=== PATIENT | male | born 1965 | race Caucasian/White ===

== ENCOUNTER 2020-05-30 11:02 | Emergency (ER) | payer OTHER, SELFPAY ==
[2020-05-30 11:02] VITALS: BP 145/93; PULSE 78; RESP 18; TEMP 36.6; O2SAT 99; BMI 31.7
--- NOTE | 2020-05-30 11:11 | VDLE_ITS ---
Reason For Study: Leg pain RIGHT GSV is normal. CFV is compressible, spontaneous, phasic, competent and demonstrates normal augmentation. FV is compressible, spontaneous, phasic, competent and demonstrates normal augmentation. POP V is compressible, spontaneous, phasic, competent and demonstrates normal augmentation. T/P Trunk is compressible. PTV is compressible. RT PerV is compressible. Procedure This is a venous duplex using B-mode, color flow and spectral Doppler. Exam performed portable in ED. A preliminary report was called and/or faxed to [facility]. Interpretation Summary There is no evidence of right lower extremity deep vein thrombosis. Right great saphenous vein appears patent and compressible segmentally. Ordering Physician: Janeth Kaufman Referring Physician: Dania Ro M.D. Performed By: Elisabeth Duffy RVT
--- NOTE | 2020-05-30 11:34 | ED.VIS.GEN ---
History of Present Illness Informant: Patient Onset: Days Narrative: 54-year-old male with no significant past medical history presents with complaints of right leg pain. 3 days ago he had muscle cramping in his right calf. No known injury. Yesterday he continued to have pain in his calf and developed swelling. He went to urgent care who sent him to the ED for an ultrasound to rule out a blood clot. He has no history of DVT/PE. Denies fevers, chills, rash, chest pain, shortness of breath, cough, hemoptysis, recent surgery or travel, hormone use, or history of cancer. <Janeth Kaufmna - Last Filed: 05/30/20 11:53> <Kenny Schmitt - Last Filed: 05/30/20 12:32> Chief Complaint: Lower Extremity Injury Past Medical History Past Medical History: None Smoking Status: Current every day smoker <Janeth Kaufman - Last Filed: 05/30/20 11:53> <Kenny Schmitt - Last Filed: 05/30/20 12:32> - Allergies and Home Meds Allergies/Adverse Reactions: Allergies No Known Allergies Allergy (Verified 05/30/20 11:21) Primary Care Physician: Dania oR MD [Primary Care Provider] - Review of Systems General: Denies: Chills, Fever, Sweats Eyes: Denies: Visual changes - bilaterally, Diplopia ENT: Denies: Rhinorrhea, Sore throat Cardiovascular: Denies: Chest pain, Palpitations Respiratory: Denies: Dyspnea, Cough, Dyspnea on exertion Gastrointestinal: Denies: Abdominal pain, Nausea, Vomiting, Diarrhea, Melena, Hematochezia Genitourinary: Denies: Dysuria, Hematuria, Frequency Musculoskeletal: Reports: Swelling, Extremity Pain. Denies: Back pain Skin: Denies: Rash, Wounds Neurological: Denies: Headache, Weakness, Numbness <Janeth Kaufman - Last Filed: 05/30/20 11:53> Physical Exam Vital Signs/Narrative: Vital Signs Temp Pulse Resp BP Pulse Ox 05/30/20 11:02 98 F 78 18 145/93 H 99 General: Well nourished, Well developed, No Acute Distress Head: Normocephalic, Atraumatic Eyes: Perrl, EOMI ENT: Moist mucous membranes, No rhinorrhea Neck: Supple, Nontender Cardiovascular: Regular rate, Regular rhythm, No murmurs Respiratory: No distress, CTA bilaterally, Chest nontender Back: Nontender, Normal Inspection Extremities: No edema, Calf Tenderness, - - Right calf tenderness. No palpable cord. No overlying skin changes. No appreciable lower extremity swelling Skin: Normal color, No rash Neurological: Alert, Oriented x3, Cranial nerves II-XII grossly intact, Normal Strength, Normal Sensation Psychological: Normal affect, Normal Mood <Janeth Kaufman - Last Filed: 05/30/20 11:53> Vital Signs/Narrative: Vital Signs Temp Pulse Resp BP Pulse Ox 05/30/20 11:02 98 F 78 18 145/93 H 99 <Kenny Schmitt - Last Filed: 05/30/20 12:32> Diagnostic/Tx/Re-eval - Medical Decision Making Patient presented with atraumatic right calf pain. He appears well and nontoxic. Vital signs within normal limits. He has right calf tenderness to palpation but no palpable cord. No skin changes or swelling. Neurovascularly intact. Ultrasound negative for DVT. He was advised to increase hydration and take OTC pain meds for his intermittent muscle cramping. Follow-up with PCP if not improving. He was agreeable and discharged home in stable condition. <Janeth Kaufman - Last Filed: 05/30/20 11:53> - Medical Decision Making The patient was seen and evaluated. His symptoms do seem more muscular. However, we did obtain ultrasound. There is no evidence of acute DVT. Patient was reassured. He will be discharged home. <Kenny Schmitt - Last Filed: 05/30/20 12:32> ED Disposition <Janeth Kaufman - Last Filed: 05/30/20 11:53> <Kenny Schmitt - Last Filed: 05/30/20 12:32> - Plan for ED Patient: Disposition: Home or Assisted Living Diagnosis: Right leg pain Instructions: ED Pain, Acute, Uncertain Cause Referrals: Dania Ro MD [Primary Care Provider] -
== END 2020-05-30 12:19 | disposition home or self-care (01) ==
LOC: ED 12:16
PROVIDERS: Emergency Provider Physician Assistant; PCP Family Medicine
DX: M79.604 Pain in right leg (principal); F17.200 Nicotine dependence, unspecified, uncomplicated
CPT/HCPCS: 93971; 99282

== ENCOUNTER 2022-06-07 12:14 | Day surgery (SDC) | payer BC, SELFPAY ==
[2022-06-07 12:44] VITALS: BP 125/96; PULSE 92; RESP 18; TEMP 37.9; O2SAT 95; BMI 33.8
[2022-06-07] MEDS: Lactated Ringers 1,000 ML 15 ML IV (12:57)
--- NOTE | 2022-06-07 13:30 | IMM_PTH ---
PATIENT: SUSAN AVALOS LOC: EN U#:[id number] AGE/SX: 56/M ROOM: RE06/07/[address]: Dr. Sukhdeep Archuleta MD : 1965 BED: DIS: 06/07/2022 SPEC #: [id number] RECD: 06/09/22 07:34 STATUS: DES REKaushal #: [id number] ANDRES: 06/07/22 13:[address]: Sukhdeep Archuleta DEPT: IMMUNOHISTOCHEMISTRY RECD BY: Lisa Dsailva ENTERED: 06/09/22 07:34 SP TYPE: IMMUNO OTHR DR: Sukhdeep Christensen, DINING SERVICE SUPERVISOR-C Tissues: A - Stomach, NOS Procedures: H Pylori (initial) PHYSICIAN & INSTITUTION [place] [id number] SPECIMEN INFORMATION: Tissue Source: A ? Antrum biopsy Clinical Info: Positive IFOBT, abdominal bloating, GERD Specimen Number: [id number] CPT code: 62429 METHODOLOGY: Deparaffinized sections of prefer/formalin-fixed tissue or PAP/DQ stained slides are incubated with monoclonal/polyclonal antibodies/oligonucleotide probes. Localization is made via biotin free immunoperoxidase method. Appropriate controls are performed and reacted as expected. Results on target cell population are indicated in the following table: RESULTS: ANTIBODY / CLONE RESULT Block A H Pylori (polyclonal) negative These tests were developed and their performance characteristics determined by [facility]. They may not have been cleared or approved by the U.S. Food and Drug Administration. The FDA has determined that such clearance or approval is not necessary. The above immunohistochemical/dualISH markers are ordered and reviewed by the Pathologist. INTERPRETATION: A. Antrum, biopsy: Negative for Helicobacter pylori organisms. SJ:andres 06/09/2022
--- NOTE | 2022-06-07 13:30 | EGD_PTH ---
PATIENT: SUSAN AVALOS LOC: EN U#:[id number] AGE/SX: 56/M ROOM: RE06/07/[address]: Dr. Sukhdeep Archuleta MD : 1965 BED: DIS: 06/07/2022 SPEC #: [id number] RECD: 06/07/22 15:13 STATUS: DES MORIS #: [id number] ANDRES: 06/07/22 13:[address]: Sukhdeep Archuleta DEPT: SURGICAL PATHOLOGY RECD BY: Keesha Quesada ENTERED: 06/08/22 09:25 SP TYPE: EGD BIOPSY OTHR DR: Sukhdeep Christensen, CAPACITY MANAGER-C Tissues: A - Gastric mucous membrane B - Esophagus, NOS C - Sigmoid colon biopsy Procedures: Surgery Specimen Level IV HEADER OPERATION: Colonoscopy, EGD ([facility] [place]), biopsy PRE-OP DIAGNOSIS: Positive IFOBT, abdominal bloating, GERD TISSUE SUBMITTED: A ? Antrum biopsy for histo and H. pylori, B ? Distal esophagus biopsy, C ? Sigmoid polyp biopsy MICROSCOPIC DIAGNOSIS A. Antrum, biopsy: Mild gastritis. See microscopic description and comment. B. Distal esophagus, biopsy: Fragments of squamous mucosa with minimal chronic inflammation. C. Sigmoid polyp, biopsy: Hyperplastic polyp. SJ:rg 06/09/2022 COMMENT A. The results of immunohistochemistry for Helicobacter pylori will be reported separately ([id number]). MICROSCOPIC DESCRIPTION Slides are reviewed. A. The specimen shows fragments of gastric mucosa with chronic inflammatory cell infiltrates in the lamina propria consisting of lymphocytes and plasma cells, consistent with mild chronic gastritis. GROSS DESCRIPTION A - Received in fixative is one container labeled with the patient's name and designated antrum biopsy. The specimen consists of one irregular fragment of light jerez soft tissue that measures 0.4 x 0.3 x 0.1 cm. The specimen is totally submitted in one cassette. B - Received in fixative is one container labeled with the patient's name and designated distal esophagus biopsy. The specimen consists of multiple irregular fragments of light jerez soft tissue that in aggregate measure 0.6 x 0.6 x 0.1 cm. The specimen is totally submitted in one cassette. C - Received in fixative is one container labeled with the patient's name and designated sigmoid polyp biopsy. The specimen consists of one irregular fragment of light jerez soft tissue that measures 0.3 x 0.3 x 0.1 cm. The specimen is totally submitted in one cassette. / SJ:rg 06/08/2022 TC:3 CPT: 97997 x3
--- NOTE | 2022-06-07 13:44 | HP.PCM_ITS ---
History and Physical Date of Admission: 06/07/22 HISTORY AND PHYSICAL ? Boone Flores 1965 ? REFERRING PHYSICIAN: Yobany Fitzgerald APRN.ELECTRICAL MAINTENANCE WORKER ? CHIEF COMPLAINT: Consult (GERD and abdomen bloating) ? HPI: The patient is a 56 year old male referred for endoscopy. Boone notes a recent history of abdominal bloating and GERD. He was initiated on omeprazole recently which he states is helping with the reflux significantly, but still feels full and bloated often. ? Patient denies any change in bowel habits, weight changes, visible blood in stools, black tarry stools or abdominal pain. Denies family history of colon issues. ? Of note, patient had stool iFOBT in 2020 which was positive for occult blood. Patient did not pursue further evaluation at that time. ? Patient's past medical history is significant for tobacco use. Patient was evaluated in July 2021 for chest discomfort. Saw cardiology and had stress echo which was unremarkable. Per patient those symptoms completely went away after starting treatment for reflux. ? Boone has not undergone prior endoscopy. ? PAST MEDICAL HISTORY PAST MEDICAL HISTORY Diagnosis Date ? Acid reflux ? ? Tobacco use disorder 09/01/2020 ? ? PAST SURGICAL HISTORY PAST SURGICAL HISTORY Procedure Laterality Date ? PERCUTANEOUS LUMBAR DISKECTOMY Bilateral 2009 ? REPAIR ING HERNIA,5+Y/O,REDUCIBL Left 2008 ? ? ? CURRENT MEDICATIONS Current Outpatient Medications Medication Sig ? omeprazole (PRILOSEC) 20 mg capsule Take 2 capsules by mouth daily before breakfast. 1/2 hr before meal. ? No current facility-administered medications for this visit. ? ? ALLERGIES: Patient has no known allergies. ? PERSONAL HISTORY: SOCIAL HISTORY Social History ? Tobacco Use ? Smoking status: Every Day ? ? Packs/day: 2.00 ? ? Years: 32.00 ? ? Pack years: 64.00 ? ? Types: Cigarettes ? Smokeless tobacco: Never Vaping Use ? Vaping Use: Never used Substance Use Topics ? Alcohol use: Yes ? ? Alcohol/week: 12.0 standard drinks ? ? Types: 12 Cans of Beer (12oz) per week ? ? Comment: 2-3 per night ? Drug use: No ? ? FAMILY HISTORY: FAMILY HISTORY FAMILY HISTORY Problem Relation Age of Onset ? other (Bone cancer) Mother ? ? No Known Problems Father ? ? Cancer Maternal Grandmother ? ? Uterine ? No Known Problems Maternal Grandfather ? ? No Known Problems Paternal Grandmother ? ? No Known Problems Paternal Grandfather ? ? Rheumatologic disease Half-brother ? ? RA ? ? REVIEW OF SYSTEMS: General: The patient denies fatigue, denies weight loss, denies weight gain, notes feeling hot, and denies feelings of cold. Eyes: The patient denies glaucoma, denies eye injury/surgery, wears glasses or contacts. Ear/Nose/Throat: The patient denies allergies, denies hayfever, denies ear infections, and denies bloody noses. Cardiovascular: The patient denies chest pain, denies heart disease, denies high blood pressure,denies cardiac stent, denies prior heart attack, denies irregular heart beat, denies high cholesterol, denies poor circulation, denies heart failure, other cardiac issues, denies claudication, denies cold feet, denies peripheral arterial stent. Respiratory: The patient denies tuberculosis, denies pneumonia, denies frequent cough, denies pulmonary embolism, denies shortness of breath, and denies coughing up blood. Gastrointestinal: The patient denies difficulty swallowing, notes acid reflux, denies ulcers, denies vomiting, denies jaundice/hepatitis, denies gallbladder problems, denies black or tarry stools, denies hemorrhoids, denies bleeding from rectum, denies diverticulitis, denies constipation, denies diarrhea, denies loss of stool control, and notes hernias. Kidney/Bladder: The patient denies kidney stones, denies urine infections, and denies bloody urine. Skin: The patient denies a history of skin cancer, denies bleeding/changing moles, and denies a history of skin rash. Neurologic: The patient denies a history of epilepsy/convulsions, denies headaches, denies head/spinal injuries, and denies stroke/TIA. Psychiatric: The patient denies psychiatric medications, denies depression, and denies voices, denies substance abuse. Endocrine: The patient denies thyroid disorders, denies diabetes, and denies hormonal problems. Hematologic: The patient denies a history of bruising, denies bleeding, and denies anemia, denies blood clots. Infections: The patient denies a history of measles and mumps, denies rheumatic fever, and denies sexually transmitted diseases. Musculoskeletal: The patient denies back pain/injury, notes back problems, denies sciatica, denies knee/foot trouble, denies arthritis, or denies gout. ? ? When was patient's last Mammogram screening? N/A ? Last Colonoscopy: none I have confirmed and edited as necessary, the PFSH and ROS obtained by others. Goldie Saxena PA-C ? PHYSICAL EXAMINATION: ? General: The patient is 56 year old male, well nourished, well hydrated in no acute distress. The patient is oriented to time, place, and person. ? VITALS: Blood pressure 150/96, pulse 98, temperature 36.2 ?C (97.2 ?F), height 180.3 cm (5' 11), weight 110.7 kg (244 lb), SpO2 98 %. Body mass index is 34.03 kg/m?. ? HEENT: Normal cephalic, ataumatic, pupils are equally round, sclera are anicteric, mucous membranes are moist, oropharynx is clear. Neck has no masses, asymmetry or lymphadenopathy. ? Respiratory: Clear to auscultation and percussion. Normal respiratory excursion and pattern. ? Cardiac: Examination is regular rate and rhythm. Normal S1/S2 ? Abdominal exam: Soft, nontender, with no palpable masses. No hepatosplenomegaly. No palpable hernias. ? Extremities: no clubbing, cyanosis or edema. No adenopathy. ? LABORATORY VALUES: As Noted ? RADIOLOGIC STUDIES: As Noted ? ? Assessment IMPRESSION: positive iFOBT, abdominal bloating, GERD ? PLAN: I have reviewed my findings with the surgeon. Will plan for upper and lower endoscopy. We discussed the risks and benefits of the planned endoscopy. I have informed the patient that complications can occur including failure to complete the endoscopy and perforation. The patient had the opportunity to ask questions concerning the planned endoscopy. My staff has also explained the procedure to the patient in understandable terms and has given the patient printed material concerning the procedure. The patient freely consents to surgery. ? The patient was offered a surgery/procedure at a [facility]. I have counseled the patient regarding the risk of exposure to and/or potential harm posed by the COVID-19 virus with having a surgery/procedure at this time versus the risk of? delaying the surgery/procedure. It is not possible to know either the risk of delaying the surgery or procedure or chance of getting an infection with perfect accuracy, but a joint decision was made between the patient and myself?to proceed at this time with endoscopy. ? ? I plan to use Golytely bowel preparation ? I have explained to the patient the difference between IV conscious sedation and MAC anesthesia - and I have offered either, according to the patient's wishes. I have explained that with IV conscious sedation there is no anesthesia provider available and therefore there is a limitation of the amount of IV medications that can be given and that the patient may wake up in the middle of the procedure and/or experience pain/discomfort during the procedure. Further discussion was done and the patient was given the opportunity to ask questions and all questions were answered. The patient chooses MAC anesthesia and requests [facility] ? Diagnoses: (R19.5) Positive fecal occult blood test (primary encounter diagnosis) (K21.9) GERD without esophagitis (R14.0) Abdominal bloating (Z12.11) Screening for colon cancer ? Consultation requested by Yobany Fitzgerald CNP for an opinion regarding positive iFOBT and abdominal complaints. My final recommendations will be communicated back to the requesting physician by way of shared Medical record or letter to requesting physician via US mail. ? Goldie Saxena PA-C ? I have examined the patient and the H&P has been reviewed. There are no clinical changes since date of exam.
[2022-06-07 14:25] VITALS: BP 114/85; BP 125/96; PULSE 91; RESP 16; TEMP 36.9; O2SAT 16
[2022-06-07 14:30] VITALS: BP 111/87; BP 125/96; PULSE 79; RESP 16; O2SAT 94
--- NOTE | 2022-06-07 14:31 | OP.CCLET_ITS ---
06/07/2022 Annabelle De La Torre Re : Upper GI endoscopy procedure for Boone Christensen This procedure was performed on Tuesday, June 07, 2022. My impressions and recommendations are as follows: Impressions : - Normal nasopharynx. - Z-line regular, 45 cm from the incisors. Biopsied. - Normal stomach. Biopsied. - Normal first portion of the duodenum, second portion of the duodenum, third portion of the duodenum, fourth portion of the duodenum and examined duodenum. No specimens collected. Recommendations : - Patient has a contact number available for emergencies. The signs and symptoms of potential delayed complications were discussed with the patient. Return to normal activities tomorrow. Written discharge instructions were provided to the patient. - Resume previous diet. - Continue present medications. - Await pathology results. - Repeat upper endoscopy PRN for surveillance. - Return to physician medical office assistant in 1 week. My findings are described in the full procedure note, which is enclosed. If I can be of further assistance, please feel free to contact me at Doctor phone number(s): , Work: . Sincerely, MD Sukhdeep Weaver MD 06/07/2022 2:31:20 PM This report has been signed electronically.
--- NOTE | 2022-06-07 14:31 | OP.EGD_ITS ---
Patient Name: Boone Flores Procedure Date: 06/07/2022 1:37 PM Date of : 1965 Age: 56 Procedure: Upper GI endoscopy Indications: Heartburn, Gastro-esophageal reflux disease Providers: Sukhdeep Archuleta MD Medicines: See the Anesthesia note for documentation of the administered medications Patient Profile: This is a 56 year old male. Refer to note in patient chart for documentation of history and physical. Complications: No immediate complications. Estimated blood loss: Minimal. Procedure: Pre-Anesthesia Assessment: - Prior to the procedure, a History and Physical was performed, and patient medications and allergies were reviewed. The patient's tolerance of previous anesthesia was also reviewed. The risks and benefits of the procedure and the sedation options and risks were discussed with the patient. All questions were answered, and informed consent was obtained. Prior Anticoagulants: The patient has taken no previous anticoagulant or antiplatelet agents. ASA Grade Assessment: III - A patient with severe systemic disease. After reviewing the risks and benefits, the patient was deemed in satisfactory condition to undergo the procedure. After obtaining informed consent, the endoscope was passed under direct vision. Throughout the procedure, the patient's blood pressure, pulse, and oxygen saturations were monitored continuously. The colonoscope was introduced through the mouth, and advanced to the fourth part of duodenum. The upper GI endoscopy was accomplished without difficulty. The patient tolerated the procedure well. Scope In: 1:54:20 PM Scope Out: 2:00:22 PM Total Procedure Duration Time 0 hours 6 minutes 2 seconds Findings: The nasopharynx was normal. The Z-line was regular and was found 45 cm from the incisors. Biopsies were taken with a cold forceps for histology. The entire examined stomach was normal. Biopsies were taken with a cold forceps for Helicobacter pylori testing. The first portion of the duodenum, second portion of the duodenum, third portion of the duodenum, fourth portion of the duodenum and examined duodenum were normal. No biopsies or other specimens were collected for this exam. Impression: - Normal nasopharynx. - Z-line regular, 45 cm from the incisors. Biopsied. - Normal stomach. Biopsied. - Normal first portion of the duodenum, second portion of the duodenum, third portion of the duodenum, fourth portion of the duodenum and examined duodenum. No specimens collected. Recommendation: - Patient has a contact number available for emergencies. The signs and symptoms of potential delayed complications were discussed with the patient. Return to normal activities tomorrow. Written discharge instructions were provided to the patient. - Resume previous diet. - Continue present medications. - Await pathology results. - Repeat upper endoscopy PRN for surveillance. - Return to physician retail assistant manager in 1 week. Procedure Code(s): --- Professional --- 72735, Esophagogastroduodenoscopy, flexible, transoral; with biopsy, single or multiple Diagnosis Code(s): --- Professional --- R12, Heartburn K21.9, Gastro-esophageal reflux disease without esophagitis CPT copyright 2017 [employer]. All rights reserved. The codes documented in this report are preliminary and upon recycling tech review may be revised to meet current compliance requirements. MD Sukhdeep Weaver MD 06/07/2022 2:31:20 PM This report has been signed electronically. Number of Addenda: 0 Note Initiated On: 06/07/2022 1:37 PM
[2022-06-07 14:35] VITALS: BP 125/96; BP 126/85; PULSE 78; RESP 16; O2SAT 92
--- NOTE | 2022-06-07 14:36 | OP.COLON_ITS ---
Patient Name: Boone Flores Procedure Date: 06/07/2022 2:00 PM Date of : 1965 Age: 56 Procedure: Colonoscopy Indications: Heme positive stool Providers: Sukhdeep Archuleta MD Medicines: See the Anesthesia note for documentation of the administered medications Patient Profile: This is a 56 year old male. Refer to note in patient chart for documentation of history and physical. Last Colonoscopy: none. The patient's first colonoscopy is today. Complications: No immediate complications. Estimated blood loss: Minimal. Procedure: Pre-Anesthesia Assessment: - Prior to the procedure, a History and Physical was performed, and patient medications and allergies were reviewed. The patient's tolerance of previous anesthesia was also reviewed. The risks and benefits of the procedure and the sedation options and risks were discussed with the patient. All questions were answered, and informed consent was obtained. Prior Anticoagulants: The patient has taken no previous anticoagulant or antiplatelet agents. ASA Grade Assessment: III - A patient with severe systemic disease. After reviewing the risks and benefits, the patient was deemed in satisfactory condition to undergo the procedure. After I obtained informed consent, the scope was passed under direct vision. Throughout the procedure, the patient's blood pressure, pulse, and oxygen saturations were monitored continuously. The colonoscope was introduced through the anus and advanced to the cecum, identified by appendiceal orifice and ileocecal valve. The colonoscopy was performed without difficulty. The patient tolerated the procedure well. The quality of the bowel preparation was unsatisfactory. Scope In: 2:02:21 PM Scope Withdrawal Time 0 hours 10 minutes 37 seconds Scope Out: 2:17:53 PM Total Procedure Duration Time 0 hours 15 minutes 32 seconds Findings: The perianal and digital rectal examinations were normal. Copious quantities of semi-liquid semi-solid stool was found in the entire colon, precluding visualization. Lavage of the area was performed using copious amounts of normal saline, resulting in incomplete clearance with continued poor visualization. Non-bleeding internal hemorrhoids were found during retroflexion. The hemorrhoids were mild and small. A small polyp was found in the sigmoid colon. The polyp was sessile. The polyp was removed with a jumbo cold forceps. Resection and retrieval were complete. Impression: - Preparation of the colon was unsatisfactory. - Stool in the entire examined colon. - Non-bleeding internal hemorrhoids. - One small polyp in the sigmoid colon, removed with a jumbo cold forceps. Resected and retrieved. Recommendation: - Patient has a contact number available for emergencies. The signs and symptoms of potential delayed complications were discussed with the patient. Return to normal activities tomorrow. Written discharge instructions were provided to the patient. - Resume previous diet. - Continue present medications. - Await pathology results. - Repeat colonoscopy within 3 months because the bowel preparation was poor. - Return to physician corporate legal assistant in 1 week. Procedure Code(s): --- Professional --- 19373, Colonoscopy, flexible; with biopsy, single or multiple Diagnosis Code(s): --- Professional --- K64.8, Other hemorrhoids D12.5, Benign neoplasm of sigmoid colon R19.5, Other fecal abnormalities CPT copyright 2017 [employer]. All rights reserved. The codes documented in this report are preliminary and upon loss prevention coordinator review may be revised to meet current compliance requirements. MD Sukhdeep Weaver MD 06/07/2022 2:36:29 PM This report has been signed electronically. Number of Addenda: 0 Note Initiated On: 06/07/2022 2:00 PM
--- NOTE | 2022-06-07 14:36 | OP.CCLET_ITS ---
06/07/2022 Annabelle De La Torre Re : Colonoscopy procedure for Boone Christensen This procedure was performed on Tuesday, June 07, 2022. My impressions and recommendations are as follows: Impressions : - Preparation of the colon was unsatisfactory. - Stool in the entire examined colon. - Non-bleeding internal hemorrhoids. - One small polyp in the sigmoid colon, removed with a jumbo cold forceps. Resected and retrieved. Recommendations : - Patient has a contact number available for emergencies. The signs and symptoms of potential delayed complications were discussed with the patient. Return to normal activities tomorrow. Written discharge instructions were provided to the patient. - Resume previous diet. - Continue present medications. - Await pathology results. - Repeat colonoscopy within 3 months because the bowel preparation was poor. - Return to physician liaison inspection laboratory assistant in 1 week. My findings are described in the full procedure note, which is enclosed. If I can be of further assistance, please feel free to contact me at Doctor phone number(s): , Work: . Sincerely, MD Sukhdeep Weaver MD 06/07/2022 2:36:29 PM This report has been signed electronically.
[2022-06-07 14:40] VITALS: BP 124/86; BP 125/96; PULSE 71; RESP 16; TEMP 36.8; O2SAT 97
[2022-06-07 15:08] VITALS: BP 125/96
== END 2022-06-07 15:22 | disposition home or self-care (01) ==
LOC: EN 12:16 → AC 12:18
PROVIDERS: PCP Nurse Practitioner Family; Referring Provider Nurse Practitioner Family; Visit Provider Surgery
PROC: 0DJD8ZZ Inspection of Lower Intestinal Tract, Via Natural or Artificial Opening Endoscopic (ICD-10-PCS; CPT 45378; principal; 2022-06-07 13:25)
DX: Z12.11 Encounter for screening for malignant neoplasm of colon (principal); K64.8 Other hemorrhoids; F17.210 Nicotine dependence, cigarettes, uncomplicated; K63.5 Polyp of colon; K29.50 Unspecified chronic gastritis without bleeding; K21.00 Gastro-esophageal reflux disease with esophagitis, without bleeding; Z79.899 Other long term (current) drug therapy
CPT/HCPCS: 45380; 43239; 87428; 88305; 88342; J7120; J2405

== ENCOUNTER → 2022-11-29 | Outpatient (CLI) | payer BC, SELFPAY | END | disposition home or self-care (01) | LOC: SL 11-30 12:30 | PROVIDERS: PCP Internal Medicine; Referring Provider Clinical Nurse Specialist; Visit Provider Clinical Nurse Specialist | DX: G47.33 Obstructive sleep apnea (adult) (pediatric) (principal); R09.02 Hypoxemia | CPT/HCPCS: 95811 ==

== ENCOUNTER → 2023-01-05 | Outpatient (CLI) | payer BC, SELFPAY | END | disposition home or self-care (01) | LOC: SL 13:15 | PROVIDERS: PCP Internal Medicine; Visit Provider Internal Medicine | DX: Z46.89 Encounter for fitting and adjustment of other specified devices (principal) ==

== ENCOUNTER 2025-05-04 17:58 | Emergency (ER) | payer BC, SELFPAY ==
[2025-05-04] VITALS (25 sets, daily range): BP systolic 119–174; BP diastolic 83–142; PULSE 56–78; RESP 15–23; TEMP 36.8; O2SAT 94–99; BMI 31.5; BMI 33.1
--- NOTE | 2025-05-04 18:38 | EKG12_ITS ---
Test Reason : Blood Pressure : */* mmHG Vent. Rate : 69 BPM Atrial Rate : 69 BPM P-R Int : 168 ms QRS Dur : 104 ms QT Int : 374 ms P-R-T Axes : 52 -26 33 degrees QTcB Int : 400 ms Normal sinus rhythm Incomplete right bundle branch block Borderline ECG Confirmed by ALEXIS HERNANDEZ, EFRAÍN ([id number]), editor city MARGRET UYEN ([id number]) on 05/06/2025 9:13:55 AM Referred By: Confirmed By: EFRAÍN ESPINOZA MD
--- NOTE | 2025-05-04 18:38 | CT_ITS ---
PROCEDURE: CTA HEAD AND NECK W/ CONTRAST 05/04/2025 REASON FOR EXAM: HEADACHE, LIGHTHEADEDNESS TECHNIQUE: Procedure Code: CTCTA.HDNCK Modality: CT Procedure: CTA HEAD AND NECK W/ CONTRAST Multiplanar Sagittal and Coronal images were obtained. CONTRAST: 100 cc of Isovue 370 One or more dose reduction techniques were used (e.g., Automated exposure control, adjustment of the mA and/or kV according to patient size, use of iterative reconstruction technique). COMPARISON: CT head 05/04/2025 FINDINGS: Aortic Arch: Normal size and branching pattern. No significant atherosclerotic plaque. Brachiocephalic and Subclavians: Unremarkable RIGHT Carotid: Right CCA: Unremarkable. Right ICA: Mild calcified and soft plaque. Maximum stenosis (NASCET): n/a Right ECA: Unremarkable. LEFT Carotid: Left CCA: Unremarkable. Left ICA: Mild calcified and soft plaque. Maximum stenosis (NASCET): n/a Left ECA: Unremarkable. Vertebrals: Codominant. Arise from the subclavians. Both vertebrals form the basilar. RIGHT Vertebral: Unremarkable. LEFT Vertebral: Unremarkable. Anatomy: [employer] Early anatomy is normal. Aneurysm or avm: No intracranial aneurysms or large vascular malformations are identified. Anterior cerebral arteries: Unremarkable: Middle cerebral arteries: Unremarkable. Basilar artery: Unremarkable. Posterior cerebral arteries: Unremarkable. Other major branches of the posterior circulation: Unremarkable. Major venous structures: Unremarkable. Other findings: Neck: No lymphadenopathy. Lungs: Lung apices are clear. Bones: Bones are unremarkable. CT/CTA Head AND Neck W/ Contrast IMPRESSION: Unremarkable CT angiogram of the head and neck with no evidence of occlusion or hemodynamically significant stenosis. Reading [facility]
--- NOTE | 2025-05-04 18:38 | CT_ITS ---
PROCEDURE: BRAIN/HEAD WITHOUT CONTRAST 05/04/2025 REASON FOR EXAM: HEADACHE LIGHTHEADEDNESS TECHNIQUE: Procedure Code: CTBR Modality: CT Procedure: BRAIN/HEAD WITHOUT CONTRAST Coronal and Sagittal reconstruction series were provided. One or more dose reduction techniques were used (e.g., Automated exposure control, adjustment of the mA and/or kV according to patient size, use of iterative reconstruction technique. RADIATION DOSE SUMMARY: CTDlvol: 63 mGy DLP: 1689 mGycm FINDINGS: No intracranial mass. No intracranial hemorrhage. No edema. CT/Brain/Head without Contrast IMPRESSION: Negative noncontrast CT study of the brain Reading [facility]
[2025-05-04] MEDS: 0.9% Normal Saline (1000mL) 1,000 ML 1000 ML IV (18:45)
[2025-05-04 18:48] LABS: Hematocrit 42.4 % (40-54); Hemoglobin 14.3 g/dL (13.0-16.5); Immature Granulocytes Count 0.050 X10^3/uL (0.0-0.0); Mean Corp Hgb Conc 33.7 g/dL (32-36); Mean Corpuscular Volume 96.4 fL (80-94); Mean Platelet Vol. 10.2 fl (6.2-12.0); NRBC Flagged by Analyzer 0 % (0-5); Platelet Count 162 K/mm3 (150-450); RBC Distribution Width CV 12.8 % (11.6-14.6); RBC Distribution Width SD 46.0 fl (35.1-43.9); Red Blood Count 4.40 M/mm3 (4.6-6.2); White Blood Count 7.9 K/mm3 (4.4-11.0)
--- OUTSIDE RECORDS SUMMARY | 2025-05-04 18:50 | XMS RPT_ITS | CCD ---
Author Organization [facility] Care Team Providers Care Fine Arts Model Name Role Phone Amparo PROPERTY CLAIMS ADJUSTER.ELECTRIC SCOOP OPERATOR, DNP, Sukhdeep Primary Care Provider Rico Pinedo MD Primary Care Provider Unavailable Primary Care Provider UnavailRico Dubose MD Primary Care Provider Unavailable Primary Care Provider UnavailAustin Magaña MD Primary Care Provider Amparo FOOD OR BAGGAGE HANDLING RAMPMAN, Sukhdeep Referring Unavailable Sukhdeep eH Attending Unavailable Amparo FOOD OR BAGGAGE HANDLING RAMPMAN, Sukhdeep Primary Care Unavailable Talampas, Austin D Primary Care Unavailable Stevan FOOD OR BAGGAGE HANDLING RAMPMAN, Rocky Attending Unavailable Stevan FOOD OR BAGGAGE HANDLING RAMPMAN, Rocky Referring Unavailable Talampas, Austin D Primary Care Unavailable Talampas, Austin D Attending Unavailable Talampas, Austin D Primary Care Unavailable Pooja FOOD OR BAGGAGE HANDLING RAMPMAN, Merrill Brown Attending Unavailable Amparo FOOD OR BAGGAGE HANDLING RAMPMAN, Sukhdeep Referring Unavailable Darrian HERNANDEZ Austin D Primary Care Provider Amparo PROPERTY CLAIMS ADJUSTER.ELECTRIC SCOOP OPERATOR, DNP, Sukhdeep Primary Care Provider Calles PROPERTY CLAIMS ADJUSTER.SOLAR INSTALLER TECHNICIAN, Rocky Unavailable Roney PROPERTY CLAIMS ADJUSTER.ELECTRIC SCOOP OPERATOR, Stephanie Unavailable Roney PROPERTY CLAIMS ADJUSTER.ELECTRIC SCOOP OPERATOR, Stephanie Unavailable Calles PROPERTY CLAIMS ADJUSTER.SOLAR INSTALLER TECHNICIAN, Rocky Unavailable HARPSTER, ROSIE Referring Unavailable TALAMPAS, AUSTIN D Primary Care Unavailable HARPSTER ROSIE Attending Unavailable HARPSTER, ROSIE Referring Unavailable TALAMPAS, AUSTIN D Primary Care Unavailable YOBANY GLOVER Attending Unavailable TALAMPAS, AUSTIN D Primary Care Unavailable TALAMPAS, AUSTIN D Referring Unavailable TALAMPAS, AUSTIN D Primary Care Unavailable CALLESROCKY Attending Unavailable TALAMPAS, AUSTIN D Primary Care Unavailable SANDI ARORA Attending Unavailable CALLES, ROCKY Referring Unavailable TALAMPAS, AUSTIN D Primary Care Unavailable CALLES, ROCKY Referring Unavailable TALAMPAS, AUSTIN D Primary Care Unavailable CALLES, ROCKY Referring Unavailable TALAMPAS, AUSTIN D Primary Care Unavailable SUKHDEEP HE Attending Unavailable SANDI ARORA Referring Unavailable TALAMPAS, AUSTIN D Primary Care Unavailable SANDI ARORA Attending Unavailable TALAMPAS, AUSTIN D Primary Care Unavailable MANUEL CHAU JR Referring Unavailable TALAMPAS, AUSTIN D Primary Care Unavailable MERRILL PATTON Attending Unavailable MERRILL PATTON Referring Unavailable TALAMPAS, AUSTIN D Primary Care Unavailable CALLES, ROCKY Referring Unavailable TALAMPAS, AUSTIN D Primary Care Unavailable TALAMPAS, AUSTIN D Attending Unavailable TALAMPAS, AUSTIN D Primary Care Unavailable Medications Current Medications Medication Drug Class(es) Dates Sig (Normalized) Sig (Original) bisacodyl 5 mg delayed release oral tablet (6 sources) Stimulant Laxative Start: 09-17-2020 End: 04-12-2022 Bisacodyl (DULCOLAX) 5 mg tab Indications: Blood in stool Use as directed for Miralax / Gatorade Bowel Prep Kit 4 tablet 0 09/17/2020 04/12/2022 Discontinued (Course of therapy completed) Comment on above: Use as directed for Miralax / Gatorade Bowel Prep Kit 12 hr buPROPion hydrochloride 150 mg extended release oral tablet (4 sources) Aminoketone Start: 10-15-2024 End: 10-15-2025 take 1 tablet by mouth twice daily buPROPion SR (WELLBUTRIN SR) 150 mg 12 hr tablet Take 1 tablet by mouth two times a day. 180 tablet 3 10/15/2024 10/15/2025 Active CPAP/BIPAP/OTHER (20 sources) Start: 04-16-2024 End: 09-01-2051 CPAP/BIPAP/OTHER Auto CPAP 6-11 cmH2O DME [employer] 1 Each 04/16/2024 09/01/2051 Active Start: 10-10-2023 End: 04-16-2024 CPAP/BIPAP/OTHER Type .CPAPS ettings into a note to see current settings/supplies/DME information. 1 Each 10/10/2023 04/16/2024 Discontinued Start: 10-10-2023 End: 02-24-2051 CPAP/BIPAP/OTHER Type .CPAPS ettings into a note to see current settings/supplies/DME information. 1 Each 0 10/10/2023 02/24/2051 Active Gatorade Sports Drink (6 sources) Start: 09-17-2020 End: 04-12-2022 Gatorade Sports Drink Indica tions: Blood in stool Use as directed for Miralax / Gatorade Bowel Prep Kit 64 oz 0 09/17/2020 04/12/2022 Discontinued (Course of therapy completed) Start: 09-17-2020 Gatorade Sport s Drink Indications: Blood in stool Use as directed for Miralax / Gatorade Bowel Prep Kit 64 oz 0 09/17/2020 Active Comment on above: Use as directed for Miralax / Gatorade Bowel Prep Kit ketorolac tromethamine 10 mg oral tablet (1 source) Nonsteroidal Anti-inflammatory Drug, Cyclooxygenase Inhibitor Start: 2023 End: 2023 take 1 tablet by mouth every six hours as needed keTORolac (TORADOL) 10 mg tablet Take 1 tablet by mouth every 6 hours as needed for up to 7 days. 20 tablet 0 12/05/2023 12/12/2023 Active methylPREDNISolone (6 sources) Corticosteroid Start: 2008 End: 2021 METHYLPREDNISOLONE 4 MG TABS IN A DOSE PACK Indications: Unspecified aftercare , Rash, skin as directed 1 pack 0 06/05/2009 04/12/2022 Discontinued (Course of therapy completed) Start: 06-05-2009 METHYLPREDNISO LONE 4 MG TABS IN A DOSE PACK Indications: Unspecified aftercare , Rash, skin as directed 1 pack 0 06/05/2009 Active Comment on above: as directed naproxen 500 mg oral tablet (6 sources) Nonsteroidal Anti-inflammatory Drug Start: 11-11-19 End: 04-12-20 take 1 tablet by mouth twice daily as needed for pain naproxen (NAPROSYN) 500 mg tablet Indications: Bilateral tennis elbow TAKE 1 TABLET BY MOUTH TWICE DAILY NEEDED (PAIN/INFLAMMATION, TAKE WITH FOOD.). 60 tablet 1 11/10/2020 04/12/2022 Discontinued (Course of therapy completed) Comment on above: TAKE 1 TABLET BY LOTTIE TH TWICE DAILY NEEDED (PAIN/INFLAMMATION, TAKE WITH FOOD.). omeprazole 40 mg delayed release oral capsule (20 sources) Proton Pump Inhibitor Start: 08-17-19 End: 04-16-20 take 1 capsule by mouth once daily before breakfast omeprazole (PRILOSEC) 40 mg capsule Indications: GERD without esophagitis Take 1 capsule by mouth daily before breakfast. 1/2 hr before meal. 90 capsule 3 04/16/2024 Active Start: 06-03-2022 take 20 mg by mouth once daily Omeprazole Active 20 MG PO DAILY June 03, 2022 12:00am Start: 07-29-2021 End: 08-24-2022 take 2 capsules by mouth once daily before breakfast omeprazole (PRILOSEC) 20 mg capsule Indications: GERD without esophagitis , Tobacco use disorder Take 2 capsules by mouth daily before breakfast. 1/2 hr before meal. 60 capsule 0 06/25/2022 08/17/2022 Discontinued Comment on above: Take 2 capsules by m outh daily before breakfast. 1/2 hr before meal. Take 1 capsule by mo uth daily before breakfast. 1/2 hr before meal. perflutren lipid microspheres 1.3 mL in NaCl (PF) 0.9% 10 mL injection (DEFINITY) (1 source) Start: 11-25-2023 End: 12-02-2023 perflutren lipid microspheres 1.3 mL in NaCl (PF) 0.9% 10 mL injection (DEFINITY) polyethylene glycol 3350 65777 mg powder for oral solution (6 sources) Osmotic Laxative Start: 09-17-2020 End: 04-12-2022 polyethylene glycol 3350 (MIRALAX, GLYCOLAX) 17 gram/dose powder Indications: Blood in stool Use as directed for Miralax / Gatorade Bowel Prep Kit 238 g 0 09/17/2020 04/12/2022 Discontinued (Course of therapy completed) Comment on above: Use as directed for Miralax / Gatorade Bowel Prep Kit polyethylene glycol 3350 174418 mg / potassium chloride 2970 mg / sodium bicarbonate 6740 mg / sodium chloride 5860 mg / sodium sulfate 93747 mg powder for oral solution (2 sources) Osmotic Laxative Start: 10-24-2024 End: 10-24-2024 peg 3350-Electrolytes (GOLYTELY) 236-22.74-6.74 -5.86 gram suspension Indications: Screening for colon cancer Take 4,000 mL by mouth one time only for 1 dose. Refer to printed prep instructions from your provider. 4000 mL 10/24/2024 10/24/2024 Active Start: 04-14-2022 End: 04-14-2022 peg 3350-Electrolytes (GOLYT RAMU) 236-22.74-6.74 -5.86 gram suspension Take 4,000 mL by mouth one time only for 1 dose. 1 Each 0 04/14/2022 04/14/2022 Active Comment on above: Take 4,000 mL by lottie th one time only for 1 dose. sucralfate 1000 mg oral tablet (20 sources) Aluminum Complex Start: 06-16-2022 End: 04-16-2024 take 1 tablet by mouth at bedtime as needed sucralfate (CARAFATE) 1 gram tablet Indications: GERD without esophagitis Take one tablet by mouth before meals and at bedtime as needed 100 tablet 3 04/16/2024 Active Comment on above: Take one tablet by m outh before meals and at bedtime as needed Completed/Discontinued Medications Medication Drug Class(es) Dates Sig (Normalized) Sig (Original) amLODIPine 2.5 mg oral tablet (15 sources) Dihydropyridine Calcium Channel Nury Start: 3 End: 3 take 1 tablet by mouth once daily amLODIPine (NORVASC) 2.5 mg tablet Indications: Primary hypertension Take 1 tablet by mouth once daily. 90 tablet 3 10/08/2022 03/25/2023 Discontinued Comment on above: Take 1 tablet by lottie th once daily. calcium chloride 0.0014 meq/ml / potassium chloride 0.004 meq/ml / sodium chloride 0.103 meq/ml / sodium lactate 0.028 meq/ml injectable solution (1 source) Start: 5 End: 5 take 30 mL intravenously every hour 30 mL/hr, INTRAVENOUS, CONTINUOUS, Starting on Tue12/03/24 at 0930, Until Tue12/03/24 at 1105, Preprocedure diphenhydrAMINE (1 source) Histamine-1 Receptor Antagonist Start: 5 End: 5 12.5-50 mg, INTRAVENOUS, DIRECTED, Starting on Tue12/03/24 at 1030, Until Tue12/03/24 at 1429, DOSING DIRECTED BY PHYSICIAN FOR PROCEDURAL SEDATION ONLY, Intraprocedure 1 ml fentaNYL 0.05 mg/ml injection (1 source) Opioid Agonist Start: 5 End: 5 25-100 mcg, INTRAVENOUS, DIRECTED, Starting on Tue12/03/24 at 1030, Until Tue12/03/24 at 1429, DOSING DIRECTED BY PHYSICIAN FOR PROCEDURAL SEDATION ONLY, Intraprocedure 5 ml midazolam 1 mg/ml injection (1 source) Benzodiazepine Start: 5 End: 5 1-5 mg, INTRAVENOUS, DIRECTED, Starting on Tue12/03/24 at 1030, Until Tue12/03/24 at 1429, DOSING DIRECTED BY PHYSICIAN FOR PROCEDURAL SEDATION ONLY, Intraprocedure simethicone 66.7 mg/ml oral suspension (1 source) Start: 5 End: 5 20-40 mg, OTHER, DIRECTED, Starting on Tue12/03/24 at 1030, Until Tue12/03/24 at 1429, Dosing as directed for intraprocedural use only Shake Well, Intraprocedure 125 ml sodium chloride 9 mg/ml prefilled syringe (2 sources) Start: 4 End: 4 sodium chloride 0.9 % (flush) 10 mL (BD POSIFLUSH) terbinafine 250 mg oral tablet (16 sources) Allylamine Antifungal Start: 3 End: 3 take 1 tablet by mouth once daily terbinafine HCl (LAMISIL) 250 mg tablet Indications: Fungal toenail infection Take 1 tablet by mouth once daily. 90 tablet 0 08/17/2022 03/25/2023 Discontinued (Course of therapy completed) Comment on above: Take 1 tablet by lottie th once daily. 10 actuat tiotropium 0.0025 mg/actuat inhalation spray (9 sources) Anticholinergic Start: 4 End: 4 take 2 puff(s) by inhalation once daily tiotropium bromide (SPIRIVA RESPIMAT) 2.5 mcg/actuation inhaler Inhale 2 Puffs as instructed once daily. 1 Each 3 10/27/2023 04/16/2024 Discontinued Problems Active Problems Problem Classification Problem Date Documented Da te Episodic/Chronic Abdominal pain (1 source) Epigastric pain; Translations: [Epigastric pain] Episodic Chronic obstructive pulmonary disease and bronchiectasis (4 sources) Pulmonary emphysema; Translations: [Other emphysema] Onset: 5 10-27-2023 Chronic Disorders of lipid metabolism (3 sources) Raised low density lipoprotein cholesterol; Translations: [Pure hypercholesterolemia, unspecified] Onset: 5 03-25-2023 Chronic Esophageal disorders (16 sources) Gastroesophageal reflux disease without esophagitis; Translations: [Gastro-esophageal reflux disease without esophagitis] Onset: 5 Chronic Gastritis and duodenitis (1 source) Chronic superficial gastritis; Translations: [Chronic superficial gastritis without bleeding] Chronic Immunizations and screening for infectious disease (6 sources) Needs influenza immunization; Translations: [Encounter for immunization] Episodic Malaise and fatigue (1 source) Fatigue; Translations: [Other fatigue] Episodic Nonspecific chest pain (3 sources) Chest discomfort; Translations: [Other chest pain] Episodic Other aftercare (1 source) Long-term current use of drug therapy; Translations: [Other assisted (current) drug therapy] 04-16-2024 Episodic Other and unspecified benign neoplasm (1 source) Hyperplastic polyp of intestine; Translations: [Polyp of colon] Episodic Other and unspecified benign neoplasm (8 sources) History of polyp of colon; Translations: [Personal history of colonic polyps] Onset: 5 Episodic Other circulatory disease (1 source) Elevated blood-pressure reading without diagnosis of hypertension; Translations: [Elevated blood-pressure reading, without diagnosis of hypertension] Episodic Other circulatory disease (1 source) H/O: hypertension; Translations: [Personal history of other diseases of the circulatory system] 04-24-2023 Episodic Other congenital anomalies (1 source) Porokeratosis; Translations: [Other specified congenital malformations of skin] Chronic Other connective tissue disease (1 source) Pain in right lower limb; Translations: [Pain in right leg] Episodic Other gastrointestinal disorders (3 sources) Abdominal bloating; Translations: [Abdominal distension (gaseous)] Episodic Other gastrointestinal disorders (2 sources) Occult blood in stools; Translations: [Other fecal abnormalities] Episodic Other lower respiratory disease (1 source) Dyspnea; Translations: [Shortness of breath] Episodic Other lower respiratory disease (1 source) Nodule of lung; Translations: [Solitary pulmonary nodule] Episodic Other lower respiratory disease (6 sources) Multiple nodules of lung; Translations: [Other nonspecific abnormal finding of lung field] Episodic Other lower respiratory disease (1 source) Hypoxemia; Translations: [Hypoxemia] 09-20-2022 Episodic Other nervous system disorders (1 source) Tremor, unspecified; Translations: [Tremor of right hand] Onset: 5 Episodic Other nutritional; endocrine; and metabolic disorders (20 sources) Obese class I; Translations: [Obesity, unspecified] Onset: 2 07-29-2021 Chronic Other nutritional; endocrine; and metabolic disorders (1 source) Obesity caused by energy imbalance; Translations: [Other obesity due to excess calories] 04-24-2023 Chronic Other nutritional; endocrine; and metabolic disorders (1 source) Obesity; Translations: [Obesity, unspecified] 08-08-2023 Chronic Other skin disorders (2 sources) [place] - lesion ; Translations: [Corns and callosities] Episodic Residual codes; unclassified (3 sources) Obstructive sleep apnea (adult) (pediatric); Translations: [Obstructive sleep apnea (adult) (pediatric)] Onset: 3 Chronic Residual codes; unclassified (20 sources) Obstructive sleep apnea syndrome; Translations: [Obstructive sleep apnea (adult) (pediatric)] Onset: 4 08-08-2023 Chronic Residual codes; unclassified (20 sources) Hypoxia; Translations: [Idiopathic sleep related nonobstructive alveolar hypoventilation] Onset: 4 10-10-2023 Chronic Residual codes; unclassified (1 source) Idiopathic sleep related nonobstructive alveolar hypoventilation; Translations: [Nocturnal hypoxia] Onset: 4 Chronic Residual codes; unclassified (1 source) Current drinker; Translations: [Other specified health status] Episodic Residual codes; unclassified (5 sources) Tobacco user; Translations: [Tobacco use] Episodic Residual codes; unclassified (1 source) Viral syndrome; Translations: [Other general symptoms and signs] 07-30-2024 Episodic Spondylosis; intervertebral disc disorders; other back problems (1 source) Cervical disc disorder, unspecified, unspecified cervical region; Translations: [Cervical neck pain with evidence of disc disease] Onset: 5 Chronic Substance-related disorders (20 sources) Tobacco user; Translations: [Nicotine dependence, unspecified, uncomplicated] Onset: 1 09-01-2020 Chronic Unclassified (1 source) Degeneration of intervertebral disc of lumbar region with discogenic back pain and lower extremity pain; Translations: [Degeneration of intervertebral disc of lumbar region with discogenic back pain and lower extremity pain] Onset: 5 Unclassified (1 source) History of colonic polyps; Translations: [History of colonic polyps] Onset: 5 Unclassified (1 source) Obesity, Class I, BMI 30-34.9; Translations: [Obesity, Class I, BMI 30-34.9] Onset: 2 Past or Other Problems Problem Classification Problem Date Documented Date Episodic/Chronic Anal and rectal conditions (2 sources) Hyperplastic polyp of large intestine; Translations: [Rectal polyp] Onset: 12-12-2024 12-10-2024 Episodic Essential hypertension (20 sources) Essential hypertension; Translations: [Essential (primary) hypertension] Onset: 08-24-2022 Resolved: 03-25-2023 Chronic Mycoses (2 sources) Onychomycosis of toenails; Translations: [Tinea unguium] Onset: 11-22-2024 Episodic Other aftercare (1 source) Other assisted (current) drug therapy; Translations: [Encounter for long-term current use of medication] Onset: 10-08-2024 Episodic Other screening for suspected conditions (not mental disorders or infectious disease) (18 sources) Patient encounter status; Translations: [Encounter for screening for malignant neoplasm of colon] Onset: 06-23-2022 Episodic Residual codes; unclassified (1 source) Tobacco use; Translations: [Tobacco use current] Onset: 07-23-2024 Episodic Screening and history of mental health and substance abuse codes (2 sources) Encounter for screening for depression; Translations: [Encounter for screening examination for other mental health and behavioral disorders] Onset: 10-15-2024 Episodic Unclassified (2 sources) Patient encounter status 10-24-2024 Results Test Name Value Interpretation Reference Range Facility CBC W Auto Differential pane l (Bld)on 04-18-2025 Basophils (Bld) [#/Vol] 0.03 10*3/uL Normal <0.11 [facility] Comment on above: Order Comment: Speci men Type: BLOOD SPECIMENOrdering Facility: [facility] Address: [address] [place] [address] Performed By: #### 5 7021-8 ####[facility] LABCLIA [id number] [place] [address] [place] Basophils/100 WBC (Bld) 0.5 % Normal [facility] Comment on above: Order Comment: Speci men Type: BLOOD SPECIMENOrdering Facility: [facility] Address: [address] [place] [address] Performed By: #### 5 7021-8 ####[facility] LABCLIA [id number] [place] [address] [place] Differential cell count method Nom (Bld) Auto Normal [facility] Comment on above: Order Comment: Speci men Type: BLOOD SPECIMENOrdering Facility: [facility] Address: [address] [place] [address] Performed By: #### 5 7021-8 ####[facility] LABCLIA [id number] [place] [address] [place] Eosinophils (Bld) [#/Vol] 0.16 10*3/uL Normal <0.46 [facility] Comment on above: Order Comment: Speci men Type: BLOOD SPECIMENOrdering Facility: [facility] Address: [address] [place] [address] Performed By: #### 5 7021-8 ####[facility] LABCLIA [id number] [place] [address] [place] Eosinophils/100 WBC (Bld) 2.6 % Normal [facility] Comment on above: Order Comment: Speci men Type: BLOOD SPECIMENOrdering Facility: [facility] Address: [address] [place] [address] Performed By: #### 5 7021-8 ####[facility] LABCLIA [id number] [place] [address] [place] Erythrocyte distribution width (RBC) [Ratio] 13.2 % Normal 11.5-15.0 [facility] Comment on above: Order Comment: Speci men Type: BLOOD SPECIMENOrdering Facility: [facility] Address: [address] [place] [address] Performed By: #### 5 7021-8 ####[facility] LABIA [id number] [place] [address] [place] Hematocrit (Bld) [Volume fraction] 44.7 % Normal 39.0-51.0 [facility] Comment on above: Order Comment: Speci men Type: BLOOD SPECIMENOrdering Facility: [facility] Address: [address] [place] [address] Performed By: #### 5 7021-8 ####[facility] LABIA [id number] [place] [address] [place] Hemoglobin (Bld) [Mass/Vol] 15.1 g/dL Normal 13.0-17.0 [facility] Comment on above: Order Comment: Speci men Type: BLOOD SPECIMENOrdering Facility: [facility] Address: [address] [place] [address] Performed By: #### 5 7021-8 ####[facility] LABIA [id number] [place] [address] [place] Immature granulocytes (Bld) [#/Vol] 0.04 10*3/uL Normal <0.10 [facility] Comment on above: Order Comment: Speci men Type: BLOOD SPECIMENOrdering Facility: [facility] Address: [address] [place] [address] Performed By: #### 5 7021-8 ####[facility] LABCLIA [id number] [place] [address] [place] Immature granulocytes/100 WBC (Bld) 0.6 % Normal [facility] Comment on above: Order Comment: Speci men Type: BLOOD SPECIMENOrdering Facility: [facility] Address: [address] [place] [address] Performed By: #### 5 7021-8 ####[facility] LABCLIA [id number] [place] [address] [place] Lymphocytes (Bld) [#/Vol] 1.14 10*3/uL Normal 1.00-4.00 [facility] Comment on above: Order Comment: Speci men Type: BLOOD SPECIMENOrdering Facility: [facility] Address: [address] [place] [address] Performed By: #### 5 7021-8 ####[facility] LABCLIA [id number] [place] Lymphocytes/100 WBC (Bld) 18.4 % Normal [facility] Comment on above: Order Comment: Speci men Type: BLOOD SPECIMENOrdering Facility: [facility] Address: [address] [place] [address] Performed By: #### 5 7021-8 ####[facility] LABCLIA [id number] [place] [address] [place] MCH (RBC) [Entitic mass] 32.6 pg Normal 26.0-34.0 [facility] Comment on above: Order Comment: Speci men Type: BLOOD SPECIMENOrdering Facility: [facility] Address: [address] [place] [address] Performed By: #### 5 7021-8 ####[facility] LABCLIA [id number] [place] [address] [place] MCHC (RBC) [Mass/Vol] 33.8 g/dL Normal 30.5-36.0 [facility] Comment on above: Order Comment: Speci men Type: BLOOD SPECIMENOrdering Facility: [facility] Address: [address] [place] [address] Performed By: #### 5 7021-8 ####[facility] LABCLIA [id number] [place] [address] [place] MCV (RBC) [Entitic vol] 96.5 fL Normal 80.0-100.0 [facility] Comment on above: Order Comment: Speci men Type: BLOOD SPECIMENOrdering Facility: [facility] Address: [address] [place] [address] Performed By: #### 5 7021-8 ####[facility] LABCLIA [id number] [place] [address] [place] Monocytes (Bld) [#/Vol] 0.79 10*3/uL Normal <0.87 [facility] Comment on above: Order Comment: Speci men Type: BLOOD SPECIMENOrdering Facility: [facility] Address: [address] [place] [address] Performed By: #### 5 7021-8 ####[facility] LABCLIA [id number] [place] [address] [place] Monocytes/100 WBC (Bld) 12.8 % Normal [facility] Comment on above: Order Comment: Speci men Type: BLOOD SPECIMENOrdering Facility: [facility] Address: [address] [place] [address] Performed By: #### 5 7021-8 ####[facility] [facility] LABCLIA [id number] [place] [address] [place] Neutrophils (Bld) [#/Vol] 4.02 10*3/uL Normal 1.45-7.50 [facility] Comment on above: Order Comment: Speci men Type: BLOOD SPECIMENOrdering Facility: [facility] Address: [address] [place] [address] Performed By: #### 5 7021-8 ####[facility] LABCLIA [id number] [place] [address] [place] Neutrophils/100 WBC (Bld) 65.1 % Normal [facility] Comment on above: Order Comment: Speci men Type: BLOOD SPECIMENOrdering Facility: [facility] Address: [address] [place] [address] Performed By: #### 5 7021-8 ####[facility] LABCLIA [id number] [place] [address] [place] Nucleated RBC (Bld) [#/Vol] 10*3/uL Normal <0.01 [facility] Comment on above: Order Comment: Speci men Type: BLOOD SPECIMENOrdering Facility: [facility] Address: [address] [place] [address] Performed By: #### 5 7021-8 ####[facility] LABCLIA [id number] [place] [address] [place] Nucleated RBC/100 WBC (Bld) [Ratio] 0.0 /100 WBC Normal [facility] Comment on above: Order Comment: Speci men Type: BLOOD SPECIMENOrdering Facility: [facility] Address: [address] [place] [address] Performed By: #### 5 7021-8 ####[facility] LABIA [id number] [place] [address] [place] Platelet mean volume (Bld) [Entitic vol] 10.3 fL Normal 9.0-12.7 [facility] Comment on above: Order Comment: Speci men Type: BLOOD SPECIMENOrdering Facility: [facility] Address: [address] [place] [address] Performed By: #### 5 7021-8 ####[facility] LABCLIA [id number] [place] [address] [place] Platelets (Bld) [#/Vol] 185 10*3/uL Normal 150-400 [facility] Comment on above: Order Comment: Speci men Type: BLOOD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 G0500, Moderate sedation services provided by the same physician or other qualified health care mgr performing a gastrointestinal endoscopic service that sedation supports, requiring the presence of an independent trained observer to assist in the monitoring of the patient's level of consciousness and physiological status; initial 15 minutes of intra-service time; patient age 5 years or older (additional time may be reported with 63931, as appropriate) Diagnosis Code(s): --- Professional --- Z12.11, Encounter for screening for malignant neoplasm of colon Z86.0101, Personal history of adenomatous and serrated colon polyps D12.8, Benign neoplasm of rectum K64.8, Other hemorrhoids K57.30, Diverticulosis of large intestine without perforation or abscess without bleeding CPT copyright 2020 [employer]. All rights reserved. The codes documented in this report are preliminary and upon giver review may be revised to meet current compliance requirements. Attending Participation: I personally performed the entire procedure. Scope In: 10:23:38 AM Scope Out: 10:37:57 AM MD Sukhdeep Salas MD 12/03/2024 10:42:47 AM Thi (more content not included)... Normal [facility] Colonoscopy Study observatio non 12-03-2024 [facility] Gastrointestinal Endoscopy Patient Name: Susan Flores Procedure Date: 12/03/2024 10:10 AM Date of : 1965 Admit Type: Outpatient Age: 58 Gender: Male Note Status: Finalized Procedure: Colonoscopy Indications: High risk colon cancer surveillance: Personal history of adenomatous colonic polyps Providers: Sukhdeep He MD Patient Profile: This is a 58 year old male. Refer to note in patient chart for documentation of history and physical. Last Colonoscopy: August 2022. Referring Physician: Sandi Arora (Referring MD) Medicines: Fentanyl 100 micrograms IV, Midazolam 6 mg IV, Diphenhydramine 50 mg IV Complications: No immediate complications. Estimated blood loss: Minimal. Requesting Provider: Procedure: Pre-Anesthesia Assessment: - Prior to the procedure, a History and Physical was performed, and patient medications and allergies were reviewed. The patient's tolerance of previous anesthesia was also reviewed. The risks and benefits of the procedure and the sedation options and risks were discussed with the patient. All questions were answered, and informed consent was obtained. Prior Anticoagulants: The patient has taken no anticoagulant or antiplatelet agents. ASA Grade Assessment: III - A patient with severe systemic disease. After reviewing the risks and benefits, the patient was deemed in satisfactory condition to undergo the procedure. After I obtained informed consent, the scope was passed under direct vision. Throughout the procedure, the patient's blood pressure, pulse, and oxygen saturations were monitored continuously. The Colonoscope was introduced through the anus and advanced to the cecum, identified by appendiceal orifice and ileocecal valve. The colonoscopy was performed without difficulty. The patient tolerated the procedure well. The quality of the bowel preparation was good. The ileocecal valve, appendiceal orifice, and rectum were photographed. Moderate Sedation: The administration of moderate sedation was initiated at 10:18. Moderate (conscious) sedation was personally administered by the endoscopist. The following parameters were monitored: oxygen saturation, heart rate, blood pressure, respiratory rate, EKG, adequacy of pulmonary ventilation, and response to care. Total physician intraservice time was 19 minutes. Findings: The perianal and digital rectal examinations were normal. Pertinent negatives include normal sphincter tone. A diminutive (1-3 mm) polyp was found in the rectum. The polyp was sessile. The polyp was removed with a jumbo cold forceps. Resection and retrieval were complete. Non-bleeding internal hemorrhoids were found during retroflexion. The hemorrhoids were mild and small. Multiple small-mouthed diverticula were found in the sigmoid colon. The exam was otherwise without abnormality. Impression: - One diminutive (1-3 mm) polyp in the rectum, removed with a jumbo cold forceps. Resected and retrieved. - Non-bleeding internal hemorrhoids. - Diverticulosis in the sigmoid colon. - The examination was otherwise normal. Recommendation: - Patient has a contact number available for emergencies. The signs and symptoms of potential delayed complications were discussed with the patient. Return to normal activities tomorrow. Written discharge instructions were provided to the patient. - Resume previous diet. - Continue present medications. - Await pathology results. - Repeat colonoscopy in 5 years for surveillance. - Return to referring provider at appointment to be scheduled. Procedure Code(s): --- Professional --- 26036, Colonoscopy, flexible; with biopsy, single or multiple G0500, Moder (more content not included)... PROVATION [facility] Radiology Study observation (narrative) [facility] HISTORY PHYSICALon HISTORY PHYSICAL HNO ID: [id number] Author: SUKHDEEP HE MD Service: General Surgery Author Type: Physician Type: H&P Filed: 12/03/2024 09:39 Note Text: HISTORY AND PHYSICAL Susan Flores : 1965 REFERRING PHYSICIAN: Rocky Marquez [facility] [address] CHIEF COMPLAINT: Patient presents with: Consult: Hx of polyps HPI: Susan is a 58 year old male referred for endoscopy. Susan notes due for screening colonoscopy- hx of polyps. Susan denies abdominal pain.. Susan denies diarrhea. Susan denies constipation. Susan denies a change in bowel habits. Susan denies melena. Susan denies bright red blood per rectum. Susan denies hemorrhoids. Susan denies family history of colon issues. Susan denies heartburn. -takes omeprazole and once daily carafate Susan denies dysphagia. Susan denies a history of ulcers/ peptic ulcer disease. Shakir's medical history is significant for nocturnal hypoxia- uses 2L 02 into his CPAP, and obesity. Susan has undergone prior endoscopy. Last colonoscopy was 08/[address] He at [place]. Sedation: MAC Impression: - Preparation of the colon was fair. - Six small polyps in the rectum, in the sigmoid colon, in the descending colon and in the transverse colon, removed with a jumbo cold forceps. Resected and retrieved. - Non-bleeding internal hemorrhoids. - Diverticulosis in the sigmoid colon. - The examination was otherwise normal. FINAL DIAGNOSIS A. Colon, transverse, polypectomy -Tubular adenoma B. Colon, descending, polypectomy -Hyperplastic polyp C. Colon, sigmoid, polypectomy -Hyperplastic polyp D. Rectum, polypectomy -Hyperplastic polyp x3 CURRENT MEDICATIONS Current Outpatient Medications Medication Sig buPROPion SR (WELLBUTRIN SR) 150 mg 12 hr tablet Take 1 tablet by mouth two times a day. omeprazole (PRILOSEC) 40 mg capsule Take 1 capsule by mouth daily before breakfast. 1/2 hr before meal. sucralfate (CARAFATE) 1 gram tablet Take one tablet by mouth before meals and at bedtime as needed CPAP/BIPAP/OTHER Auto CPAP 6-11 cmH2O DME [employer] peg 3350-Electrolytes (GOLYTELY) 236-22.74-6.74 -5.86 gram suspension Take 4,000 mL by mouth one time only for 1 dose. Refer to printed prep instructions from your provider. No current facility-administered medications for this visit. ALLERGIES: Patient has no known allergies. PAST MEDICAL HISTORY PAST MEDICAL HISTORY Diagnosis Date Acid reflux Tobacco use disorder 09/01/2020 PAST SURGICAL HISTORY PAST SURGICAL HISTORY Procedure Laterality Date BACK SURGERY HX lumbar decompression [place] COLONOSCOPY 09/03/2022 COLONOSCOPY SCREENING 06/07/2022 EGD W/O BRSH SPEC VARICIES INJ 06/07/2022 PERCUTANEOUS LUMBAR DISKECTOMY Bilateral 2009 REPAIR ING HERNIA,5+Y/O,REDUCIBL Left 2008 FAMILY HISTORY FAMILY HISTORY Problem Relation Age of Onset other (Bone cancer) Mother No Known Problems Father Cancer Maternal Grandmother Uterine No Known Problems Maternal Grandfather No Known Problems Paternal Grandmother No Known Problems Paternal Grandfather Rheumatologic disease Half-brother RA SOCIAL HISTORY Social History Tobacco Use Smoking status: Every Day Current packs/day: 1.50 Average packs/day: 1.5 packs/day for 37.3 years (56.0 ttl pk-yrs) Types: Cigarettes Start date: 1987 Passive exposure: Never Smokeless tobacco: Never Tobacco comments: Currently 1ppd 09/15/22 . 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 Eyes: The patient denies glaucoma, denies eye injury/surgery, + glasses or contacts. Ear/Nose/Throat: The patient denies allergies, denies hayfever, denies ear infections, and denies bloody noses. Cardiovascular: The patient denies chest pain, denies heart disease, denies high blood pressure, denies high cholesterol, and denies poor circulation. Respiratory: The patient denies tuberculosis, denies pneumonia, denies frequent cough, denies shortness of breath, and denies coughing up blood. Gastrointestinal: The patient denies difficulty swallowing, + acid reflux, denies ulcers, denies jaundice/hepatitis, denies gallbladder problems, denies vomiting, denies black or tarry stools, denies hemorrhoids, denies bleeding from rectum, denies diverticulitis, denies constipation, denies diarrhea, denies loss of stool control, and denies hernias. Kidney/Bladder: The patient denies kidney stones, denies urine infections, and denies bloody urine. Skin: The patient denies (more content not included)... Normal [facility] Pathology biopsy report Michael (Tiss)on 12-03-2024 AP DISCLAIMER Normal [facility] Comment on above: Order Comment: Speci men Type: TISSUE SPECIMENOrdering Facility: [facility] Address: [address] [place] [address] Result Comment: Nikki Chamorro Test (LDT) Disclaimer: Performance characteristics of immunohistochemical, immunofluorescent, and chromogenic in-situ hybridization tests have been determined by the performing laboratory within [facility]'s [facility] Pathology and Laboratory Medicine Department ([facility], [facility], [facility], [facility], [facility], [facility], or [facility]) in a manner consistent with CLIA requirements. One or more of these tests may not have been cleared or approved by the FDA. [facility] is regulated under CLIA as qualified to perform high-complexity testing. These tests are used for clinical purposes. These should not be regarded as investigational or for research. Positive and negative controls stain appropriately. Performed By: #### 6 6121-5 ####[facility] LABCLIA [id number] [address] [address] [place] CASE REPORT Normal [facility] Comment on above: Order Comment: Speci men Type: TISSUE SPECIMENOrdering Facility: [facility] Address: [address] [place] [address] Result Comment: Surg ical Pathology Report Case: [id number] Authorizing Provider: Sukhdeep He MD Collected: 12/03/2024 10:37 AM Ordering Location: Ambulatory Surgery Received: 12/03/2024 12:45 PM Pathologist: Jovani Singh MD Specimen: Rectum, Polyp Performed By: #### 6 6121-5 ####[facility] LABCLIA [id number] [address] [place] FINAL DIAGNOSIS Normal [facility] Comment on above: Order Comment: Speci men Type: TISSUE SPECIMENOrdering Facility: [facility] Address: [address] [place] [address] Result Comment: A. R ectum, polyp, biopsy: - Hyperplastic polyp. at 1443 EDT Performed By: #### 6 6121-5 ####[facility] LABCLIA [id number] [address] [place] FINAL PERFORMING LAB Normal [facility] Comment on above: Order Comment: Speci men Type: TISSUE SPECIMENOrdering Facility: [facility] Address: [address] [place] [address] Result Comment: Diag nostic interpretation performed at: [facility], [address] [place] [address] CLIA# [id number] Avian Keeper: Padilla Bishop MD Performed By: #### 6 6121-5 ####[facility] LABCLIA [id number] [place] [address] [place] GROSS DESCRIPTION [facility] Comment on above: Order Comment: Speci men Type: TISSUE SPECIMENOrdering Facility: [facility] Address: [address] [place] [address] Result Comment: A. R ectum, Polyp Received in formalin is one piece of jerez, soft tissue measuring 0.4 x 0.3 x 0.2 cm. Totally submitted in one cassette. DL December 04, 2024 2:23 AM Gross examination performed at [facility], [address] [place] [address] Performed By: #### 6 6121-5 ####[facility] [id number] [place] [address] [place] A1AT SerPl-mCncon 11-22-2024 Alpha 1 antitrypsin [Mass/Vol] 110 mg/dL Normal 90-200 [facility] Comment on above: Order Comment: Speci men Type: BLOOD SPECIMENOrdering Facility: [facility] Address: [address] [place] [address] Performed By: #### 1 825-9, 32034-5 ####[facility] LABIA [id number] [place] [address] [place] ALT SerPl-cCncon 11-22-2024 ALT [Catalytic activity/Vol] 24 U/L Normal 10-54 [facility] Comment on above: Order Comment: Speci men Type: BLOOD SPECIMENOrdering Facility: External Submitter Address: , , Performed By: #### 1 742-6, 1920-01 ####[facility] LABCLIA [id number] [place] [address] [place] AST SerPl-cCncon 11-22-2024 AST [Catalytic activity/Vol] 23 U/L Normal 14-40 [facility] Comment on above: Order Comment: Speci men Type: BLOOD SPECIMENOrdering Facility: External Submitter Address: , , Performed By: #### 1 742-6, 1920-01 ####[facility] LABCLIA [id number] [address] [place] [address] [place] CBC W Auto Differential pane l (Bld)on 11-22-2024 Basophils (Bld) [#/Vol] 0.04 10*3/uL Normal <0.11 [facility] Comment on above: Order Comment: Speci men Type: BLOOD SPECIMENOrdering Facility: External Submitter Address: , , Performed By: #### 5 7021-8 ####[facility] LABCLIA [id number] [address], [facility] [place] [facility] Basophils/100 WBC (Bld) 0.4 % Normal [facility] Comment on above: Order Comment: Speci men Type: BLOOD SPECIMENOrdering Facility: External Submitter Address: , , Performed By: #### 5 7021-8 ####[facility] LABIA [id number] [address], [address] STATES OF [facility] Differential cell count method Nom (Bld) Auto Normal [facility] Comment on above: Order Comment: Speci men Type: BLOOD SPECIMENOrdering Facility: External Submitter Address: , , Performed By: #### 5 7021-8 ####[facility] LABIA [id number] [address], [address] [place] Eosinophils (Bld) [#/Vol] 0.19 10*3/uL Normal <0.46 [facility] Comment on above: Order Comment: Speci men Type: BLOOD SPECIMENOrdering Facility: External Submitter Address: , , Performed By: #### 5 7021-8 ####[facility] LABCLIA [id number] [address], [facility] Eosinophils/100 WBC (Bld) 1.9 % Normal [facility] Comment on above: Order Comment: Speci men Type: BLOOD SPECIMENOrdering Facility: External Submitter Address: , , Performed By: #### 5 7021-8 ####[facility] LABCLIA [id number] [address] [address] [place] Erythrocyte distribution width (RBC) [Ratio] 12.9 % Normal 11.5-15.0 [facility] Comment on above: Order Comment: Speci men Type: BLOOD SPECIMENOrdering Facility: External Submitter Address: , , Performed By: #### 5 7021-8 ####[facility] LABCLIA [id number] [address] [place] Hematocrit (Bld) [Volume fraction] 42.6 % Normal 39.0-51.0 [facility] Comment on above: Order Comment: Speci men Type: BLOOD SPECIMENOrdering Facility: External Submitter Address: , , Performed By: #### 5 7021-8 ####[facility] LABIA [id number] [address] [place] Hemoglobin (Bld) [Mass/Vol] 14.2 g/dL Normal 13.0-17.0 [facility] Comment on above: Order Comment: Speci men Type: BLOOD SPECIMENOrdering Facility: External Submitter Address: , , Performed By: #### 5 7021-8 ####[facility] LABCLIA [id number] [address] [place] Immature granulocytes (Bld) [#/Vol] 0.04 10*3/uL Normal <0.10 [facility] Comment on above: Order Comment: Speci men Type: BLOOD SPECIMENOrdering Facility: External Submitter Address: , , Performed By: #### 5 7021-8 ####[facility] LABCLIA [id number] [place] [id number] [facility] Immature granulocytes/100 WBC (Bld) 0.4 % Normal [facility] Comment on above: Order Comment: Speci men Type: BLOOD SPECIMENOrdering Facility: External Submitter Address: , , Performed By: #### 5 7021-8 ####[facility] LABCLIA [id number] [address], [place] [address] [place] [address] Lymphocytes (Bld) [#/Vol] 1.82 10*3/uL Normal 1.00-4.00 [facility] Comment on above: Order Comment: Speci men Type: BLOOD SPECIMENOrdering Facility: External Submitter Address: , , Performed By: #### 5 7021-8 ####[facility] LABCLIA [id number] [address], [address] Lymphocytes/100 WBC (Bld) 18.6 % Normal [facility] Comment on above: Order Comment: Speci men Type: BLOOD SPECIMENOrdering Facility: External Submitter Address: , , Performed By: #### 5 7021-8 ####[facility] LABIA [id number] [address], [address] [place] MCH (RBC) [Entitic mass] 31.8 pg Normal 26.0-34.0 [facility] Comment on above: Order Comment: Speci men Type: BLOOD SPECIMENOrdering Facility: External Submitter Address: , , Performed By: #### 5 7021-8 ####[facility] LABIA [id number] [address], [address] MCHC (RBC) [Mass/Vol] 33.3 g/dL Normal 30.5-36.0 [facility] Comment on above: Order Comment: Speci men Type: BLOOD SPECIMENOrdering Facility: External Submitter Address: , , Performed By: #### 5 7021-8 ####[facility] LABCLIA [id number] [address], [facility]95 [facility] MCV (RBC) [Entitic vol] 95.3 fL Normal 80.0-100.0 [facility] Comment on above: Order Comment: Speci men Type: BLOOD SPECIMENOrdering Facility: External Submitter Address: , , Performed By: #### 5 7021-8 ####[facility] LABCLIA [id number] [facility] [address] [place] [address] [place] Monocytes (Bld) [#/Vol] 0.79 10*3/uL Normal <0.87 [facility] Comment on above: Order Comment: Speci men Type: BLOOD SPECIMENOrdering Facility: External Submitter Address: , , Performed By: #### 5 7021-8 ####[facility] LABCLIA [id number] [facility] [address] [place] [address] [place] Monocytes/100 WBC (Bld) 8.1 % Normal [facility] Comment on above: Order Comment: Speci men Type: BLOOD SPECIMENOrdering Facility: External Submitter Address: , , Performed By: #### 5 7021-8 ####[facility] LABCLIA [id number] [address] [place] [address] [place] Neutrophils (Bld) [#/Vol] 6.90 10*3/uL Normal 1.45-7.50 [facility] Comment on above: Order Comment: Speci men Type: BLOOD SPECIMENOrdering Facility: External Submitter Address: , , Performed By: #### 5 7021-8 ####[facility] LABCLIA [id number] [address], [facility]95 [facility] Neutrophils/100 WBC (Bld) 70.6 % Normal [facility] Comment on above: Order Comment: Speci men Type: BLOOD SPECIMENOrdering Facility: External Submitter Address: , , Performed By: #### 5 7021-8 ####[facility] LABCLIA [id number] [facility] [address] [place] [address] [place] Nucleated RBC (Bld) [#/Vol] 10*3/uL Normal <0.01 [facility] Comment on above: Order Comment: Speci men Type: BLOOD SPECIMENOrdering Facility: External Submitter Address: , , Performed By: #### 5 7021-8 ####[facility] LABCLIA [id number] [facility] [address] Nucleated RBC/100 WBC (Bld) [Ratio] 0.0 /100 WBC Normal [facility] Comment on above: Order Comment: Speci men Type: BLOOD SPECIMENOrdering Facility: External Submitter Address: , , Performed By: #### 5 7021-8 ####[facility] LABCLIA [id number] [address] [place] Platelet mean volume (Bld) [Entitic vol] 10.7 fL Normal 9.0-12.7 [facility] Comment on above: Order Comment: Speci men Type: BLOOD SPECIMENOrdering Facility: External Submitter Address: , , Performed By: #### 5 7021-8 ####[facility] LABIA [id number] [address] [place] Platelets (Bld) [#/Vol] 179 10*3/uL Normal 150-400 [facility] Comment on above: Order Comment: Speci men Type: BLOOD SPECIMENOrdering Facility: External Submitter Address: , , Performed By: #### 5 7021-8 ####[facility] LABIA [id number] [address] [place] RBC (Bld) [#/Vol] 4.47 10*6/uL Normal 4.20-6.00 [facility] Comment on above: Order Comment: Speci men Type: BLOOD SPECIMENOrdering Facility: External Submitter Address: , , Performed By: #### 5 7021-8 ####[facility] LABCLIA [id number] [address] [address] [place] WBC (Bld) [#/Vol] 9.78 10*3/uL Normal 3.70-11.00 [facility] Comment on above: Order Comment: Speci men Type: BLOOD SPECIMENOrdering Facility: External Submitter Address: , , Performed By: #### 5 7021-8 ####[facility] LABCLIA [id number] [address] [place] [address] [place] Comprehensive metabolic 2000 panelon 11-22-2024 Albumin [Mass/Vol] 4.4 g/dL Normal 3.9-4.9 [facility] Comment on above: Order Comment: Speci men Type: BLOOD SPECIMENOrdering Facility: [facility] Address: [address] [place] [address] Performed By: #### 1 825-9, 35761-0 ####[facility] LABCLIA [id number] [address] [place] [address] [place] ALP [Catalytic activity/Vol] 66 U/L Normal 38-113 [facility] Comment on above: Order Comment: Speci men Type: BLOOD SPECIMENOrdering Facility: [facility] Address: [address] [place] [address] Performed By: #### 1 825-9, 75706-4 ####[facility] LABCLIA [id number] [address] [place] [address] [place] ALT [Catalytic activity/Vol] 22 U/L Normal 10-54 [facility] Comment on above: Order Comment: Speci men Type: BLOOD SPECIMENOrdering Facility: [facility] Address: [address] [place] [address] Performed By: #### 1 825-9, 41987-2 ####[facility] LABCLIA [id number] [address] [place] [address] [place] Anion gap [Moles/Vol] 10 mmol/L Normal 8-15 [facility] Comment on above: Order Comment: Speci men Type: BLOOD SPECIMENOrdering Facility: [facility] Address: [address] [place], [place] [address] Performed By: #### 1 825-9, 53467-1 ####[facility] LABCLIA [id number] [address] [place] [address] [place] AST [Catalytic activity/Vol] 18 U/L Normal 14-40 [facility] Comment on above: Order Comment: Speci men Type: BLOOD SPECIMENOrdering Facility: [facility] Address: [address] [place] [address] Performed By: #### 1 825-9, 24636-3 ####[facility] LABCLIA [id number] [place] [address] [place] Bilirubin [Mass/Vol] 0.4 mg/dL Normal 0.2-1.3 [facility] Comment on above: Order Comment: Speci men Type: BLOOD SPECIMENOrdering Facility: [facility] Address: [address] [place] [address] Performed By: #### 1 825-9, 79491-0 ####[facility] LABCLIA [id number] [place] [address] [place] Calcium [Mass/Vol] 9.3 mg/dL Normal 8.5-10.2 [facility] Comment on above: Order Comment: Speci men Type: BLOOD SPECIMENOrdering Facility: [facility] Address: [address] [place] [address] Performed By: #### 1 825-9, 15422-3 ####[facility] LABIA [id number] [place] [address] [place] Chloride [Moles/Vol] 105 mmol/L Normal 98-107 [facility] Comment on above: Order Comment: Speci men Type: BLOOD SPECIMENOrdering Facility: [facility] Address: [address] [place] [address] Performed By: #### 1 825-9, 52141-3 ####[facility] LABCLIA [id number] [place] [address] [place] CO2 [Moles/Vol] 25 mmol/L Normal 22-30 [facility] Comment on above: Order Comment: Speci men Type: BLOOD SPECIMENOrdering Facility: [facility] Address: [address] [place] [address] Performed By: #### 1 825-9, 72080-3 ####[facility] [id number] [address] [address] [place] Creatinine [Mass/Vol] 0.89 mg/dL Normal 0.73-1.22 [facility] Comment on above: Order Comment: Cameron bradley Type: BLOOD SPECIMENOrdering Facility: [facility] Address: [address] [place] [address] Performed By: #### 1 825-9, 99434-4 ####[facility] [id number] [place] [address] [place] Creatinine and Glomerular filtration rate.predicted panel (S/P/Bld) 101 mL/min/1.73m??? Normal >=60 [facility] Comment on above: Order Comment: Cameron bradley Type: BLOOD SPECIMENOrdering Facility: [facility] Address: [address] [place] [address] Result Comment: Ann mated Glomerular Filtration Rate (eGFR) is calculated using the 2020 CKD-EPI creatinine equation. This equation utilizes serum creatinine, sex, and age as parameters. The creatinine assay has traceable calibration to isotope dilution-mass spectrometry. Refer to KDIGO guidelines for clinical interpretation. In patients with unstable renal function, e.g. those with acute kidney injury, the eGFR may not accurately reflect actual GFR. Performed By: #### 1 825-9, 29938-1 ####[facility] [id number] [address] [address] [place] Glucose [Mass/Vol] 96 mg/dL Normal 74-99 [facility] Comment on above: Order Comment: Cameron bradley Type: BLOOD SPECIMENOrdering Facility: [facility] Address: [address] [place] [address] Result Comment: The [place] [employer] (ADA) provides guidance for cutoff values for fasting glucose and random glucose. The ADA defines fasting as no caloric intake for at least 8 hours. Fasting plasma glucose results between 100 to 125 mg/dL indicate increased risk for diabetes (prediabetes). Fasting plasma glucose results greater than or equal to 126 mg/dL meet the criteria for diagnosis of diabetes. In the absence of unequivocal hyperglycemia, results should be confirmed by repeat testing. In a patient with classic symptoms of hyperglycemia or hyperglycemic crisis, random plasma glucose results greater than or equal to 200 mg/dL meet the criteria for diagnosis of diabetes. Reference: Standards of Medical Care in Diabetes 2016, [place] [employer]. Diabetes Care. 2016.39(Suppl 1). Performed By: #### 1 825-9, 79334-6 ####[facility] LABCLIA [id number] [address] [address] [place] Potassium [Moles/Vol] 4.4 mmol/L Normal 3.7-5.1 [facility] Comment on above: Order Comment: Speci men Type: BLOOD SPECIMENOrdering Facility: [facility] Address: [address] [place] [address] Performed By: #### 1 825-9, 56379-7 ####[facility] LABCLIA [id number] [address] [address] [place] Protein [Mass/Vol] 6.7 g/dL Normal 6.3-8.0 [facility] Comment on above: Order Comment: Speci men Type: BLOOD SPECIMENOrdering Facility: [facility] Address: [address] [place] [address] Performed By: #### 1 825-9, ####[facility] LABCLIA [id number] [facility] [address] [address] [place] Sodium [Moles/Vol] 140 mmol/L Normal 136-144 [facility] Comment on above: Order Comment: Speci men Type: BLOOD SPECIMENOrdering Facility: [facility] Address: [address] [place] [address] Performed By: #### 1 825-9, 35502-0 ####[facility] LABCLIA [id number] [address] [address] [place] Urea nitrogen [Mass/Vol] 23 mg/dL Normal 9-24 [facility] Comment on above: Order Comment: Speci men Type: BLOOD SPECIMENOrdering Facility: [facility] Address: [address] [place] [address] Performed By: #### 1 825-9, 59024-8 ####[facility] LABCLIA [id number] JED CHOI [address] [place] CNOVon 10-24-2024 CNOV Office Visit (GENSWS ) -------- SUSAN FLORES ([id number]) 1965 Date Time Provider Department 10/24/24 8:30 AM SANDI ARORA During your visit today, we recorded the following information about you: Pulse Respiration Blood pressure Weight 67/minute 14/minute 125/73 98.3 kg Sandi Arora APRN.CNP 10/24/2024 9:12 AM Signed HISTORY AND PHYSICAL Susan Flores : 1965 REFERRING PHYSICIAN: Rocky Calles [address] [facility] [address] CHIEF COMPLAINT: Patient presents with: Consult: Hx of polyps HPI: Susan is a 58 year old male referred for endoscopy. Susan notes due for screening colonoscopy- hx of polyps. Susan denies abdominal pain.. Susan denies diarrhea. Susan denies constipation. Susan denies a change in bowel habits. Susan denies melena. Susan denies bright red blood per rectum. Susan denies hemorrhoids. Susan denies family history of colon issues. Susan denies heartburn. -takes omeprazole and once daily carafate Susan denies dysphagia. Susan denies a history of ulcers/ peptic ulcer disease. Shakir's medical history is significant for nocturnal hypoxia- uses 2L 02 into his CPAP, and obesity. Susan has undergone prior endoscopy. Last colonoscopy was 08/[address] He at [place]. Sedation: MAC Impression: - Preparation of the colon was fair. - Six small polyps in the rectum, in the sigmoid colon, in the descending colon and in the transverse colon, removed with a jumbo cold forceps. Resected and retrieved. - Non-bleeding internal hemorrhoids. - Diverticulosis in the sigmoid colon. - The examination was otherwise normal. FINAL DIAGNOSIS A. Colon, transverse, polypectomy -Tubular adenoma B. Colon, descending, polypectomy -Hyperplastic polyp C. Colon, sigmoid, polypectomy -Hyperplastic polyp D. Rectum, polypectomy -Hyperplastic polyp x3 Current Outpatient Medications Medication Sig buPROPion SR (WELLBUTRIN SR) 150 mg 12 hr tablet Take 1 tablet by mouth two times a day. omeprazole (PRILOSEC) 40 mg capsule Take 1 capsule by mouth daily before breakfast. 1/2 hr before meal. sucralfate (CARAFATE) 1 gram tablet Take one tablet by mouth before meals and at bedtime as needed CPAP/BIPAP/OTHER Auto CPAP 6-11 cmH2O DME [employer] peg 3350-Electrolytes (GOLYTELY) 236-22.74-6.74 -5.86 gram suspension Take 4,000 mL by mouth one time only for 1 dose. Refer to printed prep instructions from your provider. No current facility-administered medications for this visit. ALLERGIES: Patient has no known allergies. PAST MEDICAL HISTORY Diagnosis Date Acid reflux Tobacco use disorder 09/01/2020 PAST SURGICAL HISTORY Procedure Laterality Date BACK SURGERY HX lumbar decompression [place] COLONOSCOPY 09/03/2022 COLONOSCOPY SCREENING 06/07/2022 EGD W/O BRSH SPEC VARICIES INJ 06/07/2022 PERCUTANEOUS LUMBAR DISKECTOMY Bilateral 2009 REPAIR ING HERNIA,5+Y/O,REDUCIBL Left 2008 FAMILY HISTORY Problem Relation Age of Onset other (Bone cancer) Mother No Known Problems Father Cancer Maternal Grandmother Uterine No Known Problems Maternal Grandfather No Known Problems Paternal Grandmother No Known Problems Paternal Grandfather Rheumatologic disease Half-brother RA Social History Tobacco Use Smoking status: Every Day Current packs/day: 1.50 Average packs/day: 1.5 packs/day for 37.3 years (56.0 ttl pk-yrs) Types: Cigarettes Start date: 1987 Passive exposure: Never Smokeless tobacco: Never Tobacco comments: Currently 1ppd 09/15/22 . 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 Eyes: The patient denies glaucoma, denies eye injury/surgery, + glasses or contacts. Ear/Nose/Throat: The patient denies allergies, denies hayfever, denies ear infections, and denies bloody noses. Cardiovascular: The patient denies chest pain, denies heart disease, denies high blood pressure, denies high cholesterol, and denies poor circulation. Respiratory: The patient denies tuberculosis, denies pneumonia, denies frequent cough, denies shortness of breath, and denies coughing up blood. Gastrointestinal: The patient denies difficulty swallowing, + acid reflux, denies ulcers, denies jaundice/hepatitis, denies gallbladder problems, denies vomiting, denies black or tarry stools, denies hemorrhoids, denies bleeding from rectum, denies diverticulitis, denies constipation, denies diarrhea, denies los (more content not included)... Normal [facility] CNOVon 10-15-2024 CNOV Office Visit (INTMWS ) -------- SUSAN FLORES ([id number]) 1965 M Date Time Provider Department 10/15/24 9:00 AM ROCKY CALLES INTMWS During your visit today, we recorded the following information about you: Pulse Respiration Blood pressure Weight 75/minute 16/minute 121/72 98 kg Rocky Calles, PROPERTY CLAIMS ADJUSTER.SOLAR INSTALLER TECHNICIAN 10/15/2024 9:36 AM Signed SUBJECTIVE: Alpha-1 Antitrypsin Deficiency Screening Never done Colorectal Cancer Screening due on 09/03/2024 Depression Screening due on 09/25/2024 Anxiety Screening due on 09/25/2024 HPI Susan Flores is a 58 year old male.PMH significnat for ACTIVE PROBLEM LIST Tobacco Use Disorder Obesity, Class I, Bmi 30-34.9 [place] (Obstructive Sleep Apnea) Nocturnal Hypoxia Returns to clinic today for a routine visit. Notes he is in his usual state of health. Continuing to smoke, thinking about quitting right now, would like to try a medication. Continues with 2-3 every other day beer following work, reduced from previous use. He has lost 8 lbs over the last year. Intermittent back pain seems worse with prolonged sitting, currently managed with OTC medication. History of prior back surgery. Elevated Glucose Levels: - Recent lab work showed elevated glucose levels. - Reports elevated glucose levels for the past two years. - Inquires about the need for home glucose monitoring. - Admits to a high carbohydrate intake, including bread, rice, potatoes, sweets, and sugary drinks. - Engages in physical activity through work-related walking. - Consumes alcohol, specifically beer, every other evening. Tobacco Use: - Current smoker. - Inquires about medication options to assist with smoking cessation. GERD: - Managed with morning medication. Sciatica: - Reports a burning sensation in the hip, attributing it to sciatica. - Takes Tylenol or ibuprofen in the morning with minimal relief. - Symptoms exacerbated by prolonged sitting; attempts to alleviate discomfort by stretching. Sleep Apnea: - Well-managed with CPAP therapy. Lung Cancer: - Recent lung scan performed. - Scheduled follow-up with [facility] for lung cancer screening. HTN: Without report of headache, chest pain, palpitations, dyspnea, peripheral edema, orthopnea, fatigue, and PND. Last 14 Encounter BP Readings: Date: BP: 10/15/2024 121/72 07/30/2024 123/79 07/23/2024 142/76 04/16/2024 136/82 04/16/2024 126/72 12/05/2023 128/79 10/27/2023 135/86 10/10/2023 135/77 09/26/2023 117/70 08/08/2023 136/78 03/25/2023 128/78 01/05/2023 124/80 10/08/2022 122/70 09/15/2022 140/88 He notes GERD symptoms are currently controlled taking sucralfate and omeprazole as ordered. Review of Systems Constitutional: Negative. Objective BP 121/72 Pulse 75 Resp 16 Wt 98 kg (216 lb 0.8 oz) BMI 30.50 kg/m? Physical Exam Vitals and nursing note reviewed. Constitutional: Appearance: Normal appearance. HENT: Head: Normocephalic and atraumatic. Eyes: Conjunctiva/sclera: Conjunctivae normal. Neck: Thyroid: No thyromegaly. Vascular: Normal carotid pulses. No JVD. Cardiovascular: Rate and Rhythm: Normal rate and regular rhythm. Pulses: Carotid pulses are 2+ on the right side and 2+ on the left side. Radial pulses are 2+ on the right side and 2+ on the left side. Heart sounds: Normal heart sounds. Pulmonary: Effort: Pulmonary effort is normal. Breath sounds: Normal breath sounds. Abdominal: General: Bowel sounds are normal. Palpations: Abdomen is soft. Musculoskeletal: Right lower leg: No edema. Left lower leg: No edema. Skin: General: Skin is warm and dry. Neurological: General: No focal deficit present. Mental Status: He is alert and oriented to person, place, and time. ALLERGIES No Known Allergies Medications omeprazole (PRILOSEC) 40 mg capsule Take 1 capsule by mouth daily before breakfast. 1/2 hr before meal. sucralfate (CARAFATE) 1 gram tablet Take one tablet by mouth before meals and at bedtime as needed CPAP/BIPAP/OTHER Auto CPAP 6-11 cmH2O DME [employer] PAST MEDICAL HISTORY Diagnosis Date Acid reflux Tobacco use disorder 09/01/2020 Social History Tobacco Use Smoking status: Every Day Current packs/day: 1.50 Average packs/day: 1.5 packs/day for 37.3 years (56.0 ttl pk-yrs) Types: Cigarettes Start date: 1987 Passive exposure: Never Smokeless tobacco: Never Tobacco comments: Currently 1ppd 09/15/22 KP. 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 Normal [facility] CBC panel Auto (Bld)on 10-08 Erythrocyte distribution width (RBC) [Ratio] 13.2 % Normal 11.5-15.0 [facility] Comment on above: Order Comment: Speci men Type: BLOOD SPECIMENOrdering Facility: [facility] Address: [address] [place] [address] Performed By: #### 5 8410-2 ####[facility] LABCLIA [id number] [address] [place] Hematocrit (Bld) [Volume fraction] 42.0 % Normal 39.0-51.0 [facility] Comment on above: Order Comment: Speci men Type: BLOOD SPECIMENOrdering Facility: [facility] Address: [address] [place] [address] Performed By: #### 5 8410-2 ####[facility] LABCLIA [id number] [place] [address] [place] Hemoglobin (Bld) [Mass/Vol] 14.1 g/dL Normal 13.0-17.0 [facility] Comment on above: Order Comment: Speci men Type: BLOOD SPECIMENOrdering Facility: [facility] Address: [address] [place] [address] Performed By: #### 5 8410-2 ####[facility] LABCLIA [id number] [place] [address] [place] MCH (RBC) [Entitic mass] 33.0 pg Normal 26.0-34.0 [facility] Comment on above: Order Comment: Speci men Type: BLOOD SPECIMENOrdering Facility: [facility] Address: [address] [place] [address] Performed By: #### 5 8410-2 ####[facility] [id number] [place] [address] [place] MCHC (RBC) [Mass/Vol] 33.6 g/dL Normal 30.5-36.0 [facility] Comment on above: Order Comment: Speci men Type: BLOOD SPECIMENOrdering Facility: [facility] Address: [address] [place] [address] Performed By: #### 5 8410-2 ####[facility] [id number] [place] [address] [place] MCV (RBC) [Entitic vol] 98.4 fL Normal 80.0-100.0 [facility] Comment on above: Order Comment: Speci men Type: BLOOD SPECIMENOrdering Facility: [facility] Address: [address] [place] [address] Performed By: #### 5 8410-2 ####[facility] [id number] [place] [address] [place] Nucleated RBC (Bld) [#/Vol] 10*3/uL Normal <0.01 [facility] Comment on above: Order Comment: Speci men Type: BLOOD SPECIMENOrdering Facility: [facility] Address: [address] [place] [address] Performed By: #### 5 8410-2 ####[facility] [id number] [place] [address] [place] Platelet mean volume (Bld) [Entitic vol] 10.4 fL Normal 9.0-12.7 [facility] Comment on above: Order Comment: Speci men Type: BLOOD SPECIMENOrdering Facility: [facility] Address: [address] [place], [place] [address] Performed By: #### 5 8410-2 ####[facility] LABCLIA [id number] [address] [address] [place] Platelets (Bld) [#/Vol] 150 10*3/uL Normal 150-400 [facility] Comment on above: Order Comment: Speci men Type: BLOOD SPECIMENOrdering Facility: [facility] Address: [address] [place] [address] Performed By: #### 5 8410-2 ####[facility] LABIA [id number] [address] [address] [place] RBC (Bld) [#/Vol] 4.27 10*6/uL Normal 4.20-6.00 [facility] Comment on above: Order Comment: Speci men Type: BLOOD SPECIMENOrdering Facility: [facility] Address: [address] [place] [address] Performed By: #### 5 8410-2 ####[facility] LABIA [id number] [address] [address] [place] WBC (Bld) [#/Vol] 8.45 10*3/uL Normal 3.70-11.00 [facility] Comment on above: Order Comment: Speci men Type: BLOOD SPECIMENOrdering Facility: [facility] Address: [address] [place] [address] Performed By: #### 5 8410-2 ####[facility] LABIA [id number] [address] [address] [place] Comprehensive metabolic 2000 panelon 10-08-2024 Albumin [Mass/Vol] 4.3 g/dL Normal 3.9-4.9 [facility] Comment on above: Order Comment: Speci men Type: BLOOD SPECIMENOrdering Facility: [facility] Address: [address] [place] [address] Performed By: #### 2 4323-8, 63463-0, ####[facility] LABCLIA [id number] [facility] [place] [id number] [address] [place] ALP [Catalytic activity/Vol] 65 U/L Normal 38-113 [facility] Comment on above: Order Comment: Speci men Type: BLOOD SPECIMENOrdering Facility: [facility] Address: [address] [place] [address] Performed By: #### 2 4323-8, , ####[facility] LABCLIA [id number] [facility] [address] [place] [address] [place] ALT [Catalytic activity/Vol] 21 U/L Normal 10-54 [facility] Comment on above: Order Comment: Speci men Type: BLOOD SPECIMENOrdering Facility: [facility] Address: [address] [place] [address] Performed By: #### 2 4323-8, , ####[facility] LABCLIA [id number] [facility] [address] [place] [address] [place] Anion gap [Moles/Vol] 9 mmol/L Normal 8-15 [facility] Comment on above: Order Comment: Speci men Type: BLOOD SPECIMENOrdering Facility: [facility] Address: [address] [place] [address] Performed By: #### 2 4323-8, , ####[facility] LABCLIA [id number] [facility] [address] [place] [address] [place] AST [Catalytic activity/Vol] 20 U/L Normal 14-40 [facility] Comment on above: Order Comment: Speci men Type: BLOOD SPECIMENOrdering Facility: [facility] Address: [address] [place], [place] [address] Performed By: #### 2 4323-8, 81111-9, ####[facility] LABCLIA [id number] [address] [place] [address] [place] Bilirubin [Mass/Vol] 0.4 mg/dL Normal 0.2-1.3 [facility] Comment on above: Order Comment: Speci men Type: BLOOD SPECIMENOrdering Facility: [facility] Address: [address] [place] [address] Performed By: #### 2 4323-8, 13685-9, ####[facility] LABCLIA [id number] [place] [address] [place] Calcium [Mass/Vol] 9.4 mg/dL Normal 8.5-10.2 [facility] Comment on above: Order Comment: Speci men Type: BLOOD SPECIMENOrdering Facility: [facility] Address: [address] [place] [address] Performed By: #### 2 4323-8, 53514-7, ####[facility] LABCLIA [id number] [place] [id number] [place] Chloride [Moles/Vol] 104 mmol/L Normal 98-107 [facility] Comment on above: Order Comment: Speci men Type: BLOOD SPECIMENOrdering Facility: [facility] Address: [address] [place] [address] Performed By: #### 2 4323-8, 53872-3, ####[facility] LABCLIA [id number] [place] [address] [place] CO2 [Moles/Vol] 27 mmol/L Normal 22-30 [facility] Comment on above: Order Comment: Speci men Type: BLOOD SPECIMENOrdering Facility: [facility] Address: [address] [place] [address] Performed By: #### 2 4323-8, 37171-3, ####[facility] LABCLIA [id number] [place] [id number] [place] Creatinine [Mass/Vol] 0.94 mg/dL Normal 0.73-1.22 [facility] Comment on above: Order Comment: Cameron bradley Type: BLOOD SPECIMENOrdering Facility: [facility] Address: [address] [place] [address] Performed By: #### 2 4323-8, 45028-7, ####[facility] LABCLIA [id number] [place] [address] [place] Creatinine and Glomerular filtration rate.predicted panel (S/P/Bld) 95 mL/min/1.73m??? Normal >=60 [facility] Comment on above: Order Comment: Cameron bradley Type: BLOOD SPECIMENOrdering Facility: [facility] Address: [address] [place] [address] Result Comment: Ann mated Glomerular Filtration Rate (eGFR) is calculated using the 2020 CKD-EPI creatinine equation. This equation utilizes serum creatinine, sex, and age as parameters. The creatinine assay has traceable calibration to isotope dilution-mass spectrometry. Refer to KDIGO guidelines for clinical interpretation. In patients with unstable renal function, e.g. those with acute kidney injury, the eGFR may not accurately reflect actual GFR. Performed By: #### 2 4323-8, 03546-7, ####[facility] LABCLIA [id number] [place] [id number] [place] Glucose [Mass/Vol] 100 mg/dL High 74-99 [facility] Comment on above: Order Comment: Cameron bradley Type: BLOOD SPECIMENOrdering Facility: [facility] Address: [address] [place] [address] Result Comment: The [place] [employer] (ADA) provides guidance for cutoff values for fasting glucose and random glucose. The ADA defines fasting as no caloric intake for at least 8 hours. Fasting plasma glucose results between 100 to 125 mg/dL indicate increased risk for diabetes (prediabetes). Fasting plasma glucose results greater than or equal to 126 mg/dL meet the criteria for diagnosis of diabetes. In the absence of unequivocal hyperglycemia, results should be confirmed by repeat testing. In a patient with classic symptoms of hyperglycemia or hyperglycemic crisis, random plasma glucose results greater than or equal to 200 mg/dL meet the criteria for diagnosis of diabetes. Reference: Standards of Medical Care in Diabetes 2016, [place] [employer]. Diabetes Care. 2016.39(Suppl 1). Performed By: #### 2 4323-8, , ####[facility] LABCLIA [id number] [address] [address] [place] Potassium [Moles/Vol] 4.5 mmol/L Normal 3.7-5.1 [facility] Comment on above: Order Comment: Speci men Type: BLOOD SPECIMENOrdering Facility: [facility] Address: [address] [place] [address] Performed By: #### 2 4323-8, , ####[facility] LABCLIA [id number] [address] [address] [place] Protein [Mass/Vol] 6.5 g/dL Normal 6.3-8.0 [facility] Comment on above: Order Comment: Speci men Type: BLOOD SPECIMENOrdering Facility: [facility] Address: [address] [place] [address] Performed By: #### 2 4323-8, , ####[facility] LABCLIA [id number] [address] [address] [place] Sodium [Moles/Vol] 140 mmol/L Normal 136-144 [facility] Comment on above: Order Comment: Speci men Type: BLOOD SPECIMENOrdering Facility: [facility] Address: [address] [place] [address] Performed By: #### 2 4323-8, , ####[facility] LABCLIA [id number] [address] [place] [address] [place] Urea nitrogen [Mass/Vol] 20 mg/dL Normal 9-24 [facility] Comment on above: Order Comment: Speci men Type: BLOOD SPECIMENOrdering Facility: [facility] Address: [address] [place] [address] Performed By: #### 2 4323-8, 67248-8, ####[facility] LABCLIA [id number] [address] [address] [place] Lipid 1996 panelon 5 Cholesterol [Mass/Vol] 175 mg/dL Normal <200 [facility] Comment on above: Order Comment: Speci men Type: BLOOD SPECIMENOrdering Facility: [facility] Address: [address] [place] [address] Result Comment: <200 mg/dL, Desirable 200-239 mg/dL, Borderline high >239 mg/dL, High Performed By: #### 2 4323-8, 05024-1, ####[facility] LABCLIA [id number] [address] [place] [address] [place] Cholesterol in HDL [Mass/Vol] 54 mg/dL Normal >39 [facility] Comment on above: Order Comment: Speci men Type: BLOOD SPECIMENOrdering Facility: [facility] Address: [address] [place] [address] Result Comment: 40-5 9 mg/dL, Acceptable >59 mg/dL, High: Negative risk factor for coronary heart disease <40 mg/dL, Low: Positive risk factor for coronary heart disease Performed By: #### 2 4323-8, 23178-2, ####[facility] LABCLIA [id number] [address] [place] [address] [place] Cholesterol in LDL [Mass/Vol] 109 mg/dL High <100 [facility] Comment on above: Order Comment: Speci men Type: BLOOD SPECIMENOrdering Facility: [facility] Address: [address] [place] [address] Result Comment: <100 mg/dL, Optimal 100-129 mg/dL, Near optimal/above optimal 130-159 mg/dL, Borderline high 160-189 mg/dL, High >189 mg/dL, Very high Secondary prevention optimal LDL Cholesterol levels are recommended to be < 70 mg/dL Performed By: #### 2 4323-8, 32774-0, ####[facility] LABCLIA [id number] [address] [address] [place] Cholesterol in LDL/Cholesterol in HDL [Mass ratio] 2.02 {ratio} Normal <2.54 [facility] Comment on above: Order Comment: Speci men Type: BLOOD SPECIMENOrdering Facility: [facility] Address: [address] [place] [address] Result Comment: Refe rence: 1. National Cholesterol Education Program ATP III Guideline At-A-Glance Quick Desk Reference: National Heart, Lung, and Blood [place]. National Institutes of Health. 2001: NIH Publication No. 01-3305. 2. An International Atherosclerosis Society position paper: global recommendations for the management of dyslipidemia: executive summary, Atherosclerosis. 2014: 232(2):410-413. Performed By: #### 2 4323-8, 69784-4, ####[facility] LABCLIA [id number] [address] [address] [place] Cholesterol in VLDL [Mass/Vol] 12 mg/dL Normal <30 [facility] Comment on above: Order Comment: Speci men Type: BLOOD SPECIMENOrdering Facility: [facility] Address: [address] [place] [address] Performed By: #### 2 4323-8, 68407-2, ####[facility] LABCLIA [id number] [address] [place] [address] [place] Cholesterol non HDL [Mass/Vol] 121 mg/dL Normal <130 [facility] Comment on above: Order Comment: Speci men Type: BLOOD SPECIMENOrdering Facility: [facility] Address: [address] [place] [address] Result Comment: <130 mg/dL, Optimal 130-159 mg/dL, Near optimal/above optimal 160-189 mg/dL, Borderline high 190-219 mg/dL, High >219 mg/dL, Very high Secondary prevention optimal non HDL Cholesterol levels are recommended to be <100 mg/dL Performed By: #### 2 4323-8, 08956-4, ####[facility] LABCLIA [id number] [address] [place] [address] [place] Cholesterol.total/Ch olesterol in HDL [Mass ratio] 3.24 {ratio} Normal <5.10 [facility] Comment on above: Order Comment: Speci men Type: BLOOD SPECIMENOrdering Facility: [facility] Address: [address] [place] [address] Performed By: #### 2 4323-8, , ####[facility] LABIA [id number] [address] STATES OF [facility] FASTING TIME 12 hrs Normal [facility] Comment on above: Order Comment: Speci men Type: BLOOD SPECIMENOrdering Facility: [facility] Address: [address] [place] [address] Performed By: #### 2 4323-8, , ####[facility] LABIA [id number] [address], [facility] [place] Triglyceride [Mass/Vol] 62 mg/dL Normal <150 [facility] Comment on above: Order Comment: Speci men Type: BLOOD SPECIMENOrdering Facility: [facility] Address: [address] [place], [place] [address] Result Comment: <150 mg/dL, Normal 150-199 mg/dL, Borderline high 200-499 mg/dL, High >499 mg/dL, Very high Performed By: #### 2 4323-8, , ####[facility] LABCLIA [id number] [address] [place] [address] [place] Magnesium SerPl-mCncon 10-08 Magnesium [Mass/Vol] 2.1 mg/dL Normal 1.7-2.3 [facility] Comment on above: Order Comment: Speci men Type: BLOOD SPECIMENOrdering Facility: [facility] Address: [address] [place] [address] Performed By: #### 2 4323-8, 31333-6, 89840-3 ####[facility] LABCLIA [id number] JED BRADENDESK [id number] [place] [address] OF [facility] CNOVon 07-30-2024 CNOV Office Visit (FAMPWS ) -------- SUSAN FLORES ([id number]) 1965 M Date Time Provider Department 07/30/24 10:40 AM [facility] During your visit today, we recorded the following information about you: Temperature Pulse Blood pressure Weight 99.3 degrees 89/minute 123/79 96.2 kg Yobany Glover APRN.ELECTRIC SCOOP OPERATOR 07/30/2024 10:34 AM Signed Here is some cold and flu information to help ease your symptoms: 1.) Get more rest than you usually do - this will speed your recovery. If you push hard with your usual busy schedule, you will be sicker longer. 2.) Drink a lot of water - enough to make you urinate every 2-3 hours (your urine should be a light yellow color). This helps thin the phlegm and sooth the airways. 3.) Run a cool mist humidifier in your bedroom on high with the door closed. This is a natural way to decongest, and it helps lessen scratchy throats, nasal stuffiness and coughs. A good brand is Vicks, which can be found at [employer] or [employer]. This is especially important if you do not have a humidifier on your furnace. 4.) Take Sudafed as a decongestant, but realize that you will need to take it every 4-6 hours for several days. 5.) Take ibuprofen or acetominophen every 4-6 hours for pain. 6.) Zinc lozenges (13.3mg every 2 hours while you are awake) have been shown to shorten the duration of cold symptoms. General information: * Green or yellow color does not mean you need an antibiotic; secretions can be green or yellow with viruses, such as the common cold * The average cold lasts 6-12 days. If you have further questions, please feel free to contact the office at [phone]. Yobany Glover APRN.ELECTRIC SCOOP OPERATOR 07/30/2024 10:37 AM Signed Chief Complaint Patient presents with: Viral Syndrome: Cough, chills, fever, started Tuesday, worsening HPI Susan Flores is a 58 year old male who presents here today for Above Complaints. Patient is here for flulike symptoms and complaints. Symptoms started Tuesday (4 days ago). Has complaints of cough, chills, fever, muscle aches. Believes it is worsening. tested positive for flu. Missed work today. Taking DayQuil, ibuprofen for discomfort. Without chest pain or shortness of breath. No history of asthma. Everyday smoker. Past medical history, appointments, medications, allergies reviewed. EXAM: BP 123/79 (BP Position: Sitting) Pulse 89 Temp 37.4 ?C (99.3 ?F) Wt 96.2 kg (212 lb) SpO2 97% BMI 29.93 kg/m? General Appearance: Well appearing, alert, in no acute distress, well-hydrated, well nourished.. Head: Normocephalic, no masses, lesions, tenderness or abnormalities. Eyes: Anicteric sclera. Pupils are equally round and reactive to light. Extraocular movements are intact. . Ears: External ears normal, canals clear. Nose/Sinuses: Nares normal, septum midline, mucosa normal, no drainage or sinus tenderness. Oropharynx: Lips, mucosa, and tongue normal, teeth and gums normal, oropharynx normal. Lungs: Lungs clear to auscultation. No wheezing, rhonchi, rales. Cough Heart: RRR without murmur, gallop, or rubs. No ectopy. ASSESSMENT/PLAN: 1. Flu-like symptoms - ICD9: 780.99, ICD10: R68.89 -Symptoms consistent with flu. High likelihood given his has tested positive for flu. He is outside of the treatment window as it has been almost 4 days since onset of symptoms. We discussed home treatment, comfort measures. He would like to be swabbed in case it is COVID. He is agreeable to Paxlovid if he is positive for COVID. - COVID AND INFLUENZA A/B AND RSV PCR, ROUTINE Yobany Glover APRN.IZA This note was partly generated using [employer] voice recognition dictation and may contain some misspelled or inaccurate words missed on review. Allergies As of Date: 07/30/2024 (No Known Allergies) Date Reviewed: 07/30/2024 Reviewed by: Donna Martin LPN - Fully Assessed Reason for Visit: Viral Syndrome [119] Cmt: Cough, chills, fever, started Tuesday, worsening Primary Visit Diagnosis:Flu-like symptoms [R68.89] Order(s):COVID AND INFLUENZA A/B AND RSV PCR, ROUTINE [SQCVFLRS] Order #: [id number]. #:[id number] Prescriptions as of 07/30/2024 - omeprazole (PRILOSEC) 40 mg capsule Take 1 capsule by mouth daily before breakfast. 1/2 hr before meal. - sucralfate (CARAFATE) 1 gram tablet Take one tablet by mouth before meals and at bedtime as needed - CPAP/BIPAP/OTHER Auto CPAP 6-11 cmH2O DME [employer] Problem List As Of Date 07/30/2024 Noted Resolved Tobacco use disorder [F17.200] 09/01/2020 Obesity, Class I, BMI 30-34.9 [E66.811] 07/29/2021 Primary hypertension [I10] 08/24/2022 03/25/2023 HOMER (obstructive sleep apnea) [G47.33] 08/08/2023 Nocturnal hypoxia [G47.34] 10/10/2023 Other instructions from your clinician: Here is some cold and flu information to help ease your symptoms: 1.) Get more rest than you usually do - t (more content not included)... Normal [facility] CNOVon 07-23-2024 CNOV Office Visit (PULMWS ) -------- SUSAN FLORES ([id number]) 1965 M Date Time Provider Department 07/23/24 9:00 AM ROSIE ROBERTS During your visit today, we recorded the following information about you: Pulse Respiration Blood pressure Weight 81/minute 16/minute 142/76 99.3 kg Rosie Roberts APRN.ELECTRIC SCOOP OPERATOR 07/23/2024 1:07 PM Signed LUNG SCREENING ANNUAL VISIT PRIMARY CARE PHYSICIAN: Austin Ge MD PULMONARY PROVIDER: Dr. Miller Results will be communicated via letter or electronic record if applicable. Visit Delivery: In Person Patient Visit Type: established Current or Ex-smoker? [Current Exam Type: annual LDCT Number of Pack Years: 56 Current smoker (=0) The patient's smoking history is similar to prior year shared decision visit. The reason for the discrepancy is NA Chief Complaint: Established patient in lung cancer screening program here for annual follow-up. Impression / Recommendations Susan Flores presents for annual lung cancer screening annual exam and nodule evaluation. Plan: Indeterminate pulmonary nodules: Previously identified nodules appear stable and no new nodules of concern were seen on the exam. Low dose CT Scan to be repeated in one year. Plan subject to change pending final radiology report and recommendations. Nature of the lung nodule(s) and the options for further evaluation discussed in detail with patient. Susan Flores expressed understanding and is in agreement with plan. 2. Encounter for screening for malignant neoplasm of respiratory organs I have determined that the patient is eligible for continued low dose CT screening based on age, absence of signs or symptoms of lung cancer, smoking history and total pack years. The patient was counseled on the importance of adherence to annual LDCT lung cancer screening, impact of comorbidities and ability or willingness to undergo diagnosis and treatment. The patient understands and feels comfortable with it: Yes. 3. Nicotine Dependence The patient was counseled on the importance of smoking cessation if current smoker and, if appropriate, offered additional tobacco cessation counseling services - Smoking Cessation Counseling. SMOKING CESSATION COUNSELING Smoking cessation methods including Behavior Modification were discussed with the patient and assistance offered. The medical conditions adversely affected by cigarette use include:COPD, Emphysema, and Lung Cancer. Counseled on benefits of quitting smoking, recommended cessation or reduction to prevent development and/or progression of emphysema. The patient is currently not ready to quit. I personally spent 3 minutes in counseling. The time spent in smoking cessation counseling is exclusive of any other counseling during this visit. I spent a total of 30 minutes on the date of the service which included preparing to see the patient, [id number] patient care, completing clinical documentation, performing a medically appropriate examination, counseling and educating the patient/family/caregiver , ordering medications, tests, or procedures, communicating with other HCPs (not separately reported), independently interpreting results (not separately reported), communicating results to the patient/family/caregiver , and care coordination (not separately reported). Rosie Roberts APRN.[facility] July 23, 2024 9:08 AM -------- History of Present Illness: Susan Flores is a 58 year old male who is presenting today for annual lung cancer screening LDCT and nodule surveillance/management. Patient has RLL nodule found on previous lung cancer screening LDCT. Last LDCT was performed on 07/15/2023 and was LUNG RADS Category 2. Previous potentially significant incidental findings on imaging: none Patient is a current smoker with a 55.6 pack year history. Patient is currently still smoking 1.5 packs cigarettes daily. Patient will continue to be eligible for lung cancer screening until age 79. The patient does not have any symptoms or signs of lung cancer. Patient denies SOB with their daily activity. No wheezing or dyspnea. Patient denies feeling of chest tightness/congestion in the chest. Patient does not have a new or concerning cough, and denies hemoptysis. Patient does not have a chronic daily cough. Denies regular or recent fevers/chills. Patient does not have any significant unintentional weight loss. Patient denies having any respiratory infections or COVID-19 in the past few months. Does not use any maintenance inhaler for COPD. Modified Medical Research [place] Dyspnea Scale (MMRC) I only get breathless with strenous exercise 0 Last 12 Encounter Wt Readings: Date: Wt: 07/23/2024 99.3 kg (219 lb) 04/16/2024 100.3 kg (221 lb (more content not included)... Normal [facility] CT Chest for screening WO co ntraston 07-23-2024 IMPRESSION: LungRADS category: 1 LungRADS modifier: Significant other (S), coronary artery calcification, moderate or severe LungRADS 0 reason: n/a Recommendations: Continue annual screening with LDCT in 12 months. Other actionable findings: === Reference: [employer]. Lung CT Screening Reporting and Data System (Lung-RADS). Available at: http://www.acr.org/Quali ty-Safety/Resources/Lung RADS Community Engagement Specialist: TA Transcribe Date/Time: Jul 23 2024 9:11A Dictated by : JOHANNA PARKS MD This examination was interpreted and the report reviewed and electronically signed by: JOHANNA PARKS MD on Jul 23 2024 9:19AM [facility] DIVISION OF RADIOLOGY * * *Final Report* * * DATE OF EXAM: Jul 23 2024 8:35AM [facility] 0562 - CT LUNG SCREEN WO IVCON / PROCEDURE REASON: Tobacco use current * * * * Physician Interpretation * * * * EXAMINATION: CHEST CT WITHOUT CONTRAST (LOW-DOSE CT LUNG CANCER SCREENING PROTOCOL) CLINICAL HISTORY: Lung cancer LDCT screening ? absence of signs or symptoms of lung cancer. Nicotine dependence (cigarettes). Subsequent (annual) Technique: Spiral CT acquisition of the chest from the thoracic inlet to the upper abdomen without contrast. MQ: CTLCS_6 Patient characteristics: * Bxcu-ou-Gunqy: 1965; Age at exam: 58 years * Gender: Male * Lung Disease: Asymptomatic (no signs or symptoms of lung disease) * Number of Pack Years: 56 * Current smoker (=0) or Number of Years since Quit: 0 * Ordering provider and NPI: ROSIE ROBERTS [id number] * Interpreting radiologist and NPI: Gabby [id number] Exam acquisition parameters: * Exam Date: 07/23/2024 8:35 AM * Site: [facility] * * CT System Mold Engraver: Siemens * CT System Model: Sensation * Tube Current-Time (mA-sec): 34 * Peak Voltage (kV): 120V * Scan Time (sec): 11.6 * Scan Volume (z-length, cm): -31.00 * Pitch: 0.75 * Slice Thickness (mm): 1.5 * CT Dose-Length Product: 111 mGy*cm * CT Dose Index: 2.66mGy * CT Dose Reduction Method: Automated exposure control(AEC) and iterative recon COMPARISON: CT chest dated 07/15/2023 RESULT: Are nodules present? Yes, 1-5 nodules If No, go to IMPRESSION. If yes, proceed with characterization of the FIVE largest nodules. Nodule 1: This Calcified nodule is located in the Right Lower Lobe on slice number 183 with an average diameter of 10.5 mm (11.3 mm x 9.7 mm). Stable If this is an ANNUAL LDCT for LCS, please ensure nodule number is the same as in the prior evaluation. Other lung nodule comments: Right lower lobe nodule with central calcification likely represents a granuloma. Other findings: The central airways are patent without evidence of endobronchial lesion. Minimal upper lobe predominant paraseptal emphysema with diffuse bronchial wall thickening is seen. There is no acute focal lung consolidation. There is no pleural effusion or pneumothorax. No enlarged supraclavicular, axillary, mediastinal or hilar lymph nodes are seen. The aorta is normal in course and caliber. The main pulmonary artery is mildly enlarged measuring 3.2 cm in diameter. The heart size is normal. There is no pericardial effusion. The thyroid gland is unremarkable. The esophagus is nondilated. The soft tissues of the chest wall are unremarkable. The visible portion of the upper abdomen is unremarkable. No destructive bone lesion is seen. Emphysema: Trivial (<5%), Paraseptal, Upper lobe Coronary Artery Calcifications: Circumflex Minimum; Left Anterior Descending Moderate; Right Coronary Moderate Incidental coronary calcium as automatically processed and calculated using AI: Total Coronary Calcium Score = [100+] Agatston Units Percentile Rank (age and gender matched relative to reference population): [75th-100th] percentile* [* [email or web address] rg/calcium/input.aspx] Localizer images: No additional findings. DIVISION OF RADIOLOGY Provider, [facility] - 07/23/2024 * * *Final Report* * * DATE OF EXAM: Jul 23 2024 8:35AM [facility] 0562 - CT LUNG SCREEN [facility] / PROCEDURE REASON: Tobacco use current * * * * Physician Interpretation * * * * EXAMINATION: CHEST CT WITHOUT CONTRAST (LOW-DOSE CT LUNG CANCER SCREENING PROTOCOL) CLINICAL HISTORY: Lung cancer LDCT screening ? absence of signs or symptoms of lung cancer. Nicotine dependence (cigarettes). Subsequent (annual) Technique: Spiral CT acquisition of the chest from the thoracic inlet to the upper abdomen without contrast. MQ: CTLCS_6 Patient characteristics: * Jlhb-jc-Icbea: 1965; Age at exam: 58 years * Gender: Male * Lung Disease: Asymptomatic (no signs or symptoms of lung disease) * Number of Pack Years: 56 * Current smoker (=0) or Number of Years since Quit: 0 * Ordering provider and NPI: ROSIE ROBERTS [id number] * Interpreting radiologist and NPI: Gabby [id number] Exam acquisition parameters: * Exam Date: 07/23/2024 8:35 AM * Site: [facility] * * CT System Mold Engraver: Siemens * CT System Model: Sensation * Tube Current-Time (mA-sec): 34 * Peak Voltage (kV): 120V * Scan Time (sec): 11.6 * Scan Volume (z-length, cm): -31.00 * Pitch: 0.75 * Slice Thickness (mm): 1.5 * CT Dose-Length Product: 111 mGy*cm * CT Dose Index: 2.66mGy * CT Dose Reduction Method: Automated exposure control(AEC) and iterative recon COMPARISON: CT chest dated 07/15/2023 RESULT: Are nodules present? Yes, 1-5 nodules If No, go to IMPRESSION. If yes, proceed with characterization of the FIVE largest nodules. Nodule 1: This Calcified nodule is located in the Right Lower Lobe on slice number 183 with an average diameter of 10.5 mm (11.3 mm x 9.7 mm). Stable If this is an ANNUAL LDCT for LCS, please ensure nodule number is the same as in the prior evaluation. Other lung nodule comments: Right lower lobe nodule with central calcification likely represents a granuloma. Other findings: The central airways are patent without evidence of endobronchial lesion. Minimal upper lobe predominant paraseptal emphysema with diffuse bronchial wall thickening is seen. There is no acute focal lung consolidation. There is no pleural effusion or pneumothorax. No enlarged supraclavicular, axillary, mediastinal or hilar lymph nodes are seen. The aorta is normal in course and caliber. The main pulmonary artery is mildly enlarged measuring 3.2 cm in diameter. The heart size is normal. There is no pericardial effusion. The thyroid gland is unremarkable. The esophagus is nondilated. The soft tissues of the chest wall are unremarkable. The visible portion of the upper abdomen is unremarkable. No destructive bone lesion is seen. Emphysema: Trivial (<5%), Paraseptal, Upper lobe Coronary Artery Calcifications: Circumflex Minimum; Left Anterior Descending Moderate; Right Coronary Moderate Incidental coronary calcium as automatically processed and calculated using AI: Total Coronary Calcium Score = [100+] Agatston Units Percentile Rank (age and gender matched relative to reference population): [75th-100th] percentile* [* [email or web address] rg/calcium/input.aspx] Localizer images: No additional findings. IMPRESSION IMPRESSION: LungRADS category: 1 LungRADS modifier: Significant other (S), coronary artery calcification, moderate or severe LungRADS 0 reason: n/a Recommendations: Continue annual screening with LDCT in 12 months. Other actionable findings: === Reference: [employer]. Lung CT Screening Reporting and Data System (Lung-RADS). Available at: http://www.acr.org/Quali ty-Safety/Resources/Lung RADS Community Engagement Specialist: TA Transcribe Date/Time: Jul 23 2024 9:11A Dictated by : JOHANNA PARKS MD This examination was interpreted and the report reviewed and electronically signed by: JOHANNA PARKS MD on Jul 23 2024 9:19AM EST [facility] Radiology Study observation (narrative) [facility] CT Chest for screening WO co ntrastOrdered By: [facility] Provider on 07-23-20[address] [facility] [address] LUNG SCREEN WO IVCONon CT LUNG SCREEN WO IVCON * * *Final Report* * * DATE OF EXAM: Jul 23 2024 8:35AM [facility] 0562 - CT LUNG SCREEN WO IVCON / PROCEDURE REASON: Tobacco use current * * * * Physician Interpretation * * * * EXAMINATION: CHEST CT WITHOUT CONTRAST (LOW-DOSE CT LUNG CANCER SCREENING PROTOCOL) CLINICAL HISTORY: Lung cancer LDCT screening ? absence of signs or symptoms of lung cancer. Nicotine dependence (cigarettes). Subsequent (annual) Technique: Spiral CT acquisition of the chest from the thoracic inlet to the upper abdomen without contrast. MQ: CTLCS_6 Patient characteristics: * Edjf-ah-Lqufu: 1965; Age at exam: 58 years * Gender: Male * Lung Disease: Asymptomatic (no signs or symptoms of lung disease) * Number of Pack Years: 56 * Current smoker (=0) or Number of Years since Quit: 0 * Ordering provider and NPI: ROSIE ROBERTS [id number] * Interpreting radiologist and NPI: Gabby [id number] Exam acquisition parameters: * Exam Date: 07/23/2024 8:35 AM * Site: [facility] * * CT System Mold Engraver: [employer] * CT System Model: Sensation * Tube Current-Time (mA-sec): 34 * Peak Voltage (kV): 120V * Scan Time (sec): 11.6 * Scan Volume (z-length, cm): -31.00 * Pitch: 0.75 * Slice Thickness (mm): 1.5 * CT Dose-Length Product: 111 mGy*cm * CT Dose Index: 2.66mGy * CT Dose Reduction Method: Automated exposure control(AEC) and iterative recon COMPARISON: CT chest dated 07/15/2023 RESULT: Are nodules present? Yes, 1-5 nodules If No, go to IMPRESSION. If yes, proceed with characterization of the FIVE largest nodules. Nodule 1: This Calcified nodule is located in the Right Lower Lobe on slice number 183 with an average diameter of 10.5 mm (11.3 mm x 9.7 mm). Stable If this is an ANNUAL LDCT for LCS, please ensure nodule number is the same as in the prior evaluation. Other lung nodule comments: Right lower lobe nodule with central calcification likely represents a granuloma. Other findings: The central airways are patent without evidence of endobronchial lesion. Minimal upper lobe predominant paraseptal emphysema with diffuse bronchial wall thickening is seen. There is no acute focal lung consolidation. There is no pleural effusion or pneumothorax. No enlarged supraclavicular, axillary, mediastinal or hilar lymph nodes are seen. The aorta is normal in course and caliber. The main pulmonary artery is mildly enlarged measuring 3.2 cm in diameter. The heart size is normal. There is no pericardial effusion. The thyroid gland is unremarkable. The esophagus is nondilated. The soft tissues of the chest wall are unremarkable. The visible portion of the upper abdomen is unremarkable. No destructive bone lesion is seen. Emphysema: Trivial (<5%), Paraseptal, Upper lobe Coronary Artery Calcifications: Circumflex Minimum; Left Anterior Descending Moderate; Right Coronary Moderate Incidental coronary calcium as automatically processed and calculated using AI: Total Coronary Calcium Score = [100+] Agatston Units Percentile Rank (age and gender matched relative to reference population): [75th-100th] percentile* [* [email or web address] rg/calcium/input.aspx] Localizer images: No additional findings. IMPRESSION: LungRADS category: 1 LungRADS modifier: Significant other (S), coronary artery calcification, moderate or severe LungRADS 0 reason: n/a Recommendations: Continue annual screening with LDCT in 12 months. Other actionable findings: === Reference: [employer]. Lung CT Screening Reporting and Data System (Lung-RADS). Available at: http://www.acr.org/Quali ty-Safety/Resources/Lung RADS Community Engagement Specialist: TA Transcribe Date/Time: Jul 23 2024 9:11A Dictated by : JOHANNA PARKS MD This examination was interpreted and the report reviewed and electronically signed by: JOHANNA PARKS MD on Jul 23 2024 9:19AM EST [id number] Normal [facility] ECHOon 11-25-2023 CONCLUSIONS: - Exam indication: Shortness of Breath - The left ventricle is normal in size. Left ventricular systolic function is normal. EF = 55 5% (2D biplane) Grade I left ventricular diastolic dysfunction. GLS= -19.9% Normal. - The right ventricle is normal in size. Right ventricular systolic function is normal. - The left atrial cavity is mildly dilated. - There are no significant valvular abnormalities. - The visualized aorta is borderline dilated with a maximal dimension of 3.9 cm. - The agitated saline study was negative for intracardiac shunt flow. Clip #[id number] - Exam was compared with the prior OUTSIDE echocardiographic exam performed on 09/08/2021. There is no significant change. * * * Final * * * [facility] Echocardiography Report: Transthoracic Echo [facility] Office Date of service: 11/25/2023 11:10:44 AM DEMONSTRATOR Ordering physician: NIDA MILLER Indication: Shortness of Breath Technologist: Carlos Ratliff Interpreting physician: Kenny Benitez DO PATIENT: Name: SUSAN FLORES : 1965 Age: 57 years Gender: M Primary rhythm: sinus. Height: 180.30 cm BSA: 2.22 m Weight: 98.10 kg BMI: 30.2 kg/m Heart rate 56 bpm Agitated saline was administered to rule out PFO. Color Doppler was utilized to interrogate the cardiac valves assessed and spectral Doppler was utilized to determine the flow velocities and pressure gradients reported in this exam. Myocardial strain analysis was performed in this exam to aid in the assessment of cardiac function. MEASUREMENTS: Value Indexed Normal Max aortic dimension 3.9 cm Ao < 3.8 Left atrial volume 78 ml (biplane A-L) 35 ml/m Jared <= 34 LV ID (diastole) 5.4 cm (2D) 2.41 cm/m LV ID (systole) 3.7 cm (2D) 1.66 cm/m IVS, leaflet tips 1.0 cm (2D) Posterior wall thickness 1.0 cm (2D) Left ventricular mass 208 g (2D) 94 g/m Global peak long strain -19.9 % LV stroke volume 65 ml (2D biplane) LV end diastolic volume 118 ml (2D biplane) 53.0 ml/m 34<=EDVi<75 LV end systolic volume 53 ml (2D biplane) 23.7 ml/m Ejection Fraction 55 % (2D biplane) EF > 52 FINDINGS: LEFT VENTRICLE The left ventricle is normal in size. Left ventricular systolic function is normal globally. Global LV myocardial strain is normal. Grade I left ventricular diastolic dysfunction. Mitral annular lateral E/e': 9.8. Mitral annular septal E/e': 8.2. Wall Motion: All scored segments are normal. RIGHT VENTRICLE The right ventricle is normal in size. Right ventricular systolic function is normal. Estimated right ventricular systolic pressure is 31 mmHg consistent with normal pulmonary artery pressures. Estimated right atrial pressure is 8 mmHg based on IVC assessment. LEFT ATRIUM The left atrial cavity is mildly dilated. Pulmonary Veins: The pulmonary venous pattern showed normal systolic flow. RIGHT ATRIUM The right atrial cavity is normal in size. Inferior Vena Cava: The inferior vena cava appears dilated measuring 2.3 cm. The vessel decreases greater than 50 percent with inspiration. MITRAL VALVE The mitral valve leaflets are structurally normal. There is trace mitral valve regurgitation. The pressure half time is 60 msec. The peak mitral E/A ratio is 0.84. The average mitral E/e' ratio is 9.0. The mitral flow deceleration time is 206 msec. TRICUSPID VALVE The tricuspid valve leaflets are structurally normal. There is trace tricuspid valve regurgitation. The hepatic venous pattern showed normal systolic flow. AORTIC VALVE The aortic valve cusps are structurally normal. There is no aortic valve regurgitation. Tricuspid aortic valve. PULMONIC VALVE The pulmonic valve cusps are structurally normal. There is trace pulmonic valve regurgitation. AORTA The visualized aorta is borderline dilated. Measurements - Sinus: 3.6 cm. Mid ascending aorta 3.9 cm. Distal ascending aorta 3.9 cm. PULMONARY ARTERIES The pulmonary arteries are normal. INTERATRIAL SEPTUM The interatrial septum is normal. INTERVENTRICULAR SEPTUM The interventricular septum is normal. PERICARDIUM The pericardium is normal. CORONARY ARTERIES The coronary arteries are unseen or not interrogated. [facility] CT LUNG FOLLOWUP WO IVCONon 01-05-2023 [facility] Gastroenterology Visit Repor ton 11-25-2022 Gastroenterology Visit Report [facility] Gastroenterology [address] [place] [address] OFFICE VISIT Date of Service: 11/25/22 MR#: [id number] Acct: [id number] Name: SUSAN FLORES Rep #: [id number] : 1965 Provider: BRITNI Patton Age/Sex: 56/M [place] [facility] [place]: [place] Intake Vital Signs 06/07/22 12:44 11/25/22 13:39 Height 5 ft 11 in 5 ft 11 in Weight: 239 lb BMI 33.3 BP 150/89 H Blood Pressure Location Rt brachial Position Sitting Pulse 75 Pulse Oximetry (%) 95 Oxygen Delivery Method room air Intake Visit Reasons: Consult Chief Complaint: bloating Allergies No Known Allergies Allergy (Verified 11/25/22 13:39) Medications omeprazole 20 mg capsule,delayed release 20 mg PO DAILY 06/03/22 [History Confirmed 11/25/22] amlodipine 2.5 mg tablet 2.5 mg PO DAILY 11/25/22 [History Confirmed 11/25/22] doxycycline hyclate 100 mg capsule 100 mg PO BID #28 caps 11/25/22 [Rx Confirmed 11/25/22] [facility] Medical History (Updated 11/25/22 @ 14:11 by Merrill Patton FOOD OR BAGGAGE HANDLING RAMPMAN, FOOD OR BAGGAGE HANDLING RAMPMAN-C) Abdominal bloating Cardiology follow-up encounter Epigastric pain Gastric reflux History of echocardiogram History of stress test Positive fecal occult blood test Smoker Wears glasses Surgical History History of back surgery Hx of hernia repair Family History (Reviewed 11/25/22 @ 13:54 by Merrill Patton FOOD OR BAGGAGE HANDLING RAMPMAN, FOOD OR BAGGAGE HANDLING RAMPMAN-C) Mother Bone cancer Social History (Reviewed 11/25/22 @ 13:54 by Merrill Patton FOOD OR BAGGAGE HANDLING RAMPMAN, FOOD OR BAGGAGE HANDLING RAMPMAN-C) Smoking Status: Current every day smoker tobacco type: cigarettes alcohol intake: current alcohol intake frequency: a few times a week HPI HPI Chief Complaint: bloating Details: SUSAN FLORES, is a 56 M who presents to the office today referred by general surgeon Dr He for chronic abdominal bloating. He reports he is especially uncomfortable in bilat upper quadrants under ribs. Omeprazole helps with reflux but not with bloating. Taking sucralfate which helps with the epigastric discomfort he had, was found to have gastritis on EGD. He has BM 1-2x daily, doesn't feel constipated. No diarrhea. No melena or hematochezia. 05/2022 colonoscopy found prep was poor. Repeat colonoscopy in 08/2022 found prep was fair. Smokes cigarettes Alcohol--"a few" beers per night 05/2022 EGD: normal appearing, mild gastritis on bx; colonoscopy: poor prep, 1 sigmoid polyp (hyperplastic) 08/2021 Colonoscopy: fair prep, 6 small polyps (1 tubular adenoma, 5 hyperplastic), diverticulosis, internal hemorrhoids; repeat in 2 yrs recommended ROS Const Constitutional: No fatigue ENT ENT: No difficulty swallowing Gastro GI: Positive for bloating, diarrhea and excessive flatus; No abdominal pain, belching, change in bowel habits, change in stool character, coffee ground emesis, constipation, cramping, heartburn, difficulty swallowing, feeling full early, incontinent of stools, Vomiting blood/hematemesis, Blood in stool, loose stools, Black,tarry stools, nausea/dyspepsia, pain with swallowing, vomiting or other Musc Musculoskeletal: Positive for back pain; No joint pain Skin Skin: No yellowing of the eye or itchy eyes Psych Psychiatric: No anxiety and No depression Endo Endocrine: No fatigue Aller/Imm Allergy/Immunologic: No itchy eyes Morgan/Lymp Hematologic/Lymphatic: No easy bleeding or easy bruising Exam Const General: cooperative and comfortable Orientation: alert, awake and oriented x3 HENMT Head: normal to inspection Eyes Sclera: sclerae normal Resp Effort Inspection: normal respiratory effort GI Inspection: obesity Palpation: soft, no hepatosplenomegaly, no masses and nontender Quality Reporting Tobacco Screening ([facility] 138) Smoking Status: Current every day smoker Assessment and Plan Assessment and Plan (1) Abdominal bloating: Status: Chronic Plan: 56 yr old male with chronic abdominal bloating, multifactorial--constipa tion (he was unaware, but found when colonoscopy preps were insufficient), smoking, alcohol Fiber Choice 2 tablets daily to help with constipation Doxycycline 100 mg bid x 2 wks for possible SIBO We'll call him in 3 wks to see how he's doing Discussed that smoking and beer are contributors to his bloating f/u 3 mos Medications: New doxycycline hyclate 100 mg PO BID 28 caps 0RF Coding Level of Care Code Off vis,new,level 3 Diagnoses Abdominal bloating R14.0 11/25/22 1429 Date Merrill Patton NP FOOD OR [employer] RAMPMAN-C Cosigner Signature: Date (if applicable) CC: Dr. Austin Ge MD [facility] CT LUNG SCREEN WO IVCONon [facility] COLONOSCOPY DIAGNOSTICon [facility] CBC W Auto Differential pane l (Bld)on 08-17-2022 Basophils (Bld) [#/Vol] 0.04 10*3/uL <0.11 k/uL [facility] Basophils/100 WBC (Bld) 0.6 % [facility] Differential cell count method Nom (Bld) Auto [facility] Eosinophils (Bld) [#/Vol] 0.12 10*3/uL <0.46 k/uL [facility] Eosinophils/100 WBC (Bld) 1.7 % [facility] Erythrocyte distribution width (RBC) [Ratio] 12.6 % 11.5 - 15.0 % [facility] Hematocrit (Bld) [Volume fraction] 47.1 % 39.0 - 51.0 % [facility] Hemoglobin (Bld) [Mass/Vol] 15.1 g/dL 13.0 - 17.0 g/dL [facility] Immature granulocytes (Bld) [#/Vol] 0.03 10*3/uL <0.10 k/uL [facility] Immature granulocytes/100 WBC (Bld) 0.4 % [facility] Lymphocytes (Bld) [#/Vol] 1.71 10*3/uL 1.00 - 4.00 k/uL [facility] Lymphocytes/100 WBC (Bld) 24.5 % [facility] MCH (RBC) [Entitic mass] 31.7 pg 26.0 - 34.0 pg [facility] MCHC (RBC) [Mass/Vol] 32.1 g/dL 30.5 - 36.0 g/dL [facility] MCV (RBC) [Entitic vol] 98.7 fL 80.0 - 100.0 fL [facility] Monocytes (Bld) [#/Vol] 0.73 10*3/uL <0.87 k/uL [facility] Monocytes/100 WBC (Bld) 10.5 % [facility] Neutrophils (Bld) [#/Vol] 4.34 10*3/uL 1.45 - 7.50 k/uL [facility] Neutrophils/100 WBC (Bld) 62.3 % [facility] Nucleated RBC (Bld) [#/Vol] <0.01 k/uL [facility] Nucleated RBC/100 WBC (Bld) [Ratio] 0.0 /100 WBC [facility] Platelet mean volume (Bld) [Entitic vol] 10.4 fL 9.0 - 12.7 fL [facility] Platelets (Bld) [#/Vol] 183 10*3/uL 150 - 400 k/uL [facility] RBC (Bld) [#/Vol] 4.77 10*6/uL 4.20 - 6.0 0 m/uL [facility] WBC (Bld) [#/Vol] 6.97 10*3/uL 3.70 - 11. 00 k/uL [facility] Comprehensive metabolic 2000 panelon 08-17-2022 Albumin [Mass/Vol] 4.6 g/dL 3.9 - 4.9 g/dL [facility] ALP [Catalytic activity/Vol] 61 U/L 38 - 113 U/L [facility] ALT [Catalytic activity/Vol] 25 U/L 10 - 54 U/L [facility] Anion gap [Moles/Vol] 10 mmol/L 9 - 18 mmol/L [facility] AST [Catalytic activity/Vol] 23 U/L 14 - 40 U/L [facility] Bilirubin [Mass/Vol] 0.3 mg/dL 0.2 - 1 .3 mg/dL [facility] Calcium [Mass/Vol] 9.8 mg/dL 8.5 - 10. 2 mg/dL [facility] Chloride [Moles/Vol] 102 mmol/L 97 - 10 5 mmol/L [facility] CO2 [Moles/Vol] 27 mmol/L 22 - 30 mmol/L [facility] Creatinine [Mass/Vol] 1.12 mg/dL 0.73 - 1.22 mg/dL [facility] Estimated Glomerular Filtration Rate 78 mL/min/1.73m >=60 mL/min/1.73m [facility] Glucose [Mass/Vol] 89 mg/dL 74 - 99 mg/dL [facility] Potassium [Moles/Vol] 4.6 mmol/L 3.7 - 5.1 mmol/L [facility] Protein [Mass/Vol] 6.8 g/dL 6.3 - 8.0 g/dL [facility] Sodium [Moles/Vol] 139 mmol/L 136 - 144 mmol/L [facility] Urea nitrogen [Mass/Vol] 19 mg/dL 9 - 24 mg/dL [facility] HbA1c (Bld)on 08-17-2022 Average glucose Estimated from glycated hemoglobin (Bld) [Mass/Vol] 103 mg/dL [facility] HbA1c (Bld) [Mass fraction] 5.2 % 4.3 - 5.6 % [facility] LIPID PANEL, NONFASTINGon Cholesterol [Mass/Vol] 198 mg/dL <200 mg/dL [facility] HDL Cholesterol, Nonfasting 60 mg/dL >39 mg/dL [facility] LDL Cholesterol, Nonfasting 123 mg/dL High <100 mg/dL [facility] LDL/HDL Ratio, Nonfasting 2.05 mg/dL <2.54 mg/dL [facility] Non HDL Cholesterol, Nonfasting 138 mg/dL High <130 mg/dL [facility] Total Chol/HDL Ratio, Nonfasting 3.30 mg/dL <5.10 mg/dL [facility] Triglycerides, Nonfasting 74 mg/dL <150 mg/dL [facility] VLDL Cholesterol, Nonfasting 15 mg/dL <30 mg/dL [facility] TSH BLDon 08-17-2022 TSH Qn 2.150 m[IU]/L 0.270 - 4.200 mIU/L [facility] Colonoscopy Reporton 022 Colonoscopy Report [facility] Medical Records Department [address] [place] [address] Colonoscopy Report MR#: [id number] Acct: [id number] Name: SUSAN FLORES Rep #: [id number] : 1965 56 From: Sukhdeep He MD PCP: BRITNI De La Torre Status:REG [facility] Patient Name: Susan Flores Procedure Date: 06/07/2022 2:00 PM Date of : 1965 Age: 56 Procedure: Colonoscopy Indications: Heme positive stool Providers: Sukhdeep He MD Medicines: See the Anesthesia note for documentation of the administered medications Patient Profile: This is a 56 year old male. Refer to note in patient chart for documentation of history and physical. Last Colonoscopy: none. The patient's first colonoscopy is today. Complications: No immediate complications. Estimated blood loss: Minimal. Procedure: Pre-Anesthesia Assessment: - Prior to the procedure, a History and Physical was performed, and patient medications and allergies were reviewed. The patient's tolerance of previous anesthesia was also reviewed. The risks and benefits of the procedure and the sedation options and risks were discussed with the patient. All questions were answered, and informed consent was obtained. Prior Anticoagulants: The patient has taken no previous anticoagulant or antiplatelet agents. ASA Grade Assessment: III - A patient with severe systemic disease. After reviewing the risks and benefits, the patient was deemed in satisfactory condition to undergo the procedure. After I obtained informed consent, the scope was passed under direct vision. Throughout the procedure, the patient's blood pressure, pulse, and oxygen saturations were monitored continuously. The colonoscope was introduced through the anus and advanced to the cecum, identified by appendiceal orifice and ileocecal valve. The colonoscopy was performed without difficulty. The patient tolerated the procedure well. The quality of the bowel preparation was unsatisfactory. Scope In: 2:02:21 PM Scope Withdrawal Time 0 hours 10 minutes 37 seconds Scope Out: 2:17:53 PM Total Procedure Duration Time 0 hours 15 minutes 32 seconds Findings: The perianal and digital rectal examinations were normal. Copious quantities of semi-liquid semi-solid stool was found in the entire colon, precluding visualization. Lavage of the area was performed using copious amounts of normal saline, resulting in incomplete clearance with continued poor visualization. Non-bleeding internal hemorrhoids were found during retroflexion. The hemorrhoids were mild and small. A small polyp was found in the sigmoid colon. The polyp was sessile. The polyp was removed with a jumbo cold forceps. Resection and retrieval were complete. Impression: - Preparation of the colon was unsatisfactory. - Stool in the entire examined colon. - Non-bleeding internal hemorrhoids. - One small polyp in the sigmoid colon, removed with a jumbo cold forceps. Resected and retrieved. Recommendation: - Patient has a contact number available for emergencies. The signs and symptoms of potential delayed complications were discussed with the patient. Return to normal activities tomorrow. Written discharge instructions were provided to the patient. - Resume previous diet. - Continue present medications. - Await pathology results. - Repeat colonoscopy within 3 months because the bowel preparation was poor. - Return to physician administration assistant in 1 week. Procedure Code(s): --- Professional --- 00733, Colonoscopy, flexible; with biopsy, single or multiple Diagnosis Code(s): --- Professional --- K64.8, Other hemorrhoids D12.5, Benign neoplasm of sigmoid colon R19.5, Other fecal abnormalities CPT copyright 2017 [employer]. All rights reserved. The codes documented in this report are preliminary and upon giver review may be revised to meet current compliance requirements. MD Sukhdeep Weaver MD 06/07/2022 2:36:29 PM This report has been signed electronically. Number of Addenda: 0 Note Initiated On: 06/07/2022 2:00 PM 06/07/22 1436 Date Sukhdeep He MD Cosigner Signature: Date (if indicated) CC: BRITNI Christensen; Dr. Sukhdeep He MD Date Dictated: 06/07/22 1400 Date Transcribed: Community Engagement Specialist: DP Signed Normal [facility] EGD Reporton 06-07-2022 EGD Report [facility] Medical Records Department [address] [place] [address] EGD Report MR#: [id number] Acct: [id number] Name: SUSAN FLORES Rep #: [id number] : 1965 56 From: Sukhdeep He MD PCP: BRITNI De La Torre Status:REG [facility] Patient Name: Susan Flores Procedure Date: 06/07/2022 1:37 PM Date of : 1965 Age: 56 Procedure: Upper GI endoscopy Indications: Heartburn, Gastro-esophageal reflux disease Providers: Sukhdeep He MD Medicines: See the Anesthesia note for documentation of the administered medications Patient Profile: This is a 56 year old male. Refer to note in patient chart for documentation of history and physical. Complications: No immediate complications. Estimated blood loss: Minimal. Procedure: Pre-Anesthesia Assessment: - Prior to the procedure, a History and Physical was performed, and patient medications and allergies were reviewed. The patient's tolerance of previous anesthesia was also reviewed. The risks and benefits of the procedure and the sedation options and risks were discussed with the patient. All questions were answered, and informed consent was obtained. Prior Anticoagulants: The patient has taken no previous anticoagulant or antiplatelet agents. ASA Grade Assessment: III - A patient with severe systemic disease. After reviewing the risks and benefits, the patient was deemed in satisfactory condition to undergo the procedure. After obtaining informed consent, the endoscope was passed under direct vision. Throughout the procedure, the patient's blood pressure, pulse, and oxygen saturations were monitored continuously. The colonoscope was introduced through the mouth, and advanced to the fourth part of duodenum. The upper GI endoscopy was accomplished without difficulty. The patient tolerated the procedure well. Scope In: 1:54:20 PM Scope Out: 2:00:22 PM Total Procedure Duration Time 0 hours 6 minutes 2 seconds Findings: The nasopharynx was normal. The Z-line was regular and was found 45 cm from the incisors. Biopsies were taken with a cold forceps for histology. The entire examined stomach was normal. Biopsies were taken with a cold forceps for Helicobacter pylori testing. The first portion of the duodenum, second portion of the duodenum, third portion of the duodenum, fourth portion of the duodenum and examined duodenum were normal. No biopsies or other specimens were collected for this exam. Impression: - Normal nasopharynx. - Z-line regular, 45 cm from the incisors. Biopsied. - Normal stomach. Biopsied. - Normal first portion of the duodenum, second portion of the duodenum, third portion of the duodenum, fourth portion of the duodenum and examined duodenum. No specimens collected. Recommendation: - Patient has a contact number available for emergencies. The signs and symptoms of potential delayed complications were discussed with the patient. Return to normal activities tomorrow. Written discharge instructions were provided to the patient. - Resume previous diet. - Continue present medications. - Await pathology results. - Repeat upper endoscopy PRN for surveillance. - Return to physician administration assistant in 1 week. Procedure Code(s): --- Professional --- 24445, Esophagogastroduodenosco py, flexible, transoral; with biopsy, single or multiple Diagnosis Code(s): --- Professional --- R12, Heartburn K21.9, Gastro-esophageal reflux disease without esophagitis CPT copyright 2017 [employer]. All rights reserved. The codes documented in this report are preliminary and upon giver review may be revised to meet current compliance requirements. MD Sukhdeep Weaver MD 06/07/2022 2:31:20 PM This report has been signed electronically. Number of Addenda: 0 Note Initiated On: 06/07/2022 1:37 PM 06/07/22 1431 Date Sukhdeep He MD Cosigner Signature: Date (if indicated) CC: BRITNI Christensen; Dr. Sukhdeep He MD Date Dictated: 06/07/221336 Date Transcribed: Community Engagement Specialist: DP Signed Normal [facility] H Pylori (initial)on H Pylori (initial) ---- Patient Age/Sex Location Account Attending Physician SUSAN FLORES 56/M EN [id number] Dr. Sukhdeep He MD Specimen: [id number] Received: 06/09/22 Status: DES Barnes Num: [id number] Spec Type: IMMUNO Subm Dr: Dr. Sukhdeep He MD PHYSICIAN INSTITUTION [place] [address] SPECIMEN INFORMATION: Tissue Source: A ??? Antrum biopsy Clinical Info: Positive IFOBT, abdominal bloating, GERD Specimen Number: [id number] CPT code: 90216 METHODOLOGY: Deparaffinized sections of prefer/formalin-fixed tissue or PAP/DQ stained slides are incubated with monoclonal/polyclonal antibodies/oligonucleoti de probes. Localization is made via biotin free immunoperoxidase method. Appropriate controls are performed and reacted as expected. Results on target cell population are indicated in the following table: RESULTS: ANTIBODY / CLONE RESULT Block A H Pylori (polyclonal) negative These tests were developed and their performance characteristics determined by [facility]. They may not have been cleared or approved by the U.S. Food and Drug Administration. The FDA has determined that such clearance or approval is not necessary. The above immunohistochemical/dual JACOB markers are ordered and reviewed by the Pathologist. INTERPRETATION: A. Antrum, biopsy: Negative for Helicobacter pylori organisms. SJ:andres 06/09/2022 Signed (signature on file) Dr. Booker Yu MD 06/09/22 1301 Normal [facility] Comment on above: Performed By: #### P H.PYLORI #### [facility] [address] [place], [address] M101.0111on 06-07-2022 M101.0111 *Negative results fr om patients with symptom onset beyond five days should be treated as presumptive and confirmed by a molecular assay if clinically necessary. Negative results should not be used as the sole basis for treatment or for patient management. FLUABV+SARS-CoV2 Ag Pnl Up resp IA.rapid *Positive results do not differentiate between SARS-CoV and SARS-CoV-2. FLUABV+SARS-CoV2 Ag Pnl Up resp IA.rapid Negative Influenza results should be confirmed with FLU PANEL MOLECULAR if indicated. FLUABV+SARS-CoV2 Ag Pnl Up resp IA.rapid * This test has not been FDA cleared or approved; the test has been authorized by FDA under an Emergency Use Authorization (EAU) for use by laboratories certified under CLIA that meet the requirements to perform moderate, high, or waived complexity tests. FLUABV+SARS-CoV2 Ag Pnl Up resp IA.rapid Normal Reference Range: Negative Joanne, CHELSEY method SARS-CoV-2 (COVID 19) Negative Influenza Ag, Direct Presumptive NEGATIVE for Influenza A/B Antigen (See Note) Normal [facility] Comment on above: Performed By: #### M 101.0111 #### [facility] [address] [place], [address] Surgery Specimen Level Raúl 06-07-2022 Surgery Specimen Level IV Patient Age/Sex Location Account Attending Physician SUSAN FLORES 56/M EN [id number] Dr. Sukhdeep He MD Specimen: [id number] Received: 06/07/22 Status: DES Barnes Num: [id number] Spec Type: EGD BIOPSY Subm Dr: Dr. Sukhdeep He MD HEADER OPERATION: Colonoscopy, EGD (MAC), biopsy PRE-OP DIAGNOSIS: Positive IFOBT, abdominal bloating, GERD TISSUE SUBMITTED: A ??? Antrum biopsy for histo and H. pylori, B ??? Distal esophagus biopsy, C ??? Sigmoid polyp biopsy MICROSCOPIC DIAGNOSIS A. Antrum, biopsy: Mild gastritis. See microscopic description and comment. B. Distal esophagus, biopsy: Fragments of squamous mucosa with minimal chronic inflammation. C. Sigmoid polyp, biopsy: Hyperplastic polyp. JOSIAH:andres 06/09/2022 COMMENT A. The results of immunohistochemistry for Helicobacter pylori will be reported separately ([id number]). MICROSCOPIC DESCRIPTION Slides are reviewed. A. The specimen shows fragments of gastric mucosa with chronic inflammatory cell infiltrates in the lamina propria consisting of lymphocytes and plasma cells, consistent with mild chronic gastritis. GROSS DESCRIPTION A - Received in fixative is one container labeled with the patient's name and designated "antrum biopsy." The specimen consists of one irregular fragment of light jerez soft tissue that measures 0.4 x 0.3 x 0.1 cm. The specimen is totally submitted in one cassette. B - Received in fixative is one container labeled with the patient's name and designated distal esophagus biopsy." The specimen consists of multiple irregular fragments of light jerez soft tissue that in aggregate measure 0.6 x 0.6 x 0.1 cm. The specimen is totally submitted in one cassette. C - Received in fixative is one container labeled with the patient's name and designated sigmoid polyp biopsy. The specimen consists of one irregular fragment of light jerez soft tissue that measures 0.3 x 0.3 x 0.1 cm. The specimen is totally submitted in one cassette. / JOSIAH:andres 06/08/2022 TC:3 CPT: 36944 x3 Patient Age/Sex Location Account Attending Physician SUSAN FLORES ELDER 56/M EN [id number] Dr. Sukhdeep He MD Signed (signature on file) Dr. Booker Yu MD 06/09/22 1057 Normal [facility] Comment on above: Performed By: #### P JAYLON #### [facility] [address] [place], [address] STRESS ECHO TREADMILLon 08-19 [facility] CNPNon 09-07-2021 CNPN Telephone (CDLBME) -------- SUSAN FLORES ([id number]) 1965 M Date Time Provider Department 09/07/21 KATIE JACOME CDLBME During your visit today, we recorded the following information about you: Katie Jacome RN 09/07/2021 2:35 PM Signed Left message regarding reminder for stress test tomorrow and given instructions. Allergies As of Date: 09/07/2021 (No Known Allergies) Date Reviewed: 07/29/2021 Reviewed by: Sukhdeep Christensen APRN.ELECTRIC SCOOP OPERATOR, DNP - Fully Assessed Reason for Visit: Reminder Call [[id number]] Prescriptions as of 09/07/2021 - omeprazole (PRILOSEC) 20 mg capsule Take 2 capsules by mouth daily before breakfast. 1/2 hr before meal. - naproxen (NAPROSYN) 500 mg tablet TAKE 1 TABLET BY MOUTH TWICE DAILY NEEDED (PAIN/INFLAMMATION, TAKE WITH FOOD.). - polyethylene glycol 3350 (MIRALAX, GLYCOLAX) 17 gram/dose powder Use as directed for Miralax / Gatorade Bowel Prep Kit - Gatorade Sports Drink Use as directed for Miralax / Gatorade Bowel Prep Kit - Bisacodyl (DULCOLAX) 5 mg tab Use as directed for Miralax / Gatorade Bowel Prep Kit - METHYLPREDNISOLONE 4 MG TABS IN A DOSE PACK as directed Problem List As Of Date 09/07/2021 Noted Resolved Tobacco use disorder [F17.200] 09/01/2020 Obesity, Class I, BMI 30-34.9 [E66.9] 07/29/2021 Encounter Status:Closed by KATIE JACOME on 09/07/21 [facility] XR Chest PA and Lateralon IMPRESSION: No acute radiographic abnormality. Community Engagement Specialist: TA Transcribe Date/Time: Jul 06 2021 5:19P Dictated by : DEE DEE BOND MD This examination was interpreted and the report reviewed and electronically signed by: DEE DEE BOND MD on Jul 06 2021 5:20PM [facility] DIVISION OF RADIOLOGY * * *Final Report* * * DATE OF EXAM: Jul 06 2021 5:08PM WOX 5291 - XR CHEST 2V FRONTAL/LAT / PROCEDURE REASON: multiple diagnoses * * * * Physician Interpretation * * * * EXAMINATION: CHEST RADIOGRAPH (2 VIEW FRONTAL & LATERAL) CLINICAL HISTORY: Chest heaviness SOB (shortness of breath) MQ: XC2_6 EXAM DATE/TIME: 07/06/2021 5:08 PM COMPARISON: No relevant prior studies available. RESULT: Lines, tubes, and devices: None. Lungs and pleura: No consolidation. No pleural effusion. No pneumothorax. Cardiomediastinal silhouette: Normal cardiomediastinal silhouette. Bones and soft tissues: Unremarkable. [facility] * * *Final Report* * * DATE OF EXAM: Jul 06 2021 5:08PM WOX 5291 - XR CHEST 2V FRONTAL/LAT / PROCEDURE REASON: multiple diagnoses * * * * Physician Interpretation * * * * EXAMINATION: CHEST RADIOGRAPH (2 VIEW FRONTAL & LATERAL) CLINICAL HISTORY: Chest heaviness SOB (shortness of breath) MQ: XC2_6 EXAM DATE/TIME: 07/06/2021 5:08 PM COMPARISON: No relevant prior studies available. RESULT: Lines, tubes, and devices: None. Lungs and pleura: No consolidation. No pleural effusion. No pneumothorax. Cardiomediastinal silhouette: Normal cardiomediastinal silhouette. Bones and soft tissues: Unremarkable. IMPRESSION IMPRESSION: No acute radiographic abnormality. Community Engagement Specialist: PSCB Transcribe Date/Time: Jul 06 2021 5:19P Dictated by : DEE DEE BOND MD This examination was interpreted and the report reviewed and electronically signed by: DEE DEE BOND MD on Jul 06 2021 5:20PM EST [facility] Radiology Study observation (narrative) [facility] XR Chest PA and LateralOrder ed By: [facility] Provider on 07-06-2021 [facility] Influenza virus A and B and SARS-CoV-2 (COVID-19) Ag panel - Upper respiratory specim SARS-CoV-2 (COVID-19) RNA CARRIE+probe Ql (Resp) [facility] Work Phone: Vital Signs Date Time Vital Sign Value Performing Clinician Facility 12-03-2024 11:14-0400 Diastolic blood pressure 69 mm[Hg] Sukhdeep He MD Work Phone: [facility] 12-03-2024 11:14-0400 Heart rate 69 /min Sukhdeep He MD Work Phone: [facility] 12-03-2024 11:14-0400 Respiratory rate 16 /min Sukhdeep He MD Work Phone: [facility] 12-03-2024 11:14-0400 SaO2% (BldA) [Mass fraction] 94 % Sukhdeep He MD Work Phone: [facility] 12-03-2024 11:14-0400 Systolic blood pressure 112 mm[Hg] Sukhdeep He MD Work Phone: [facility] 12-03-2024 09:42-0400 Body mass index (BMI) [Ratio] 30.59 kg/m2 Sukhdeep He MD Work Phone: [facility] 12-03-2024 09:42-0400 Body temperature 98.49 [degF] Sukhdeep He MD Work Phone: [facility] 12-03-2024 09:42-0400 Body weight 98.3 kg Sukhdeep He MD Work Phone: [facility] 10-24-2024 08:24-0400 Body mass index (BMI) [Ratio] 30.61 kg/m2 Sandi Paul PROPERTY CLAIMS ADJUSTER.ELECTRIC SCOOP OPERATOR Work Phone: [facility] 10-24-2024 08:24-0400 Body weight 98.34 kg Sandi Paul PROPERTY CLAIMS ADJUSTER.ELECTRIC SCOOP OPERATOR Work Phone: [facility] 10-24-2024 08:24-0400 Diastolic blood pressure 73 mm[Hg] Sandi Paul PROPERTY CLAIMS ADJUSTER.ELECTRIC SCOOP OPERATOR Work Phone: [facility] 10-24-2024 08:24-0400 Heart rate 67 /min Sandi Paul PROPERTY CLAIMS ADJUSTER.ELECTRIC SCOOP OPERATOR Work Phone: [facility] 10-24-2024 08:24-0400 Respiratory rate 14 /min Sandi Littlejohnir PROPERTY CLAIMS ADJUSTER.ELECTRIC SCOOP OPERATOR Work Phone: [facility] 10-24-2024 08:24-0400 SaO2% (BldA) [Mass fraction] 97 % Sandi Littlejohnir PROPERTY CLAIMS ADJUSTER.ELECTRIC SCOOP OPERATOR Work Phone: [facility] 10-24-2024 08:24-0400 Systolic blood pressure 125 mm[Hg] Sandi Paul PROPERTY CLAIMS ADJUSTER.ELECTRIC SCOOP OPERATOR Work Phone: [facility] 07-30-2024 10:22-0500 Body mass index (BMI) [Ratio] 29.93 kg/m2 Yobany Glover PROPERTY CLAIMS ADJUSTER.ELECTRIC SCOOP OPERATOR Work Phone: [facility] 07-30-2024 10:22-0500 Body temperature 99.3 [degF] Yobany Glover PROPERTY CLAIMS ADJUSTER.ELECTRIC SCOOP OPERATOR Work Phone: [facility] 07-30-2024 10:22-0500 Body weight 96.16 kg Yobany Glover PROPERTY CLAIMS ADJUSTER.ELECTRIC SCOOP OPERATOR Work Phone: [facility] 07-30-2024 10:22-0500 Diastolic blood pressure 79 mm[Hg] Yobany Restrepoil PROPERTY CLAIMS ADJUSTER.ELECTRIC SCOOP OPERATOR Work Phone: [facility] 07-30-2024 10:22-0500 Heart rate 89 /min Yobany Glover PROPERTY CLAIMS ADJUSTER.ELECTRIC SCOOP OPERATOR Work Phone: [facility] 07-30-2024 10:22-0500 SaO2% (BldA) [Mass fraction] 97 % Yobany Glover PROPERTY CLAIMS ADJUSTER.ELECTRIC SCOOP OPERATOR Work Phone: [facility] 07-30-2024 10:22-0500 Systolic blood pressure 123 mm[Hg] Yobany Amilcar PROPERTY CLAIMS ADJUSTER.ELECTRIC SCOOP OPERATOR Work Phone: [facility] 07-23-2024 08:46-0500 Body mass index (BMI) [Ratio] 30.92 kg/m2 Rosie Roberts PROPERTY CLAIMS ADJUSTER.ELECTRIC SCOOP OPERATOR Work Phone: [facility] 07-23-2024 08:46-0500 Body weight 99.34 kg Rosie Bustilloster PROPERTY CLAIMS ADJUSTER.ELECTRIC SCOOP OPERATOR Work Phone: [facility] 07-23-2024 08:46-0500 Diastolic blood pressure 76 mm[Hg] Rosie Figueredopster PROPERTY CLAIMS ADJUSTER.ELECTRIC SCOOP OPERATOR Work Phone: [facility] 07-23-2024 08:46-0500 Heart rate 81 /min Rosie Bustilloster PROPERTY CLAIMS ADJUSTER.ELECTRIC SCOOP OPERATOR Work Phone: [facility] 07-23-2024 08:46-0500 Respiratory rate 16 /min Rosie Roberts PROPERTY CLAIMS ADJUSTER.ELECTRIC SCOOP OPERATOR Work Phone: [facility] 07-23-2024 08:46-0500 SaO2% (BldA) [Mass fraction] 97 % Rosie Roberts PROPERTY CLAIMS ADJUSTER.ELECTRIC SCOOP OPERATOR Work Phone: [facility] 07-23-2024 08:46-0500 Systolic blood pressure 142 mm[Hg] Rosie Roberts PROPERTY CLAIMS ADJUSTER.ELECTRIC SCOOP OPERATOR Work Phone: [facility] 04-16-2024 11:54-0400 Body height 179.3 cm Austin Ge MD Work Phone: [facility] 04-16-2024 11:54-0400 Body mass index (BMI) [Ratio] 30.97 kg/m2 Austin Ge MD Work Phone: [facility] 04-16-2024 11:54-0400 Body temperature 97.3 [degF] Austin Ge MD Work Phone: [facility] 04-16-2024 11:54-0400 Body weight 99.5 kg Austin Ge MD Work Phone: [facility] 04-16-2024 11:54-0400 Diastolic blood pressure 72 mm[Hg] Austin Ge MD Work Phone: [facility] 04-16-2024 11:54-0400 Heart rate 70 /min Austin Ge MD Work Phone: [facility] 04-16-2024 11:54-0400 Respiratory rate 16 /min Austin Ge MD Work Phone: [facility] 04-16-2024 11:54-0400 SaO2% (BldA) [Mass fraction] 99 % Austin Ge MD Work Phone: [facility] 04-16-2024 11:54-0400 Systolic blood pressure 126 mm[Hg] Austin Ge MD Work Phone: [facility] 04-16-2024 11:03-0400 Body mass index (BMI) [Ratio] 30.84 kg/m2 Merrill Pooja PROPERTY CLAIMS ADJUSTER.ELECTRIC SCOOP OPERATOR Work Phone: [facility] 04-16-2024 11:03-0400 Body weight 100.3 kg Merrill Pooja PROPERTY CLAIMS ADJUSTER.ELECTRIC SCOOP OPERATOR Work Phone: [facility] 04-16-2024 11:03-0400 Diastolic blood pressure 82 mm[Hg] Merrill Pooja PROPERTY CLAIMS ADJUSTER.ELECTRIC SCOOP OPERATOR Work Phone: [facility] 04-16-2024 11:03-0400 Heart rate 70 /min Merrill Pooja PROPERTY CLAIMS ADJUSTER.ELECTRIC SCOOP OPERATOR Work Phone: [facility] 04-16-2024 11:03-0400 Respiratory rate 16 /min Merrill Pooja PROPERTY CLAIMS ADJUSTER.ELECTRIC SCOOP OPERATOR Work Phone: [facility] 04-16-2024 11:03-0400 SaO2% (BldA) [Mass fraction] 98 % Merrill Pooja PROPERTY CLAIMS ADJUSTER.ELECTRIC SCOOP OPERATOR Work Phone: [facility] 04-16-2024 11:03-0400 Systolic blood pressure 136 mm[Hg] Merrill Pooja PROPERTY CLAIMS ADJUSTER.ELECTRIC SCOOP OPERATOR Work Phone: [facility] 12-05-2023 14:21-0400 Body mass index (BMI) [Ratio] 30.29 kg/m2 Nida Miller MD Work Phone: [facility] 12-05-2023 14:21-0400 Body weight 98.5 kg Nida Miller MD Work Phone: [facility] 12-05-2023 14:21-0400 Diastolic blood pressure 79 mm[Hg] Nida Miller MD Work Phone: [facility] 12-05-2023 14:21-0400 Heart rate 75 /min Nida Miller MD Work Phone: [facility] 12-05-2023 14:21-0400 SaO2% (BldA) [Mass fraction] 97 % Nida Miller MD Work Phone: [facility] 12-05-2023 14:21-0400 Systolic blood pressure 128 mm[Hg] Nida Miller MD Work Phone: [facility] 11-04-2023 08:00-0400 Body height 180.3 cm Pulm Wstr Work Phone: [facility] 11-04-2023 08:00-0400 Body mass index (BMI) [Ratio] 30.4 kg/m2 Pulm Wstr Work Phone: [facility] 11-04-2023 08:00-0400 Body weight 98.88 kg Pulm Wstr Work Phone: [facility] 11-04-2023 08:00-0400 Heart rate 72 /min Pulm Wstr Work Phone: [facility] 11-04-2023 08:00-0400 Respiratory rate 14 /min Pulm Wstr Work Phone: [facility] 11-04-2023 08:00-0400 SaO2% (BldA) [Mass fraction] 96 % Pulm Wstr Work Phone: [facility] 10-27-2023 12:08-0400 Body mass index (BMI) [Ratio] 30.16 kg/m2 Nida Miller MD Work Phone: [facility] 10-27-2023 12:08-0400 Body weight 98.1 kg Nida Miller MD Work Phone: [facility] 10-27-2023 12:08-0400 Diastolic blood pressure 86 mm[Hg] Nida Miller MD Work Phone: [facility] 10-27-2023 12:08-0400 Heart rate 70 /min Nida Miller MD Work Phone: [facility] 10-27-2023 12:08-0400 SaO2% (BldA) [Mass fraction] 98 % Nida Miller MD Work Phone: [facility] 10-27-2023 12:08-0400 Systolic blood pressure 135 mm[Hg] Nida Miller MD Work Phone: [facility] 10-10-2023 10:24-0400 Body mass index (BMI) [Ratio] 30.85 kg/m2 Merrill Pooja PROPERTY CLAIMS ADJUSTER.ELECTRIC SCOOP OPERATOR Work Phone: [facility] 10-10-2023 10:24-0400 Body weight 100.34 kg Merrill Pooja PROPERTY CLAIMS ADJUSTER.ELECTRIC SCOOP OPERATOR Work Phone: [facility] 10-10-2023 10:24-0400 Diastolic blood pressure 77 mm[Hg] Merrill Pooja PROPERTY CLAIMS ADJUSTER.ELECTRIC SCOOP OPERATOR Work Phone: [facility] 10-10-2023 10:24-0400 Heart rate 67 /min Merrill Pooja PROPERTY CLAIMS ADJUSTER.ELECTRIC SCOOP OPERATOR Work Phone: [facility] 10-10-2023 10:24-0400 Respiratory rate 18 /min Merrill Pooja PROPERTY CLAIMS ADJUSTER.ELECTRIC SCOOP OPERATOR Work Phone: [facility] 10-10-2023 10:24-0400 SaO2% (BldA) [Mass fraction] 98 % Merrill Pooja PROPERTY CLAIMS ADJUSTER.ELECTRIC SCOOP OPERATOR Work Phone: [facility] 10-10-2023 10:24-0400 Systolic blood pressure 135 mm[Hg] Merrill Pooja PROPERTY CLAIMS ADJUSTER.ELECTRIC SCOOP OPERATOR Work Phone: [facility] 09-26-2023 09:16-0400 Body weight 101.61 kg Rocky Calles PROPERTY CLAIMS ADJUSTER.SOLAR INSTALLER TECHNICIAN Work Phone: [facility] 09-26-2023 09:16-0400 Diastolic blood pressure 70 mm[Hg] Rocky Calles PROPERTY CLAIMS ADJUSTER.SOLAR INSTALLER TECHNICIAN Work Phone: [facility] 09-26-2023 09:16-0400 Heart rate 67 /min Rocky Calles PROPERTY CLAIMS ADJUSTER.SOLAR INSTALLER TECHNICIAN Work Phone: [facility] 09-26-2023 09:16-0400 Respiratory rate 16 /min Rocky Calles PROPERTY CLAIMS ADJUSTER.SOLAR INSTALLER TECHNICIAN Work Phone: [facility] 09-26-2023 09:16-0400 Systolic blood pressure 117 mm[Hg] Rocky Calles PROPERTY CLAIMS ADJUSTER.SOLAR INSTALLER TECHNICIAN Work Phone: [facility] 08-08-2023 07:56-0500 Body weight 101.88 kg Toi Washington Jr., MD Work Phone: [facility] 08-08-2023 07:56-0500 Diastolic blood pressure 78 mm[Hg] Toi Washington Jr., MD Work Phone: [facility] 08-08-2023 07:56-0500 Heart rate 71 /min Toi Washington Jr., MD Work Phone: [facility] 08-08-2023 07:56-0500 Respiratory rate 16 /min Toi Washington Jr., MD Work Phone: [facility] 08-08-2023 07:56-0500 SaO2% (BldA) [Mass fraction] 98 % Toi Washington Jr., MD Work Phone: [facility] 08-08-2023 07:56-0500 Systolic blood pressure 136 mm[Hg] Toi Washington Jr., MD Work Phone: [facility] 03-25-2023 13:27-0400 Body weight 101.15 kg Austin Ge MD Work Phone: [facility] 03-25-2023 13:27-0400 Diastolic blood pressure 78 mm[Hg] Austin Ge MD Work Phone: [facility] 03-25-2023 13:27-0400 Heart rate 81 /min Austin Ge MD Work Phone: [facility] 03-25-2023 13:27-0400 SaO2% (BldA) [Mass fraction] 97 % Austin Ge MD Work Phone: [facility] 03-25-2023 13:27-0400 Systolic blood pressure 128 mm[Hg] Austin Ge MD Work Phone: [facility] 01-05-2023 08:32-0400 Body weight 103.42 kg Rosie [place] PROPERTY CLAIMS ADJUSTER.ELECTRIC SCOOP OPERATOR Work Phone: [facility] 01-05-2023 08:32-0400 Diastolic blood pressure 80 mm[Hg] Rosie [place] PROPERTY CLAIMS ADJUSTER.ELECTRIC SCOOP OPERATOR Work Phone: [facility] 01-05-2023 08:32-0400 Heart rate 78 /min Rosie [place] PROPERTY CLAIMS ADJUSTER.ELECTRIC SCOOP OPERATOR Work Phone: [facility] 01-05-2023 08:32-0400 Respiratory rate 15 /min Rosie [place] PROPERTY CLAIMS ADJUSTER.ELECTRIC SCOOP OPERATOR Work Phone: [facility] 01-05-2023 08:32-0400 SaO2% (BldA) [Mass fraction] 95 % Rosie [place] PROPERTY CLAIMS ADJUSTER.ELECTRIC SCOOP OPERATOR Work Phone: [facility] 01-05-2023 08:32-0400 Systolic blood pressure 124 mm[Hg] Rosie [place] PROPERTY CLAIMS ADJUSTER.ELECTRIC SCOOP OPERATOR Work Phone: [facility] 10-08-2022 10:25-0400 Body weight 109.77 kg Rocky Calles PROPERTY CLAIMS ADJUSTER.SOLAR INSTALLER TECHNICIAN Work Phone: [facility] 10-08-2022 10:25-0400 Diastolic blood pressure 70 mm[Hg] Rocky Calles PROPERTY CLAIMS ADJUSTER.SOLAR INSTALLER TECHNICIAN Work Phone: [facility] 10-08-2022 10:25-0400 Heart rate 78 /min Rocky Calles PROPERTY CLAIMS ADJUSTER.SOLAR INSTALLER TECHNICIAN Work Phone: [facility] 10-08-2022 10:25-0400 Respiratory rate 16 /min Rocky Calles PROPERTY CLAIMS ADJUSTER.SOLAR INSTALLER TECHNICIAN Work Phone: [facility] 10-08-2022 10:25-0400 Systolic blood pressure 122 mm[Hg] Rocky Calles PROPERTY CLAIMS ADJUSTER.SOLAR INSTALLER TECHNICIAN Work Phone: [facility] 09-15-2022 09:44-0400 Body weight 111.58 kg Rosie [place] PROPERTY CLAIMS ADJUSTER.ELECTRIC SCOOP OPERATOR Work Phone: [facility] 09-15-2022 09:44-0400 Diastolic blood pressure 88 mm[Hg] Rosie [place] PROPERTY CLAIMS ADJUSTER.ELECTRIC SCOOP OPERATOR Work Phone: [facility] 09-15-2022 09:44-0400 Heart rate 77 /min Rosie [place] PROPERTY CLAIMS ADJUSTER.ELECTRIC SCOOP OPERATOR Work Phone: [facility] 09-15-2022 09:44-0400 Respiratory rate 15 /min Rosie [place] PROPERTY CLAIMS ADJUSTER.ELECTRIC SCOOP OPERATOR Work Phone: [facility] 09-15-2022 09:44-0400 SaO2% (BldA) [Mass fraction] 100 % Rosie [place] PROPERTY CLAIMS ADJUSTER.ELECTRIC SCOOP OPERATOR Work Phone: [facility] 09-15-2022 09:44-0400 Systolic blood pressure 140 mm[Hg] Rosie [place] PROPERTY CLAIMS ADJUSTER.ELECTRIC SCOOP OPERATOR Work Phone: [facility] 09-10-2022 15:26-0400 Body temperature 98.29 [degF] Goldie Odessa PA-C Work Phone: [facility] 09-10-2022 15:26-0400 Body weight 111.58 kg Goldie Odessa PA-C Work Phone: [facility] 09-10-2022 15:26-0400 Diastolic blood pressure 84 mm[Hg] Goldie [place] PA-C Work Phone: [facility] 09-10-2022 15:26-0400 Heart rate 88 /min Goldie [place] PA-C Work Phone: [facility] 09-10-2022 15:26-0400 SaO2% (BldA) [Mass fraction] 96 % Goldie Odessa PA-C Work Phone: [facility] 09-10-2022 15:26-0400 Systolic blood pressure 136 mm[Hg] Goldie Odessa PA-C Work Phone: [facility] 09-03-2022 09:45-0400 Diastolic blood pressure 79 mm[Hg] Sukhdeep He MD Work Phone: [facility] 09-03-2022 09:45-0400 Heart rate 61 /min Sukhdeep He MD Work Phone: [facility] 09-03-2022 09:45-0400 Respiratory rate 16 /min Sukhdeep He MD Work Phone: [facility] 09-03-2022 09:45-0400 SaO2% (BldA) [Mass fraction] 96 % Sukhdeep He MD Work Phone: [facility] 09-03-2022 09:45-0400 Systolic blood pressure 126 mm[Hg] Sukhdeep He MD Work Phone: [facility] 09-03-2022 09:25-0400 Body temperature 97.2 [degF] Sukhdeep He MD Work Phone: [facility] 08-24-2022 10:46-0500 Diastolic blood pressure 89 mm[Hg] Rocky Calles PROPERTY CLAIMS ADJUSTER.SOLAR INSTALLER TECHNICIAN Work Phone: [facility] 08-24-2022 10:46-0500 Heart rate 74 /min Rocky Calles PROPERTY CLAIMS ADJUSTER.SOLAR INSTALLER TECHNICIAN Work Phone: [facility] 08-24-2022 10:46-0500 Systolic blood pressure 134 mm[Hg] Rocky Calles PROPERTY CLAIMS ADJUSTER.SOLAR INSTALLER TECHNICIAN Work Phone: [facility] 08-24-2022 10:38-0500 Body weight 111.58 kg Rocky Calles PROPERTY CLAIMS ADJUSTER.SOLAR INSTALLER TECHNICIAN Work Phone: [facility] 08-17-2022 14:27-0500 Body weight 109.77 kg Rocky Calles PROPERTY CLAIMS ADJUSTER.SOLAR INSTALLER TECHNICIAN Work Phone: [facility] 08-17-2022 14:27-0500 Diastolic blood pressure 98 mm[Hg] Rocky Calles PROPERTY CLAIMS ADJUSTER.SOLAR INSTALLER TECHNICIAN Work Phone: [facility] 08-17-2022 14:27-0500 Heart rate 80 /min Rocky Calles PROPERTY CLAIMS ADJUSTER.SOLAR INSTALLER TECHNICIAN Work Phone: [facility] 08-17-2022 14:27-0500 Respiratory rate 16 /min Rocky Calles PROPERTY CLAIMS ADJUSTER.SOLAR INSTALLER TECHNICIAN Work Phone: [facility] 08-17-2022 14:27-0500 SaO2% (BldA) [Mass fraction] 97 % Rocky Calles PROPERTY CLAIMS ADJUSTER.SOLAR INSTALLER TECHNICIAN Work Phone: [facility] 08-17-2022 14:27-0500 Systolic blood pressure 150 mm[Hg] Rocky Calles PROPERTY CLAIMS ADJUSTER.SOLAR INSTALLER TECHNICIAN Work Phone: [facility] 06-15-2022 10:15-0500 Body height 180.3 cm Goldie Odessa PA-C Work Phone: [facility] 06-15-2022 10:15-0500 Body temperature 97.59 [degF] Goldie Odessa PA-C Work Phone: [facility] 06-15-2022 10:15-0500 Body weight 115.39 kg Goldie Odessa PA-C Work Phone: [facility] 06-15-2022 10:15-0500 Diastolic blood pressure 82 mm[Hg] Goldie [place] PA-C Work Phone: [facility] 06-15-2022 10:15-0500 Heart rate 85 /min Goldie [place] PA-C Work Phone: [facility] 06-15-2022 10:15-0500 SaO2% (BldA) [Mass fraction] 96 % Goldie [place] PA-C Work Phone: [facility] 06-15-2022 10:15-0500 Systolic blood pressure 118 mm[Hg] Goldie Odessa PA-C Work Phone: [facility] 06-07-2022 14:40-0500 Body temperature 98.2 [degF] [facility] Work Phone: 06-07-2022 14:40-0500 Diastolic blood pressure 86 mm[Hg] [facility] Work Phone: 06-07-2022 14:40-0500 Heart rate 71 /min [facility] Work Phone: 06-07-2022 14:40-0500 Respiratory rate 16 /min [facility] Work Phone: 06-07-2022 14:40-0500 SaO2% (BldA) [Mass fraction] 97 % [facility] Work Phone: 06-07-2022 14:40-0500 Systolic blood pressure 124 mm[Hg] [facility] Work Phone: 06-07-2022 12:44-0500 Body height 180.34 cm [facility] Work Phone: 06-07-2022 12:44-0500 Body mass index (BMI) [Ratio] 33.8 kg/m2 [facility] Work Phone: 06-07-2022 12:44-0500 Body weight 110 kg [facility] Work Phone: 04-14-2022 13:04-0400 Body height 180.3 cm Goldie [place] PA-C Work Phone: [facility] 04-14-2022 13:04-0400 Body temperature 97.2 [degF] Goldie [place] PA-C Work Phone: [facility] 04-14-2022 13:04-0400 Body weight 110.68 kg Goldie Odessa PA-C Work Phone: [facility] 04-14-2022 13:04-0400 Diastolic blood pressure 96 mm[Hg] Goldie Rileyf PA-C Work Phone: [facility] 04-14-2022 13:04-0400 Heart rate 98 /min Goldiejigar Rileyf PA-C Work Phone: [facility] 04-14-2022 13:04-0400 SaO2% (BldA) [Mass fraction] 98 % Goldie [place] PA-C Work Phone: [facility] 04-14-2022 13:04-0400 Systolic blood pressure 150 mm[Hg] Goldiejigar Rileyf PA-C Work Phone: [facility] 04-12-2022 07:31-0400 Body temperature 98.01 [degF] Yobany Amilcar PROPERTY CLAIMS ADJUSTER.ELECTRIC SCOOP OPERATOR Work Phone: [facility] 04-12-2022 07:31-0400 Body weight 109.41 kg Yobany Amilcar PROPERTY CLAIMS ADJUSTER.ELECTRIC SCOOP OPERATOR Work Phone: [facility] 04-12-2022 07:31-0400 Diastolic blood pressure 88 mm[Hg] Yobany Amilcar PROPERTY CLAIMS ADJUSTER.ELECTRIC SCOOP OPERATOR Work Phone: [facility] 04-12-2022 07:31-0400 Heart rate 84 /min Yobany Amilcar PROPERTY CLAIMS ADJUSTER.ELECTRIC SCOOP OPERATOR Work Phone: [facility] 04-12-2022 07:31-0400 Respiratory rate 16 /min Yobany Amilcar PROPERTY CLAIMS ADJUSTER.ELECTRIC SCOOP OPERATOR Work Phone: [facility] 04-12-2022 07:31-0400 Systolic blood pressure 138 mm[Hg] Yobany Amilcar PROPERTY CLAIMS ADJUSTER.ELECTRIC SCOOP OPERATOR Work Phone: [facility] Encounters Encounter Date Encounter Type Care Provider Facility Start: 04-23-2025 End: 04-23-2025 ambulatory AUSTIN EG Facility:[facility] Start: 04-23-2025 Encounter for genera l adult medical examination without abnormal findings AUSTIN GE [facility] Start: 04-18-2025 End: 04-18-2025 ambulatory [facility] Facility:[facility] Start: 04-15-2025 End: 04-15-2025 ambulatory MERRILLVILMA PATTON Facility:[facility] Start: 01-04-2025 End: 01-04-2025 ambulatory MANUEL CHAU JR Facility:[facility] Start: 12-12-2024 End: 12-12-2024 Patient encounter procedure Sanid Arora APRN.ELECTRIC SCOOP OPERATOR Work Phone: General Surgery Comment on above: Hyperplastic rectal polyp (Primary Dx) Start: 12-12-2024 End: 12-12-2024 ambulatory SANDI ARORA Facility:[facility] Start: 12-04-2024 End: 02-03-2025 Follow-up encounter Sandi Arora APRN.ELECTRIC SCOOP OPERATOR Work Phone: General Surgery Start: 12-03-2024 ambulatory SUKHDEEP Galdamez ty:[facility] Start: 12-03-2024 End: 12-03-2024 Subsequent hospital visit by physician Sukhdeep He MD Work Phone: Ambulatory Surgery Comment on above: Screening for colon cancer [Z12.11] Start: 11-22-2024 End: 11-22-2024 ambulatory [facility] Facility:[facility] Start: 11-22-2024 End: 11-22-2024 [facility] Facility:[facility] Start: 10-24-2024 End: 10-24-2024 Patient encounter procedure Sandi Arora APRN.ELECTRIC SCOOP OPERATOR Work Phone: General Surgery Comment on above: History of colonic p olyps (Primary Dx); Screening for colon cancer Start: 10-24-2024 End: 10-24-2024 ambulatory SANDI ARORA Facility:[facility] Start: 10-15-2024 End: 10-15-2024 ambulatory [facility] Facility:[facility] Start: 10-08-2024 End: 10-08-2024 ambulatory AUSTIN GE Facility:[facility] Start: 07-31-2024 End: 07-31-2024 Follow-up encounter Yobany Glover APRN.CNP Work Phone: [facility] [place] Start: 07-30-2024 End: 07-30-2024 ambulatory YOBANY GLOVER Facility:[facility] Start: 07-30-2024 End: 07-30-2024 Office outpatient visit 15 minutes Yobany Glover APRN.ELECTRIC SCOOP OPERATOR Work Phone: [facility] [place] Comment on above: Flu-like symptoms (P rimary Dx) Start: 07-23-2024 End: 07-23-2024 Patient encounter procedure Rosie Roberts APRN.ELECTRIC SCOOP OPERATOR Work Phone: Pulmonary Medicine Comment on above: Lung nodules (Primar y Dx); Encounter for screening for lung cancer; Tobacco use current Start: 07-23-2024 End: 07-23-2024 ambulatory [facility] Facility:[facility] Start: 07-23-2024 End: 07-23-2024 Subsequent hospital visit by physician [facility] (I-Stat) Work Phone: Cat Scan Comment on above: Tobacco use current [Z72.0] Start: 04-17-2024 End: 04-17-2024 Telephone encounter Merrill Patton APRN.CNP Work Phone: Neurology Start: 04-16-2024 End: 04-16-2024 Patient encounter procedure Merrill [place] APRN.ELECTRIC SCOOP OPERATOR Work Phone: Neurology Comment on above: HOMER on CPAP (Primary Dx); Nocturnal hypoxia; Tobacco use disorder Start: 04-16-2024 End: 04-16-2024 Patient encounter status Austin Ge MD Work Phone: [facility] Work Phone: Start: 04-16-2024 End: 04-16-2024 Periodic preventive med est patient 40-64yrs Austin Ge MD Work Phone: Internal Medicine [place] Comment on above: Routine medical exam (Primary Dx); GERD without esophagitis; Tobacco use disorder; HOMER (obstructive sleep apnea); Nocturnal hypoxia; Encounter for immunization; Encounter for long-term current use of medication; Elevated LDL cholesterol level Start: 12-05-2023 End: 12-05-2023 Patient encounter procedure Nida Miller MD Work Phone: Pulmonary Medicine Comment on above: Nocturnal hypoxia (P rimary Dx); Smoker; HOMER (obstructive sleep apnea); Lung nodules; Other emphysema (HCC); Stage 1 mild COPD by GOLD classification ([facility]) Start: 11-25-2023 End: 11-25-2023 Patient encounter procedure Echocardiogram Peck Work Phone: Cardiology Comment on above: Chest tightness Start: 11-04-2023 End: 11-04-2023 ambulatory Pulm Lab [facility] Work Phone: PULM LAB [facility] Comment on above: Spirometry Start: 11-04-2023 End: 11-04-2023 Patient encounter procedure Pulm Lab [facility] Work Phone: [facility] Start: 10-28-2023 ambulatory Nida pak MD Work Phone: Pulmonary Medicine Comment on above: Spiriva Respimat Start: 10-28-2023 Telephone encounter Nida Miller MD Work Phone: Pulmonary Medicine Comment on above: Dasco - O2 Order Start: 10-27-2023 End: 10-27-2023 Patient encounter procedure Nida Miller MD Work Phone: Pulmonary Medicine Comment on above: Smoker (Primary Dx); Nocturnal hypoxia; Chest tightness; HOMER (obstructive sleep apnea); Lung nodules; Other emphysema (HCC) Start: 10-10-2023 Telephone encounter Merrill ryder PROPERTY CLAIMS ADJUSTER.ELECTRIC SCOOP OPERATOR Work Phone: Neurology Start: 10-10-2023 End: 10-10-2023 Patient encounter procedure Merrill Patton APRN.ELECTRIC SCOOP OPERATOR Work Phone: Neurology Comment on above: HOMER on CPAP (Primary Dx); Nocturnal hypoxia; Tobacco use disorder Start: 09-26-2023 End: 09-26-2023 Office outpatient visit 25 minutes Rocky Calles APRN.SOLAR INSTALLER TECHNICIAN Work Phone: Internal Medicine [place] Comment on above: GERD without esophag itis (Primary Dx); Tobacco use disorder; HOMER (obstructive sleep apnea) Start: 08-17-2023 [facility] Work Phone: Neurology Start: 08-08-2023 End: 08-08-2023 Patient encounter procedure Toi Washington MD Work Phone: Neurology Comment on above: HOMER (obstructive sle ep apnea) (Primary Dx); Cigarette smoker; Class 1 obesity with body mass index (BMI) of 31.0 to 31.9 in adult, unspecified obesity type, unspecified whether serious comorbidity present Start: 08-04-2023 Telephone encounter Neurology [facility] Start: 03-25-2023 End: 03-25-2023 Office outpatient visit 15 minutes Austin Ge MD Work Phone: Internal Medicine [place] Comment on above: GERD without esophag itis (Primary Dx); Tobacco use disorder; Elevated LDL cholesterol level; Class 1 obesity due to excess calories with body mass index (BMI) of 31.0 to 31.9 in adult, unspecified whether serious comorbidity present; History of hypertension; Encounter for long-term current use of medication Start: 01-05-2023 ambulatory Austin Ge Facilit y:[facility] Start: 01-05-2023 End: 01-05-2023 Patient encounter procedure Rosie Roberts APRN.CNP Work Phone: Pulmonary Medicine Comment on above: Lung nodules (Primar y Dx); Tobacco use current Start: 01-05-2023 End: 01-05-2023 Subsequent hospital visit by physician [facility] (I-Stat) Work Phone: Cat Scan Comment on above: Lung nodules [R91.8] Start: 12-27-2022 Refill Goldie Kenney Work Phone: Ambulatory Surgery Comment on above: Refill Request Start: 11-29-2022 End: 11-29-2022 ambulatory Austin Erasmo Ge Facility:[facility] Start: 11-25-2022 End: 11-25-2022 ambulatory Austin Erasmo Ge Facility:[facility] Start: 10-08-2022 End: 10-08-2022 Office outpatient visit 25 minutes Rocky Stevan PROPERTY CLAIMS ADJUSTER.SOLAR INSTALLER TECHNICIAN Work Phone: Internal Medicine [place] Comment on above: Primary hypertension (Primary Dx); Encounter for immunization; GERD without esophagitis; Tobacco use disorder Start: 10-06-2022 Telephone encounter Rosie castillo PROPERTY CLAIMS ADJUSTER.ELECTRIC SCOOP OPERATOR Work Phone: Pulmonary Medicine Comment on above: Results Start: 09-29-2022 Orders Only Goldie Turner hannah PROPERTY CLAIMS ADJUSTER.ELECTRIC SCOOP OPERATOR Work Phone: Pulmonary Medicine Comment on above: Lung nodule (Primary Dx) Start: 09-27-2022 End: 09-27-2022 Subsequent hospital visit by physician Jazmine [facility] (I-Stat) Work Phone: Cat Scan Comment on above: Encounter for screen ing for lung cancer [Z12.2] Start: 09-20-2022 Telephone encounter Rocky funes PROPERTY CLAIMS ADJUSTER.SOLAR INSTALLER TECHNICIAN Work Phone: Internal Medicine [place] Start: 09-16-2022 Telephone encounter Austin rodgers MD Work Phone: [facility] [place] Comment on above: Appointment Start: 09-15-2022 End: 09-15-2022 Patient encounter procedure Rosie Roberts PROPERTY CLAIMS ADJUSTER.ELECTRIC SCOOP OPERATOR Work Phone: Pulmonary Medicine Comment on above: Encounter for screen ing for lung cancer (Primary Dx); Tobacco use current Start: 09-13-2022 Telephone encounter Goldie dudley PA-C Work Phone: General Surgery Comment on above: Referral Request ([place] stroenterology Referral) Start: 09-10-2022 End: 09-10-2022 Patient encounter procedure Goldie Saxena PA-C Work Phone: General Surgery Comment on above: History of colonic p olyps (Primary Dx); Epigastric pain; Abdominal bloating Start: 09-03-2022 End: 09-03-2022 Subsequent hospital visit by physician Sukhdeep He MD Work Phone: [facility] Endoscopy Comment on above: Positive FIT (fecal immunochemical test) [R19.5] Start: 08-24-2022 End: 08-24-2022 Office outpatient visit 25 minutes Rocky Calles APRN.SOLAR INSTALLER TECHNICIAN Work Phone: Internal Medicine [place] Comment on above: Primary hypertension (Primary Dx); Encounter for immunization; GERD without esophagitis Start: 08-23-2022 Chart abstracting [facility] Work Phone: Neurology Start: 08-17-2022 End: 08-17-2022 Office outpatient visit 25 minutes Rocky Calles APRN.SOLAR INSTALLER TECHNICIAN Work Phone: Internal Medicine [place] Comment on above: Encounter for immuni zation (Primary Dx); Encounter for screening for lung cancer; GERD without esophagitis; Tobacco use disorder; Other fatigue; Screening for lipid disorders; Fungal toenail infection; Elevated blood pressure reading in office without diagnosis of hypertension; Alcohol use; Obesity, Class I, BMI 30-34.9 Start: 06-25-2022 Refill Yobany RAMON RN.ELECTRIC SCOOP OPERATOR Work Phone: Family Medicine [place] Comment on above: Refill Request Start: 06-16-2022 Telephone encounter Goldie dudley PA-C Work Phone: Ambulatory Surgery Comment on above: Medication Problem Start: 06-15-2022 End: 06-15-2022 Patient encounter procedure Goldie Saxena PA-C Work Phone: General Surgery Comment on above: Gastroesophageal ref lux disease, unspecified whether esophagitis present (Primary Dx); Chronic superficial gastritis without bleeding; Hyperplastic polyp of sigmoid colon Start: 06-07-2022 End: 06-07-2022 ambulatory Sukhdeep Christensen NP Facility:[facility] Start: 06-07-2022 End: 06-07-2022 Admission to same day surgery center [facility]End[facility] Start: 06-07-2022 End: 06-07-2022 ambulatory [facility] Work Phone: Start: 04-14-2022 End: 04-14-2022 Patient encounter procedure Dee Dee De Guzman Work Phone: Podiatry Comment on above: Porokeratosis (Prima ry Dx); [place] Positive fecal occul t blood test (Primary Dx); GERD without esophagitis; Abdominal bloating; Screening for colon cancer Start: 04-13-2022 Refill Yobany RAMON RN.ELECTRIC SCOOP OPERATOR Work Phone: [facility] [place] Comment on above: Refill Request Start: 04-12-2022 End: 04-12-2022 Office outpatient visit 25 minutes Yobany Glover APRN.IZA Work Phone: [facility] [place] Comment on above: GERD without esophag itis (Primary Dx); Need for influenza vaccination; Abdominal bloating; Screening for colon cancer; Encounter for immunization; [place] Start: 04-02-2022 Refill Yobany RAMON RN.IZA Work Phone: [facility] [place] Comment on above: Refill Request Start: 01-26-2022 Refill Sukhdeep RAMON RN.ALISTAIR COUCH Work Phone: [facility] [place] Comment on above: Refill Request Start: 11-23-2021 Refill Sukhdeep RAMON RN.ALISTAIR COUCH Work Phone: [facility] [place] Comment on above: Refill Request Start: 09-11-2021 Refill Sukhdeep RAMON RN.ALISTAIR COUCH Work Phone: [facility] [place] Comment on above: Refill Request Start: 09-08-2021 End: 09-08-2021 Subsequent hospital visit by physician [facility] Work Phone: Cardiology Lab Comment on above: Chest discomfort [R0 7.89] Start: 07-06-2021 End: 07-06-2021 Subsequent hospital visit by physician Cinda [facility] [place] Work Phone: Radiology Comment on above: Chest heaviness [R07 .89] Procedures Date Procedure Procedure Detail Performing Clinician Start: 12-03-2024 Colonoscopy flx dx w /collj spec when pfrmd Sandi Arora APRN.CNP Work Phone: Start: 12-03-2024 Colonoscopy Sukhdeep jenkins MD Work Phone: Start: 10-15-2024 Adult depression scr eening assessment Sandi Arora PROPERTY CLAIMS ADJUSTER.ELECTRIC SCOOP OPERATOR Work Phone: Start: 10-08-2024 Lipid 1996 panel - S kari or Plasma Sandi Blair PROPERTY CLAIMS ADJUSTER.ELECTRIC SCOOP OPERATOR Work Phone: Start: 07-23-2024 CT LUNG SCREEN WO KRISTEN Figueredopster PROPERTY CLAIMS ADJUSTER.ELECTRIC SCOOP OPERATOR Work Phone: Start: 04-16-2024 PFIZER-BIONTECH COVI D-19 VACCINE AGE 12+ YR (COMIRNATY) Austin Ge MD Work Phone: Start: 11-25-2023 Echo tthrc r-t 2d w/wom-mode compl spec&colr d Nida Miller MD Work Phone: Start: 11-04-2023 Brncdilat rspse spmt ry pre&post-brncdilat admn Nida Miller MD Work Phone: Start: 09-26-2023 Adult depression scr eening assessment Xr [place] Work Phone: Start: 09-24-2023 Lipid 1996 panel - S kari or Plasma Rocky Calles PROPERTY CLAIMS ADJUSTER.SOLAR INSTALLER TECHNICIAN Work Phone: Start: 01-05-2023 Ct thorax w/o contra st material Rosielila Roberts PROPERTY CLAIMS ADJUSTER.ELECTRIC SCOOP OPERATOR Work Phone: Start: 09-27-2022 CT LUNG SCREEN WO KRISTEN Nur Armando PROPERTY CLAIMS ADJUSTER.ELECTRIC SCOOP OPERATOR Work Phone: Start: 09-03-2022 Colonoscopy flx dx w /collj spec when pfrmd Goldie Saxena PA-C Work Phone: Start: 09-03-2022 Colonoscopy Sukhdeep jenkins MD Work Phone: Start: 08-17-2022 Lipid 1996 panel - S kari or Plasma Ct (I-Stat) Work Phone: Start: 06-07-2022 End: 06-07-2022 Colonoscopy Start: 04-12-2022 PFIZER-BIONTECH COVI D-19 BIVALENT BOOSTER VACCINE, AGE 12+ YR Yobany Glover PROPERTY CLAIMS ADJUSTER.ELECTRIC SCOOP OPERATOR Work Phone: Start: 04-12-2022 INFLUENZA VACCINE QUADRIVALENT 6 MO - 64 YRS IM Yobany Glover APRN.ELECTRIC SCOOP OPERATOR Work Phone: Start: 09-08-2021 Echo tthrc r-t 2d w/ wo m-mode complete rest&st Nikolas Reno Arboleda DO Work Phone: Start: 07-06-2021 Radiologic exam ches t 2 views Kandi Wheat PAPablito Work Phone: Start: 08-31-2020 Adult depression scr eening assessment [facility] Work Phone: SARS-CoV-2 & FLU Ant igen (Rapid) Plan of Treatment Date Care Activity Detail Author Start: 12-03-2029 Screening for malign ant neoplasm of colon [facility] Start: 10-08-2029 Lipid panel Lipid Screening [facility] Start: 09-23-2028 Lipid panel Lipid Screening [facility] Start: 11-23-2027 Diabetes Scre[facility] Start: 10-09-2027 Diabetes Screening Diabetes Screenin [facility] Start: 08-17-2027 Lipid 1996 panel - S kari or Plasma Lipid Screening [facility] Start: 08-17-2027 Lipid panel Lipid Screening [facility] Start: 08-17-2027 LIPID SCREEN LIPID SCREEN [facility] Start: 12-03-2026 Screening for malign ant neoplasm of colon [facility] Start: 09-23-2026 Diabetes Screening Diabetes Screenin g [facility] Start: 10-15-2025 Annual PCP Team Iron Handler olivia Disease Visit Annual PCP Team Chronic Disease Visit [facility] Start: 10-15-2025 Anxiety Screening Anxiety Screening [facility] Start: 10-15-2025 Depression Screening Depression Scre ening [facility] Start: 09-01-2025 LIPID SCREEN LIPID SCREEN [facility] Start: 09-01-2025 PROSTATE CANCER SCRE ENING DISCUSSION PROSTATE CANCER SCREENING DISCUSSION [facility] Start: 09-01-2025 Prostate specific an tigen measurement Prostate Cancer Screening Discussion [facility] Start: 08-17-2025 DIABETES SCREEN DIABETES SCREEN [facility] Start: 08-17-2025 Diabetes Screening Diabetes Screenin g [facility] Start: 07-30-2025 Annual PCP Team Iron Handler olivia Disease Visit Annual PCP Team Chronic Disease Visit [facility] Start: 07-30-2025 BP Controlled (<130/80) BP Controlle d (<130/80) [facility] Start: 07-29-2025 End: 07-29-2025 Patient encounter procedure Cat Scan Comment on above: yearly LDCT yearly LCS Start: 07-23-2025 Screening for malign ant neoplasm of lung Lung Cancer Screening [facility] Start: 06-20-2025 End: 08-22-2025 CT Chest for screening WO contrast CT LUNG SCREEN WO IVCON Radiology Routine Encounter for screening for lung cancer Tobacco use current Expected: 06/20/2025 (Approximate), Expires: 08/22/2025 [facility] Work Phone: Comment on above: Expected: 06/20/2025 (Approximate), Expires: 08/22/2025 Start: 04-23-2025 End: 04-23-2025 Patient encounter procedure 04/23/2025 8:00 AM EST Office Visit Internal Medicine [place] [address] [place], [place] [id number] Austin Ge MD [address] [place], [place] [id number] Yearly Internal Medicine [place] Comment on above: Yearly Start: 04-16-2025 Annual PCP Team Iron Handler olivia Disease Visit Annual PCP Team Chronic Disease Visit [facility] Start: 04-16-2025 BP Controlled (<130/80) BP Controlle d (<130/80) [facility] Start: 04-16-2025 Hepatitis B Vaccine (1 of 3 - 19+ 3-dose series) Hepatitis B Vaccine (1 of 3 - 19+ 3-dose series) [facility] Comment on above: Postponed from 12/17 (Declined at this time) Start: 04-16-2025 Shingrix Vaccine (1 of 2) Marcum grix Vaccine (1 of 2) [facility] Comment on above: Postponed from 12/17 (Declined at this time) Start: 04-15-2025 End: 04-15-2025 Patient encounter procedure Neurology Comment on above: 1 year follow up Start: 02-18-2025 Influenza vaccination Influenza Vacc ine (#1) [facility] Start: 12-12-2024 End: 12-12-2024 Patient encounter procedure 12/12/2024 8:30 AM EDT Office Visit General Surgery [address] [place] [address] Sandi Arora APRN.ELECTRIC SCOOP OPERATOR [address] [place] [address] 12-03 follow up colonoscopy General Surgery Comment on above: 12-03 follow up colo noscopy Start: 12-04-2024 BP Controlled (<130/80) BP Controlle d (<130/80) [facility] Start: 12-03-2024 End: 12-03-2024 Patient encounter procedure 12/03/2024 10:15 AM EDT Appointment Ambulatory Surgery [address] [place] [address] Sukhdeep He MD [address] [place] [address] COLONOSCOPY Ambulatory Surgery Comment on above: COLONOSCOPY Start: 10-15-2024 Urine microalbumin profile DTa P,Tdap,Td Vaccine (1 - Tdap) [facility] Comment on above: Postponed from 12/17 (Declined at this time) Start: 10-15-2024 End: 10-15-2024 Patient encounter procedure 10/15/2024 9:00 AM EDT Office Visit Internal Medicine [place] [address] [place] [address] Rocky Calles APRN.SOLAR INSTALLER TECHNICIAN [address] [place] [address] 6 month follow up Internal Medicine [place] Comment on above: 6 month follow up Start: 09-25-2024 Anxiety Screening Anxiety Screening [facility] Start: 09-25-2024 BP Controlled (<130/80) BP Controlle d (<130/80) [facility] Start: 09-25-2024 Depression Screening Depression Scre ening [facility] Start: 09-14-2024 End: 12-14-2024 CBC panel - Blood by Automated count COMPLETE BLOOD COUNT Lab Routine Encounter for long-term current use of medication Expected: 09/14/2024 (Approximate), Expires: 12/14/2024 [facility] Comment on above: Expected: 09/14/2024 (Approximate), Expires: 12/14/2024 Start: 09-14-2024 End: 12-14-2024 Comprehensive metabolic 2000 panel - Serum or Plasma COMPREHENSIVE METABOLIC PANEL Lab Routine Encounter for long-term current use of medication Expected: 09/14/2024 (Approximate), Expires: 12/14/2024 [facility] Work Phone: Comment on above: Expected: 09/14/2024 (Approximate), Expires: 12/14/2024 Start: 09-14-2024 End: 12-14-2024 Lipid 1996 panel - Serum or Plasma LIPID PANEL BASIC Lab Routine Elevated LDL cholesterol level Expected: 09/14/2024 (Approximate), Expires: 12/14/2024 [facility] Comment on above: Expected: 09/14/2024 (Approximate), Expires: 12/14/2024 Start: 09-14-2024 End: 12-14-2024 Magnesium [Mass/volume] in Serum or Plasma MAGNESIUM Lab Routine Encounter for long-term current use of medication Expected: 09/14/2024 (Approximate), Expires: 12/14/2024 [facility] Comment on above: Expected: 09/14/2024 (Approximate), Expires: 12/14/2024 Start: 09-03-2024 Colonoscopy COLONOSCOPY [facility] Start: 09-03-2024 COLORECTAL CANCER SCREENING COLORECTAL CANCER SCREENING [facility] Start: 09-03-2024 Screening for malign ant neoplasm of colon [facility] Start: 07-23-2024 End: 07-23-2024 Patient encounter procedure Cat Scan Comment on above: 12 month follow up Start: 07-15-2024 Screening for malign ant neoplasm of lung Lung Cancer Screening [facility] Start: 04-16-2024 End: 04-16-2024 Patient encounter procedure Internal Medicine [place] Comment on above: Wellness visit Six follow up nathalia Portilloetry testing Start: 03-25-2024 Annual PCP Team Iron Handler olivia Disease Visit Annual PCP Team Chronic Disease Visit [facility] Start: 03-25-2024 BP Controlled (<130/80) BP Controlle d (<130/80) [facility] Start: 02-19-2024 Covid-19 Vaccine () Covid-19 Vaccine () [facility] Start: 02-19-2024 Influenza vaccination Influenza Vacc ine (#1) [facility] Start: 01-06-2024 Influenza vaccination LUNG CANCER [facility] Start: 12-05-2023 End: 12-05-2023 Patient encounter procedure 12/05/2023 2:30 PM EDT Office Visit Pulmonary Medicine [address] [address] Nida Miller MD [address] [place] [address] Follow up Pulmonary Medicine Comment on above: Follow up Start: 11-25-2023 End: 11-25-2023 Patient encounter procedure 11/25/2023 11:20 AM EDT Office Visit Cardiology [address] [id number] Chest tightness [R07.89] Cardiology Comment on above: Chest tightness [R07 .89] Start: 11-04-2023 End: 11-04-2023 ambulatory PULM LAB [facility] Comment on above: Nocturnal hypoxia [G 47.34] Start: 11-03-2023 End: 11-03-2023 ambulatory PULM LAB [facility] Comment on above: Nocturnal hypoxia [G 47.34] Start: 10-09-2023 BP CONTROLLED (<130/80) BP CONTROLLE D (<130/80) [facility] Start: 09-28-2023 Influenza vaccination LUNG CANCER [facility] Start: 09-24-2023 End: 11-24-2023 CBC panel - Blood by Automated count CBC Lab Routine Encounter for long-term current use of medication Expected: 09/24/2023 (Approximate), Expires: 11/24/2023 [facility] Work Phone: Comment on above: Expected: 09/24/2023 (Approximate), Expires: 11/24/2023 Start: 09-24-2023 End: 11-24-2023 Comprehensive metabolic 2000 panel - Serum or Plasma COMP METABOLIC PANEL Lab Routine Encounter for long-term current use of medication Expected: 09/24/2023 (Approximate), Expires: 11/24/2023 [facility] Work Phone: Comment on above: Expected: 09/24/2023 (Approximate), Expires: 11/24/2023 Start: 09-24-2023 End: 11-24-2023 Lipid 1996 panel - Serum or Plasma LIPID PANEL BASIC Lab Routine Elevated LDL cholesterol level Expected: 09/24/2023 (Approximate), Expires: 11/24/2023 [facility] Work Phone: Comment on above: Expected: 09/24/2023 (Approximate), Expires: 11/24/2023 Start: 09-24-2023 End: 11-24-2023 Magnesium [Mass/volume] in Serum or Plasma MAGNESIUM BLD Lab Routine Encounter for long-term current use of medication Expected: 09/24/2023 (Approximate), Expires: 11/24/2023 [facility] Work Phone: Comment on above: Expected: 09/24/2023 (Approximate), Expires: 11/24/2023 Start: 09-04-2023 Colonoscopy COLONOSCOPY [facility] Start: 09-04-2023 COLORECTAL CANCER SCREENING COLORECTAL CANCER SCREENING [facility] Start: 09-02-2023 DIABETES SCREEN DIABETES SCREEN [facility] Start: 07-08-2023 End: 02-04-2024 Ct thorax w/o contrast material CT LUNG FOLLOWUP WO IVCON Radiology Routine Lung nodules Expected: 07/08/2023, Expires: 02/04/2024 [facility] Work Phone: Comment on above: Expected: 07/08/2023 , Expires: 02/04/2024 Start: 06-20-2023 Depression Assessment Depression Ass essment [facility] Start: 06-07-2023 Colonoscopy COLONOSCOPY [facility] Start: 06-07-2023 COLORECTAL CANCER SCREENING COLORECTAL CANCER SCREENING [facility] Start: 04-25-2023 Influenza vaccination Influenza Vacc ine (#1) [facility] Comment on above: Postponed from 02/18 (Declined at this time) Start: 04-12-2023 ANNUAL PCP TEAM RAP ARTIST OLIVIA DISEASE VISIT ANNUAL PCP TEAM CHRONIC DISEASE VISIT [facility] Start: 04-06-2023 Hepb vaccine adult 3 dose schedule for im use HEP B VACCINE, 3-DOSE, AGE 20+ YR (ENGERIX-B, RECOMBIVAX HB) Immunization/Injection Routine Encounter for immunization Expected: 04/06/2023 [facility] Work Phone: Comment on above: Expected: 04/06/2023 Start: 02-18-2023 Covid-19 Vaccine ( season) Covid-19 Vaccine ( season) [facility] Start: 02-18-2023 Influenza vaccination INFLUENZA (#1) [facility] Start: 01-05-2023 End: 11-05-2023 Ct thorax w/o contrast material CT LUNG FOLLOWUP WO IVCON Radiology Routine Lung nodules Expected: 01/05/2023, Expires: 11/05/2023 [facility] Work Phone: Comment on above: Expected: 01/05/2023 , Expires: 11/05/2023 Start: 11-07-2022 Hepb vaccine adult 3 dose schedule for im use HEP B VACCINE, 3-DOSE, AGE 20+ YR (ENGERIX-B, RECOMBIVAX HB) Immunization/Injection Routine Encounter for immunization Expected: 11/07/2022 [facility] Work Phone: Comment on above: Expected: 11/07/2022 Start: 06-20-2022 DEPRESSION ASSESSMENT DEPRESSION ASS ESSMENT [facility] Start: 06-07-2022 [facility] Start: 02-18-2022 Influenza vaccination INFLUENZA (#1) [facility] Start: 09-21-2021 COVID-19 VACCINE (4 - Booster for Pfizer series) COVID-19 VACCINE (4 - Booster for Pfizer series) [facility] Start: 09-14-2021 COLORECTAL CANCER SCREENING COLORECTAL CANCER SCREENING [facility] Start: 09-14-2021 FECAL OCCULT BLOOD FECAL OCCULT BLOO D [facility] Start: 09-14-2021 Screening for malign ant neoplasm of colon Fecal Occult Blood [facility] Start: 08-31-2021 Adult depression scr eening assessment DEPRESSION SCREENING [facility] Start: 07-18-2021 COVID-19 VACCINE (4 - Booster for Pfizer series) COVID-19 VACCINE (4 - Booster for Pfizer series) [facility] Start: 06-20-2021 DEPRESSION ASSESSMENT DEPRESSION ASS ESSMENT [facility] Start: 12-17-2017 Influenza vaccination LUNG CANCER SC REENING [facility] Start: 12-17-2017 SHINGRIX VACCINE (1 of 2) MARCUM GRIX VACCINE (1 of 2) [facility] Start: 12-17-2012 COLOGUARD (FIT-DNA) COLOGUARD (FIT-D NA) [facility] Start: 12-17-2012 Colonoscopy COLONOSCOPY [facility] Start: 12-17-[address] COLONOGRAPHY [facility] Start: 12-17-2012 Screening for malign ant neoplasm of colon [facility] Start: 12-17-2012 SIGMOIDOSCOPY SIGMOIDOSCOPY [facility] Start: 12-17-1997 Zoledronic acid therapy Alpha- 1 Antitrypsin Deficiency Screening [facility] Start: 12-17-1986 Hepatitis B Vaccine (1 of 3 - 19+ 3-dose series) Hepatitis B Vaccine (1 of 3 - 19+ 3-dose series) [facility] Start: 12-17-1986 ONE PNEUMOVAX PRIOR TO AGE 65 ONE PNEUMOVAX PRIOR TO AGE 65 [facility] Start: 12-17-1986 Urine microalbumin profile [facility] Start: 12-17-1985 BP CONTROLLED (<130/80) BP CONTROLLE D (<130/80) [facility] Start: 12-17-1973 PNEUMOCOCCAL (1 - PCV) PNEUMOCOCCAL (1 - PCV) [facility] Start: 1967 HEPATITIS B (1 of 3 - 3-dose series) HEPATITIS B (1 of 3 - 3-dose series) [facility] Start: 1967 Hepatitis B Vaccine (1 of 3 - 3-dose series) Hepatitis B Vaccine (1 of 3 - 3-dose series) [facility] COVID & INFLUENZA A/ B & RSV PCR, ROUTINE COVID & INFLUENZA A/B & RSV PCR, ROUTINE Microbiology Routine Flu-like symptoms 07/30/2024 10:39 AM EST [facility] Work Phone: End: 10-15-2023 CT LUNG SCREEN WO IVCON CT LUNG SCREEN WO IVCON Radiology Routine Encounter for screening for lung cancer Tobacco use current 1 Occurrences starting 09/15/2022 until 10/15/2023 [facility] Work Phone: Comment on above: 1 Occurrences starti ng 09/15/2022 until 10/15/2023 End: 10-26-2024 Echocardiography ECHO Cardiology Routine Chest tightness 1 Occurrences starting 10/27/2023 until 10/26/2024 [facility] Comment on above: 1 Occurrences starti ng 10/27/2023 until 10/26/2024 Hepb vaccine adult 3 dose schedule for im use HEP B VACCINE, 3-DOSE, AGE 20+ YR (ENGERIX-B, RECOMBIVAX HB) Immunization/Injection Routine Encounter for immunization 1 Occurrences starting 10/08/2022 [facility] Work Phone: Comment on above: 1 Occurrences starti ng 10/08/2022 End: 08-17-2023 HOME SLEEP APNEA TEST (HSAT) HOME SLEEP APNEA TEST (HSAT) Procedures Routine Other fatigue Elevated blood pressure reading in office without diagnosis of hypertension Obesity, Class I, BMI 30-34.9 1 Occurrences starting 08/17/2022 until 08/17/2023 [facility] Work Phone: Comment on above: 1 Occurrences starti ng 08/17/2022 until 08/17/2023 HOME SLEEP APNEA GONZALEZ T (HSAT) HOME SLEEP APNEA TEST (HSAT) Procedures Routine HOMER (obstructive sleep apnea) 1 Occurrences starting 08/08/2023 [facility] Work Phone: Comment on above: 1 Occurrences starti ng 08/08/2023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 cancer, history of colon polyps PLAN: I have reviewed my findings with the surgeon. Will plan for lower endoscopy. We discussed the risks and benefits of the planned endoscopy in terms understandable to the patient. I have informed the patient that complications can occur including failure to complete the endoscopy and perforation. Susan had the opportunity to ask questions concerning the planned endoscopy. Susan freely consents to surgery. I plan to use Golytely bowel preparation with 2 days of clear liquids I have explained to the patient the difference between IV conscious sedation and MAC anesthesia - and I have offered either, according to the patient's wishes. I have explained that with IV conscious sedation there is no anesthesia provider available and therefore there is a limitation of the amount of IV medications that can be given and that the patient may wake up in the middle of the procedure and/or experience pain/discomfort during the procedure. Further discussion was done and the patient was given the opportunity to ask questions and all questions were answered. Susan chooses IV conscious sedation.- Discussed in detail the difference between the two and Shakir wants IV sedation in [place]. Susan was counseled that if there are changes in his/her medical condition, to let the office know if surgery should proceed. If there are changes in patient's medical condition from time of this encounter to the day of the procedure that preclude anesthesia, patient may have procedure cancelled for patient's safety. Diagnoses: (Z86.0100) History of colonic polyps (primary encounter diagnosis) (Z12.11) Screening for colon cancer Consultation requested by Rocky Calles for an opinion regarding colon cancer screening. My final recommendations will be communicated back to the requesting physician by way of shared Medical record or letter to requesting physician via US mail. Portions of this documentation were copied and pasted from previous office visit notes in order to provide a cohesive continuity of the history. The note has been reviewed and edited and updated as necessary. Sandi Arora APRN.ELECTRIC SCOOP OPERATOR UPDATED HISTORY AND PHYSICAL EXAMINATION SERVICE DATE: 12/03/2024 SERVICE TIME: 9:39 AM PHYSICAL EXAM MUST BE COMPLETED ON ADMISSION The History and Physical (completed in the past 30 days) has been reviewed and the patient has been examined. The contents accurately reflect the patient's condition with the following additions or revisions since the H&P was completed. Examination indicates no changes. This H&P can be found in the attached. SIGNATURE: Sukhdeep He III, MD PATIENT NAME: Susan Flores DATE: December 03, 2024 TIME: 9:39 AM [facility] 12-03-2024 History and physical note HISTORY AND PHYSICAL Susan Flores : 1965 REFERRING PHYSICIAN: Rocky Marquez [facility] [address] CHIEF COMPLAINT: Patient presents with: Consult: Hx of polyps HPI: Susan is a 58 year old male referred for endoscopy. Susan notes due for screening colonoscopy- hx of polyps. Susan denies abdominal pain.. Susan denies diarrhea. Susan denies constipation. Susan denies a change in bowel habits. Susan denies melena. Susan denies bright red blood per rectum. Susan denies hemorrhoids. Susan denies family history of colon issues. Susan denies heartburn. -takes omeprazole and once daily carafate Susan denies dysphagia. Susan denies a history of ulcers/ peptic ulcer disease. Shakir's medical history is significant for nocturnal hypoxia- uses 2L 02 into his CPAP, and obesity. Susan has undergone prior endoscopy. Last colonoscopy was 08/[address] He at [place]. Sedation: MAC Impression: - Preparation of the colon was fair. - Six small polyps in the rectum, in the sigmoid colon, in the descending colon and in the transverse colon, removed with a jumbo cold forceps. Resected and retrieved. - Non-bleeding internal hemorrhoids. - Diverticulosis in the sigmoid colon. - The examination was otherwise normal. FINAL DIAGNOSIS A. Colon, transverse, polypectomy -Tubular adenoma B. Colon, descending, polypectomy -Hyperplastic polyp C. Colon, sigmoid, polypectomy -Hyperplastic polyp D. Rectum, polypectomy -Hyperplastic polyp x3 CURRENT MEDICATIONS Current Outpatient Medications Medication Sig buPROPion SR (WELLBUTRIN SR) 150 mg 12 hr tablet Take 1 tablet by mouth two times a day. omeprazole (PRILOSEC) 40 mg capsule Take 1 capsule by mouth daily before breakfast. 1/2 hr before meal. sucralfate (CARAFATE) 1 gram tablet Take one tablet by mouth before meals and at bedtime as needed CPAP/BIPAP/OTHER Auto CPAP 6-11 cmH2O DME [employer] peg 3350-Electrolytes (GOLYTELY) 236-22.74-6.74 -5.86 gram suspension Take 4,000 mL by mouth one time only for 1 dose. Refer to printed prep instructions from your provider. No current facility-administered medications for this visit. ALLERGIES: Patient has no known allergies. PAST MEDICAL HISTORY PAST MEDICAL HISTORY Diagnosis Date Acid reflux Tobacco use disorder 09/01/2020 PAST SURGICAL HISTORY PAST SURGICAL HISTORY Procedure Laterality Date BACK SURGERY HX lumbar decompression [place] COLONOSCOPY 09/03/2022 [facility]07[facility] IN[facility] 06/07/2022 PERCUTANEOUS LUMBAR DISKECTOMY Bilateral 2009 REPAIR ING HERNIA,5+Y/O,REDUCIBL Left 2008 FAMILY HISTORY FAMILY HISTORY Problem Relation Age of Onset other (Bone cancer) Mother No Known Problems Father Cancer Maternal Grandmother Uterine No Known Problems Maternal Grandfather No Known Problems Paternal Grandmother No Known Problems Paternal Grandfather Rheumatologic disease Half-brother RA SOCIAL HISTORY Social History Tobacco Use Smoking status: Every Day Current packs/day: 1.50 Average packs/day: 1.5 packs/day for 37.3 years (56.0 ttl pk-yrs) Types: Cigarettes Start date: 1987 Passive exposure: Never Smokeless tobacco: Never Tobacco comments: Currently 1ppd 3/29/23 . 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 Eyes: The patient denies glaucoma, denies eye injury/surgery, + glasses or contacts. Ear/Nose/Throat: The patient denies allergies, denies hayfever, denies ear infections, and denies bloody noses. Cardiovascular: The patient denies chest pain, denies heart disease, denies high blood pressure, denies high cholesterol, and denies poor circulation. Respiratory: The patient denies tuberculosis, denies pneumonia, denies frequent cough, denies shortness of breath, and denies coughing up blood. Gastrointestinal: The patient denies difficulty swallowing, + acid reflux, denies ulcers, denies jaundice/hepatitis, denies gallbladder problems, denies vomiting, denies black or tarry stools, denies hemorrhoids, denies bleeding from rectum, denies diverticulitis, denies constipation, denies diarrhea, denies loss of stool control, and denies hernias. Kidney/Bladder: The patient denies kidney stones, denies urine infections, and denies bloody urine. Skin: The patient denies a history of skin cancer, denies bleeding/changing moles, and denies a history of skin rash. Neurologic: The patient denies a history of epilepsy/convulsions, denies headaches, denies head/spinal injuries, and denies stroke/TIA. Psychiatric: The patient denies psychiatric medications, denies depression, and denies voices. Endocrine: The patient denies thyroid disorders, denies diabetes, and denies hormonal problems. Hematologic: The patient denies a history of bruising, denies bleeding, and denies anemia. Infections: The patient denies a history of measles and mumps, denies rheumatic fever, and denies sexually transmitted diseases. Musculoskeletal: The patient + back pain/injury, + back problems, denies sciatica, denies knee/foot trouble, denies arthritis, or denies gout. PHYSICAL EXAMINATION: General: The patient is 58 year old, male well nourished, well hydrated in no acute distress. The patient is oriented to time, place, and person. VITALS: Blood pressure 125/73, pulse 67, resp. rate 14, weight 98.3 kg (216 lb 12.8 oz), SpO2 97%. Body mass index is 30.61 kg/m . HEENT: Normal cephalic, ataumatic, pupils are equally round, sclera are anicteric, mucous membranes are moist, oropharynx is clear. Neck has no masses, asymmetry or lymphadenopathy. Respiratory: Clear to auscultation and percussion. Normal respiratory excursion and pattern. Cardiac: Examination is regular rate and rhythm. Normal S1/S2 Abdominal exam: Soft, nontender, with no palpable masses. No hepatosplenomegaly. No palpable hernias. Extremities: no clubbing, cyanosis or edema. No adenopathy. LABORATORY VALUES: As Noted RADIOLOGIC STUDIES: As Noted Assessment IMPRESSION: screen for colon cancer, history of colon polyps PLAN: I have reviewed my findings with the surgeon. Will plan for lower endoscopy. We discussed the risks and benefits of the planned endoscopy in terms understandable to the patient. I have informed the patient that complications can occur including failure to complete the endoscopy and perforation. Susan had the opportunity to ask questions concerning the planned endoscopy. Susan freely consents to surgery. I plan to use Golytely bowel preparation with 2 days of clear liquids I have explained to the patient the difference between IV conscious sedation and MAC anesthesia - and I have offered either, according to the patient's wishes. I have explained that with IV conscious sedation there is no anesthesia provider available and therefore there is a limitation of the amount of IV medications that can be given and that the patient may wake up in the middle of the procedure and/or experience pain/discomfort during the procedure. Further discussion was done and the patient was given the opportunity to ask questions and all questions were answered. Susan chooses IV conscious sedation.- Discussed in detail the difference between the two and Shakir wants IV sedation in [place]. Susan was counseled that if there are changes in his/her medical condition, to let the office know if surgery should proceed. If there are changes in patient's medical condition from time of this encounter to the day of the procedure that preclude anesthesia, patient may have procedure cancelled for patient's safety. Diagnoses: (Z86.0100) History of colonic polyps (primary encounter diagnosis) (Z12.11) Screening for colon cancer Consultation requested by Rocky Calles for an opinion regarding colon cancer screening. My final recommendations will be communicated back to the requesting physician by way of shared Medical record or letter to requesting physician via [place] mail. Portions of this documentation were copied and pasted from previous office visit notes in order to provide a cohesive continuity of the history. The note has been reviewed and edited and updated as necessary. Sandi Arora APRN.ELECTRIC SCOOP OPERATOR UPDATED HISTORY AND PHYSICAL EXAMINATION SERVICE DATE: 12/03/2024 SERVICE TIME: 9:39 AM PHYSICAL EXAM MUST BE COMPLETED ON ADMISSION The History and Physical (completed in the past 30 days) has been reviewed and the patient has been examined. The contents accurately reflect the patient's condition with the following additions or revisions since the H&P was completed. Examination indicates no changes. This H&P can be found in the attached. SIGNATURE: Sukhdeep He III, MD PATIENT NAME: Susan Flores DATE: December 03, 2024 TIME: 9:39 AM documented in this encounter [facility] 10-24-2024 History of Presen t illness Narrative HISTORY AND PHYSICAL Susan Flores : 1965 REFERRING PHYSICIAN: Rocky Calles [address] [facility] [address] CHIEF COMPLAINT: Patient presents with: Consult: Hx of polyps HPI: Susan is a 58 year old male referred for endoscopy. Susan notes due for screening colonoscopy- hx of polyps. Susan denies abdominal pain.. Susan denies diarrhea. Susan denies constipation. Susan denies a change in bowel habits. Susan denies melena. Susan denies bright red blood per rectum. Susan denies hemorrhoids. Susan denies family history of colon issues. Susan denies heartburn. -takes omeprazole and once daily carafate Susan denies dysphagia. Susan denies a history of ulcers/ peptic ulcer disease. Shakir's medical history is significant for nocturnal hypoxia- uses 2L 02 into his CPAP, and obesity. Susan has undergone prior endoscopy. Last colonoscopy was 08/[address] He at [place]. Sedation: MAC Impression: - Preparation of the colon was fair. - Six small polyps in the rectum, in the sigmoid colon, in the descending colon and in the transverse colon, removed with a jumbo cold forceps. Resected and retrieved. - Non-bleeding internal hemorrhoids. - Diverticulosis in the sigmoid colon. - The examination was otherwise normal. FINAL DIAGNOSIS A. Colon, transverse, polypectomy -Tubular adenoma B. Colon, descending, polypectomy -Hyperplastic polyp C. Colon, sigmoid, polypectomy -Hyperplastic polyp D. Rectum, polypectomy -Hyperplastic polyp x3 Current Outpatient Medications Medication Sig buPROPion SR (WELLBUTRIN SR) 150 mg 12 hr tablet Take 1 tablet by mouth two times a day. omeprazole (PRILOSEC) 40 mg capsule Take 1 capsule by mouth daily before breakfast. 1/2 hr before meal. sucralfate (CARAFATE) 1 gram tablet Take one tablet by mouth before meals and at bedtime as needed CPAP/BIPAP/OTHER Auto CPAP 6-11 cmH2O DME [employer] peg 3350-Electrolytes (GOLYTELY) 236-22.74-6.74 -5.86 gram suspension Take 4,000 mL by mouth one time only for 1 dose. Refer to printed prep instructions from your provider. No current facility-administered medications for this visit. ALLERGIES: Patient has no known allergies. PAST MEDICAL HISTORY Diagnosis Date Acid reflux Tobacco use disorder 09/01/2020 PAST SURGICAL HISTORY Procedure Laterality Date BACK SURGERY HX lumbar decompression [place] COLONOSCOPY 09/03/2022 COLONOSCOPY SCREENING 06/07/2022 EGD W/O [facility] SPEC VARICIES INJ 06/07/2022 PERCUTANEOUS LUMBAR DISKECTOMY Bilateral 2009 REPAIR ING HERNIA,5+Y/O,REDUCIBL Left 2008 FAMILY HISTORY Problem Relation Age of Onset other (Bone cancer) Mother No Known Problems Father Cancer Maternal Grandmother Uterine No Known Problems Maternal Grandfather No Known Problems Paternal Grandmother No Known Problems Paternal Grandfather Rheumatologic disease Half-brother RA Social History Tobacco Use Smoking status: Every Day Current packs/day: 1.50 Average packs/day: 1.5 packs/day for 37.3 years (56.0 ttl pk-yrs) Types: Cigarettes Start date: 1987 Passive exposure: Never Smokeless tobacco: Never Tobacco comments: Currently 1ppd 09/15/22 KP. 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 Eyes: The patient denies glaucoma, denies eye injury/surgery, + glasses or contacts. Ear/Nose/Throat: The patient denies allergies, denies hayfever, denies ear infections, and denies bloody noses. Cardiovascular: The patient denies chest pain, denies heart disease, denies high blood pressure, denies high cholesterol, and denies poor circulation. Respiratory: The patient denies tuberculosis, denies pneumonia, denies frequent cough, denies shortness of breath, and denies coughing up blood. Gastrointestinal: The patient denies difficulty swallowing, + acid reflux, denies ulcers, denies jaundice/hepatitis, denies gallbladder problems, denies vomiting, denies black or tarry stools, denies hemorrhoids, denies bleeding from rectum, denies diverticulitis, denies constipation, denies diarrhea, denies loss of stool control, and denies hernias. Kidney/Bladder: The patient denies kidney stones, denies urine infections, and denies bloody urine. Skin: The patient denies a history of skin cancer, denies bleeding/changing moles, and denies a history of skin rash. Neurologic: The patient denies a history of epilepsy/convulsions, denies headaches, denies head/spinal injuries, and denies stroke/TIA. Psychiatric: The patient denies psychiatric medications, denies depression, and denies voices. Endocrine: The patient denies thyroid disorders, denies diabetes, and denies hormonal problems. Hematologic: The patient denies a history of bruising, denies bleeding, and denies anemia. Infections: The patient denies a history of measles and mumps, denies rheumatic fever, and denies sexually transmitted diseases. Musculoskeletal: The patient + back pain/injury, + back problems, denies sciatica, denies knee/foot trouble, denies arthritis, or denies gout. PHYSICAL EXAMINATION: General: The patient is 58 year old, male well nourished, well hydrated in no acute distress. The patient is oriented to time, place, and person. VITALS: Blood pressure 125/73, pulse 67, resp. rate 14, weight 98.3 kg (216 lb 12.8 oz), SpO2 97%. Body mass index is 30.61 kg/m . HEENT: Normal cephalic, ataumatic, pupils are equally round, sclera are anicteric, mucous membranes are moist, oropharynx is clear. Neck has no masses, asymmetry or lymphadenopathy. Respiratory: Clear to auscultation and percussion. Normal respiratory excursion and pattern. Cardiac: Examination is regular rate and rhythm. Normal S1/S2 Abdominal exam: Soft, nontender, with no palpable masses. No hepatosplenomegaly. No palpable hernias. Extremities: no clubbing, cyanosis or edema. No adenopathy. LABORATORY VALUES: As Noted RADIOLOGIC STUDIES: As Noted Assessment IMPRESSION: screen for colon cancer, history of colon polyps PLAN: I have reviewed my findings with the surgeon. Will plan for lower endoscopy. We discussed the risks and benefits of the planned endoscopy in terms understandable to the patient. I have informed the patient that complications can occur including failure to complete the endoscopy and perforation. Susan had the opportunity to ask questions concerning the planned endoscopy. Susan freely consents to surgery. I plan to use Golytely bowel preparation with 2 days of clear liquids I have explained to the patient the difference between IV conscious sedation and MAC anesthesia - and I have offered either, according to the patient's wishes. I have explained that with IV conscious sedation there is no anesthesia provider available and therefore there is a limitation of the amount of IV medications that can be given and that the patient may wake up in the middle of the procedure and/or experience pain/discomfort during the procedure. Further discussion was done and the patient was given the opportunity to ask questions and all questions were answered. Susan chooses IV conscious sedation.- Discussed in detail the difference between the two and Shakir wants IV sedation in [place]. Susan was counseled that if there are changes in his/her medical condition, to let the office know if surgery should proceed. If there are changes in patient's medical condition from time of this encounter to the day of the procedure that preclude anesthesia, patient may have procedure cancelled for patient's safety. Diagnoses: (Z86.0100) History of colonic polyps (primary encounter diagnosis) (Z12.11) Screening for colon cancer Consultation requested by Rocky Calles for an opinion regarding colon cancer screening. My final recommendations will be communicated back to the requesting physician by way of shared Medical record or letter to requesting physician via [place] mail. Portions of this documentation were copied and pasted from previous office visit notes in order to provide a cohesive continuity of the history. The note has been reviewed and edited and updated as necessary. Sandi Arora APRN.ELECTRIC SCOOP OPERATOR documented in this encounter [facility] 10-24-2024 Note HNO ID: [id number] Author: SANDI ARORA APRN.IZA Service: ? Author Type: Nurse Practitioner Type: Progress Notes Filed: 10/24/2024 09:12 Note Text: HISTORY AND PHYSICAL Susan Flores : 1965 REFERRING PHYSICIAN: Rocky Calles [facility] [address] CHIEF COMPLAINT: Patient presents with: Consult: Hx of polyps HPI: Susan is a 58 year old male referred for endoscopy. Susan notes due for screening colonoscopy- hx of polyps. Susan denies abdominal pain.. Susan denies diarrhea. Susan denies constipation. Susan denies a change in bowel habits. Susan denies melena. Susan denies bright red blood per rectum. Susan denies hemorrhoids. Susan denies family history of colon issues. Susan denies heartburn. -takes omeprazole and once daily carafate Susan denies dysphagia. Susan denies a history of ulcers/ peptic ulcer disease. Shakir's medical history is significant for nocturnal hypoxia- uses 2L 02 into his CPAP, and obesity. Susan has undergone prior endoscopy. Last colonoscopy was 08/[address] He at [place]. Sedation: MAC Impression: - Preparation of the colon was fair. - Six small polyps in the rectum, in the sigmoid colon, in the descending colon and in the transverse colon, removed with a jumbo cold forceps. Resected and retrieved. - Non-bleeding internal hemorrhoids. - Diverticulosis in the sigmoid colon. - The examination was otherwise normal. FINAL DIAGNOSIS A. Colon, transverse, polypectomy -Tubular adenoma B. Colon, descending, polypectomy -Hyperplastic polyp C. Colon, sigmoid, polypectomy -Hyperplastic polyp D. Rectum, polypectomy -Hyperplastic polyp x3 Current Outpatient Medications Medication Sig buPROPion SR (WELLBUTRIN SR) 150 mg 12 hr tablet Take 1 tablet by mouth two times a day. omeprazole (PRILOSEC) 40 mg capsule Take 1 capsule by mouth daily before breakfast. 1/2 hr before meal. sucralfate (CARAFATE) 1 gram tablet Take one tablet by mouth before meals and at bedtime as needed CPAP/BIPAP/OTHER Auto CPAP 6-11 cmH2O DME [employer] peg 3350-Electrolytes (GOLYTELY) 236-22.74-6.74 -5.86 gram suspension Take 4,000 mL by mouth one time only for 1 dose. Refer to printed prep instructions from your provider. No current facility-administered medications for this visit. ALLERGIES: Patient has no known allergies. PAST MEDICAL HISTORY Diagnosis Date Acid reflux Tobacco use disorder 09/01/2020 PAST SURGICAL HISTORY Procedure Laterality Date BACK SURGERY HX lumbar decompression [place] COLONOSCOPY 09/03/2022 COLONOSCOPY SCREENING 06/07/2022 EGD W/O BRSH SPEC VARICIES INJ 06/07/2022 PERCUTANEOUS LUMBAR DISKECTOMY Bilateral 2009 REPAIR ING HERNIA,5+Y/O,REDUCIBL Left 2008 FAMILY HISTORY Problem Relation Age of Onset other (Bone cancer) Mother No Known Problems Father Cancer Maternal Grandmother Uterine No Known Problems Maternal Grandfather No Known Problems Paternal Grandmother No Known Problems Paternal Grandfather Rheumatologic disease Half-brother RA Social History Tobacco Use Smoking status: Every Day Current packs/day: 1.50 Average packs/day: 1.5 packs/day for 37.3 years (56.0 ttl pk-yrs) Types: Cigarettes Start date: 1987 Passive exposure: Never Smokeless tobacco: Never Tobacco comments: Currently 1ppd 09/15/22 KP. 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 Eyes: The patient denies glaucoma, denies eye injury/surgery, + glasses or contacts. Ear/Nose/Throat: The patient denies allergies, denies hayfever, denies ear infections, and denies bloody noses. Cardiovascular: The patient denies chest pain, denies heart disease, denies high blood pressure, denies high cholesterol, and denies poor circulation. Respiratory: The patient denies tuberculosis, denies pneumonia, denies frequent cough, denies shortness of breath, and denies coughing up blood. Gastrointestinal: The patient denies difficulty swallowing, + acid reflux, denies ulcers, denies jaundice/hepatitis, denies gallbladder problems, denies vomiting, denies black or tarry stools, denies hemorrhoids, denies bleeding from rectum, denies diverticulitis, denies constipation, denies diarrhea, denies loss of stool control, and denies hernias. Kidney/Bladder: The patient denies kidney stones, denies urine infections, and denies bloody urine. Skin: The patient denies a history of skin cancer, denies bleeding/changing moles, and denies a history of skin (more content not included)... [facility] 10-15-2024 Note HNO ID: [id number] Author: ROCKY CALLES APRN.SOLAR INSTALLER TECHNICIAN Service: ? Author Type: Nurse Specialist Type: Progress Notes Filed: 10/15/2024 09:36 Note Text: SUBJECTIVE: Alpha-1 Antitrypsin Deficiency Screening Never done Colorectal Cancer Screening due on 09/03/2024 Depression Screening due on 09/25/2024 Anxiety Screening due on 09/25/2024 HPI Susan Flores is a 58 year old male.PMH significnat for ACTIVE PROBLEM LIST Tobacco Use Disorder Obesity, Class I, Bmi 30-34.9 [place] (Obstructive Sleep Apnea) Nocturnal Hypoxia Returns to clinic today for a routine visit. Notes he is in his usual state of health. Continuing to smoke, thinking about quitting right now, would like to try a medication. Continues with 2-3 every other day beer following work, reduced from previous use. He has lost 8 lbs over the last year. Intermittent back pain seems worse with prolonged sitting, currently managed with OTC medication. History of prior back surgery. Elevated Glucose Levels: - Recent lab work showed elevated glucose levels. - Reports elevated glucose levels for the past two years. - Inquires about the need for home glucose monitoring. - Admits to a high carbohydrate intake, including bread, rice, potatoes, sweets, and sugary drinks. - Engages in physical activity through work-related walking. - Consumes alcohol, specifically beer, every other evening. Tobacco Use: - Current smoker. - Inquires about medication options to assist with smoking cessation. GERD: - Managed with morning medication. Sciatica: - Reports a burning sensation in the hip, attributing it to sciatica. - Takes Tylenol or ibuprofen in the morning with minimal relief. - Symptoms exacerbated by prolonged sitting; attempts to alleviate discomfort by stretching. Sleep Apnea: - Well-managed with CPAP therapy. Lung Cancer: - Recent lung scan performed. - Scheduled follow-up with [facility] for lung cancer screening. HTN: Without report of headache, chest pain, palpitations, dyspnea, peripheral edema, orthopnea, fatigue, and PND. Last 14 Encounter BP Readings: Date: BP: 10/15/2024 121/72 07/30/2024 123/79 07/23/2024 142/76 04/16/2024 136/82 04/16/2024 126/72 12/05/2023 128/79 10/27/2023 135/86 10/10/2023 135/77 09/26/2023 117/70 08/08/2023 136/78 03/25/2023 128/78 01/05/2023 124/80 10/08/2022 122/70 09/15/2022 140/88 He notes GERD symptoms are currently controlled taking sucralfate and omeprazole as ordered. Review of Systems Constitutional: Negative. Objective BP 121/72 Pulse 75 Resp 16 Wt 98 kg (216 lb 0.8 oz) BMI 30.50 kg/m? Physical Exam Vitals and nursing note reviewed. Constitutional: Appearance: Normal appearance. HENT: Head: Normocephalic and atraumatic. Eyes: Conjunctiva/sclera: Conjunctivae normal. Neck: Thyroid: No thyromegaly. Vascular: Normal carotid pulses. No JVD. Cardiovascular: Rate and Rhythm: Normal rate and regular rhythm. Pulses: Carotid pulses are 2+ on the right side and 2+ on the left side. Radial pulses are 2+ on the right side and 2+ on the left side. Heart sounds: Normal heart sounds. Pulmonary: Effort: Pulmonary effort is normal. Breath sounds: Normal breath sounds. Abdominal: General: Bowel sounds are normal. Palpations: Abdomen is soft. Musculoskeletal: Right lower leg: No edema. Left lower leg: No edema. Skin: General: Skin is warm and dry. Neurological: General: No focal deficit present. Mental Status: He is alert and oriented to person, place, and time. ALLERGIES No Known Allergies Medications omeprazole (PRILOSEC) 40 mg capsule Take 1 capsule by mouth daily before breakfast. 1/2 hr before meal. sucralfate (CARAFATE) 1 gram tablet Take one tablet by mouth before meals and at bedtime as needed CPAP/BIPAP/OTHER Auto CPAP 6-11 cmH2O DME [employer] PAST MEDICAL HISTORY Diagnosis Date Acid reflux Tobacco use disorder 09/01/2020 Social History Tobacco Use Smoking status: Every Day Current packs/day: 1.50 Average packs/day: 1.5 packs/day for 37.3 years (56.0 ttl pk-yrs) Types: Cigarettes Start date: 1987 Passive exposure: Never Smokeless tobacco: Never Tobacco comments: Currently 1ppd 09/15/22 KP. 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, 2023 (average 1.5 PPD as discussed) Vaping Use Vaping status: Never Used Substance Use Topics Alcohol use: Yes Alcohol/week: 12.0 standard drinks of alcohol Types: 12 Cans of Beer (12oz) per week Comment: 2-3 per night Drug use: No Latest Ref Rng 09/24/2023 07/30/2024 10/08/2024 Protein, Total 6.3 - 8.0 g/dL 6.7 6.5 Albumin 3.9 - 4.9 g/dL 4.4 4.3 Calcium 8.5 - 10.2 mg/dL 9.6 9.4 Bilirubin, Total 0.2 - 1.3 mg/dL 0.5 0.4 Alkaline Phosphatase 38 - 113 U/L 73 65 AST 14 - 40 U/L 21 20 ALT 10 - 54 U/L 22 21 Glucose 74 - 99 mg/dL 105 (H) 100 (H) BUN 9 - 24 mg/dL 17 20 Creatinine 0.73 - 1.22 mg/dL 0.96 0.94 (more content not included)... [facility] 07-31-2024 Telephone encounter Note Patient notified of results and provider's instructions. Patient verbalizes understanding. Vanessa Frazier RN [facility] 07-31-2024 Miscellaneous Notes Patient notified of results and provider's instructions. Patient verbalizes understanding. Vanessa Frazier RN Left message to return call ----- Message from Yobany Glover APRN.CNP sent at 07/31/2024 5:11 AM EST ----- Please let the patient know that he tested positive for influenza A. As we discussed yesterday, he is outside of the treatment window. Yobany Glover CNP Please let the patient know that he tested positive for influenza A. As we discussed yesterday, he is outside of the treatment window. Yobany Glover CNP documented in this encounter [facility] 07-31-2024 Telephone encounter Note Left message to return call [facility] 07-31-2024 Telephone encounter Note ----- Message from Yobany Glover APRN.IZA sent at 07/31/2024 5:11 AM EST ----- Please let the patient know that he tested positive for influenza A. As we discussed yesterday, he is outside of the treatment window. Yobany Glover CNP [facility] 07-31-2024 Progress note Formatting of t his note might be different from the original. Please let the patient know that he tested positive for influenza A. As we discussed yesterday, he is outside of the treatment window. Yobany Glover CNP [facility] Work Phone: 07-30-2024 History of Presen t illness Narrative Chief Complaint Patient presents with: Viral Syndrome: Cough, chills, fever, started Tuesday, worsening HPI Susan Flores is a 58 year old male who presents here today for Above Complaints. Patient is here for flulike symptoms and complaints. Symptoms started Tuesday (4 days ago). Has complaints of cough, chills, fever, muscle aches. Believes it is worsening. tested positive for flu. Missed work today. Taking DayQuil, ibuprofen for discomfort. Without chest pain or shortness of breath. No history of asthma. Everyday smoker. Past medical history, appointments, medications, allergies reviewed. EXAM: BP 123/79 (BP Position: Sitting) Pulse 89 Temp 37.4 C (99.3 F) Wt 96.2 kg (212 lb) SpO2 97% BMI 29.93 kg/m General Appearance: Well appearing, alert, in no acute distress, well-hydrated, well nourished.. Head: Normocephalic, no masses, lesions, tenderness or abnormalities. Eyes: Anicteric sclera. Pupils are equally round and reactive to light. Extraocular movements are intact. . Ears: External ears normal, canals clear. Nose/Sinuses: Nares normal, septum midline, mucosa normal, no drainage or sinus tenderness. Oropharynx: Lips, mucosa, and tongue normal, teeth and gums normal, oropharynx normal. Lungs: Lungs clear to auscultation. No wheezing, rhonchi, rales. Cough Heart: RRR without murmur, gallop, or rubs. No ectopy. ASSESSMENT/PLAN: 1. Flu-like symptoms - ICD9: 780.99, ICD10: R68.89 -Symptoms consistent with flu. High likelihood given his has tested positive for flu. He is outside of the treatment window as it has been almost 4 days since onset of symptoms. We discussed home treatment, comfort measures. He would like to be swabbed in case it is COVID. He is agreeable to Paxlovid if he is positive for COVID. - COVID & INFLUENZA A/B & RSV PCR, ROUTINE Yobany Glover APRN.CNP This note was partly generated using [employer] voice recognition dictation and may contain some misspelled or inaccurate words missed on review. documented in this encounter [facility] 07-30-2024 Note HNO ID: [id number] Author: YOBANY GLOVER APRN.IZA Service: ? Author Type: Nurse Practitioner Type: Progress Notes Filed: 07/30/2024 10:37 Note Text: Chief Complaint Patient presents with: Viral Syndrome: Cough, chills, fever, started Tuesday, worsening HPI Susan Flores is a 58 year old male who presents here today for Above Complaints. Patient is here for flulike symptoms and complaints. Symptoms started R[place] (4 days ago). Has complaints of cough, chills, fever, muscle aches. Believes it is worsening. tested positive for flu. Missed work today. Taking DayQuil, ibuprofen for discomfort. Without chest pain or shortness of breath. No history of asthma. Everyday smoker. Past medical history, appointments, medications, allergies reviewed. EXAM: BP 123/79 (BP Position: Sitting) Pulse 89 Temp 37.4 ?C (99.3 ?F) Wt 96.2 kg (212 lb) SpO2 97% BMI 29.93 kg/m? General Appearance: Well appearing, alert, in no acute distress, well-hydrated, well nourished.. Head: Normocephalic, no masses, lesions, tenderness or abnormalities. Eyes: Anicteric sclera. Pupils are equally round and reactive to light. Extraocular movements are intact. . Ears: External ears normal, canals clear. Nose/Sinuses: Nares normal, septum midline, mucosa normal, no drainage or sinus tenderness. Oropharynx: Lips, mucosa, and tongue normal, teeth and gums normal, oropharynx normal. Lungs: Lungs clear to auscultation. No wheezing, rhonchi, rales. Cough Heart: RRR without murmur, gallop, or rubs. No ectopy. ASSESSMENT/PLAN: 1. Flu-like symptoms - ICD9: 780.99, ICD10: R68.89 -Symptoms consistent with flu. High likelihood given his has tested positive for flu. He is outside of the treatment window as it has been almost 4 days since onset of symptoms. We discussed home treatment, comfort measures. He would like to be swabbed in case it is COVID. He is agreeable to Paxlovid if he is positive for COVID. - COVID AND INFLUENZA A/B AND RSV PCR, ROUTINE Yobany Glover APRN.ELECTRIC SCOOP OPERATOR This note was partly generated using [employer] voice recognition dictation and may contain some misspelled or inaccurate words missed on review. [facility] 07-30-2024 Note SARS-COV-2 (AGENT OF COVID-19) RNA: Not detected INFLUENZA A RNA: Detected INFLUENZA B RNA: Not detected RESPIRATORY SYNCYTIAL VIRUS (RSV) RNA: Not detected [facility] Comment on above: Performed By: #### [id number] ####[facility] LABCLIA [id number] [address] [place] 07-30-2024 Instructions Yobany Glover APRN.CNP - 07/30/2024 10:34 AM EST Here is some cold and flu information to help ease your symptoms: 1.) Get more rest than you usually do - this will speed your recovery. If you push hard with your usual busy schedule, you will be sicker longer. 2.) Drink a lot of water - enough to make you urinate every 2-3 hours (your urine should be a light yellow color). This helps thin the phlegm and sooth the airways. 3.) Run a cool mist humidifier in your bedroom on high with the door closed. This is a natural way to decongest, and it helps lessen scratchy throats, nasal stuffiness and coughs. A good brand is Vicks, which can be found at [employer] or [employer]. This is especially important if you do not have a humidifier on your furnace. 4.) Take Sudafed as a decongestant, but realize that you will need to take it every 4-6 hours for several days. 5.) Take ibuprofen or acetominophen every 4-6 hours for pain. 6.) Zinc lozenges (13.3mg every 2 hours while you are awake) have been shown to shorten the duration of cold symptoms. General information: * Green or yellow color does not mean you need an antibiotic; secretions can be green or yellow with viruses, such as the common cold * The average cold lasts 6-12 days. If you have further questions, please feel free to contact the office at [phone]. documented in this encounter [facility] 07-23-2024 Instructions Rosie Roberts APRN.CNP - 07/23/2024 9:10 AM EST Lung nodule/s: all previously seen nodule/s have not changed in size or characteristic/resolved and there are no new nodules of concern. Please return in one year for the following 2 visits on the same day: Annual low-dose CT chest Lung cancer screening Provider visit. This recommendation is subject to change pending the final report from radiology. I will notify you of the final radiology report recommendations when available by [email or web address] message, letter, or phone call. We will also notify your referring provider/PCP of the results and recommendations. If you didn t schedule this before you left the office or need to reschedule, you can call in to schedule it anytime: [facility] [phone] [facility] [phone] All other [facility] locations [phone] Feel free to reach out for any questions or concerns, Rosie Roberts APRN.CNP Lung Cancer Screening [phone] documented in this encounter [facility] 07-23-2024 Note HNO ID: [id number] Author: ROSIE ROBERTS APRN.CNP Service: ? Author Type: Nurse Practitioner Type: Progress Notes Filed: 07/23/2024 13:07 Note Text: LUNG SCREENING ANNUAL VISIT PRIMARY CARE PHYSICIAN: Austin Ge MD PULMONARY PROVIDER: Dr. Miller Results will be communicated via letter or electronic record if applicable. Visit Delivery: In Person Patient Visit Type: established Current or Ex-smoker? [Current Exam Type: annual LDCT Number of Pack Years: 56 Current smoker (=0) The patient's smoking history is similar to prior year shared decision visit. The reason for the discrepancy is NA Chief Complaint: Established patient in lung cancer screening program here for annual follow-up. Impression / Recommendations Susan Flores presents for annual lung cancer screening annual exam and nodule evaluation. Plan: Indeterminate pulmonary nodules: Previously identified nodules appear stable and no new nodules of concern were seen on the exam. Low dose CT Scan to be repeated in one year. Plan subject to change pending final radiology report and recommendations. Nature of the lung nodule(s) and the options for further evaluation discussed in detail with patient. Susan Flores expressed understanding and is in agreement with plan. 2. Encounter for screening for malignant neoplasm of respiratory organs I have determined that the patient is eligible for continued low dose CT screening based on age, absence of signs or symptoms of lung cancer, smoking history and total pack years. The patient was counseled on the importance of adherence to annual LDCT lung cancer screening, impact of comorbidities and ability or willingness to undergo diagnosis and treatment. The patient understands and feels comfortable with it: Yes. 3. Nicotine Dependence The patient was counseled on the importance of smoking cessation if current smoker and, if appropriate, offered additional tobacco cessation counseling services - Smoking Cessation Counseling. SMOKING CESSATION COUNSELING Smoking cessation methods including Behavior Modification were discussed with the patient and assistance offered. The medical conditions adversely affected by cigarette use include:COPD, Emphysema, and Lung Cancer. Counseled on benefits of quitting smoking, recommended cessation or reduction to prevent development and/or progression of emphysema. The patient is currently not ready to quit. I personally spent 3 minutes in counseling. The time spent in smoking cessation counseling is exclusive of any other counseling during this visit. I spent a total of 30 minutes on the date of the service which included preparing to see the patient, [id number] patient care, completing clinical documentation, performing a medically appropriate examination, counseling and educating the patient/family/caregiver, ordering medications, tests, or procedures, communicating with other HCPs (not separately reported), independently interpreting results (not separately reported), communicating results to the patient/family/caregiver, and care coordination (not separately reported). Rosie Roberts APRN.[facility] July 23, 2024 9:08 AM History of Present Illness: Susan Flores is a 58 year old male who is presenting today for annual lung cancer screening LDCT and nodule surveillance/management. Patient has RLL nodule found on previous lung cancer screening LDCT. Last LDCT was performed on 07/15/2023 and was LUNG RADS Category 2. Previous potentially significant incidental findings on imaging: none Patient is a current smoker with a 55.6 pack year history. Patient is currently still smoking 1.5 packs cigarettes daily. Patient will continue to be eligible for lung cancer screening until age 77. The patient does not have any symptoms or signs of lung cancer. Patient denies SOB with their daily activity. No wheezing or dyspnea. Patient denies feeling of chest tightness/congestion in the chest. Patient does not have a new or concerning cough, and denies hemoptysis. Patient does not have a chronic daily cough. Denies regular or recent fevers/chills. Patient does not have any significant unintentional weight loss. Patient denies having any respiratory infections or COVID-19 in the past few months. Does not use any maintenance inhaler for COPD. Modified Medical Research [place] Dyspnea Scale (MMRC) I only get breathless with strenous exercise 0 Last 12 Encounter Wt Readings: Date: Wt: 07/23/2024 99.3 kg (219 lb) 04/16/2024 100.3 kg (221 lb 1.9 oz) 04/16/2024 99.5 kg (219 lb 5.7 oz) 12/05/2023 98.5 kg (217 lb 2.5 oz) 11/04/2023 98.9 kg (218 lb) 10/27/2023 98.1 kg (216 lb 4.3 oz) 10/10/2023 100.3 kg (221 lb 3.2 oz) 09/26/2023 101.6 kg (224 lb) 08/08/2023 101.9 kg (224 lb 9.6 oz) / (more content not included)... [facility] 07-23-2024 History of Presen t illness Narrative Images from the original note were not included. LUNG SCREENING ANNUAL VISIT PRIMARY CARE PHYSICIAN: Austin Ge MD PULMONARY PROVIDER: Dr. Miller Results will be communicated via letter or electronic record if applicable. Visit Delivery: In Person Patient Visit Type: established Current or Ex-smoker? [Current Exam Type: annual LDCT Number of Pack Years: 56 Current smoker (=0) The patient's smoking history is similar to prior year shared decision visit. The reason for the discrepancy is NA Chief Complaint: Established patient in lung cancer screening program here for annual follow-up. Impression / Recommendations Susan Flores presents for annual lung cancer screening annual exam and nodule evaluation. Plan: Indeterminate pulmonary nodules: Previously identified nodules appear stable and no new nodules of concern were seen on the exam. Low dose CT Scan to be repeated in one year. Plan subject to change pending final radiology report and recommendations. Nature of the lung nodule(s) and the options for further evaluation discussed in detail with patient. Susan Floers expressed understanding and is in agreement with plan. 2. Encounter for screening for malignant neoplasm of respiratory organs I have determined that the patient is eligible for continued low dose CT screening based on age, absence of signs or symptoms of lung cancer, smoking history and total pack years. The patient was counseled on the importance of adherence to annual LDCT lung cancer screening, impact of comorbidities and ability or willingness to undergo diagnosis and treatment. The patient understands and feels comfortable with it: Yes. 3. Nicotine Dependence The patient was counseled on the importance of smoking cessation if current smoker and, if appropriate, offered additional tobacco cessation counseling services - Smoking Cessation Counseling. SMOKING CESSATION COUNSELING Smoking cessation methods including Behavior Modification were discussed with the patient and assistance offered. The medical conditions adversely affected by cigarette use include:COPD, Emphysema, and Lung Cancer. Counseled on benefits of quitting smoking, recommended cessation or reduction to prevent development and/or progression of emphysema. The patient is currently not ready to quit. I personally spent 3 minutes in counseling. The time spent in smoking cessation counseling is exclusive of any other counseling during this visit. I spent a total of 30 minutes on the date of the service which included preparing to see the patient, [id number] patient care, completing clinical documentation, performing a medically appropriate examination, counseling and educating the patient/family/caregiver, ordering medications, tests, or procedures, communicating with other HCPs (not separately reported), independently interpreting results (not separately reported), communicating results to the patient/family/caregiver, and care coordination (not separately reported). Rosie Roberts APRN.[facility] July 23, 2024 9:08 AM History of Present Illness: Susan Flores is a 58 year old male who is presenting today for annual lung cancer screening LDCT and nodule surveillance/management. Patient has RLL nodule found on previous lung cancer screening LDCT. Last LDCT was performed on 07/15/2023 and was LUNG RADS Category 2. Previous potentially significant incidental findings on imaging: none Patient is a current smoker with a 55.6 pack year history. Patient is currently still smoking 1.5 packs cigarettes daily. Patient will continue to be eligible for lung cancer screening until age 77. The patient does not have any symptoms or signs of lung cancer. Patient denies SOB with their daily activity. No wheezing or dyspnea. Patient denies feeling of chest tightness/congestion in the chest. Patient does not have a new or concerning cough, and denies hemoptysis. Patient does not have a chronic daily cough. Denies regular or recent fevers/chills. Patient does not have any significant unintentional weight loss. Patient denies having any respiratory infections or COVID-19 in the past few months. Does not use any maintenance inhaler for COPD. Modified Medical Research [place] Dyspnea Scale (MMRC) I only get breathless with strenous exercise 0 Last 12 Encounter Wt Readings: Date: Wt: 07/23/2024 99.3 kg (219 lb) 04/16/2024 100.3 kg (221 lb 1.9 oz) 04/16/2024 99.5 kg (219 lb 5.7 oz) 12/05/2023 98.5 kg (217 lb 2.5 oz) 11/04/2023 98.9 kg (218 lb) 10/27/2023 98.1 kg (216 lb 4.3 oz) 10/10/2023 100.3 kg (221 lb 3.2 oz) 09/26/2023 101.6 kg (224 lb) 08/08/2023 101.9 kg (224 lb 9.6 oz) 07/19/2023 102.1 kg (225 lb) 03/25/2023 101.2 kg (223 lb) 01/05/2023 103.4 kg (228 lb) Social History Tobacco Use: Types: Cigarettes Past Medical History: PAST MEDICAL HISTORY Diagnosis Date Acid reflux Tobacco use disorder 09/01/2020 Family Hx: FAMILY HISTORY Problem Relation Age of Onset other (Bone cancer) Mother No Known Problems Father Cancer Maternal Grandmother Uterine No Known Problems Maternal Grandfather No Known Problems Paternal Grandmother No Known Problems Paternal Grandfather Rheumatologic disease Half-brother RA Surgical Hx: PAST SURGICAL HISTORY Procedure Laterality Date BACK SURGERY HX lumbar decompression Marcella COLONOSCOPY 09/03/2022 COLONOSCOPY SCREENING 06/07/2022 EGD W/O BRSH SPEC VARICIES INJ 06/07/2022 PERCUTANEOUS LUMBAR DISKECTOMY Bilateral 2009 REPAIR ING HERNIA,5+Y/O,REDUCIBL Left 2008 Allergies: ALLERGIES No Known Allergies Review Of Systems: See HPI for ROS All of the remainder systems were reviewed and negative. PHYSICAL EXAMINATION: BP 142/76 Pulse 81 Resp 16 Wt 219 lb (99.3kg) SpO2 97% General appearance: well appearing, in no acute distress, and alert Skin: skin color, texture, turgor normal, no rashes or lesions Neck: Supple, no adenopathy; thyroid symmetric, normal size Respiratory: lungs clear to auscultation no wheezing or rhonchi Cardiovascular: Negative. RRR without murmur, gallop, or rubs. No ectopy Musculoskeletal: Extremities normal. No deformities, edema, or skin discoloration. Neuro: Oriented X 3 Data Review I have visually reviewed imaging and testing below CT imaging done today was reviewed and analyzed independently and compared to prior CT chest imaging by practitioner and awaiting radiology review. Stable RLL partially calcified nodule. Imaging * * *Final Report* * * DATE OF EXAM: Jul 15 2023 11:43AM [facility] [id number] - [facility] PROCEDURE REASON: Lung nodules * * * * Physician Interpretation * * * * EXAMINATION: CT LUNG FOLLOWUP WO IVCON CLINICAL HISTORY: Smoking, pulmonary nodules Technique: Spiral CT acquisition of the chest from the thoracic inlet to the upper abdomen without contrast. MQ: [id number]_6 Followup LDCT Patient characteristics: * Qvwm-[id number]: 1965; Age at exam: 57 years * Gender: Male * Lung Disease: Asymptomatic (no signs or symptoms of lung disease) * Number of Pack Years: 72 * Current smoker (=0) or Number of Years since Quit: 0 * Ordering provider and NPI: ROSIE ROBERTS [id number] * Interpreting radiologist and NPI: Sajan [id number] Exam acquisition parameters: * Exam Date: 07/15/2023 11:43 AM * Site: [facility] * * CT System Mold Engraver: Siemens * CT System Model: Sensation * Tube Current-Time (mA-sec): 33 * Peak Voltage (kV): 120V * Scan Time (sec): 11.37 * Scan Volume (z-length, cm): -30.35 * Pitch: 0.75 * Slice Thickness (mm): 1.5 * CT Dose-Length Product: 106 mGy*cm * CT Dose Index: 2.55mGy * CT Dose Reduction Method: Automated exposure control(AEC) and iterative recon COMPARISON: Chest CT exams dated 01/05/2023 and 09/27/2022 RESULT: Are nodules present? Yes, 1-5 nodules Nodule 1: This Solid nodule is located in the Right Lower Lobe on slice number 184 with an average diameter of 10.8 mm (11.6 mm x 10.0 mm). Stable in size since the earliest available chest CT dated 09/27/2022. On soft tissue windows (image 184 of series 6), this nodule appears to have a central focus of calcification which is new/increased compared to prior exams suggesting that this nodule is a granuloma. Other lung nodule comments: Other findings: Bronchial wall thickening is present bilaterally. There is minimal upper lobe predominant paraseptal emphysema. No enlarged thoracic lymph nodes. Both the ascending aorta and main pulmonary artery are normal in caliber. There are mild scattered coronary artery atherosclerotic calcifications, however, this exam is not optimized for coronary artery assessment. The main pulmonary artery appears mildly dilated measuring 3.2 cm in diameter, finding/ associated with pulmonary hypertension. No abnormality within the imaged solid abdominal organs on this noncontrast exam. No destructive lytic or blastic bone lesion. Emphysema: Trivial (<5%), Paraseptal, Upper lobe Coronary Artery Calcifications: Circumflex Minimum; Left Anterior Descending Mild; Right Coronary Mild Alum Operator (topogram) images: No additional findings. Last CT Chest - Impression Only No resulted procedures found. Last XR Chest - Impression Only XR CHEST 2V FRONTAL/LAT Exam End: 07/06/2021 5:17 PM (Final result) Impression: IMPRESSION: No acute radiographic abnormality. ... Pulmonary Function Testing: SPIROMETRY - BASELINE AND POST DILATOR ([id number]) - ordered on 11/04/23 No textual results for order. documented in this encounter [facility] 07-23-2024 History of Presen t illness Narrative Radiology Service Progress Note PATIENT NAME: Susan Flores DATE OF SERVICE: July 23, 2024 TIME: 9:19 AM PATIENT IDENTITY VERIFICATION COMPLETED USING TWO (2) IDENTIFIERS: Name and Date of confirmed by patient verbally. FALL SCREENING: Has the patient had 2 falls in the last year or 1 fall with injury or currently using an Ambulatory Assistive Device (Walker, Cane, Wheelchair, Crutches, etc.)? No PATIENT GENDER DATA: Assigned male at PATIENT RELEVANT IMPLANT DATA REVIEWED: Yes PATIENT PRESENTS WITH AN IMPLANTABLE OR ATTACHED TOBACCO SAMPLE PULLER: No RADIOLOGY DEPARTMENT: CT; Exam(s) Completed: Lung Screening PERIPHERAL IV DATA: Not applicable SIGNED BY: RT Rafael(Sven) July 23, 2024 9:19 AM documented in this encounter [facility] 07-23-2024 Note HNO ID: [id number] Author: KAYLEIGH SHORE RT(Sven) Service: ? Author Type: Government Relations Manager Type: Progress Notes Filed: 07/23/2024 09:19 Note Text: Radiology Service Progress Note PATIENT NAME: Susan Flores DATE OF SERVICE: July 23, 2024 TIME: 9:19 AM PATIENT IDENTITY VERIFICATION COMPLETED USING TWO (2) IDENTIFIERS: Name and Date of confirmed by patient verbally. FALL SCREENING: Has the patient had 2 falls in the last year or 1 fall with injury or currently using an Ambulatory Assistive Device (Walker, Cane, Wheelchair, Crutches, etc.)? No PATIENT GENDER DATA: Assigned male at PATIENT RELEVANT IMPLANT DATA REVIEWED: Yes PATIENT PRESENTS WITH AN IMPLANTABLE OR ATTACHED TOBACCO SAMPLE PULLER: No RADIOLOGY DEPARTMENT: CT; Exam(s) Completed: Lung Screening PERIPHERAL IV DATA: Not applicable SIGNED BY: RT Rafael(R) July 23, 2024 9:19 AM [facility] 04-17-2024 Telephone encounter Note Orders faxed to [facility], confirmation received. Joanne Gauthier LPN April 17, 2024 7:47 AM [facility] 04-17-2024 Miscellaneous Notes Orders faxed to [facility], confirmation received. Joanne Gauthier LPN April 17, 2024 7:47 AM documented in this encounter [facility] 04-16-2024 Nurse Note Faxed CPAP order with today's signed OV to [facility] [place] [phone]. Tammi Stuart MA [facility] 04-16-2024 Nurse Note Faxed CPAP order with today's signed OV to [facility] [place] [phone]. Tammi Stuart MA documented in this encounter [facility] 04-16-2024 Instructions Austin Ge MD - 04/16/2024 12:37 PM EDT - Continue taking Prilosec and Carafate as prescribed for reflux management. - Continue using your auto CPAP machine with the added oxygen for sleep apnea. - Received flu shot and COVID vaccine today; monitor for any serious reactions such as swelling of the face, hives, difficulty breathing, fast heartbeat, or dizziness. If any of these occur, call 911 and go to the ER immediately. - Next CT scan for cancer screening is scheduled for June. - Annual labs will be done in the spring to check magnesium levels, anemia, and kidney function. - Consider incorporating more fish into your diet to help maintain good cholesterol levels. - If you decide to quit smoking, resources are available, including medications and nicotine replacement therapy. documented in this encounter [facility] 04-16-2024 History of Presen t illness Narrative This note was created using Chatterousriter. Subjective Susan Flores is a 58 year old male. HISTORY Susan Flores is a 58 year old gentleman here for yearly exam and follow up appointment. Susan Flores is a 58-year-old male with a history of GERD, HOMER, and emphysema, presenting for a routine wellness visit. Susan reports well-controlled GERD with the use of Prilosec and Carafate. He is currently using an auto-CPAP for HOMER, which he reports is working well. Recently, oxygen was added to his treatment regimen, and he notes feeling "a little more rested" in the mornings since this addition. Susan has a history of emphysema, as noted on a CT scan. He had stopped using Spiriva inhaler -- reports not noticing any significant difference in his symptoms with its use. He denies experiencing chest congestion or excessive coughing. He is currently undergoing annual CT scans for cancer screening, with the most recent scan performed in June. Susan has a 36-year history of smoking, currently smoking 1.5 packs per day. He is not ready to quit smoking at this time. He recalls a previous attempt to quit smoking for a year, during which he gained a significant amount of weight. He is scheduled to receive a flu shot and COVID vaccine today. He denies any previous reactions to flu shots and has no history of Guillain-Montaño syndrome or recent bone marrow transplants. PAST MEDICAL HISTORY Diagnosis Date Acid reflux Tobacco use disorder 09/01/2020 Current Outpatient Medications Medication Sig omeprazole (PRILOSEC) 40 mg capsule Take 1 capsule by mouth daily before breakfast. 1/2 hr before meal. sucralfate (CARAFATE) 1 gram tablet Take one tablet by mouth before meals and at bedtime as needed CPAP/BIPAP/OTHER Auto CPAP 6-11 cmH2O DME [employer] No current facility-administered medications for this visit. ALLERGIES No Known Allergies FAMILY HISTORY Problem Relation Age of Onset other (Bone cancer) Mother No Known Problems Father Cancer Maternal Grandmother Uterine No Known Problems Maternal Grandfather No Known Problems Paternal Grandmother No Known Problems Paternal Grandfather Rheumatologic disease Half-brother RA Social History Tobacco Use Smoking status: Every Day Current packs/day: 2.00 Average packs/day: 2.0 packs/day for 36.0 years (72.0 ttl pk-yrs) Types: Cigarettes Passive exposure: Never Smokeless tobacco: Never Tobacco comments: Currently 1ppd 09/15/22 KP. 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, 2023 Vaping Use Vaping status: Never Used Substance Use Topics Alcohol use: Yes Alcohol/week: 12.0 standard drinks of alcohol Types: 12 Cans of Beer (12oz) per week Comment: 2-3 per night Drug use: No Review of Systems Objective BP 126/72 Pulse 70 Temp 36.3 C (97.3 F) Resp 16 Ht 179.2 cm (5' 10.57") Wt 99.5 kg (219 lb 5.7 oz) SpO2 99% BMI 30.97 kg/m Last 5 Encounter Wt Readings: Date: Wt: 04/16/2024 100.3 kg (221 lb 1.9 oz) 04/16/2024 99.5 kg (219 lb 5.7 oz) 12/05/2023 98.5 kg (217 lb 2.5 oz) 11/04/2023 98.9 kg (218 lb) 10/27/2023 98.1 kg (216 lb 4.3 oz) No waist measurement recorded Estimated body mass index is 30.97 kg/m as calculated from the following: Height as of this encounter: 179.2 cm (5' 10.57"). Weight as of this encounter: 99.5 kg (219 lb 5.7 oz). Last 5 Encounter BP Readings: Date: BP: 04/16/2024 136/82 04/16/2024 126/72 12/05/2023 128/79 10/27/2023 135/86 10/10/2023 135/77 Physical Exam Latest Ref Rng 08/17/2022 09/24/2023 WBC 3.70 - 11.00 k/uL 6.97 7.95 RBC 4.20 - 6.00 m/uL 4.77 4.53 Hemoglobin 13.0 - 17.0 g/dL 15.1 14.8 Hematocrit 39.0 - 51.0 % 47.1 44.7 MCV 80.0 - 100.0 fL 98.7 98.7 MCH 26.0 - 34.0 pg 31.7 32.7 MCHC 30.5 - 36.0 g/dL 32.1 33.1 RDW-CV 11.5 - 15.0 % 12.6 13.2 Platelet Count 150 - 400 k/uL 183 176 MPV 9.0 - 12.7 fL 10.4 10.6 Neut% % 62.3 Abs Neut (ANC) 1.45 - 7.50 k/uL 4.34 Lymph% % 24.5 Abs Lymph 1.00 - 4.00 k/uL 1.71 Tama% % 10.5 Abs Tama <0.87 k/uL 0.73 Eosin% % 1.7 Abs Eosin <0.46 k/uL 0.12 Baso% % 0.6 Abs Baso <0.11 k/uL 0.04 Immature Gran % % 0.4 IMMATURE GRANS (ABS) <0.10 k/uL 0.03 NRBC /100 WBC 0.0 Absolute nRBC <0.01 k/uL <0.01 <0.01 DTYPE Auto Protein, Total 6.3 - 8.0 g/dL 6.7 Albumin 3.9 - 4.9 g/dL 4.4 Calcium 8.5 - 10.2 mg/dL 9.6 Bilirubin, Total 0.2 - 1.3 mg/dL 0.5 Alkaline Phosphatase 38 - 113 U/L 73 AST 14 - 40 U/L 21 ALT 10 - 54 U/L 22 Glucose 74 - 99 mg/dL 105 (H) BUN 9 - 24 mg/dL 17 Creatinine 0.73 - 1.22 mg/dL 0.96 Sodium 136 - 144 mmol/L 137 Potassium 3.7 - 5.1 mmol/L 4.7 Chloride 97 - 105 mmol/L 102 CO2 22 - 30 mmol/L 26 Anion Gap 9 - 18 mmol/L 9 eGFR >=60 mL/min/1.73m 93 Cholesterol, Total <200 mg/dL 173 Triglyceride <150 mg/dL 50 HDL Cholesterol >39 mg/dL 64 Non HDL Cholesterol <130 mg/dL 109 Fasting Time hrs 12 VLDL Cholesterol <30 mg/dL 10 TC:HDL Ratio <5.10 2.70 LDL Cholesterol <100 mg/dL 99 LDL:HDL Ratio <2.54 1.55 Total Cholesterol, Nonfasting <200 mg/dL 198 Triglycerides, Nonfasting <150 mg/dL 74 HDL Cholesterol, Nonfasting >39 mg/dL 60 LDL Cholesterol, Nonfasting <100 mg/dL 123 (H) Non HDL Cholesterol, Nonfasting <130 mg/dL 138 (H) VLDL Cholesterol, Nonfasting <30 mg/dL 15 Total Chol/HDL Ratio, Nonfasting <5.10 mg/dL 3.30 LDL/HDL Ratio, Nonfasting <2.54 mg/dL 2.05 Hemoglobin A1C 4.3 - 5.6 % 5.2 Estimated Average Glucose mg/dL 103 TSH 0.270 - 4.200 mIU/L 2.150 Magnesium 1.7 - 2.3 mg/dL 2.0 Legend: (H) High The 10-year ASCVD risk score (Amber CHICAS, et al., 2019) is: 7.5% Values used to calculate the score: Age: 58 years Sex: Male Is Non- : No Diabetic: No Tobacco smoker: Yes Systolic Blood Pressure: 126 mmHg Is BP treated: No HDL Cholesterol: 64 mg/dL Total Cholesterol: 173 mg/dL Assessment and Plan # Routine medical exam (Z00.00) - Completed annual wellness visit. - Blood pressure 120s, heart rhythm regular, lung alicia clear to auscultation. - Ordered routine labs to be completed before next appointment with Gonzalo, including magnesium, CBC, and kidney function tests. - Discussed importance of maintaining a healthy diet and regular exercise. # GERD without esophagitis (K21.9) - Managed with Prilosec and Carafate; symptoms well-controlled. - Ordered annual labs to monitor for potential side effects of long-term acid nury use. # Tobacco use disorder (F17.200) - Patient smoking 1.5 packs per day for the past 36 years; not ready to quit. - Discussed risks of continued smoking, including impact on pulmonary health and efficacy of inhalers. - Provided education on nicotine addiction and potential weight gain upon cessation. - Offered resources for smoking cessation, including nicotine replacement therapy and counseling. # HOMER (obstructive sleep apnea) (G47.33) # Nocturnal hypoxia (G47.34) - Managed with auto CPAP and supplemental oxygen; patient reports feeling more rested. - Oxygen therapy recently added by pulmonary team. # Encounter for immunization (Z23) - Administered influenza and COVID-19 vaccines. - Discussed potential side effects and advised to seek emergency care for severe reactions. - Deferred tetanus and Shingrix vaccines to avoid multiple vaccinations at once. # Encounter for long-term current use of medication (Z79.899) - Long-term use of Prilosec and Carafate for GERD management. - Long-term use of auto CPAP and supplemental oxygen for HOMER and nocturnal hypoxia. - Long-term use of inhalers for emphysema management. # Elevated LDL cholesterol level (E78.00) - LDL cholesterol 123 mg/dL, HDL 60 mg/dL, triglycerides 70 mg/dL. - 10-year ASCVD risk calculated at 7.5%. - Discussed dietary modifications to increase omega-3 intake and reduce LDL levels. - Ordered fasting lipid panel to be completed before next appointment with Gonzalo. Austin Ge MD documented in this encounter [facility] 04-16-2024 History of Presen t illness Narrative Images from the original note were not included. [facility] Follow up/ Established patient visit Date of last visit : 10/10/2023 The following Impression/Plan was copied and pasted from the patient's last [facility] visit on 10/10/23: IMPRESSION: Homer on cpap (primary encounter diagnosis) Nocturnal hypoxia Tobacco use disorder Susan Flores is a 57 year old male with at least mild HOMER which is exacerbated to severe in supine sleep. He has nocturnal hypoxia. He is a cigarette smoker. He is established with Pulm for lung nodules. We reviewed the results from his updated HSAT. Despite weight loss he still has HOMER and needs to continue to use PAP therapy. Because of hypoxia that occurs even w/o respiratory events he needs further eval. We will get overnight oximetry while using PAP to determine if PAP controls his O2 sats. --Patient is compliant with PAP therapy and reports subjective benefits from treatment --We reviewed PAP compliance report; AHI is normalized. He has mask leaks. PLAN: - Continue Auto CPAP at above pressures - Remember to clean your mask and equipment regularly, as directed. - You should be eligible for new supplies approximately every 3-6 months, depending on your insurance coverage. Contact your Durable Medical Equipment (DME) company for new supplies as needed. - Follow up 6 mos Order to [employer] for mask refitting considering his large mask leaks Order from [facility] [place] to test overnight oximetry while pt is wearing CPAP--will contact him with results and plan He isn't interested in smoking cessation at this time Merrill Patton APRN.[employer] Here for follow up for at least mild HOMER per HSAT which is exacerbated to severe in supine sleep. He does often sleep supine. His overnight oximetry showed low O2 sats even with PAP therapy, since he was already established with Pulm, I asked for them to follow his nocturnal hypoxia. Has 2L bleed with CPAP. He thinks he feels a little better since the addition of O2 at night. Asks if he needs to continue PAP therapy now that he is on O2. Not interested in quitting smoking SLEEP APNEA Sleep apnea type : HOMER, Most Recent Apnea-Hypopnea Index (AHI): 12.5 on HSAT, supine AHI 32.7 Treatment : PAP therapy DME: [employer] PAP History: Uses AutoPAP for 6-7 hours per night, 7 nights per week. Current PAP settin-11 cm H2O. Difficulties with AutoPAP: None Reviewed objective PAP compliance data: Mask type: nasal mask Mask issues: none There is a perceived benefit by the patient: no snoring SLEEP HYGIENE QUESTIONS: Bedtime : 9 pm Wake up Time : 430 am Time it takes to fall sleep : quick Number of times patient wakes up per night : 1 Reason (s) why patient wakes up during the night : urination Estimated total sleep time ( in a 24 hour period of time) : 7+ Naps : No PATIENT-ENTERED QUESTIONNAIRE SLEEP SCORES 04/15/2024 Sleep Questions Reason for visit: Sleep apnea On average, hours of sleep in 24 hours: 8 Average hours of CPAP per night: 7.5 Percent of nights CPAP used at least 4 hours: 100 Accidents or near accidents due to drowsy drivin 08/06/2023 10/09/2023 04/15/2024 [place] Sleepiness Scale Score 6 (No clinically significant daytime sleepiness) 8 (No clinically significant daytime sleepiness) 8 (No clinically significant daytime sleepiness) 08/06/2023 10/09/2023 04/15/2024 PROMIS CAT Sleep Disturbance PROMIS Sleep Disturbance T-Score 49 (within normal limits) 44 (within normal limits) 44 (within normal limits) PROMIS Sleep Disturbance Percentile 54 73 73 08/06/2023 10/09/2023 PHQ-9 Score 0 0 07/18/2023 10/09/2023 04/15/2024 PROMIS Global Health - (T-Scores - the mean of general population = 50. Five points is a clinically meaningful difference.) Physical T-Score 54.1 54.1 57.7 57.7 Mental T-Score 56 56 62.5 62.5 ALLERGIES No Known Allergies CURRENT MEDICATIONS: CPAP/BIPAP/OTHER Type .CPAPSettings into a note to see current settings/supplies/DME information. omeprazole (PRILOSEC) 40 mg capsule Take 1 capsule by mouth daily before breakfast. 1/2 hr before meal. sucralfate (CARAFATE) 1 gram tablet Take one tablet by mouth before meals and at bedtime as needed tiotropium bromide (SPIRIVA RESPIMAT) 2.5 mcg/actuation inhaler Inhale 2 Puffs as instructed once daily. PHYSICAL EXAMINATION: Vital Signs: BP 136/82 (BP Site: Left Arm, BP Position: Sitting) Pulse 70 Resp 16 Wt 100.3 kg (221 lb 1.9 oz) SpO2 98% BMI 30.84 kg/m PHYSICAL EXAM: General appearance: pleasant, NAD Mental status: alert and oriented, able to provide own history Constitutional: overweight Skin: No visible rashes on exposed skin Neuro: No focal deficits observed, no tremors IMPRESSION: Homer on cpap (primary encounter diagnosis) Nocturnal hypoxia Tobacco use disorder Susan Flores is a 58 year old male with PMH of HOMER, autoCPAP use, nocturnal hypoxia, tobacco use disorder, obesity, emphysema noted on CT. We discussed rationale for continuing PAP therapy along with nocturnal oxygen. --Patient is compliant with PAP therapy and reports subjective benefits from treatment --We reviewed PAP compliance report; AHI is normalized PLAN: - Continue Auto CPAP at 6-11 cmH2O. DME [employer] - Remember to clean your mask and equipment regularly, as directed. - You should be eligible for new supplies approximately every 3-6 months, depending on your insurance coverage. Contact your Durable Medical Equipment (DME) company for new supplies as needed. - Follow up in 12 months with MARGARITA. Not interested in smoking cessation Merrill Patton APRN.IZA documented in this encounter [facility] 04-16-2024 Instructions Mrerill Patton APRN.CNP - 04/16/2024 11:26 AM EDT Images from the original note were not included. Sleep Apnea What is sleep apnea? Sleep apnea is a serious sleep disorder that occurs when a person s breathing is interrupted during sleep. People with untreated sleep apnea stop breathing repeatedly during their sleep, sometimes hundreds of times during the night. There are two types of sleep apnea: obstructive and central. Obstructive sleep apnea (HOMER) is the more common of the two. Obstructive sleep apnea occurs as repetitive episodes of complete or partial upper airway blockage during sleep. During an apnea episode, the diaphragm and chest muscles work harder as the pressure increases to open the airway. Breathing usually resumes with a loud gasp or body jerk. These episodes can interfere with sound sleep, reduce the flow of oxygen to vital organs, and cause heart rhythm irregularities. In central sleep apnea (CSA), the airway is not blocked but the brain fails to signal the muscles to breathe due to instability in the respiratory control center. Central apnea is named as such because it is related to the function of the central nervous system. Who gets sleep apnea? Sleep apnea occurs in about 25 percent of men and nearly 10 percent of women. Sleep apnea can affect people of all ages, including babies and children and particularly people over the age of forty and those who are overweight. Certain physical traits and clinical features are common in patients with obstructive sleep apnea. These include excessive weight, large neck, and structural abnormalities reducing the diameter of the upper airway, such as nasal obstruction, a low-hanging soft palate, enlarged tonsils, or a small jaw with an overbite. The figures below illustrate the upper airway in normal sleep: (A) person is lying on back, face up, and (B) in obstructive sleep apnea. The arrows indicate complete obstruction in the back of the throat. Normal (A) Sleep apnea (B): What causes sleep apnea? Obstructive sleep apnea is caused by a blockage of the airway, usually when the soft tissues in the rear of the throat collapse during sleep. Central sleep apnea is usually observed in patients with central nervous system dysfunction, such as following a stroke or in patients with neuromuscular diseases like amyotrophic lateral sclerosis. It is also common in patients with heart failure and other forms of cardiac and pulmonary disease. What are the symptoms of sleep apnea? Often the first signs of obstructive sleep apnea are recognized not by the patient, but by the bed partner. Many of those affected have no sleep complaints. The most common symptoms of HOMER include: Snoring Daytime sleepiness or fatigue Restlessness during sleep Sudden awakenings with a sensation of gasping or choking Dry mouth or sore throat upon awakening Intellectual impairment, such as trouble concentrating, forgetfulness, or irritability Night sweats Sexual dysfunction Headaches People with central sleep apnea more often report recurrent awakenings or insomnia, although they may also experience a choking or gasping sensation with sudden awakenings. Symptoms in children may not be as obvious and include: Poor school performance Sluggishness or sleepiness, often misinterpreted as laziness in the classroom Daytime mouth breathing and swallowing difficulty Inward movement of the ribcage when inhaling Unusual sleeping positions, such as sleeping on the hands and knees, or with the neck hyper-extended Excessive sweating at night Learning and behavioral disorders Bedwetting What are the effects of sleep apnea? If left untreated, sleep apnea can result in a number of health problems including hypertension, stroke, arrhythmias, cardiomyopathy (enlargement of the muscle tissue of the heart), congestive heart failure, diabetes, and heart attacks. In addition, untreated sleep apnea may be responsible for job impairment, work-related accidents, and motor vehicle crashes as well as academic underachievement. How is sleep apnea diagnosed? The diagnosis of sleep apnea is relatively straightforward, based on sleep history and an overnight sleep study called a polysomnogram. Polysomnogram is performed in a sleep laboratory under the direct supervision of a trained technologist. During the test, a variety of body functions, such as the electrical activity of the brain, eye movements, muscle activity, heart rate, breathing patterns, air flow, and blood oxygen levels are recorded at night during sleep. After the study is completed, the number of times breathing is impaired during sleep is tallied and the severity of sleep apnea is graded. In some cases, a multiple sleep latency test is performed on the day after the overnight test to measure the speed of falling asleep. In this test, patients are given several opportunities to fall asleep during the course of a day when they normally would be awake. If you have symptoms of sleep apnea, your doctor may ask you to have a sleep evaluation in a sleep disorder center. What are the treatments for sleep apnea? Conservative treatments: In mild cases of sleep apnea, conservative therapy may be all that is needed. Overweight persons can benefit from losing weight. Even a ten percent weight loss can reduce the number of apneic events for most patients. Individuals with apnea should avoid the use of alcohol and sleeping pills, which make the airway more likely to collapse during sleep and prolong the apneic periods. In some patients with mild sleep apnea, breathing pauses occur only when they sleep on their backs. In such cases, using pillows and other devices that help them sleep in a side position may be helpful. People with sinus problems or nasal congestion (such people are more likely to experience sleep apnea) should use nasal sprays or breathing strips to reduce snoring and improve airflow for more comfortable nighttime breathing. Avoiding sleep deprivation is important for all patients with sleep disorders. Mechanical therapy: Continuous Positive Airway Pressure (CPAP) is the preferred initial treatment for most people with obstructive sleep apnea. With CPAP, patients wear a mask over their nose and/or mouth. An air blower forces air through the nose and/or mouth. The air pressure is adjusted so that it is just enough to prevent the upper airway tissues from collapsing during sleep. The pressure is constant and continuous. CPAP prevents airway closure while in use, but apnea episodes return when CPAP is stopped or it is used improperly. Other styles and types of positive airway pressure devices are available for people who have difficulty tolerating CPAP. These include Bilevel Positive Airway Pressure (BiPAP), Auto Positive Airway Pressure (AutoPAP), Auto/Adaptive Servo-Ventilation (ASV), etc Oral appliances: For patients with mild/moderate sleep apnea, dental appliances or oral mandibular advancement devices that prevent the tongue from blocking the throat and/or advance the lower jaw forward can be made. These devices help keep the airway open during sleep. A sleep specialist and build and release manager (with expertise in oral appliances for this purpose) should jointly determine if this treatment is best for you. Surgery: Surgical procedures may help people with sleep apnea. There are many types of surgical procedures, some of which are performed as outpatient procedures. Surgery is reserved for people who have excessive or malformed tissue obstructing airflow through the nose or throat, such as a deviated nasal septum, markedly enlarged tonsils, or small lower jaw with an overbite that causes the throat to be abnormally narrow. These procedures are typically performed after sleep apnea has failed to respond to conservative measures and a trial of positive airway pressure treatment. Types of surgery include: Somnoplasty: A minimally invasive procedure that uses radiofrequency energy to reduce the soft tissue in the upper airway. Uvulopalatopharyngoplasty (UPPP): A procedure that removes soft tissue on the back of the throat and palate, increasing the width of the airway at the throat opening. Maxillary/Mandibular advancement surgery: A surgical correction of certain facial abnormalities or throat obstructions that contribute to sleep apnea. This is an invasive procedure that is reserved for patients with severe sleep apnea with head-face abnormalities. Nasal surgery: Correction of nasal obstructions, such as a deviated septum. Hypoglossal nerve stimulator: FDA approved 2013. (Implant that sends a lead that goes to bottom of tongue to stimulate it forward out of the area of the back of the throat) Resources: The [facility] Guide to Sleep Disorders by Celine Kinney DO [employer] [address] [place] [address] [address] [facility].. [id number] [email or web address] [place] [employer] [address] [place] [address], [address] [place], [place] [email or web address] documented in this encounter [facility] 12-05-2023 History of Presen t illness Narrative Images from the original note were not included. [facility] OFFICE FOLLOW UP 12/05/2023 Patient Name: Susan Flores PRIMARY CARE PHYSICIAN: Austin Ge MD REASON FOR FOLLOW UP: Nocturnal Hypoxemia REFERRING PHYSICIAN: Merrill Patton, JORGE My final recommendations will be communicated to the requesting health care provider by way of the shared medical record for internal providers or by letter via US mail for external providers. ASSESSMENT/PLAN 1) Nocturnal Hypoxemia: Unclear etiology. ECHO is normal and spirometry shows mild obstruction with normal diffusion capacity. Addition of oxygen seem to help a little. Continues to complain of fatigue and chest discomfort which seems musculoskeletal. - Given ongoing hypoxemia and symptomatic improvement will continue nocturnal oxygen, 2L bleed with CPAP. - Offered patient CPET, patient would like to hold off. - Will try Toradol. Pain maybe related to musculoskeletal vs nerve pain 2) Current Smoker: Not willing to quit. - Counseling provided to patient on smoking cessation: 3) Wheezing and Coughing: Emphysema noted on CT chest. - Continue Spiriva Respimat 2 puff once a day. - Inhaler technique demonstrated to the patient, patient was asked to repeat the technique in the clinic. 4) Enlarged/Mildly dilated main pulmonary artery seen on CT chest - ECHO noted. 5) Pulmonary Nodules: Follows with lung nodules clinic 6) GERD 7) Mild HOMER on CPAP 8) Alcohol Dependence Patient instructed to contact me in case of symptoms, imaging and lab results. I discussed the plan in detail with the patient and the patient verbalizes understanding and is in agreement. Nida Miller MD, Staff, [facility] CHIEF COMPLAINT: HISTORY OF PRESENT ILLNESS: Susan Flores is a 57 year old male, with a history of mild HOMER on CPAP, current smoker, lung nodules and GERD which is controlled on Prilosec. Patient is here for a follow up appointment. Was initially referred to be by Dr. Washington's office for further evaluation of nocturnal hypoxemia. Patient was diagnosed with HOMER in 09/2022 by a home sleep study: mild HOMER worse with supine position and oxygen desaturation to 82%. Patient was started on Auto PAP therapy and has been compliant with it. Despite that complained of increased tiredness and feeling un rested. Snoring had resolved. In January 2023 underwent titration titration study which showed AHI normalized with PAP setting of 5-9cmH2O and oxygen saturation was above 90%. Following which patient had lost significant amount of weight and was re-evaluated for HOMER with an HSAT. Patient underwent repeat HSAT in 08/2023 which showed mild HOMER when supine. Hypoxemia was noted even in the absence of respiratory events. Following which patient undwerwent nocturnal oximetry on CPAP which showed that patient desaturated lowest to 82% and was noted to be <88% for 35mins. After our last visit. Patient was started on nocturnal oxygen. Spirometry showed mild obstruction. Was started on Spiriva. Today states that he does not feel that the spiriva helped. Seems to see some benefit from nighttime oxygen. Continues to complain of fatigue and tiredness. Today also states that he has pain below his rib cage and back pain. Denies any dyspnea and rest or exertion. Does endorse on and off wheezing and chest tightness. Also has cough which is dry. No issues with ADLs. No nasal or sinus congestion. MMRC Dyspnea Scale: 0. Not troubled by breathlessness except on strenuous exercise Short of breath when hurrying or walking up a slight hill Walks slower than contemporaries on the level because of breathlessness, or has to stop for breath when walking at own pace Stops for breath after about 100 m or after a few minutes on the level Too breathless to leave the house, or breathless when dressing or undressing Social and Personal History: - Lives with his - Smokin.5 packs since the age of 20. 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 Other Environmental Exposure History: Pets: No birds Asbestos: No significant exposure Silica: No significant exposure Christian: No significant exposure Mold: No significant exposure Hot tub: No significant exposure Fumes: No significant exposure Metal dust: No significant exposure Beryllium: No significant exposure Dust: No significant exposure Medications: No relevant exposure for interstitial lung diseases FAMILY HISTORY Problem Relation Age of Onset other (Bone cancer) Mother No Known Problems Father Cancer Maternal Grandmother Uterine No Known Problems Maternal Grandfather No Known Problems Paternal Grandmother No Known Problems Paternal Grandfather Rheumatologic disease Half-brother RA Social History Tobacco Use Smoking status: Every Day Packs/day: 2.00 Years: 36.00 Additional pack years: 0.00 Total pack years: 72.00 Types: Cigarettes Passive exposure: Never Smokeless tobacco: Never Tobacco comments: Currently 1ppd 09/15/22 . 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 CPAP/BIPAP/OTHER Type .CPAPSettings into a note to see current settings/supplies/DME information. omeprazole (PRILOSEC) 40 mg capsule Take 1 capsule by mouth daily before breakfast. 1/2 hr before meal. sucralfate (CARAFATE) 1 gram tablet Take one tablet by mouth before meals and at bedtime as needed REVIEW OF SYSTEMS The remainder of review of systems was negative. PHYSICAL EXAM Wt 217 lb 2.5 oz (98.5kg) 12/05/23 1421 BP: 128/79 Pulse: 75 SpO2: 97% Weight: 98.5 kg (217 lb 2.5 oz) General appearance: No distress. Alert. Eyes: PERRLA Nose/Sinuses: Negative Neck: no palpable masses Lungs: Lungs clear to auscultation. No wheezing, rhonchi, rales Heart: RRR without murmur, gallop, or rubs. No ectopy Abdomen: Normal abdominal exam Extremities: Normal, Warm, No cyanosis, no clubbing, No edema, and Nontender Neuro: no focal weakness Psychiatry: Alert, Oriented X 3 DATA Diagnostic tests reviewed for today's visit, including labs and other testing, personally reviewed and analysed by me: Most recent labs and imaging results. CT chest 07/15/2023 Nodule 1: This Solid nodule is located in the Right Lower Lobe with an average diameter of 10.8 mm (11.6 mm x 10.0 mm). Stable in size since the earliest available chest CT dated 09/27/2022. On soft tissue windows (image 184 of series 6), this nodule appears to have a central focus of calcification which is new/increased compared to prior exams suggesting that this nodule is a granuloma. Bronchial wall thickening is present bilaterally. There is minimal upper lobe predominant paraseptal emphysema. No enlarged thoracic lymph nodes. The main pulmonary artery appears mildly dilated measuring 3.2 cm in diameter, finding/ associated with pulmonary hypertension. # Lung cancer screening - Enrolled in lung cancer screening. # Immunizations: COVID/Influenza/Pneumococcal/TDA P if not received prior/Shingles Immunization History Administered Date(s) Administered COVID-19 original vaccine, age 12+ yr, monovalent (PFIZER-BIONTECH - PURPLE TOP) 09/16/2020 10/04/2020 05/23/2021 COVID-19 vaccine, age 12+ yr, 2022- season (PFIZER-BIONTECH) 05/29/2023 COVID-19 vaccine, age 12+ yr, bivalent (PFIZER-BIONTECH) 04/12/2022 influenza (IIV4) vaccine, age 6 mo - 64 yr, quadrivalent (AFLURIA, FLULAVAL, FLUZONE) 04/12/2022 influenza (IIV4) vaccine, age 6 mo - 64 yr, quadrivalent, PF (AFLURIA, FLUARIX, FLULAVAL, FLUZONE) 05/16/2021 pneumococcal conjugate (PCV20) vaccine, 20 valent (PREVNAR 20) 08/17/2022 Portions of this note including HPI, ROS, impression/plan, and examination may have been copied forward as to provide important historical information essential in contributing to medical decision making. Documentation has been reviewed and edited as necessary to support clinical decision making for today's visit and to reflect my own independent evaluation of this patient on 12/05/2023 Nida Miller MD, Staff, [facility] documented in this encounter [facility] 11-04-2023 History of Presen t illness Narrative PULM FUNCTION SMARTBLOCK: Provider: Nida Miller MD Assisting Tech: Mckayla Mohan RPFT Spirometry w/BD: 1 DLCO: 1 documented in this encounter [facility] 10-28-2023 Telephone encounter Note Attempted to call Pt to ask what DME he uses. No answer. I did review Pt's chart and pt uses cpap and uses [employer] for mask fitting. O2 order,demographics, last ov note, nocturnal oximetry test results were faxed to [facility] at [phone]. Received confirmation and forms were placed in the filing drawer. [facility] 10-28-2023 Miscellaneous Notes Attempted to call Pt to ask what DME he uses. No answer. I did review Pt's chart and pt uses cpap and uses [employer] for mask fitting. O2 order,demographics, last ov note, nocturnal oximetry test results were faxed to [facility] at [phone]. Received confirmation and forms were placed in the filing drawer. documented in this encounter [facility] 10-27-2023 History of Presen t illness Narrative Images from the original note were not included. [facility] OFF[facility] VISIT CONSULT 10/27/2023 Patient Name: Susan Flores PRIMARY CARE PHYSICIAN: Austin Ge MD REASON FOR CONSULT: Nocturnal Hypoxemia REFERRING PHYSICIAN: Merrill Patton APRN.C* My final recommendations will be communicated to the requesting health care provider by way of the shared medical record for internal providers or by letter via US mail for external providers. ASSESSMENT/PLAN 1) Nocturnal Hypoxemia: Unclear etiology. DDx include emphysema, intracardiac or pulmonary shunt. Although shunt would cause hypoxemia throughout the day. - Will obtain Spirometry and diffusion capacity. - Obtain echo to rule out shunt and evaluated for pulmonary hypertension. - Given ongoing hypoxemia will order nocturnal oxygen, 2L bleed with CPAP. 2) Current Smoker: Not willing to quit. - Counseling provided to patient on smoking cessation: 3) Wheezing and Coughing: Emphysema noted on CT chest - Will obtain spirometry - Start Spiriva Respimat 2 puff once a day. - Inhaler technique demonstrated to the patient, patient was asked to repeat the technique in the clinic. - Patient requested to reach out if inhaler is expensive. 4) Enlarged/Mildly dilated main pulmonary artery seen on CT chest - ECHO ordered 5) Pulmonary Nodules: Follows with lung nodules clinic 6) GERD 7) Mild HOMER on CPAP 8) Alcohol Dependence Next visit: 8-10 weeks Patient instructed to contact me in case of symptoms, imaging and lab results. I discussed the plan in detail with the patient and the patient verbalizes understanding and is in agreement. Nida Miller MD, Staff, [facility] CHIEF COMPLAINT: HISTORY OF PRESENT ILLNESS: Susan Flores is a 57 year old male, with a history of mild HOMER on CPAP, current smoker, lung nodules and GERD which is controlled on Prilosec. Patient was referred to pulmonary clinic by Dr. Washington's office for further evaluation of nocturnal hypoxemia. Patient was diagnosed with HOMER in 09/2022 by a home sleep study. Study showed that patient had mild HOMER worse with supine position and oxygen desaturation to 82%. PAP therapy was recommended for hypoxemia. Patient states he had complains such as increased tiredness and feeling unrested. Patient was started on Auto PAP on 6-[address] Flower note patients report off the machine showed 90/90 days use with Avg AHI of 1.07 with avg use of 7 hours nad 17 minutes with 95% leak of 32.15 LPM. Patient noticed mild improvement but continued to feel tired and was sleeping more. Snoring had resolved. In January 2023 underwent titration titration study which showed AHI normalized with PAP setting of 5-9cmH2O and oxygen saturation was above 90%. Following which patient had lost significant amount of weight and was re-evaluated for HOMER with an HSAT. Patient underwent repeat HSAT in 08/2023 which showed mild HOMER when supine. Hypoxemia was noted even in the absence of respiratory events. Following which patient undwerwent nocturnal oximetry on CPAP which showed that patient desaturated lowest to 82% and was noted to be <88% for 35mins. Patient continues to state that he feels tired despite using the CPAP regularly. Denies any dyspnea, work at the [employer], [employer] and the job is high pace. No dyspnea while working. Does endorse on and off wheezing and chest tightness. Also has cough which is dry. Not on any inhalers. No issues with ADLs. No nasal or sinus congestion. Lung nodules GERD MMRC Dyspnea Scale: 0. Not troubled by breathlessness except on strenuous exercise Short of breath when hurrying or walking up a slight hill Walks slower than contemporaries on the level because of breathlessness, or has to stop for breath when walking at own pace Stops for breath after about 100 m or after a few minutes on the level Too breathless to leave the house, or breathless when dressing or undressing Social and Personal History: - Lives with his - Smokin.5 packs since the age of 20. - Alcohol: 3 to 4 12oz of beer each day Work, Travel and Exposure History: - [employer], [employer] Other Environmental Exposure History: Pets: No birds Asbestos: No significant exposure Silica: No significant exposure Christian: No significant exposure Mold: No significant exposure Hot tub: No significant exposure Fumes: No significant exposure Metal dust: No significant exposure Beryllium: No significant exposure Dust: No significant exposure Medications: No relevant exposure for interstitial lung diseases FAMILY HISTORY Problem Relation Age of Onset other (Bone cancer) Mother No Known Problems Father Cancer Maternal Grandmother Uterine No Known Problems Maternal Grandfather No Known Problems Paternal Grandmother No Known Problems Paternal Grandfather Rheumatologic disease Half-brother RA Social History Tobacco Use Smoking status: Every Day Packs/day: 2.00 Years: 36.00 Additional pack years: 0.00 Total pack years: 72.00 Types: Cigarettes Passive exposure: Never Smokeless tobacco: Never Tobacco comments: Currently 1ppd 09/15/22 . 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 omeprazole (PRILOSEC) 40 mg capsule Take 1 capsule by mouth daily before breakfast. 1/2 hr before meal. sucralfate (CARAFATE) 1 gram tablet Take one tablet by mouth before meals and at bedtime as needed REVIEW OF SYSTEMS The remainder of review of systems was negative. PHYSICAL EXAM BP 135/86 Pulse 70 Wt 216 lb 4.3 oz (98.1kg) SpO2 98% General appearance: No distress. Alert. Smells of tobacco Eyes: PERRLA Nose/Sinuses: Negative Oropharynx: Lips, mucosa, and tongue normal, teeth and gums normal, oropharynx normal Neck: no palpable masses Lungs: Lungs clear to auscultation. No wheezing, rhonchi, rales Heart: RRR without murmur, gallop, or rubs. No ectopy Abdomen: Normal abdominal exam Extremities: Normal, Warm, No cyanosis, no clubbing, No edema, and Nontender Neuro: no focal weakness Psychiatry: Alert, Oriented X 3 DATA Diagnostic tests reviewed for today's visit, including labs and other testing, personally reviewed and analysed by me: Most recent labs and imaging results. CT chest 07/15/2023 Nodule 1: This Solid nodule is located in the Right Lower Lobe with an average diameter of 10.8 mm (11.6 mm x 10.0 mm). Stable in size since the earliest available chest CT dated 09/27/2022. On soft tissue windows (image 184 of series 6), this nodule appears to have a central focus of calcification which is new/increased compared to prior exams suggesting that this nodule is a granuloma. Bronchial wall thickening is present bilaterally. There is minimal upper lobe predominant paraseptal emphysema. No enlarged thoracic lymph nodes. The main pulmonary artery appears mildly dilated measuring 3.2 cm in diameter, finding/ associated with pulmonary hypertension. # Lung cancer screening - Enrolled in lung cancer screening. # Immunizations: COVID/Influenza/Pneumococcal/TDA P if not received prior/Shingles Immunization History Administered Date(s) Administered COVID-19 original vaccine, age 12+ yr, monovalent (ArthroCAD - PURPLE TOP) 09/16/2020 10/04/2020 05/23/2021 COVID-19 vaccine, age 12+ yr, 2022- season (ArthroCAD) 05/29/2023 COVID-19 vaccine, age 12+ yr, bivalent (Natrix SeparationsBIONTECH) 04/12/2022 influenza (IIV4) vaccine, age 6 mo - 64 yr, quadrivalent (AFLURIA, FLULAVAL, FLUZONE) 04/12/2022 influenza (IIV4) vaccine, age 6 mo - 64 yr, quadrivalent, PF (AFLURIA, FLUARIX, FLULAVAL, FLUZONE) 05/16/2021 pneumococcal conjugate (PCV20) vaccine, 20 valent (PREVNAR 20) 08/17/2022 Verbal and/or written health teaching given to patient with > 40 minutes spent face to face with more than half of this for disease counseling. Nida Miller MD, Staff, [facility] CC: MD Pooja Gutiérrez Rebecca, APRN.C* documented in this encounter [facility] 10-10-2023 Telephone encounter Note Faxed 16 pages to [facility] [phone] Rx oximetry , CPAP mask faxed with OV, supporting documentation. Adalgisa Mendes LPN [facility] 10-10-2023 Miscellaneous Notes Faxed 16 pages to [facility] [phone] Rx oximetry , CPAP mask faxed with OV, supporting documentation. Adalgisa Mendes LPN documented in this encounter [facility] 10-10-2023 History of Presen t illness Narrative Images from the original note were not included. [facility] Sleep Disorders Center Follow up/ Established patient visit Date of last visit : 08/08/2023 The following Impression/Plan was copied and pasted from the patient's last Sleep Disorders Center visit on 08/08/23: ASSESSMENT/PLAN: 1. HOMER (obstructive sleep apnea) - ICD9: 327.23, ICD10: G47.33 (primary diagnosis) 2. Cigarette smoker - ICD9: 305.1, ICD10: F17.210 3. Class 1 obesity with body mass index (BMI) of 31.0 to 31.9 in adult, unspecified obesity type, unspecified whether serious comorbidity present - ICD9: 278.00, V85.31, ICD10: E66.9, Z68.31 Patient with mild HOMER, for which he was started on PAP, with no significant difference in overall wakefulness or sleep (states really did not have any problems with sleep). Possible now that with weight loss that he no longer has sleep apnea with a BMI change of ~5 kg/m2. Mild snoring if supine but otherwise asx. Again, while hypoxia was of concern during his first HSAT (with risks of being a smoker), hypoxia was not present on the PAP titration study. He is followed by pulmonary for lung nodules. At this time, and given continued weight loss, would like to reevaluate patient to see if in fact he still has HOMER. To do so, patient asking that we repeat HSAT. Order placed. If AHI now normal, will d/c PAP therapy. However, if hypoxia is again present would refer back to pulmonary for PFTs and consider nocturnal O2 rather than PAP therapy. If AHI remains elevated will continue PAP at current settings but request a P[facility] mask [facility] performed. Pt agrees with plan. Pt will follow up with our offices after HSAT complete. Encouraged continued weight loss. Discussed with patient: the physiology of OSAS, medical conditions associated with OSAS (DM, HTN, CAD, Depression, Stroke, Headache...) and treatment options (UPPP, Dental appliances, CPAP...). Advised patient to avoid activities that could harm self or others when tired/sleepy, including driving and/or operating heavy machinery. Encouraged cigarette smoking cessation. Toi Washington MD Interval history : A Home Sleep Test (HST) performed on 08/26/23 revealed at least mild HOMER (AHI of 12.5) that was associated with a minimum oxygen saturation of 83%. Mean O2 90%. Supine AHI 32.7. Here for follow up for discussion of repeat HSAT. Sleep study was updated due to 30 lb wt loss. This AHI was higher than on his 2022 sleep study. His oxygen was <88% for 22% of the recording, mean O2 sat was 90%, min O2 sat 83%. He smokes 1-1.5 ppd, not interested in smoking cessation at this time. SLEEP APNEA Sleep apnea type : HOMER, Most Recent Apnea-Hypopnea Index (AHI): 12.5 on HSAT, supine AHI 32.7 Treatment : PAP therapy DME: [facility] PAP History: Uses AutoPAP for 7 hours per night, 7 nights per week. Current PAP settin-11 cm H2O. Difficulties with AutoPAP: None Reviewed objective PAP compliance data: Reviewed on pt's [employer] for past 30 days: AHI 0.82, use 6.5 hrs per night, 90%>4 hrs, mask leak 36 Mask type: nasal mask Mask issues: leaks There is a perceived benefit by the patient: nose less dry, no snoring SLEEP HYGIENE QUESTIONS: Bedtime : 9 pm Wake up Time : 4-430 am Time it takes to fall sleep : quick Number of times patient wakes up per night : 0-1 Reason (s) why patient wakes up during the night : mask leak, urination Estimated total sleep time ( in a 24 hour period of time) : 7 Naps : No PATIENT-ENTERED QUESTIONNAIRE SLEEP SCORES 10/09/2023 Sleep Questions Reason for visit: Sleep apnea Average hours of CPAP per night: 7 Percent of nights CPAP used at least 4 hours: 100 Accidents or near accidents due to drowsy drivin 08/06/2023 10/09/2023 [place] Sleepiness Scale Score 6 (No daytime sleepiness) 8 (No daytime sleepiness) 08/06/2023 10/09/2023 PROMIS CAT Sleep Disturbance PROMIS Sleep Disturbance T-Score 49 (within normal limits) 44 (within normal limits) PROMIS Sleep Disturbance Percentile 54 73 08/06/2023 10/09/2023 PHQ-9 Score 0 0 01/03/2023 07/18/2023 10/09/2023 PROMIS Global Health - (T-Scores - the mean of general population = 50. Five points is a clinically meaningful difference.) Physical T-Score 50.8 54.1 54.1 Mental T-Score 67.6 56 56 ALLERGIES No Known Allergies CURRENT MEDICATIONS: omeprazole (PRILOSEC) 40 mg capsule Take 1 capsule by mouth daily before breakfast. 1/2 hr before meal. sucralfate (CARAFATE) 1 gram tablet Take one tablet by mouth before meals and at bedtime as needed CPAP/BIPAP/OTHER Type .CPAPSettings into a note to see current settings/supplies/DME information. PHYSICAL EXAMINATION: Vital Signs: BP 135/77 Pulse 67 Resp 18 Wt 100.3 kg (221 lb 3.2 oz) SpO2 98% BMI 30.85 kg/m PHYSICAL EXAM: General appearance: pleasant, NAD Mental status: alert and oriented, able to provide own history Constitutional: WNL Skin: No visible rashes on exposed skin Neuro: No focal deficits observed, no tremors IMPRESSION: Homer on cpap (primary encounter diagnosis) Nocturnal hypoxia Tobacco use disorder Susan Flores is a 57 year old male with at least mild HOMER which is exacerbated to severe in supine sleep. He has nocturnal hypoxia. He is a cigarette smoker. He is established with Pulm for lung nodules. We reviewed the results from his updated HSAT. Despite weight loss he still has HOMER and needs to continue to use PAP therapy. Because of hypoxia that occurs even w/o respiratory events he needs further eval. We will get overnight oximetry while using PAP to determine if PAP controls his O2 sats. --Patient is compliant with PAP therapy and reports subjective benefits from treatment --We reviewed PAP compliance report; AHI is normalized. He has mask leaks. PLAN: - Continue Auto CPAP at above pressures - Remember to clean your mask and equipment regularly, as directed. - You should be eligible for new supplies approximately every 3-6 months, depending on your insurance coverage. Contact your Durable Medical Equipment (DME) company for new supplies as needed. - Follow up 6 mos Order to [facility] for mask refitting considering his large mask leaks Order from [facility] to test overnight oximetry while pt is wearing CPAP--will contact him with results and plan He isn't interested in smoking cessation at this time Merrill Patton APRN.ELECTRIC SCOOP OPERATOR documented in this encounter [facility] 09-26-2023 Instructions Rocky Calles APRN.CNS - 09/26/2023 9:41 AM EDT Consider stopping smoking. Consider decreasing alcohol intake to 1 or 2 beverages per day documented in this encounter [facility] 09-26-2023 History of Presen t illness Narrative SUBJECTIVE: DTaP,Tdap,Td Vaccine(1 - Tdap) Never done Hepatitis B Vaccine(1 of 3 - 19+ 3-dose series) Never done Shingrix Vaccine(1 of 2) Never done HPI Susan Flores is a 57 year old male.PMH significnat for ACTIVE PROBLEM LIST Tobacco Use Disorder Obesity, Class I, Bmi 30-34.9 Homer (Obstructive Sleep Apnea) Returns to clinic today for a routine visit. Notes he is in his usual state of health. Continuing to smoke, not thinking too hard about quitting right now. Continues with 5-6 beers following work. Has taken a job where he is active with [employer] and lost about 20 pounds in the last year. Repeat HSAT, follow up with sleep medicine scheduled. HTN: Without report of headache, chest pain, palpitations, dyspnea, peripheral edema, orthopnea, fatigue, and PND. Last 14 Encounter BP Readings: Date: BP: 09/26/2023 117/70 08/08/2023 136/78 03/25/2023 128/78 01/05/2023 124/80 10/08/2022 122/70 09/15/2022 140/88 09/10/2022 136/84 09/03/2022 102/76 09/03/2022 126/79 08/24/2022 134/89 08/17/2022 150/98 06/15/2022 118/82 04/14/2022 150/96 04/12/2022 138/88 He notes GERD symptoms are currently controlled taking sucralfate and omeprazole as ordered. Review of Systems Constitutional: Negative. Objective BP 117/70 Pulse 67 Resp 16 Wt 101.6 kg (224 lb) BMI 31.24 kg/m Physical Exam Vitals and nursing note reviewed. Constitutional: Appearance: Normal appearance. HENT: Head: Normocephalic and atraumatic. Eyes: Conjunctiva/sclera: Conjunctivae normal. Neck: Thyroid: No thyromegaly. Vascular: Normal carotid pulses. No JVD. Cardiovascular: Rate and Rhythm: Normal rate and regular rhythm. Pulses: Carotid pulses are 2+ on the right side and 2+ on the left side. Radial pulses are 2+ on the right side and 2+ on the left side. Heart sounds: Normal heart sounds. Pulmonary: Effort: Pulmonary effort is normal. Breath sounds: Normal breath sounds. Abdominal: General: Bowel sounds are normal. Palpations: Abdomen is soft. Musculoskeletal: Right lower leg: No edema. Left lower leg: No edema. Skin: General: Skin is warm and dry. Neurological: General: No focal deficit present. Mental Status: He is alert and oriented to person, place, and time. ALLERGIES No Known Allergies Medications omeprazole (PRILOSEC) 40 mg capsule Take 1 capsule by mouth daily before breakfast. 1/2 hr before meal. sucralfate (CARAFATE) 1 gram tablet Take one tablet by mouth before meals and at bedtime as needed PAST MEDICAL HISTORY Diagnosis Date Acid reflux Tobacco use disorder 09/01/2020 Social History Tobacco Use Smoking status: Every Day Packs/day: 2.00 Years: 36.00 Additional pack years: 0.00 Total pack years: 72.00 Types: Cigarettes Smokeless tobacco: Never Tobacco comments: Currently 1ppd 09/15/22 . 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, 2023 Vaping Use Vaping Use: Never used Substance Use Topics Alcohol use: Yes Alcohol/week: 12.0 standard drinks of alcohol Types: 12 Cans of Beer (12oz) per week Comment: 2-3 per night Drug use: No Latest Ref Rng 08/17/2022 09/24/2023 WBC 3.70 - 11.00 k/uL 6.97 7.95 RBC 4.20 - 6.00 m/uL 4.77 4.53 Hemoglobin 13.0 - 17.0 g/dL 15.1 14.8 Hematocrit 39.0 - 51.0 % 47.1 44.7 MCV 80.0 - 100.0 fL 98.7 98.7 MCH 26.0 - 34.0 pg 31.7 32.7 MCHC 30.5 - 36.0 g/dL 32.1 33.1 RDW-CV 11.5 - 15.0 % 12.6 13.2 Platelet Count 150 - 400 k/uL 183 176 MPV 9.0 - 12.7 fL 10.4 10.6 Neut% % 62.3 Abs Neut (ANC) 1.45 - 7.50 k/uL 4.34 Lymph% % 24.5 Abs Lymph 1.00 - 4.00 k/uL 1.71 Tama% % 10.5 Abs Tama <0.87 k/uL 0.73 Eosin% % 1.7 Abs Eosin <0.46 k/uL 0.12 Baso% % 0.6 Abs Baso <0.11 k/uL 0.04 Immature Gran % % 0.4 IMMATURE GRANS (ABS) <0.10 k/uL 0.03 NRBC /100 WBC 0.0 Absolute nRBC <0.01 k/uL <0.01 <0.01 DTYPE Auto Protein, Total 6.3 - 8.0 g/dL 6.8 6.7 Albumin 3.9 - 4.9 g/dL 4.6 4.4 Calcium 8.5 - 10.2 mg/dL 9.8 9.6 Bilirubin, Total 0.2 - 1.3 mg/dL 0.3 0.5 Alkaline Phosphatase 38 - 113 U/L 61 73 AST 14 - 40 U/L 23 21 ALT 10 - 54 U/L 25 22 Glucose 74 - 99 mg/dL 89 105 (H) BUN 9 - 24 mg/dL 19 17 Creatinine 0.73 - 1.22 mg/dL 1.12 0.96 Sodium 136 - 144 mmol/L 139 137 Potassium 3.7 - 5.1 mmol/L 4.6 4.7 Chloride 97 - 105 mmol/L 102 102 CO2 22 - 30 mmol/L 27 26 Anion Gap 9 - 18 mmol/L 10 9 eGFR >=60 mL/min/1.73m 78 93 Cholesterol, Total <200 mg/dL 173 Triglyceride <150 mg/dL 50 HDL Cholesterol >39 mg/dL 64 Non HDL Cholesterol <130 mg/dL 109 Fasting Time hrs 12 VLDL Cholesterol <30 mg/dL 10 TC:HDL Ratio <5.10 2.70 LDL Cholesterol <100 mg/dL 99 LDL:HDL Ratio <2.54 1.55 Total Cholesterol, Nonfasting <200 mg/dL 198 Triglycerides, Nonfasting <150 mg/dL 74 HDL Cholesterol, Nonfasting >39 mg/dL 60 LDL Cholesterol, Nonfasting <100 mg/dL 123 (H) Non HDL Cholesterol, Nonfasting <130 mg/dL 138 (H) VLDL Cholesterol, Nonfasting <30 mg/dL 15 Total Chol/HDL Ratio, Nonfasting <5.10 mg/dL 3.30 LDL/HDL Ratio, Nonfasting <2.54 mg/dL 2.05 Hemoglobin A1C 4.3 - 5.6 % 5.2 Estimated Average Glucose mg/dL 103 TSH 0.270 - 4.200 mIU/L 2.150 Magnesium 1.7 - 2.3 mg/dL 2.0 ASSESSMENT/PLAN: 1. GERD without esophagitis - ICD9: 530.81, ICD10: K21.9 (primary diagnosis) - Endorse lifestyle measures including losing weight, limiting caffeine, no meals three hours before sleep, and head of bed elevation - Continue treatment unchanged - BEHAVIORAL HEALTH SCREENING 2. Tobacco use disorder - ICD9: 305.1, ICD10: F17.200 Cessation endorsed - BEHAVIORAL HEALTH SCREENING 3. HOMER (obstructive sleep apnea) - ICD9: 327.23, ICD10: G47.33 Repeat HSAT, to follow up with sleep medicine provider. At least mild sleep apnea is noted. Hypoxia also noted. Rocky Calles APRN.SOLAR INSTALLER TECHNICIAN ASSESSMENT/PLAN: 1. Primary hypertension - ICD9: 401.9, ICD10: I10 (primary diagnosis) - controlled Endorse DASH diet, moderate or less alcohol intake, smoking cessation and decrease oral intake and exercise such as walk daily to lose weight. 2. Encounter for immunization - ICD9: V03.89, ICD10: Z23 to check with pharmacy; due for Tdap shingrix and hepatitis B. 3. GERD without esophagitis - ICD9: 530.81, ICD10: K21.9 Controlled on sucralfate as ordered along with PPI. 4. Tobacco use disorder Cessation endorsed Endorse decrease discontinue smoking and decrease alcohol intake. 6 mo follow up Austin Ge MD - wellness visit Rocky Calles APRN.CNS Medical Decision Making: Problems: Moderate: 2+ stable chronic illnesses Risk: Moderate: Drug management Medical Decision Making Level: 4 - Moderate documented in this encounter [facility] 08-30-2023 History of Presen t illness Narrative Sleep Study Check-In Documentation Date: August 30, 2023 Name: Susan Wander Mark Comments: HST was returned in working order with all sleep questionnaires Cody Huston [employer]#[id number] , date shipped out 08/24 Tracking mailout:[id number] fedex Tracking return: [phone] August 17, 2023 An order has been received for Home Sleep Apnea Test (HSAT) from Toi Villegas Jr., MD, A. Sleep Center Staff/Nursing Tech Staff Orders. Visit prep complete - Please refer to the sleep study order (under procedures tab) for protocol details and special instructions. The sleep study is scheduled for 08/28. Insurance: Payor: ANTHEM / Plan: ANTHEM BCBS FEP PPO / Product Type: PPO / Payer/Plan Subscr Sex Relation Sub. Ins. ID Effective Group Num 1. ANTHESTEFANI - DAMI* SUSAN FLORES 1965 Male Spouse [id number] 06/20/[birth year] [id number] Catherine Fu documented in this encounter [facility] 08-08-2023 Instructions Toi Washington Jr., MD - 08/08/2023 10:02 AM EST Your most recent body mass index (BMI) that we have on record is 31.33. Obstructive sleep apnea (HOMER) worsens with an increase in weight; reduction in weight may improve or resolve your HOMER. If you are not already seeking treatment, there are resources available at the [facility] such as a nutrition consultation or referral to weight management programs at our [facility]. Please let us know if we can assist with a referral. documented in this encounter [facility] 08-08-2023 History of Presen t illness Narrative NEW PATIENT (CONSULT) HISTORY AND PHYSICAL EXAM PRIMARY CARE PHYSICIAN: Austin Ge MD REASON FOR CONSULT: Sleep Apnea REFERRING PHYSICIAN: Self CHIEF COMPLAINT: Sleep Apnea Consultation requested by Self for an opinion regarding chief complaint of Patient presents with: New Patient: Pt reported ResMed new 2022, c/o loose mask fit. and my final recommendations will be communicated back to the requesting physician by way of shared medical record or letter via US mail. HISTORY OF PRESENT ILLNESS: Susan Flores is a 57 year old male, BMI 31.33 kg/m2 with a PMH significant for HOMER as determined by HSAT on 09/20/22. That study showed pt tohave mild HOMER (worse when supine) with min O2 sat of 82%. Note that the patient spent 46.2% of the study with an O2 sat <90%. A PAP titration was recommended due to hypoxia. Patient judi underwent PAP titration. He has been on Auto PAP since January 2023 - settings unknown. PAP download provided by pt shows 90/90 days use with Avg AHI of 1.07 with avg use of 7 hours nad 17 minutes with 95% leak of 32.15 LPM. Later determined to be on PAP 6-11 cmH2O. Pt underwent sleep study as feeling tired and non-rested. Patient notices some improvement with PAP but can still be tired. feels he sleeps more tired. Previously would snore but no longer. No issues falling asleep to start the night. Goes to bed about 9PM. No RLS symptoms. If wakes often due to mask leak. Patient has only been tried on one mask. Waking about 4AM. Sometimes ready to go and other times just lies in bed. However, he always wakes before his alarm that is set for 5AM. No falling asleep driving and not tired during the day. Patient has lost about 30 pounds since the sleep study. BMI decreased ~5 kg/m2 No parasomnias. No narcolepsy tetrad. Pt in fact did have PAP titration on 11/29/22 - showed AHI [id number] on PAP settings of 5-9 cmH2O and O sats were maintained above 90%. Note pt does have CT scans showing lung nodules. LungRADS category: 2 LungRADS modifier: None LungRADS 0 reason: n/a Recommendations: Continue annual screening with LDCT in 12 months. REVIEW OF SYSTEMS GENERAL:No weight loss, malaise or fevers. HEENT:Negative for frequent or significant headaches, No changes in hearing or vision, no nose bleeds or other nasal problems NECK:Negative for lumps, goiter, pain and significant neck swelling RESPIRATORY: Negative for cough, wheezing or shortness of breath. CARDIOVASCULAR: Negative for chest pain, leg swelling or palpitations. GASTROINTESTINAL: Negative for abdominal discomfort, blood in stools or black stools or change in bowel habits GENITOURINARY: No history of dysuria, frequency or incontinence MUSCULOSKELETAL: Negative for joint pain or swelling, back pain or muscle pain. NEUROLOGIC:Negative for focal numbness or weakness, headaches and dizziness or syncope, vision changes, speech/language changes, changes in gait or falls -- besides those complaints as above in HPI. LAB/IMAGING: Reviewed and include: WBC (k/uL) Date Value 08/17/2022 6.97 RBC (m/uL) Date Value 08/17/2022 4.77 Hemoglobin (g/dL) Date Value 08/17/2022 15.1 Hematocrit (%) Date Value 08/17/2022 47.1 MCV (fL) Date Value 08/17/2022 98.7 MCH (pg) Date Value 08/17/2022 31.7 MCHC (g/dL) Date Value 08/17/2022 32.1 RDW-CV (%) Date Value 08/17/2022 12.6 Platelet Count (k/uL) Date Value 08/17/2022 183 MPV (fL) Date Value 08/17/2022 10.4 Glucose (mg/dL) Date Value 08/17/2022 89 BUN (mg/dL) Date Value 08/17/2022 19 Creatinine (mg/dL) Date Value 08/17/2022 1.12 Sodium (mmol/L) Date Value 08/17/2022 139 Potassium (mmol/L) Date Value 08/17/2022 4.6 Chloride (mmol/L) Date Value 08/17/2022 102 CO2 (mmol/L) Date Value 08/17/2022 27 Protein, Total (g/dL) Date Value 08/17/2022 6.8 Albumin (g/dL) Date Value 08/17/2022 4.6 Calcium, Total (mg/dL) Date Value 08/17/2022 9.8 Alkaline Phosphatase (U/L) Date Value 08/17/2022 61 Bilirubin, Total (mg/dL) Date Value 08/17/2022 0.3 AST (U/L) Date Value 08/17/2022 23 ALT (U/L) Date Value 08/17/2022 25 MEDICATIONS: omeprazole (PRILOSEC) 40 mg capsule Take 1 capsule by mouth daily before breakfast. 1/2 hr before meal. sucralfate (CARAFATE) 1 gram tablet Take one tablet by mouth before meals and at bedtime as needed HISTORIES PAST MEDICAL HISTORY Diagnosis Date Acid reflux Tobacco use disorder 09/01/2020 FAMILY HISTORY Problem Relation Age of Onset other (Bone cancer) Mother No Known Problems Father Cancer Maternal Grandmother Uterine No Known Problems Maternal Grandfather No Known Problems Paternal Grandmother No Known Problems Paternal Grandfather Rheumatologic disease Half-brother RA SOCIAL HISTORY Social History Tobacco Use Smoking status: Every Day Packs/day: 2.00 Years: 36.00 Additional pack years: 0.00 Total pack years: 72.00 Types: Cigarettes Smokeless tobacco: Never Tobacco comments: Currently 1ppd 09/15/22 . 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 HEENT: NC/AT, nasal congestion absent, no oral lesions, membranes moist. Enciso IV. Lungs: CTA bilaterally. CV: RRR nl S1, S2. No carotid bruits. Extr: No cyanosis, clubbing or edema. Skin: Cool to touch. NEUROLOGICAL EXAM: General: Awake, alert, oriented x3 (person,place,time), speech fluent, no dysarthria; comprehension, naming, repetition intact. CN: PERRL, EOMI and without nystagmus, VFF to confrontation, facial sensation and strength are normal and symmetric, hearing is intact to finger rub bilaterally, palate and tongue movements are intact and symmetric. SCM and trapezius strength normal. Motor: Normal tone, bulk and strength (5/5) bilaterally (throughout extremities x4). Coordination: FNF, CYNDI, HTS intact. No tremors. Sensation: LT intact throughout. No evidence of neglect. Gait: Stable with normal stride and arm swing. Assessment and Plan: ASSESSMENT/PLAN: 1. HOMER (obstructive sleep apnea) - ICD9: 327.23, ICD10: G47.33 (primary diagnosis) 2. Cigarette smoker - ICD9: 305.1, ICD10: F17.210 3. Class 1 obesity with body mass index (BMI) of 31.0 to 31.9 in adult, unspecified obesity type, unspecified whether serious comorbidity present - ICD9: 278.00, V85.31, ICD10: E66.9, Z68.31 Patient with mild HOMER, for which he was started on PAP, with no significant difference in overall wakefulness or sleep (states really did not have any problems with sleep). Possible now that with weight loss that he no longer has sleep apnea with a BMI change of ~5 kg/m2. Mild snoring if supine but otherwise asx. Again, while hypoxia was of concern during his first HSAT (with risks of being a smoker), hypoxia was not present on the PAP titration study. He is followed by pulmonary for lung nodules. At this time, and given continued weight loss, would like to reevaluate patient to see if in fact he still has HOMER. To do so, patient asking that we repeat HSAT. Order placed. If AHI now normal, will d/c PAP therapy. However, if hypoxia is again present would refer back to pulmonary for PFTs and consider nocturnal O2 rather than PAP therapy. If AHI remains elevated will continue PAP at current settings but [facility]. Pt agrees with plan. Pt will follow up with our offices after HSAT complete. Encouraged continued weight loss. Discussed with patient: the physiology of OSAS, medical conditions associated with OSAS (DM, HTN, CAD, Depression, Stroke, Headache...) and treatment options (UPPP, Dental appliances, CPAP...). Advised patient to avoid activities that could harm self or others when tired/sleepy, including driving and/or operating heavy machinery. Encouraged cigarette smoking cessation. Toi Washington MD Medical Decision Making: Problems: Moderate: 1+ chronic illnesses with change Data: Unique test result(s) reviewed: 3+ Unique test(s) ordered: 1 Medical Decision Making Level: 4 - Moderate Tests reviewed include: HSAT, PAP titration, PAP data download and labs,. CT chest. Test ordered include: HSAT. documented in this encounter [facility] 03-25-2023 History of Presen t illness Narrative This note was created using Hiri. Subjective Susan Flores is a 57 year old male. Patient presents with: F/U 6 months SUBJECTIVE: Susan Flores is a 57 year old year old gentleman here today for 6 month follow up appointment for review of medical conditions. Noted got BP cuff through insurance and noted BP was fine to too low on amlodipine so stopped med 2 months ago and BP stayed good. More active with working. At [employer]. Stays active. See assessment and plan for other issues addressed. PAST MEDICAL HISTORY Diagnosis Date Acid reflux Tobacco use disorder 09/01/2020 Current Outpatient Medications Medication Sig sucralfate (CARAFATE) 1 gram tablet Take one tablet by mouth before meals and at bedtime as needed omeprazole (PRILOSEC) 40 mg capsule Take 1 capsule by mouth daily before breakfast. 1/2 hr before meal. terbinafine HCl (LAMISIL) 250 mg tablet Take 1 tablet by mouth once daily. (Patient not taking: Reported on 01/05/2023) No current facility-administered medications for this visit. Review of Systems Objective BP 128/78 Pulse 81 Wt 101.2 kg (223 lb) SpO2 97% BMI 31.10 kg/m Last 5 Encounter Wt Readings: Date: Wt: 03/25/2023 101.2 kg (223 lb) 01/05/2023 103.4 kg (228 lb) 10/08/2022 109.8 kg (242 lb) 09/15/2022 111.6 kg (246 lb) 09/10/2022 111.6 kg (246 lb) No waist measurement recorded Estimated body mass index is 31.1 kg/m as calculated from the following: Height as of 06/15/22: 180.3 cm (5' 11"). Weight as of this encounter: 101.2 kg (223 lb). Last 5 Encounter BP Readings: Date: BP: 03/25/2023 128/78 01/05/2023 124/80 10/08/2022 122/70 09/15/2022 140/88 09/10/2022 136/84 Physical Exam Vitals reviewed. Constitutional: Appearance: Normal appearance. Eyes: Conjunctiva/sclera: Conjunctivae normal. Cardiovascular: Rate and Rhythm: Normal rate and regular rhythm. Heart sounds: Normal heart sounds. Pulmonary: Effort: Pulmonary effort is normal. Breath sounds: Normal breath sounds. Skin: General: Skin is warm and dry. Comments: Noted calluses great toe and pinky toe areas of balls of feet Neurological: General: No focal deficit present. Mental Status: He is alert and oriented to person, place, and time. Psychiatric: Mood and Affect: Mood normal. Behavior: Behavior normal. Thought Content: Thought content normal. Judgment: Judgment normal. Component Latest Ref Rng & Units 08/17/2022 WBC 3.70 - 11.00 k/uL 6.97 RBC 4.20 - 6.00 m/uL 4.77 Hemoglobin 13.0 - 17.0 g/dL 15.1 Hematocrit 39.0 - 51.0 % 47.1 MCV 80.0 - 100.0 fL 98.7 MCH 26.0 - 34.0 pg 31.7 MCHC 30.5 - 36.0 g/dL 32.1 RDW-CV 11.5 - 15.0 % 12.6 Platelet Count 150 - 400 k/uL 183 MPV 9.0 - 12.7 fL 10.4 Neut% % 62.3 Abs Neut (ANC) 1.45 - 7.50 k/uL 4.34 Lymph% % 24.5 Abs Lymph 1.00 - 4.00 k/uL 1.71 Tama% % 10.5 Abs Tama <0.87 k/uL 0.73 Eosin% % 1.7 Abs Eosin <0.46 k/uL 0.12 Baso% % 0.6 Abs Baso <0.11 k/uL 0.04 Immature Gran % % 0.4 IMMATURE GRANS (ABS) <0.10 k/uL 0.03 NRBC /100 WBC 0.0 Absolute nRBC <0.01 k/uL <0.01 DTYPE Auto Protein, Total 6.3 - 8.0 g/dL 6.8 Albumin 3.9 - 4.9 g/dL 4.6 Calcium 8.5 - 10.2 mg/dL 9.8 Bilirubin, Total 0.2 - 1.3 mg/dL 0.3 Alkaline Phosphatase 38 - 113 U/L 61 AST 14 - 40 U/L 23 ALT 10 - 54 U/L 25 Glucose 74 - 99 mg/dL 89 BUN 9 - 24 mg/dL 19 Creatinine 0.73 - 1.22 mg/dL 1.12 Sodium 136 - 144 mmol/L 139 Potassium 3.7 - 5.1 mmol/L 4.6 Chloride 97 - 105 mmol/L 102 CO2 22 - 30 mmol/L 27 Anion Gap 9 - 18 mmol/L 10 eGFR >=60 mL/min/1.73m 78 Total Cholesterol, Nonfasting <200 mg/dL 198 Triglycerides, Nonfasting <150 mg/dL 74 HDL Cholesterol, Nonfasting >39 mg/dL 60 LDL Cholesterol, Nonfasting <100 mg/dL 123 (H) Non HDL Cholesterol, Nonfasting <130 mg/dL 138 (H) VLDL Cholesterol, Nonfasting <30 mg/dL 15 Total Chol/HDL Ratio, Nonfasting <5.10 mg/dL 3.30 LDL/HDL Ratio, Nonfasting <2.54 mg/dL 2.05 Hemoglobin A1C 4.3 - 5.6 % 5.2 Estimated Average Glucose mg/dL 103 TSH 0.270 - 4.200 mIU/L 2.150 The 10-year ASCVD risk score (Amber DK, et al., 2019) is: 8.8% Values used to calculate the score: Age: 57 years Sex: Male Is Non- : No Diabetic: No Tobacco smoker: Yes Systolic Blood Pressure: 128 mmHg Is BP treated: No HDL Cholesterol: 60 mg/dL Total Cholesterol: 198 mg/dL Assessment and Plan Encounter Diagnosis ICD-10-CM 1. GERD without esophagitis K21.9 omeprazole (PRILOSEC) 40 mg capsule Controlled. Continues present meds and management 2. Tobacco use disorder F17.200 omeprazole (PRILOSEC) 40 mg capsule Encouraged to deal with triggers in order to be successful at quitting smoking 3. Elevated LDL cholesterol level E78.00 LIPID PANEL BASIC 4. Class 1 obesity due to excess calories with body mass index (BMI) of 31.0 to 31.9 in adult, unspecified whether serious comorbidity present E66.09 Z68.31 Continues to lose weight. Continue efforts at healthier lifestyle to help with weight loss, control of BP and lipids, and prevent DM 5. History of hypertension Z86.79 Stopped amlodipine due to low BP and BP stayed controlled off med. Continue to monitor and treat accordingly 6. Encounter for long-term current use of medication Z79.899 CBC COMP METABOLIC PANEL MAGNESIUM BLD Above issues addressed with patient. Patient involved in shared decision making for management of medical issues. History and medications reviewed. Epic updated as needed Refills and/or prescriptions taken care of and meds adjusted as indicated after reviewed history, exam and labs. Health Maintenance reviewed. Updated record and/or ordered tests as recorded. Encouraged on efforts at healthy diet and regular exercise and adequate sleep. Noted that BP staying down in goal range <130/90. Continue to monitor. Treat if needed. GERD controlled. as noted above. I spent a total of 28 minutes on the date of the service which included [id number] patient care, completing clinical documentation, performing a medically appropriate examination, counseling and educating the patient/family/caregiver, and ordering medications, tests, or procedures. Austin Ge MD documented in this encounter [facility] 01-05-2023 Instructions Rosie Roberts APRN.[facility] - 01/05/2023 8:57 AM EDT Images from the original note were not included. Frequently Asked Questions: How common are lung nodules? Nodules are found in up to half of adults who get a chest x-ray or CT scan. Do nodules cause any symptoms? In general, small nodules don t cause any noticeable problems. They re too small to cause pain or breathing problems. Should I worry that I have a nodule? Most nodules are not cancer, but for a small number of people the nodule may turntable man to be an early cancer. Your doctor can tell if your nodule is lung cancer by: Seeing how it looks on the CT scan. Seeing whether it grows over time. A nodule that grows larger over time is a sign that it could be a cancer. Taking a sample of the nodule with a needle or surgery. Most people with a nodule will NOT need to have this test. What is the chance that the nodule is an early lung cancer? Fewer than 5% of all nodules turntable man to be cancer What if my nodule is lung cancer? Even if a nodule turns out to be lung cancer, it is likely to be an early stage lung cancer. People with early stage lung cancer that is treated are less likely to than people who are diagnosed at a later stage when the cancer has started to cause symptoms. What will happen next? Your healthcare team will probably recommend getting more CT scans to keep a close eye on the nodule to see if it changes. We call this active surveillance. ? If a nodule is not cancer, it usually won t grow. If the nodule doesn t grow over a 2-year period, it is very unlikely to be cancer. Most of the time, it is safe to stop watching nodules if there is no growth over a 2-year period. ? On the other hand, if the nodule is getting bigger, it should be looked at more closely to see if it is lung cancer. Nodules can be viewed more closely using different radiology studies or by biopsy (using a needle or surgery to take a sample of the nodule to look at under a microscope). Your healthcare team will determine which is best for you. Why shouldn t I get a biopsy now? ? A biopsy means removing a piece of your lung in order to look at it under a microscope. Biopsies are usually not recommended when nodules are small because it is very difficult to biopsy them safely. ? Doing a biopsy when a nodule is small can cause harm such as collapse of the lung, bleeding, or infection. Is it really safe to wait for the next CT scan? Most cancers grow fairly slowly, and it takes several months for them to get bigger. So even if the nodule is lung cancer, it will likely still be small in a few months. Even if the nodule is lung cancer that is growing, there is a very good chance that surgery or radiation will cure you. Waiting a few months for the next CT scan is very safe and should not affect the treatment you receive or your chances for cure if the nodule turns out to be cancer. How does my clinician decide when to do the next CT scan? There are several guidelines for how to decide when to get the next CT scan. These guidelines are based on the chance the nodule is lung cancer and how big the nodule might be at the time of the next scan. Your healthcare provider will determine the best time for your next CT scan based on these guidelines. Your healthcare provider may choose to discuss the CT results with other specialists to determine the best plan for you. What if I m a smoker? Quitting now will decrease your chance of getting lung cancer in the future, as well as many other serious health problems like emphysema and heart disease. Some people think that if they already have lung cancer, they might as well keep smoking. THAT IS WRONG. Plan for follow-up: Repeat imaging at 9 months from initial scan. documented in this encounter [facility] 01-05-2023 History of Presen t illness Narrative Images from the original note were not included. Chief Complaint: 3 mos follow-up from LDCT scan dated 09/27/2022 for LUNG RADS Category 4A finding of RLL 10.7mm pulmonary nodule. History of Present Illness: Susan Flores is a 57 year old male who is presenting today for 10.7 mm RLL pulmonary nodule follow-up. Nodule was found through lung cancer screening on LDCT. Patient has a PMH significant for HTN, and pulmonary nodule. Patient is a current active smoker with a 72 pack year history. Currently still smoking 1 Pack daily. Since the patient's last visit the patient has not had new medical issues or hospitalizations. No recent respiratory infections/pneumonia. Patient engages in moderate intensity or higher exercise More than twice weekly for approximately TIME (0->60): 16-30 minutes. The patient does not require assistance with normal activities of daily living. New job requires more activity, has lost some weight. Modified Medical Research [place] Dyspnea Scale (MMRC) I only get breathless with strenous exercise 0 Patient denies SOB with their daily activity. No wheezing or dyspnea. Patient denies feeling of chest tightness/congestion in the chest. Patient does not have a new or concerning cough, and denies hemoptysis. Patient does not have a chronic daily cough. Denies regular or recent fevers/chills. Patient does not have any significant unintentional weight loss. Patient denies having any respiratory infections or COVID-19 in the past few months. Last 12 Encounter Wt Readings: Date: Wt: 01/05/2023 103.4 kg (228 lb) 10/08/2022 109.8 kg (242 lb) 09/15/2022 111.6 kg (246 lb) 09/10/2022 111.6 kg (246 lb) 08/24/2022 111.6 kg (246 lb) 08/17/2022 109.8 kg (242 lb) 06/15/2022 115.4 kg (254 lb 6.4 oz) 04/14/2022 110.7 kg (244 lb) 04/12/2022 109.4 kg (241 lb 3.2 oz) 07/29/2021 107 kg (236 lb) 07/14/2021 106.6 kg (235 lb) 07/10/2021 108.9 kg (240 lb) Medication Treatment: None History of respiratory exposures include: Occupational: [employer] Environmental:None Past Medical History: PAST MEDICAL HISTORY Diagnosis Date Acid reflux Tobacco use disorder 09/01/2020 Surgical Hx: PAST SURGICAL HISTORY Procedure Laterality Date BACK SURGERY HX lumbar decompression Marcella COLONOSCOPY 09/03/2022 COLONOSCOPY SCREENING 06/07/2022 EGD W/O BRSH SPEC VARICIES INJ 06/07/2022 PERCUTANEOUS LUMBAR DISKECTOMY Bilateral 2009 REPAIR ING HERNIA,5+Y/O,REDUCIBL Left 2008 Family Hx: FAMILY HISTORY Problem Relation Age of Onset other (Bone cancer) Mother No Known Problems Father Cancer Maternal Grandmother Uterine No Known Problems Maternal Grandfather No Known Problems Paternal Grandmother No Known Problems Paternal Grandfather Rheumatologic disease Half-brother RA Allergies: ALLERGIES No Known Allergies Social History Tobacco Use: 2 packs/day, for 32 years. Types: Cigarettes Review Of Systems: See HPI for ROS All of the remainder systems were reviewed and negative. PHYSICAL EXAMINATION: BP 124/80 Pulse 78 Resp 15 Wt 228 lb (103.4kg) SpO2 95% General appearance: well appearing, in no acute distress, and alert Skin: skin color, texture, turgor normal, no rashes or lesions Nose/Sinuses: Negative Oropharynx: Lips, mucosa, and tongue normal, teeth and gums normal, oropharynx normal Neck: Supple, no adenopathy; thyroid symmetric, normal size Respiratory: lungs clear to auscultation no wheezing or rhonchi Cardiovascular: Negative. RRR without murmur, gallop, or rubs. No ectopy Musculoskeletal: Edema: None Neuro: Oriented X 3 Data Review I have visually reviewed imaging and testing below CT imaging done today was reviewed independently by practitioner and awaiting radiology review. CT was compared to prior CT chest. Prior PFTS: No textual results found for the specified procedure(s). Assessment and Plan: 1. Pulmonary Nodule: 10.7 mm RLL lung nodule identified on the last CT 09/27/2022 is stable (unchanged), and no new nodules of concern were seen on the exam. Recommended follow-up in 6 mos. This recommendation is subject to change, pending final radiology report. The patient was counseled on the importance of adherence to annual LDCT lung cancer screening, impact of comorbidities and ability or willingness to undergo diagnosis and treatment. 2. Tobacco use current: Recommended smoking cessation or reduction in amount he is smoking. Pt reports he has been smoking less. Rosie Roberts APRN.CNP January 05, 2023 8:35 AM documented in this encounter [facility] 01-05-2023 History of Presen t illness Narrative Radiology Service Progress Note PATIENT NAME: Susan Flores DATE OF SERVICE: January 05, 2023 TIME: 9:54 AM PATIENT IDENTITY VERIFICATION COMPLETED USING TWO (2) IDENTIFIERS: Name and Date of confirmed by patient verbally. FALL SCREENING: Has the patient had 2 falls in the last year or 1 fall with injury or currently using an Ambulatory Assistive Device (Walker, Cane, Wheelchair, Crutches, etc.)? No PATIENT GENDER DATA: Male PATIENT RELEVANT IMPLANT DATA REVIEWED: Yes RADIOLOGY DEPARTMENT: CT; Exam(s) Completed: Chest PERIPHERAL IV DATA: Not applicable SIGNED BY: RT Rafael(R) January 05, 2023 9:54 AM documented in this encounter [facility] 10-08-2022 History of Presen t illness Narrative SUBJECTIVE: HEPATITIS B(1 of 3 - 3-dose series) Never done DTAP,TDAP,TD(1 - Tdap) Never done SHINGRIX VACCINE(1 of 2) Never done HPI Susan Flores is a 56 year old male.PMH significnat for ACTIVE PROBLEM LIST Tobacco Use Disorder Obesity, Class I, Bmi 30-34.9 Primary Hypertension HPI excerpted from previous visit: Returns to clinic today for recheck of blood pressure. He notes no difficulties with taking amlodipine. HTN: Without report of headache, chest pain, palpitations, dyspnea, peripheral edema, orthopnea, fatigue, and PND. Last 14 Encounter BP Readings: Date: BP: 10/08/2022 122/70 09/15/2022 140/88 09/10/2022 136/84 09/03/2022 102/76 09/03/2022 126/79 08/24/2022 134/89 08/17/2022 150/98 06/15/2022 118/82 04/14/2022 150/96 04/12/2022 138/88 07/29/2021 130/82 07/14/2021 128/76 07/10/2021 120/76 07/06/2021 122/84 He notes GERD symptoms are currently controlled taking sucralfate and omeprazole as ordered. Review of Systems Constitutional: Positive for fatigue. Respiratory: Negative. Cardiovascular: Negative. Gastrointestinal: Negative for abdominal pain. Musculoskeletal: Positive for back pain. Negative for arthralgias. Objective BP 122/70 Pulse 78 Resp 16 Wt 109.8 kg (242 lb) BMI 33.75 kg/m Physical Exam Vitals and nursing note reviewed. Constitutional: Appearance: Normal appearance. HENT: Head: Normocephalic and atraumatic. Neck: Thyroid: No thyromegaly. Vascular: Normal carotid pulses. No JVD. Cardiovascular: Rate and Rhythm: Normal rate and regular rhythm. Pulses: Carotid pulses are 2+ on the right side and 2+ on the left side. Radial pulses are 2+ on the right side and 2+ on the left side. Heart sounds: Normal heart sounds. Pulmonary: Effort: Pulmonary effort is normal. Breath sounds: Normal breath sounds. Abdominal: General: Bowel sounds are normal. Palpations: Abdomen is soft. Musculoskeletal: Right lower leg: No edema. Left lower leg: No edema. Skin: General: Skin is warm and dry. Neurological: General: No focal deficit present. Mental Status: He is alert and oriented to person, place, and time. ALLERGIES No Known Allergies Medications terbinafine HCl (LAMISIL) 250 mg tablet Take 1 tablet by mouth once daily. sucralfate (CARAFATE) 1 gram tablet Take one tablet by mouth before meals and at bedtime as needed amLODIPine (NORVASC) 2.5 mg tablet Take 1 tablet by mouth once daily. omeprazole (PRILOSEC) 40 mg capsule Take 1 capsule by mouth daily before breakfast. 1/2 hr before meal. PAST MEDICAL HISTORY Diagnosis Date Acid reflux Tobacco use disorder 09/01/2020 Social History Tobacco Use Smoking status: Every Day Packs/day: 2.00 Years: 32.00 Pack years: 64.00 Types: Cigarettes Smokeless tobacco: Never Tobacco comments: Currently 1ppd 09/15/22 Vaping Use Vaping Use: Never used Substance Use Topics Alcohol use: Yes Alcohol/week: 12.0 standard drinks Types: 12 Cans of Beer (12oz) per week Comment: 2-3 per night Drug use: No Component Latest Ref Rng & Units 07/10/2021 07/29/2021 08/17/2022 WBC 3.70 - 11.00 k/uL 7.84 6.97 RBC 4.20 - 6.00 m/uL 4.61 4.77 Hemoglobin 13.0 - 17.0 g/dL 14.9 15.1 Hematocrit 39.0 - 51.0 % 45.0 47.1 MCV 80.0 - 100.0 fL 97.6 98.7 MCH 26.0 - 34.0 pg 32.3 31.7 MCHC 30.5 - 36.0 g/dL 33.1 32.1 RDW-CV 11.5 - 15.0 % 12.2 12.6 Platelet Count 150 - 400 k/uL 174 183 MPV 9.0 - 12.7 fL 10.7 10.4 Neut% % 69.2 62.3 Abs Neut (ANC) 1.45 - 7.50 k/uL 5.42 4.34 Lymph% % 20.0 24.5 Abs Lymph 1.00 - 4.00 k/uL 1.57 1.71 Tama% % 9.2 10.5 Abs Tama <0.87 k/uL 0.72 0.73 Eosin% % 1.1 1.7 Abs Eosin <0.46 k/uL 0.09 0.12 Baso% % 0.5 0.6 Abs Baso <0.11 k/uL 0.04 0.04 Immature Gran % % 0.4 IMMATURE GRANS (ABS) <0.10 k/uL 0.03 NRBC /100 WBC 0.0 Absolute nRBC <0.01 k/uL <0.01 <0.01 DTYPE Auto Nucleated Reds 0 /100 WBC 0.0 Diff Type Auto Diff Protein, Total 6.3 - 8.0 g/dL 6.9 6.8 Albumin 3.9 - 4.9 g/dL 4.6 4.6 Calcium 8.5 - 10.2 mg/dL 9.8 Bilirubin, Total 0.2 - 1.3 mg/dL 0.5 0.3 Alkaline Phosphatase 38 - 113 U/L 54 61 AST 14 - 40 U/L 18 23 ALT 10 - 54 U/L 22 25 Glucose 74 - 99 mg/dL 89 BUN 9 - 24 mg/dL 19 Creatinine 0.73 - 1.22 mg/dL 1.12 Sodium 136 - 144 mmol/L 139 Potassium 3.7 - 5.1 mmol/L 4.6 Chloride 97 - 105 mmol/L 102 CO2 22 - 30 mmol/L 27 Anion Gap 9 - 18 mmol/L 10 eGFR >=60 mL/min/1.73m 78 Total Cholesterol, Nonfasting <200 mg/dL 198 Triglycerides, Nonfasting <150 mg/dL 74 HDL Cholesterol, Nonfasting >39 mg/dL 60 LDL Cholesterol, Nonfasting <100 mg/dL 123 (H) Non HDL Cholesterol, Nonfasting <130 mg/dL 138 (H) VLDL Cholesterol, Nonfasting <30 mg/dL 15 Total Chol/HDL Ratio, Nonfasting <5.10 mg/dL 3.30 LDL/HDL Ratio, Nonfasting <2.54 mg/dL 2.05 Bilirubin, Conjug <0.2 mg/dL <0.2 Hemoglobin A1C 4.3 - 5.6 % 5.2 Estimated Average Glucose mg/dL 103 Lipase 16 - 61 U/L 42 Amylase 30 - 104 U/L 58 NT Pro BNP <125 pg/mL <50 d Dimer <500 ng/mL FEU 300 TSH 0.270 - 4.200 mIU/L 2.150 ASSESSMENT/PLAN: 1. Primary hypertension - ICD9: 401.9, ICD10: I10 (primary diagnosis) - controlled Endorse DASH diet, moderate or less alcohol intake, smoking cessation and decrease oral intake and exercise such as walk daily to lose weight. Will be completing HSAT this month - AMLODIPINE 2.5 MG TABLET -continue unchanged 2. Encounter for immunization - ICD9: V03.89, ICD10: Z23 to check with pharmacy; due for Tdap shingrix and hepatitis B. 3. GERD without esophagitis - ICD9: 530.81, ICD10: K21.9 Controlled on sucralfate as ordered along with PPI. 4. Tobacco use disorder Cessation endorsed 6 mo follow up MD Rocky Gutiérrez APRN.[facility] Medical Decision Making: Problems: Moderate: 2+ stable chronic illnesses Risk: Moderate: Drug management Medical Decision Making Level: 4 - Moderate documented in this encounter [facility] 10-06-2022 Miscellaneous Notes Patient had LDCT Lung Rads category 4A, for 10.7 mm RLL nodule. His case was reviewed by Dr. Jayme Delacruz and he agrees with plan of follow up CT in 3 mos. Pt has not had any prior imaging. Pt agrees with plan of care and will be scheduled for [address] documented in this encounter [facility] 10-01-2022 Miscellaneous Notes [facility] and has sleep appt with Padmini in March. Michelle PSS Call patient LVM to call back to schedule Sleep Study and Consult to Sleep Medicine. Rachelle Arango PSS 09/22/2022 Patient notified of providers message and verbalized understanding. Patient will await call to schedule appointments Please let him know sleep study showed at least mild obstructive sleep apnea and probable sleep-related hypoxia. An in lab sleep study PAP titration should be considered to assess for PAP pressure needs and to assess for need of concomitant supplemental oxygen. Schedule PAP titration and sleep medicine consult appt if willing documented in this encounter [facility] 09-27-2022 History of Presen t illness Narrative Radiology Service Progress Note PATIENT NAME: Susan Flores DATE OF SERVICE: September 27, 2022 TIME: 1:34 PM PATIENT IDENTITY VERIFICATION COMPLETED USING TWO (2) IDENTIFIERS: Name and Date of confirmed by patient verbally. FALL SCREENING: Has the patient had 2 falls in the last year or 1 fall with injury or currently using an Ambulatory Assistive Device (Walker, Cane, Wheelchair, Crutches, etc.)? No PATIENT GENDER DATA: Male PATIENT RELEVANT IMPLANT DATA REVIEWED: Yes RADIOLOGY DEPARTMENT: CT; Exam(s) Completed: Chest PERIPHERAL IV DATA: Not applicable SIGNED BY: RT Rafael(R) September 27, 2022 1:34 PM documented in this encounter [facility] 09-16-2022 Miscellaneous Notes POPULATION HEALTH NAVIGATION OUTREACH Action/ 1st call-LVM and Clickohart message for patient regarding PODIATRY consult. Patient Identified by Name and : NO Outreach Outcome/Action Unable to reach patient: Left message MyChart message sent Did you use a PCP flex slot to schedule this appointment? N/A Reason for Outreach Care Gap or Scheduling/Wellness visits Payer: Payor: [place] / Plan: [place] BCBS FEP PPO / Product Type: PPO / Care Gap Reviewed:: Specialty Scheduling Reminder: Reminder note to check Health Maintenance for items below Health Maintenance items due: HEPATITIS B(1 of 3 - 3-dose series) Never done BP CONTROLLED (<130/80) Never done DTAP,TDAP,TD(1 - Tdap) Never done LUNG CANCER SCREENING Never done SHINGRIX VACCINE(1 of 2) Never done Navigation Signature: [place] Javier September 16, 2022 11:54 AM documented in this encounter [facility] 09-15-2022 Instructions Rosie Roberts APRN.ELECTRIC SCOOP OPERATOR - 09/15/2022 9:[address] Lung Screen Results The CT scan that you will have done will show if you have any nodules (small spots) in your lungs that are suspicious for cancer. Around 90% of the patients who have this scan done are found to have at least one nodule. Most nodules are benign (not cancer) and of no harm to you at all. A specialist will make a scientific evaluation about whether or not a nodule is worrisome based on its size and shape. The radiologist who will read your scan will put it into one of four categories: LUNG-RADS Category Description Recommended Follow-Up 0 Incomplete -Comparison to prior chest CT -Additional lung screening CT imaging needed -1-3 mos LDCT follow up 1 Negative No nodules and definitely benign (non-cancerous nodules) 1 Year - Follow-up Low dose CT 2 Benign Appearance or Behavior (<6 mm at baseline or New <4 mm) Nodules with a very low likelihood of becoming cancer due to size or lack of growth 1 Year - Follow-up Low dose CT 3 Probably Benign (6-8 mm at baseline or New 4-6 mm nodule) Probably benign finding, short term follow-up recommended 6 Months - Follow-up Low dose CT 4A Suspicious (8-15 mm at baseline, growing <8 mm, or New 6-8 mm) Findings for which additional diagnostic testing and/or biopsy is recommended 3-month LDCT; PET/CT may be considered if there is a >8mm solid nodule or solid component 4B Very Suspicious (>15 mm at baseline or New or growing > 8 mm) Findings for which additional diagnostic testing and/or biopsy is recommended Diagnostic Chest CT; PET/CT if > 8 mm; tissue sampling; and/or referral for further clinical evaluation 4X Category 3 or 4 nodules with additional features or imaging findings that increase suspicious for lung cancer Findings for which additional diagnostic testing and/or biopsy is recommended Diagnostic Chest CT; PET/CT if > 8 mm; tissue sampling; and/or referral for further clinical evaluation At times, we may see something outside of the lungs on the scan that could be a health concern. These will be indicated on the radiology report with an "S" modifier. S Clinically Significant or Potentially Clinically Significant Findings (non lung cancer) Referral or additional imaging/labs depending on result. Approximately 10% of people receive this result. If you become sick prior to your scan please call or send a my chart message to see if you need to reschedule. Lung Cancer Screening hotline: [phone] Lung Cancer Screening [phone] Billing Questions: or [email or web address] Screening Team: Rosie Roberts CNP: [phone] documented in this encounter [facility] 09-15-2022 History of Presen t illness Narrative Images from the original note were not included. LUNG SCREENING VISIT PRIMARY CARE PHYSICIAN: Austin Ge MD PULMONARY PROVIDER: None Results will be communicated via letter or electronic record if applicable. Visit Delivery: In Person Patient Visit Type: New to Screening Current or Ex-smoker? [Current Exam Type: baseline LDCT Number of Pack Years: 72 Current smoker (=0) REQUESTER: The referring provider advised the patient to have screening. HISTORY OF PRESENT ILLNESS: Susan Flores is a 56 year old Active smoker who presents for lung screening. He has been undergoing work up of mid sternal and right sided chest discomfort. It is worse after eating a fatty meal, but can be there anytime. Occasionally it is better after eating. It does wake him up in the middle of the night. He has been changing his diet. He is taking prilosec. He has had EGD and colonoscopy and cardiac testing. He has associated bloating and heartburn. Pt has not had US Gallbladder yet, but may consider this. Respiratory symptoms include: SOB: No Chest tightness: Yes, right sided, worse after eating and wakes him up in the middle of the night Coughing: Yes: Without mucus, occasionally Hemoptysis: No Wheezing: Yes, occasionally Fever/Chills: No Recent Respiratory Infection: No Unintentional weight loss: No Last 6 Encounter Wt Readings: Date: Wt: 09/15/2022 111.6 kg (246 lb) 09/10/2022 111.6 kg (246 lb) 08/24/2022 111.6 kg (246 lb) 08/17/2022 109.8 kg (242 lb) 06/15/2022 115.4 kg (254 lb 6.4 oz) 04/14/2022 110.7 kg (244 lb) ECOG PERFORMANCE STATUS: 0- Fully active, able to carry on all pre-disease performance w/o restriction. Modified Medical Research [place] Dyspnea Scale (MMRC) I only get breathless with strenous exercise 0 PAST MEDICAL HISTORY Diagnosis Date Acid reflux Tobacco use disorder 09/01/2020 PAST SURGICAL HISTORY Procedure Laterality Date BACK SURGERY HX lumbar decompression Marcella COLONOSCOPY SCREENING 06/07/2022 EGD W/O BRSH SPEC VARICIES INJ 06/07/2022 PERCUTANEOUS LUMBAR DISKECTOMY Bilateral 2009 REPAIR ING HERNIA,5+Y/O,REDUCIBL Left 2008 FAMILY HISTORY Problem Relation Age of Onset other (Bone cancer) Mother No Known Problems Father Cancer Maternal Grandmother Uterine No Known Problems Maternal Grandfather No Known Problems Paternal Grandmother No Known Problems Paternal Grandfather Rheumatologic disease Half-brother RA amLODIPine (NORVASC) 2.5 mg tablet Take 1 tablet by mouth once daily. omeprazole (PRILOSEC) 40 mg capsule Take 1 capsule by mouth daily before breakfast. 1/2 hr before meal. terbinafine HCl (LAMISIL) 250 mg tablet Take 1 tablet by mouth once daily. sucralfate (CARAFATE) 1 gram tablet Take one tablet by mouth before meals and at bedtime as needed ALLERGIES No Known Allergies The medications and allergies were reviewed and reconciled for this patient and deemed current. Lung Cancer Risk Factors: 1.Tobacco Use: Start Age 21, Quit Age: N/A, Average packs per day 2, Pack Years 74 2. Passive Smoke Exposure: Yes, as a Child and as an Adult 3. Personal hx of malignancy: No, Type of Cancer: 4. 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 Race: White 6. Education: High School Graduate 7. BMI:Body mass index is 34.31 kg/m . Patient-entered Height: 5'11" Patient-entered Weight: 246 pounds 8. COPD: No 9. Pneumonia in the past 5 years: No 10. Is there a history of lung cancer in a first degree relative? No 11. Is there a history of lung cancer in a non-first degree relative? No 12. Is there a history of any other cancer in a first degree relative? Yes Health Maintenance Immunization History Administered Date(s) Administered COVID-19 booster vaccine, age 12+ yr, bivalent ([employer]-ComvivaNTArcadia Power) 04/12/2022 COVID-19 original vaccine, age 12+ yr, monovalent (Log[employer]ware-BIONTECH - PURPLE TOP) 09/16/2020 10/04/2020 05/23/2021 influenza (IIV4) vaccine, age 6 mo - 64 yr, quadrivalent (AFLURIA, FLULAVAL, FLUZONE) 04/12/2022 influenza (IIV4) vaccine, age 6 mo - 64 yr, quadrivalent, PF (AFLURIA, FLUARIX, FLULAVAL, FLUZONE) 05/16/2021 pneumococcal (PCV20) vaccine, 20 valent (PREVNAR 20) 08/17/2022 Colonoscopy: 09/03/2022 Mammogram: DATA REVIEW I have directly visualized the testing documented: NONE Prior Imaging: Last CT/CTA Chest/Lungs No resulted procedures found. Last CT Chest - Impression Only No resulted procedures found. Last XR Chest - Impression Only XR CHEST 2V FRONTAL/LAT Exam End: 07/06/2021 5:17 PM (Final result) Impression: IMPRESSION: No acute radiographic abnormality. ... Pulmonary Function Testing: None No textual results found for the specified procedure(s). PHYSICAL EXAM: BP 140/88 Pulse 77 Resp 15 Wt 111.6 kg (246 lb) SpO2 100% BMI 34.31 kg/m Deferred ASSESSMENT and RECOMMENDATIONS: 1. Screening for lung cancer: Six year risk for lung cancer: 1.83% I have determined that the patient is eligible for a low dose CT based on age, absence of signs or symptoms of lung cancer, and total pack years: Yes. The patient and I engaged in shared decision making, including the use of one or more decision aids, to include benefits, harms, follow-up diagnostic testing, over-diagnosis, false positive rate, and total radiation exposure. The patient understands and feels comfortable with it: Yes. The patient was counseled on the importance of adherence to annual LDCT lung cancer screening, impact of comorbidities and ability or willingness to undergo diagnosis and treatment. The patient understands and feels comfortable with it:Yes. 2. Former Nicotine dependence: The patient was counseled on the importance of smoking cessation if current smoker and, if appropriate, offered additional tobacco cessation counseling services - Smoking Cessation Counseling.Declined Rosie Roberts APRN.CNP NPI #: September 15, 2022 9:56 AM documented in this encounter [facility] 09-13-2022 Miscellaneous Notes Referral request and medical records (initial gen/surg consult, [facility], follow up visit with gen/surg 07/2021, [place] [facility] [place] faxed to Dr. Ibrahim at [phone]. Fax confirmation sheet received. Jensen Gonzales RN Order filed Susan's , Jensen, called. Jensen said that when Susan saw you on Tuesday, you were going to put in a gastroenterology referral for him. Could you please do that, so the gen/surg office can fax it for them? Bhumi Gonzales RN documented in this encounter [facility] 09-13-2022 History of Presen t illness Narrative Sleep Study Check-In Documentation Date: September 13, 2022 Name: Susan Flores Comments: HST was returned in working order with all sleep questionnaires Gerri Plasencia Nomad# [id number] , date shipped out 09/07/22 [employer] Tracking mailout: [phone] [id number] Tracking return: [id number] August 24, 2022 Standing PSG Orders signed in the last 90 days None Future PSG Orders signed in the last 90 days Ordered Auth. provider HOME SLEEP APNEA TEST (HSAT) [[id number]] 08/17/22 Rocky Calles APRN.SOLAR INSTALLER TECHNICIAN Assoc. diagnoses: Other fatigue [R53.83], Elevated blood pressure reading in office without diagnosis of hypertension [R03.0], Obesity, Class I, BMI 30-34.9 [E66.9] Q: Indications: A: Obstructive sleep apnea Q: STOP-BANG conditions - Select All That Apply: A: GENDER = male A2: AGE > 50 Q: Current use of supplemental oxygen during sleep period?: A: No CONSULT TO SLEEP MEDICINE - ADULT [[id number]] 08/17/22 Rocky Calles, PROPERTY CLAIMS ADJUSTER.SOLAR INSTALLER TECHNICIAN Assoc. diagnoses: Other fatigue [R53.83], Elevated blood pressure reading in office without diagnosis of hypertension [R03.0], Obesity, Class I, BMI 30-34.9 [E66.9] Q: Does consulting provider have [facility] Epic access?: A: Yes All Prior Sleep Studies (past 365 days) Some values may be hidden. Unless noted otherwise, only the newest values recorded on each date are displayed. Sleep Studies CONSULT TO SLEEP MEDICINE - ADULT Future Expected: Expires: 08/17/23 HOME SLEEP APNEA TEST (HSAT) Future Expected: Expires: 08/17/23 BMI Readings from Last 2 Encounters: 08/24/22 : 34.31 kg/m 08/17/22 : 33.75 kg/m PAST MEDICAL HISTORY Diagnosis Date Acid reflux Tobacco use disorder 09/01/2020 The medical record was reviewed to determine if the proposed sleep study conforms to the AASM Practice Parameters for the Indications for Polysomnography and Related Procedures, or if the sleep study is indicated for other reasons. Indications for study: HOMER suspected without comorbid medical or sleep disorders Sleep study to be performed: Home Sleep Apnea Test (HSAT) Special instructions: None-follow laboratory protocol Christen Maximino - Sleep Medicine Staff Note: I have read the above protocol, edited as needed, and agree to the plan. Booker Charles III, PhD 4:40 PM, 08/24/2022 August 23, 2022 An order has been received for Home Sleep Apnea Test (HSAT) from [facility]. [facility] Staff. Visit prep complete. Comments :No The sleep study is scheduled for 09/11. Insurance: Payor: [place]EM / Plan: [place] BCBS FEP PPO / Product Type: PPO / Payer/Plan Subscr Sex Relation Sub. Ins. ID Effective Group Num 1. ANTHESTEFANI - UBALDO CLEMENTEEN 1965 Male Spouse [id number] 06/20/21 [address] Catherine Fu documented in this encounter [facility] 09-10-2022 Instructions Goldie Saxena PA-C - 09/10/2022 3:52 PM EDT -Recommend GI evaluation for further workup d/t persist upper abdominal discomfort and bloating/pressure The following instructions are important for you related to your office visit today with the [facility] General Surgeons. INSTRUCTIONS FOLLOWING A POLYP FOUND AT COLONOSCOPY You were found to have multiple adenomatous and hyperplastic colon polyps. I recommend you undergo repeat endoscopy in 2 years for surveillance. If you note bleeding, change in bowel habits, or other suspicious colon related symptoms before that time, those symptoms should be evaluated as necessary. If you have any difficulties or concerns, you should contact our office immediately. If you note any additional difficulties, questions, or concerns, you should contact our office immediately @ [phone] and ask to be transferred to the General Surgery department. documented in this encounter [facility] 09-10-2022 History of Presen t illness Narrative FOLLOW UP VISIT - ENDOSCOPY NAME: Susan Flores [facility] NO.: [id number] DATE OF SERVICE: 09/10/2022 : 1965 REFERRING PHYSICIAN: Austin Ge MD Susan is a patient I am following for positive fecal occult blood testing as well as bloating and GERD. Dr. He performed upper and lower endoscopy on 06/07/22 at [facility], however colon prep was noted to be unsatisfactory and repeat colonoscopy was recommended. Dr. He performed repeat colonoscopy 09/03/22 at [facility]. Bowel prep was noted to be fair. The patient was found to have multiple small sessile polyps in the rectum, sigmoid colon, descending colon and transverse colon. Pathology demonstrated: FINAL DIAGNOSIS A. Colon, transverse, polypectomy -Tubular adenoma B. Colon, descending, polypectomy -Hyperplastic polyp C. Colon, sigmoid, polypectomy -Hyperplastic polyp D. Rectum, polypectomy -Hyperplastic polyp x3 The patient notes no new complaints since the procedure. He does however note persistent issues with abdominal bloating and upper abdominal discomfort. States carafate and PPI have not really improved his symptoms. VITALS: Blood pressure 136/84, pulse 88, temperature 36.8 C (98.3 F), temperature source Temporal, weight 111.6 kg (246 lb), SpO2 96 %. General: patient is alert, cooperative, pleasant and in no acute distress On examination, the abdomen is benign. Assessment IMPRESSION: s/p colonoscopy with polypectomy PLAN: The operative findings and pathology report were reviewed with the patient, and the patient has had the opportunity to ask questions and have questions answered. If the patient notes any problems or changes in bowel function, the patient should contact me immediately. Otherwise I recommend follow up endoscopy in 2 years based on fair bowel prep as well as adenomatous polyp. HM updated and recall letter generated. Referral to GI for further evaluation of abdominal bloating and discomfort Patient verbalized understanding of all above and agreed with the plan Diagnoses: (Z86.010) History of colonic polyps (primary encounter diagnosis) (R10.13) Epigastric pain (R14.0) Abdominal bloating I spent a total of 24 minutes on the date of the service which included preparing to see the patient, [id number] patient care, completing clinical documentation, obtaining and/or reviewing separately obtained history, counseling and educating the patient/family/caregiver, communicating with other HCPs (not separately reported), independently interpreting results (not separately reported), communicating results to the patient/family/caregiver, and care coordination (not separately reported). Goldie Saxena PA-C documented in this encounter [facility] 09-03-2022 History and physical note SUBJECTIVE: HEPATITIS B(1 of 3 - 3-dose series) Never done PNEUMOCOCCAL(1 - PCV) Never done DTAP,TDAP,TD(1 - Tdap) Never done LUNG CANCER SCREENING Never done SHINGRIX VACCINE(1 of 2) Never done DEPRESSION ASSESSMENT due on 06/20/2022 HPI Susan Flores is a 56 year old male.PMH significnat for ACTIVE PROBLEM LIST Tobacco Use Disorder Obesity, Class I, Bmi 30-34.9 Former patient of family medicine, Dr. Pinedo and Sukhdeep Christensen CNP. Was seen by Goldie Bishop June 15, 2022. Seen for a positive fecal occult blood, abdominal bloating GERD and tobacco use history. Upper and lower endoscopy completed June 07, 2022 at [facility]. Normal-appearing stomach which was biopsied. Normal duodenum. Colonoscopy showed small polyp in sigmoid colon which was removed. 3-month follow-up repeat colonoscopy was advised due to suboptimal bowel prep. 2-day MiraLAX Dulcolax prep was recommended. Pathology showed minimal chronic inflammation of distal esophagus, mild chronic gastritis. Carafate added for heartburn and gastritis symptoms. Presents today to establish care with Austin Ge MD Previous PCP: Dr Pinedo Smoker, 64 pack year history. Ready to quit: no Lung cancer screening: interested, [facility] [place] EtOH: 3-4 beverages 4x/week or more GERD: notes still not well controlled. Taking omeprazole only QD, carafate now and then. Has follow up colonoscopy scheduled for August 2022, Dr He. States tired, awakening unrested. Not sleeping well. 6-8 hours/night. STOP BANG Questionnaire 1. Snoring Do you snore loudly (louder than talking or loud enough to be heard through closed doors)? NO 2. Tired Do you often feel tired, fatigued, or sleepy during daytime? YES 3. Observed Has anyone observed you stop breathing during your sleep? NO 4. Blood Pressure Do you have or are you being treated for high blood pressure? NO 5. BMI BMI more than 35 kg/m2? YES 6. Age Age over 50 yr old? YES 7. Neck circumference Neck circumference greater than 40 cm? YES 43 cm 8. Gender Gender male? YES * Neck circumference is measured by staff High risk of HOMER: answering yes to three or more items Low risk of HOMER: answering yes to less than three items Notes chronic arthritic pain at hip and knees. Takes tylenol or ibuprofen. does help. No prior treatment of blood pressure is noted. Without report of headache, chest pain, palpitations, dyspnea, peripheral edema, orthopnea, and PND. Last 3 Encounter BP Readings: Date: BP: 08/17/2022 150/98 06/15/2022 118/82 04/14/2022 150/96 Notes bilateral fungal great toes with thick long nails, not sure he wants to see curber. Review of Systems Constitutional: Positive for fatigue. Respiratory: Negative. Cardiovascular: Negative. Gastrointestinal: Positive for abdominal pain. Musculoskeletal: Positive for arthralgias. Objective BP 150/98 Pulse 80 Resp 16 Wt 109.8 kg (242 lb) SpO2 97% BMI 33.75 kg/m Physical Exam Vitals and nursing note reviewed. Constitutional: Appearance: Normal appearance. HENT: Head: Normocephalic and atraumatic. Neck: Thyroid: No thyromegaly. Vascular: Normal carotid pulses. No JVD. Cardiovascular: Rate and Rhythm: Normal rate and regular rhythm. Pulses: Carotid pulses are 2+ on the right side and 2+ on the left side. Radial pulses are 2+ on the right side and 2+ on the left side. Heart sounds: Normal heart sounds. Pulmonary: Effort: Pulmonary effort is normal. Breath sounds: Normal breath sounds. Abdominal: General: Bowel sounds are normal. Palpations: Abdomen is soft. Musculoskeletal: Right lower leg: No edema. Left lower leg: No edema. Skin: General: Skin is warm and dry. Neurological: General: No focal deficit present. Mental Status: He is alert and oriented to person, place, and time. ALLERGIES ALLERGIES No Known Allergies Medications CURRENT MEDICATIONS sucralfate (CARAFATE) 1 gram tablet Take one tablet by mouth before meals and at bedtime as needed omeprazole (PRILOSEC) 40 mg capsule Take 1 capsule by mouth daily before breakfast. 1/2 hr before meal. PAST MEDICAL HISTORY PAST MEDICAL HISTORY Diagnosis Date Acid reflux Tobacco use disorder 09/01/2020 SOCIAL HISTORY Social History Tobacco Use Smoking status: Every Day Packs/day: 2.00 Years: 32.00 Pack years: 64.00 Types: Cigarettes Smokeless tobacco: Never Vaping Use Vaping Use: Never used Substance Use Topics Alcohol use: Yes Alcohol/week: 12.0 standard drinks Types: 12 Cans of Beer (12oz) per week Comment: 2-3 per night Drug use: No Component Latest Ref Rng & Units 09/01/2020 09/14/2020 07/10/202107/29/2021 WBC 3.70 - 11.00 k/uL 9.94 7.84 RBC 4.20 - 6.00 m/uL 4.94 4.61 Hemoglobin 13.0 - 17.0 g/dL 15.9 14.9 Hematocrit 39.0 - 51.0 % 47.3 45.0 MCV 80.0 - 100.0 fL 95.7 97.6 MCH 26.0 - 34.0 pG 32.2 32.3 MCHC 30.5 - 36.0 g/dL 33.6 33.1 RDW-CV 11.5 - 15.0 % 12.7 12.2 Platelet Count 150 - 400 k/uL 192 174 MPV 9.0 - 12.7 fL 10.5 10.7 Neut% % 75.4 69.2 Abs Neut (ANC) 1.45 - 7.50 k/uL 7.50 5.42 Lymph% % 14.6 20.0 Abs Lymph 1.00 - 4.00 k/uL 1.45 1.57 Tama% % 8.8 9.2 Abs Tama <0.87 k/uL 0.87 (H) 0.72 Eosin% % 0.9 1.1 Abs Eosin <0.46 k/uL 0.09 0.09 Baso% % 0.3 0.5 Abs Baso <0.11 k/uL 0.03 0.04 Nucleated Reds 0 /100 WBC 0.0 0.0 Absolute nRBC <0.01 k/uL <0.01 <0.01 Diff Type Auto Diff Auto Diff Protein, Total 6.3 - 8.0 g/dL 7.0 6.9 Albumin 3.9 - 4.9 g/dL 4.8 4.6 Calcium 8.5 - 10.2 mg/dL 9.9 Bilirubin, Total 0.2 - 1.3 mg/dL 0.4 0.5 Alkaline Phosphatase 38 - 113 U/L 65 54 AST 14 - 40 U/L 18 18 Glucose 74 - 99 mg/dL 94 BUN 9 - 24 mg/dL 23 Creatinine 0.73 - 1.22 mg/dL 1.01 Sodium 136 - 144 mmol/L 137 Potassium 3.7 - 5.1 mmol/L 4.8 Chloride 97 - 105 mmol/L 101 CO2 22 - 30 mmol/L 28 Anion Gap 9 - 18 mmol/L 8 (L) ALT 10 - 54 U/L 23 22 eGFR- >60 eGFR-All Other Races . >60 Cholesterol, Total <200 mg/dL 179 Triglyceride <150 mg/dL 79 HDL Cholesterol >39 mg/dL 55 LDL Cholesterol <100 mg/dL 108 (H) Non HDL Cholesterol <130 mg/dL 124 Fasting Time hrs 12 VLDL Cholesterol <30 mg/dL 16 TC:HDL Ratio <5.10 3.25 LDL:HDL Ratio <2.54 1.96 Bilirubin, Conjug <0.2 mg/dL <0.2 PSA Screening 0.00 - 2.59 ng/mL 0.31 Occult Blood, Stool Negative Positive (A) Lipase 16 - 61 U/L 42 Amylase 30 - 104 U/L 58 NT Pro BNP <125 pg/mL <50 d Dimer <500 ng/mL FEU 300 ASSESSMENT/PLAN: 1. Encounter for immunization - ICD9: V03.89, ICD10: Z23 (primary diagnosis) - PNEUMOCOCCAL VACCINE (PREVNAR 20) 2. Encounter for screening for lung cancer - ICD9: V76.0, ICD10: Z12.2 - CONSULT LUNG CANCER SCREENING CLINIC 3. GERD without esophagitis - ICD9: 530.81, ICD10: K21.9 - OMEPRAZOLE 40 MG CAPSULE,DELAYED RELEASE - COMP METABOLIC PANEL - CBC + DIFF 4. Tobacco use disorder - ICD9: 305.1, ICD10: F17.200 Cessation endorsed - CONSULT LUNG CANCER SCREENING CLINIC - OMEPRAZOLE 40 MG CAPSULE,DELAYED RELEASE 5. Other fatigue - ICD9: 780.79, ICD10: R53.83 - COMP METABOLIC PANEL - CBC + DIFF - HGB A1C - TSH BLD - HOME SLEEP APNEA TEST (HSAT) - CONSULT TO SLEEP MEDICINE - ADULT 6. Screening for lipid disorders - ICD9: V77.91, ICD10: Z13.220 - LIPID PANEL, NONFASTING 7. Fungal toenail infection - ICD9: 110.1, ICD10: B35.1 - CONSULT TO PODIATRY - TERBINAFINE HCL 250 MG TABLET 8. Elevated blood pressure reading in office without diagnosis of hypertension - ICD9: 796.2, ICD10: R03.0 - HOME SLEEP APNEA TEST (HSAT) - CONSULT TO SLEEP MEDICINE - ADULT 9. Alcohol use - ICD9: V49.89, ICD10: Z78.9 10. Obesity, Class I, BMI 30-34.9 - ICD9: 278.00, ICD10: E66.9 - HOME SLEEP APNEA TEST (HSAT) - CONSULT TO SLEEP MEDICINE - ADULT Advised: recheck BP 1-4 weeks 6 mo follow up Austin Ge MD Continue with omeprazole, take one 40 mg tablet daily in the morning 30 minutes before breakfast Take sucralfate before meals and at bedtime consistently Decrease or discontinue alcohol intake to help with GERD and with sleep. Consider cutting back or stopping smoking Consider completing sleep study if not feeling improved with these measures Take terbinafine daily x3 months for foot fungus. Consider seeing curber for this and for nail care. Avoid excess salt avoid salty foods in your diet. Return to clinic for recheck of blood pressure. Rocky Calles APRN.SOLAR INSTALLER TECHNICIAN UPDATED HISTORY AND PHYSICAL EXAMINATION SERVICE DATE: 09/03/2022 SERVICE TIME: 8:52 AM PHYSICAL EXAM MUST BE COMPLETED ON ADMISSION The History and Physical (completed in the past 30 days) has been reviewed and the patient has been examined. The contents accurately reflect the patient's condition with the following additions or revisions since the H&P was completed. Examination indicates no changes. This H&P can be found in the attached. SIGNATURE: Sukhdeep He III, MD PATIENT NAME: Susan Flores DATE: September 03, 2022 TIME: 8:50 AM documented in this encounter [facility] 08-24-2022 History of Past i llness Narrative Problem Noted Date Diagnosed Date Resolved Date Primary hypertension 08/24/2022 023 documented as of this encounter (statuses as of 04/24/2023) [facility] History of Past illness Narrative* Problem Noted Date Diagnosed Date Resolved Date Primary hypertension 08/24/2022 023 documented as of this encounter (statuses as of 04/24/2023) [facility] History of Past illness Narrative* Problem Noted Date Diagnosed Date Resolved Date Primary hypertension 08/24/2022 023 documented as of this encounter (statuses as of 04/25/2023) [facility] History of Past illness Narrative* Problem Noted Date Diagnosed Date Resolved Date Primary hypertension 08/24/2022 023 documented as of this encounter (statuses as of 08/08/2023) [facility] History of Past illness Narrative* Problem Noted Date Diagnosed Date Resolved Date Primary hypertension 08/24/2022 023 documented as of this encounter (statuses as of 08/31/2023) [place] [address]-07-2023 History of Past illness Narrative* Problem Noted Date Diagnosed Date Resolved Date Primary hypertension 08/24/2022 023 documented as of this encounter (statuses as of 09/12/2023) [facility] History of Past illness Narrative* Problem Noted Date Diagnosed Date Resolved Date Primary hypertension 08/24/2022 023 documented as of this encounter (statuses as of 09/26/2023) [facility] History of Present illness Narrative* Rocky Calles APRN.SOLAR INSTALLER TECHNICIAN - 08/24/2022 10:40 AM EST SUBJECTIVE: HEPATITIS B(1 of 3 - 3-dose series) Never done DTAP,TDAP,TD(1 - Tdap) Never done LUNG CANCER SCREENING Never done SHINGRIX VACCINE(1 of 2) Never done HPI Susan Flores is a 56 year old male.PMH significnat for ACTIVE PROBLEM LIST Tobacco Use Disorder Obesity, Class I, Bmi 30-34.9 HPI excerpted from previous visit: Former patient of family medicine, Dr. Pinedo and Sukhdeep Christensen CNP. Was seen by Goldie Bishop June 15, 2022. Seen for a positive fecal occult blood, abdominal bloating GERD and tobacco use history. Upper and lower endoscopy completed June 07, 2022 at [facility]. Normal-appearing stomach which was biopsied. Normal duodenum. Colonoscopy showed small polyp in sigmoid colon which was removed. 3-month follow-up repeat colonoscopy was advised due to suboptimal bowel prep. 2-day MiraLAX Dulcolax prep was recommended. Pathology showed minimal chronic inflammation of distal esophagus, mild chronic gastritis. Carafate added for heartburn and gastritis symptoms. Presents today to establish care with Austin Ge MD Previous PCP: Dr Pinedo Smoker, 64 pack year history. Ready to quit: no Lung cancer screening: interested, [facility] [place] EtOH: 3-4 beverages 4x/week or more GERD: notes still not well controlled. Taking omeprazole only QD, carafate now and then. Has follow up colonoscopy scheduled for August 2022, Dr He. States tired, awakening unrested. Not sleeping well. 6-8 hours/night. STOP BANG Questionnaire 1. Snoring Do you snore loudly (louder than talking or loud enough to be heard through closed doors)? NO 2. Tired Do you often feel tired, fatigued, or sleepy during daytime? YES 3. Observed Has anyone observed you stop breathing during your sleep? NO 4. Blood Pressure Do you have or are you being treated for high blood pressure? NO 5. BMI BMI more than 35 kg/m2? YES 6. Age Age over 50 yr old? YES 7. Neck circumference Neck circumference greater than 40 cm? YES 43 cm 8. Gender Gender male? YES * Neck circumference is measured by staff High risk of HOMER: answering yes to three or more items Low risk of HOMER: answering yes to less than three items Notes chronic arthritic pain at hip and knees. Takes tylenol or ibuprofen. does help. No prior treatment of blood pressure is noted. Without report of headache, chest pain, palpitations, dyspnea, peripheral edema, orthopnea, and PND. Last 3 Encounter BP Readings: Date: BP: 08/17/2022 150/98 06/15/2022 118/82 04/14/2022 150/96 Notes bilateral fungal great toes with thick long nails, not sure he wants to see curber. Returns to clinic today for recheck of blood pressure. .HTN: Without report of headache, chest pain, palpitations, dyspnea, peripheral edema, orthopnea, fatigue, and PND. Last 14 Encounter BP Readings: Date: BP: 08/24/2022 134/89 08/17/2022 150/98 06/15/2022 118/82 04/14/2022 150/96 04/12/2022 138/88 07/29/2021 130/82 07/14/2021 128/76 07/10/2021 120/76 07/06/2021 122/84 09/01/2020 130/78 05/22/2009 122/78 He has colonoscopy and home sleep study scheduled. He notes GERD symptoms are currently controlled taking sucralfate and omeprazole as ordered. He reports remote lumbar decompression in [place], now with intermittent low back pain that radiates down his left leg. Review of Systems Constitutional: Positive for fatigue. Respiratory: Negative. Cardiovascular: Negative. Gastrointestinal: Negative for abdominal pain. Musculoskeletal: Positive for back pain. Negative for arthralgias. Objective BP 134/89 Pulse 74 Wt 111.6 kg (246 lb) BMI 34.31 kg/m Physical Exam Vitals and nursing note reviewed. Constitutional: Appearance: Normal appearance. HENT: Head: Normocephalic and atraumatic. Neck: Thyroid: No thyromegaly. Vascular: Normal carotid pulses. No JVD. Cardiovascular: Rate and Rhythm: Normal rate and regular rhythm. Pulses: Carotid pulses are 2+ on the right side and 2+ on the left side. Radial pulses are 2+ on the right side and 2+ on the left side. Heart sounds: Normal heart sounds. Pulmonary: Effort: Pulmonary effort is normal. Breath sounds: Normal breath sounds. Abdominal: General: Bowel sounds are normal. Palpations: Abdomen is soft. Musculoskeletal: Right lower leg: No edema. Left lower leg: No edema. Skin: General: Skin is warm and dry. Neurological: General: No focal deficit present. Mental Status: He is alert and oriented to person, place, and time. ALLERGIES No Known Allergies Medications omeprazole (PRILOSEC) 40 mg capsule Take 1 capsule by mouth daily before breakfast. 1/2 hr before meal. terbinafine HCl (LAMISIL) 250 mg tablet Take 1 tablet by mouth once daily. sucralfate (CARAFATE) 1 gram tablet Take one tablet by mouth before meals and at bedtime as needed amLODIPine (NORVASC) 2.5 mg tablet Take 1 tablet by mouth once daily. PAST MEDICAL HISTORY Diagnosis Date Acid reflux Tobacco use disorder 09/01/2020 Social History Tobacco Use Smoking status: Every Day Packs/day: 2.00 Years: 32.00 Pack years: 64.00 Types: Cigarettes Smokeless tobacco: Never Vaping Use Vaping Use: Never used Substance Use Topics Alcohol use: Yes Alcohol/week: 12.0 standard drinks Types: 12 Cans of Beer (12oz) per week Comment: 2-3 per night Drug use: No Component Latest Ref Rng & Units 07/10/2021 07/29/2021 08/17/2022 WBC 3.70 - 11.00 k/uL 7.84 6.97 RBC 4.20 - 6.00 m/uL 4.61 4.77 Hemoglobin 13.0 - 17.0 g/dL 14.9 15.1 Hematocrit 39.0 - 51.0 % 45.0 47.1 MCV 80.0 - 100.0 fL 97.6 98.7 MCH 26.0 - 34.0 pg 32.3 31.7 MCHC 30.5 - 36.0 g/dL 33.1 32.1 RDW-CV 11.5 - 15.0 % 12.2 12.6 Platelet Count 150 - 400 k/uL 174 183 MPV 9.0 - 12.7 fL 10.7 10.4 Neut% % 69.2 62.3 Abs Neut (ANC) 1.45 - 7.50 k/uL 5.42 4.34 Lymph% % 20.0 24.5 Abs Lymph 1.00 - 4.00 k/uL 1.57 1.71 Tama% % 9.2 10.5 Abs Tama <0.87 k/uL 0.72 0.73 Eosin% % 1.1 1.7 Abs Eosin <0.46 k/uL 0.09 0.12 Baso% % 0.5 0.6 Abs Baso <0.11 k/uL 0.04 0.04 Immature Gran % % 0.4 IMMATURE GRANS (ABS) <0.10 k/uL 0.03 NRBC /100 WBC 0.0 Absolute nRBC <0.01 k/uL <0.01 <0.01 DTYPE Auto Nucleated Reds 0 /100 WBC 0.0 Diff Type Auto Diff Protein, Total 6.3 - 8.0 g/dL 6.9 6.8 Albumin 3.9 - 4.9 g/dL 4.6 4.6 Calcium 8.5 - 10.2 mg/dL 9.8 Bilirubin, Total 0.2 - 1.3 mg/dL 0.5 0.3 Alkaline Phosphatase 38 - 113 U/L 54 61 AST 14 - 40 U/L 18 23 ALT 10 - 54 U/L 22 25 Glucose 74 - 99 mg/dL 89 BUN 9 - 24 mg/dL 19 Creatinine 0.73 - 1.22 mg/dL 1.12 Sodium 136 - 144 mmol/L 139 Potassium 3.7 - 5.1 mmol/L 4.6 Chloride 97 - 105 mmol/L 102 CO2 22 - 30 mmol/L 27 Anion Gap 9 - 18 mmol/L 10 eGFR >=60 mL/min/1.73m 78 Total Cholesterol, Nonfasting <200 mg/dL 198 Triglycerides, Nonfasting <150 mg/dL 74 HDL Cholesterol, Nonfasting >39 mg/dL 60 LDL Cholesterol, Nonfasting <100 mg/dL 123 (H) Non HDL Cholesterol, Nonfasting <130 mg/dL 138 (H) VLDL Cholesterol, Nonfasting <30 mg/dL 15 Total Chol/HDL Ratio, Nonfasting <5.10 mg/dL 3.30 LDL/HDL Ratio, Nonfasting <2.54 mg/dL 2.05 Bilirubin, Conjug <0.2 mg/dL <0.2 Hemoglobin A1C 4.3 - 5.6 % 5.2 Estimated Average Glucose mg/dL 103 Lipase 16 - 61 U/L 42 Amylase 30 - 104 U/L 58 NT Pro BNP <125 pg/mL <50 d Dimer <500 ng/mL FEU 300 TSH 0.270 - 4.200 mIU/L 2.150 ASSESSMENT/PLAN: 1. Primary hypertension - ICD9: 401.9, ICD10: I10 (primary diagnosis) - suboptimal control Endorse DASH diet, moderate or less alcohol intake, smoking cessation and decrease oral intake and exercise such as walk daily to lose weight. Will be completing HSAT this month - AMLODIPINE 2.5 MG TABLET 2. Encounter for immunization - ICD9: V03.89, ICD10: Z23 to check with pharmacy 3. GERD without esophagitis - ICD9: 530.81, ICD10: K21.9 Controlled on sucralfate as ordered along with PPI. 1-2 mo recheck BP. Rocky Calles APRN.CNS Medical Decision Making: Problems: Moderate: 1+ chronic illnesses with change Risk: Moderate: Drug management Medical Decision Making Level: 4 - Moderate documented in [facility] Instructions* Patient Instructions* Rocky Calles APRN.CNS - 08/24/2022 10:37 AM EST Check to see if your insurance covers shingles Tdap and hepatitis B vaccines and what location to get the vaccines - - usually best covered at your local pharmacy where you get prescriptions filled documented in this encounterOhio[facility] Instructions* Patient Instructions* Rocky Calles APRN.CNS - 08/17/2022 3:04 PM EST Continue with omeprazole, take one 40 mg tablet daily in the morning 30 minutes before breakfast Take sucralfate before meals and at bedtime consistently Decrease or discontinue alcohol intake to help with GERD and with sleep. Consider cutting back or stopping smoking Consider completing sleep study if not feeling improved with these measures Take terbinafine daily x3 months for foot fungus. Consider seeing curber for this and for nail care. Avoid excess salt avoid salty foods in your diet. Return to clinic for recheck of blood pressure. documented in this encounterOhio[facility] History of Present illness Narrative* Rocky Calles APRN.CNS - 08/17/2022 2:40 PM EST SUBJECTIVE: HEPATITIS B(1 of 3 - 3-dose series) Never done PNEUMOCOCCAL(1 - PCV) Never done DTAP,TDAP,TD(1 - Tdap) Never done LUNG CANCER SCREENING Never done SHINGRIX VACCINE(1 of 2) Never done DEPRESSION ASSESSMENT due on 06/20/2022 HPI Susan Flores is a 56 year old male.PMH significnat for ACTIVE PROBLEM LIST Tobacco Use Disorder Obesity, Class I, Bmi 30-34.9 Former patient of family medicine, Dr. Pinedo and Sukhdeep Christensen CNP. Was seen by Goldie Bishop June 15, 2022. Seen for a positive fecal occult blood, abdominal bloating GERD and tobacco use history. Upper and lower endoscopy completed June 07, 2022 at [facility]. Normal-appearing stomach which was biopsied. Normal duodenum. Colonoscopy showed small polyp in sigmoid colon which was removed. 3-month follow-up repeat colonoscopy was advised due to suboptimal bowel prep. 2-day MiraLAX Dulcolax prep was recommended. Pathology showed minimal chronic inflammation of distal esophagus, mild chronic gastritis. Carafate added for heartburn and gastritis symptoms. Presents today to establish care with Austin Ge MD Previous PCP: Dr Pinedo Smoker, 64 pack year history. Ready to quit: no Lung cancer screening: interested, [facility] [place] EtOH: 3-4 beverages 4x/week or more GERD: notes still not well controlled. Taking omeprazole only QD, carafate now and then. Has follow up colonoscopy scheduled for August 2022, Dr He. States tired, awakening unrested. Not sleeping well. 6-8 hours/night. STOP BANG Questionnaire 1. Snoring Do you snore loudly (louder than talking or loud enough to be heard through closed doors)? NO 2. Tired Do you often feel tired, fatigued, or sleepy during daytime? YES 3. Observed Has anyone observed you stop breathing during your sleep? NO 4. Blood Pressure Do you have or are you being treated for high blood pressure? NO 5. BMI BMI more than 35 kg/m2? YES 6. Age Age over 50 yr old? YES 7. Neck circumference Neck circumference greater than 40 cm? YES 43 cm 8. Gender Gender male? YES * Neck circumference is measured by staff High risk of HOMER: answering yes to three or more items Low risk of HOMER: answering yes to less than three items Notes chronic arthritic pain at hip and knees. Takes tylenol or ibuprofen. does help. No prior treatment of blood pressure is noted. Without report of headache, chest pain, palpitations, dyspnea, peripheral edema, orthopnea, and PND. Last 3 Encounter BP Readings: Date: BP: 08/17/2022 150/98 06/15/2022 118/82 04/14/2022 150/96 Notes bilateral fungal great toes with thick long nails, not sure he wants to see curber. Review of Systems Constitutional: Positive for fatigue. Respiratory: Negative. Cardiovascular: Negative. Gastrointestinal: Positive for abdominal pain. Musculoskeletal: Positive for arthralgias. Objective BP 150/98 Pulse 80 Resp 16 Wt 109.8 kg (242 lb) SpO2 97% BMI 33.75 kg/m Physical Exam Vitals and nursing note reviewed. Constitutional: Appearance: Normal appearance. HENT: Head: Normocephalic and atraumatic. Neck: Thyroid: No thyromegaly. Vascular: Normal carotid pulses. No JVD. Cardiovascular: Rate and Rhythm: Normal rate and regular rhythm. Pulses: Carotid pulses are 2+ on the right side and 2+ on the left side. Radial pulses are 2+ on the right side and 2+ on the left side. Heart sounds: Normal heart sounds. Pulmonary: Effort: Pulmonary effort is normal. Breath sounds: Normal breath sounds. Abdominal: General: Bowel sounds are normal. Palpations: Abdomen is soft. Musculoskeletal: Right lower leg: No edema. Left lower leg: No edema. Skin: General: Skin is warm and dry. Neurological: General: No focal deficit present. Mental Status: He is alert and oriented to person, place, and time. ALLERGIES No Known Allergies Medications sucralfate (CARAFATE) 1 gram tablet Take one tablet by mouth before meals and at bedtime as needed omeprazole (PRILOSEC) 40 mg capsule Take 1 capsule by mouth daily before breakfast. 1/2 hr before meal. PAST MEDICAL HISTORY Diagnosis Date Acid reflux Tobacco use disorder 09/01/2020 Social History Tobacco Use Smoking status: Every Day Packs/day: 2.00 Years: 32.00 Pack years: 64.00 Types: Cigarettes Smokeless tobacco: Never Vaping Use Vaping Use: Never used Substance Use Topics Alcohol use: Yes Alcohol/week: 12.0 standard drinks Types: 12 Cans of Beer (12oz) per week Comment: 2-3 per night Drug use: No Component Latest Ref Rng & Units 09/01/2020 09/14/2020 07/10/2021 07/29/2021 WBC 3.70 - 11.00 k/uL 9.94 7.84 RBC 4.20 - 6.00 m/uL 4.94 4.61 Hemoglobin 13.0 - 17.0 g/dL 15.9 14.9 Hematocrit 39.0 - 51.0 % 47.3 45.0 MCV 80.0 - 100.0 fL 95.7 97.6 MCH 26.0 - 34.0 pG 32.2 32.3 MCHC 30.5 - 36.0 g/dL 33.6 33.1 RDW-CV 11.5 - 15.0 % 12.7 12.2 Platelet Count 150 - 400 k/uL 192 174 MPV 9.0 - 12.7 fL 10.5 10.7 Neut% % 75.4 69.2 Abs Neut (ANC) 1.45 - 7.50 k/uL 7.50 5.42 Lymph% % 14.6 20.0 Abs Lymph 1.00 - 4.00 k/uL 1.45 1.57 Tama% % 8.8 9.2 Abs Tama <0.87 k/uL 0.87 (H) 0.72 Eosin% % 0.9 1.1 Abs Eosin <0.46 k/uL 0.09 0.09 Baso% % 0.3 0.5 Abs Baso <0.11 k/uL 0.03 0.04 Nucleated Reds 0 /100 WBC 0.0 0.0 Absolute nRBC <0.01 k/uL <0.01 <0.01 Diff Type Auto Diff Auto Diff Protein, Total 6.3 - 8.0 g/dL 7.0 6.9 Albumin 3.9 - 4.9 g/dL 4.8 4.6 Calcium 8.5 - 10.2 mg/dL 9.9 Bilirubin, Total 0.2 - 1.3 mg/dL 0.4 0.5 Alkaline Phosphatase 38 - 113 U/L 65 54 AST 14 - 40 U/L 18 18 Glucose 74 - 99 mg/dL 94 BUN 9 - 24 mg/dL 23 Creatinine 0.73 - 1.22 mg/dL 1.01 Sodium 136 - 144 mmol/L 137 Potassium 3.7 - 5.1 mmol/L 4.8 Chloride 97 - 105 mmol/L 101 CO2 22 - 30 mmol/L 28 Anion Gap 9 - 18 mmol/L 8 (L) ALT 10 - 54 U/L 23 22 eGFR- >60 eGFR-All Other Races . >60 Cholesterol, Total <200 mg/dL 179 Triglyceride <150 mg/dL 79 HDL Cholesterol >39 mg/dL 55 LDL Cholesterol <100 mg/dL 108 (H) Non HDL Cholesterol <130 mg/dL 124 Fasting Time hrs 12 VLDL Cholesterol <30 mg/dL 16 TC:HDL Ratio <5.10 3.25 LDL:HDL Ratio <2.54 1.96 Bilirubin, Conjug <0.2 mg/dL <0.2 PSA Screening 0.00 - 2.59 ng/mL 0.31 Occult Blood, Stool Negative Positive (A) Lipase 16 - 61 U/L 42 Amylase 30 - 104 U/L 58 NT Pro BNP <125 pg/mL <50 d Dimer <500 ng/mL FEU 300 ASSESSMENT/PLAN: 1. Encounter for immunization - ICD9: V03.89, ICD10: Z23 (primary diagnosis) - PNEUMOCOCCAL VACCINE (PREVNAR 20) 2. Encounter for screening for lung cancer - ICD9: V76.0, ICD10: Z12.2 - CONSULT LUNG CANCER SCREENING CLINIC 3. GERD without esophagitis - ICD9: 530.81, ICD10: K21.9 - OMEPRAZOLE 40 MG CAPSULE,DELAYED RELEASE - COMP METABOLIC PANEL - CBC + DIFF 4. Tobacco use disorder - ICD9: 305.1, ICD10: F17.200 Cessation endorsed - CONSULT LUNG CANCER SCREENING CLINIC - OMEPRAZOLE 40 MG CAPSULE,DELAYED RELEASE 5. Other fatigue - ICD9: 780.79, ICD10: R53.83 - COMP METABOLIC PANEL - CBC + DIFF - HGB A1C - TSH BLD - HOME SLEEP APNEA TEST (HSAT) - CONSULT TO SLEEP MEDICINE - ADULT 6. Screening for lipid disorders - ICD9: V77.91, ICD10: Z13.220 - LIPID PANEL, NONFASTING 7. Fungal toenail infection - ICD9: 110.1, ICD10: B35.1 - CONSULT TO PODIATRY - TERBINAFINE HCL 250 MG TABLET 8. Elevated blood pressure reading in office without diagnosis of hypertension - ICD9: 796.2, ICD10: R03.0 - HOME SLEEP APNEA TEST (HSAT) - CONSULT TO SLEEP MEDICINE - ADULT 9. Alcohol use - ICD9: V49.89, ICD10: Z78.9 10. Obesity, Class I, BMI 30-34.9 - ICD9: 278.00, ICD10: E66.9 - HOME SLEEP APNEA TEST (HSAT) - CONSULT TO SLEEP MEDICINE - ADULT Advised: recheck BP 1-4 weeks 6 mo follow up Austin Ge MD Continue with omeprazole, take one 40 mg tablet daily in the morning 30 minutes before breakfast Take sucralfate before meals and at bedtime consistently Decrease or discontinue alcohol intake to help with GERD and with sleep. Consider cutting back or stopping smoking Consider completing sleep study if not feeling improved with these measures Take terbinafine daily x3 months for foot fungus. Consider seeing curber for this and for nail care. Avoid excess salt avoid salty foods in your diet. Return to clinic for recheck of blood pressure. Rocky Calles APRN.CHRISTIE Medical Decision Making: Problems: Moderate: 2+ stable chronic illnesses and New problem with uncertain prognosis Data: Unique test(s) ordered: 3+ Risk: Moderate: Drug management Medical Decision Making Level: 4 - Moderate documented in this encounterOhio[facility]23 Miscellaneous Notes* Telephone Encounter - Amalia Mendes LPN - 06/26/2022 9:05 AM EST Spoke with pt and information listed below given. Pt verbalizes understanding. Pt will call back once he decides on who he would like to see. Amalia Mendes LPN * Telephone Encounter - Rico Pinedo MD - 06/25/2022 5:19 PM EST Advise patient refill provided for 30 days but needs to make an appt to establish with a new provider or next request will be denied. The following approved medication requests have been transmitted electronically. Requested Prescriptions Signed Prescriptions Disp Refills omeprazole (PRILOSEC) 20 mg capsule 60 capsule 0 Sig: Take 2 capsules by mouth daily before breakfast. 1/2 hr before meal. Authorizing Provider: RICO PINEDO MD * Telephone Encounter - Анна Brooke Ma - 06/25/2022 3:14 PM EST Last office visit: 04/12/22 with Yobany Tyson scheduled: no follow up, needs to establish care Анна Brooke Ma documented in this encounterOhiohealth [facility]12-28-2022 Miscellaneous Notes* Telephone Encounter - Talya Alexander LPN - 06/16/2022 12:33 PM EST Called and left voicemail, patient identified self on recording. [facility] [place]. * Telephone Encounter - Goldie Saxena PA-C - 06/16/2022 12:08 PM EST Rx sent. Note will be visible in Mychart once signed * Telephone Encounter - Keyla Connelly LPN - 06/16/2022 8:41 AM EST Jensen patients emergency contact call in stating patient seen Goldie rileyf yesterday and in mychart doesn't show that patient was seen yesterday and pharmacy states they have not received prescription yet. Informed Jensen that goldie saxena has not finished not from yesterday as of yet. Please send new pr escription in and contact patient. Keyla Connelly LPN documented in this encounterOhiohealth [facility]12-27-2022 History of Present illness Narrative* Goldie Saxena PA-C - 06/15/2022 10:33 AM EST FOLLOW UP VISIT - ENDOSCOPY NAME: Susan Viramontes [facility] NO.: [id number] DATE OF SERVICE: 06/15/2022 : 1965 REFERRING PHYSICIAN: No primary care provider on file. Susan is a patient I am following for positive fecal occult blood testing as well as abdominal bloating and GERD complaints, history of tobacco use. Dr. He performed upper and lower endoscopy at [facility] on 06/07/22, scanned reports reviewed in [facility]. The patient was found tohave normal appearing stomach, biopsied, and normal examined duodenum, regular Z-line. Colonoscopy showed a small polyp in the sigmoid colon which was removed. Prep was noted to be unsatisfactory with large amounts of stool in the colon unable to be cleared with lavage and limiting visualization ofthe colon. Dr. He recommended repeat colonoscopy in 3 months due to suboptimal bowel prep. Path ology demonstrated: Hyperplastic colon polyp Minimal chronic inflammation of distal esophagus Mild chronic gastritis The patient notes no new complaints since the procedure. He does still continue to note reflux and heartburn which is not relieved with his PPI VITALS: Blood pressure 118/82, pulse 85, temperature 36.4 C (97.6 F), height 180.3 cm (5' 11"), weight 115.4 kg (254 lb 6.4 oz), SpO2 96 %. General: patient is alert, cooperative, pleasant and in no acute distress On examination, the abdomen is benign. Assessment IMPRESSION: GERD and gastritis. Benign hyperplastic colon polyp, suboptimal bowel prep PLAN: The operative findings and pathology report were reviewed with the patient, and the patient has hadthe opportunity to ask questions and have questions answered. If the patient notes any problems or changes in bowel function, the patient should contact me immediately. Otherwise Dr. He has recommended repeat colonoscopy in 3 months due to suboptimal prep. Will plan for 2-day miralax/dulcolax prep -Trial of carafate for heartburn and gastritis Patient verbalized understanding of all above and agreed with the plan Diagnoses: (K21.9) Gastroesophageal reflux disease, unspecified whether esophagitis present (primary encounter diagnosis) (K29.30) Chronic superficial gastritis without bleeding (K63.5) Hyperplastic polyp of sigmoid colon I spent a total of 24 minutes on the date of the service which included preparing to see the patient, [id number] patient care, completing clinical documentation, counseling and educating the patient/family/caregiver, ordering medications, tests, or procedures, independently interpreting results (not separately reported), and communicating results to the patient/family/caregiver. Goldie Saxena PA-C documented in this encounterOhiohealth [facility]12-19-2022 [facility] Medical Records Department [address] [place] [id number] History Physical Exam 06/07/22 1344 MR#: [id number] Acct: [id number] Name: SUSAN FLORES Rep #: [id number] : 1965 56 From: Sukhdeep He MD PCP: BRITNI De La Torre Status:[facility] Location: [address] History and Physical Date of Admission: 06/07/22 HISTORY AND PHYSICAL ??? Susan Flores 1965 ??? REFERRING PHYSICIAN: Yobany Glover APRN.ELECTRIC SCOOP OPERATOR ??? CHIEF COMPLAINT: Consult (GERD and abdomen bloating) ??? HPI: The patient is a 56 year old male referred for endoscopy. Susan notes a recent history of abdominal bloating and GERD. He was initiated on omeprazole recently which he states is helping with the reflux significantly, but still feels full and bloated often. ??? Patient denies any change in bowel habits, weight changes, visible blood in stools, black tarry stools or abdominal pain. Denies family history of colon issues. ??? Of note, patient had stool iFOBT in 2020 which was positive for occult blood. Patient did not pursue further evaluation at that time. ??? Patient's past medical history is significant for tobacco use. Patient was evaluated in July 2021 for chest discomfort. Saw cardiology and had stress echo which was unremarkable. Per patient those symptoms completely went away after starting treatment for reflux. ??? Susan has not undergone prior endoscopy. ? PAST MEDICAL HISTORY PAST MEDICAL HISTORY Diagnosis Date ??? Acid reflux ? Tobacco use disorder 09/01/2020 ? PAST SURGICAL HISTORY PAST SURGICAL HISTORY Procedure Laterality Date ??? PERCUTANEOUS LUMBAR DISKECTOMY Bilateral 2009 ??? REPAIR ING HERNIA,5+Y/O,REDUCIBL Left 2008 ? CURRENT MEDICATIONS Current Outpatient Medications Medication Sig ??? omeprazole (PRILOSEC) 20 mg capsule Take 2 capsules by mouth daily before breakfast. 1/2 hr before meal. ??? No current facility-administered medications for this visit. ? ALLERGIES: Patient has no known allergies. ??? PERSONAL HISTORY: SOCIAL HISTORY Social History ??? Tobacco Use ??? Smoking status: Every Day ? Packs/day: 2.00 ? Years: 32.00 ? Pack years: 64.00 ? Types: Cigarettes ??? Smokeless tobacco: Never Vaping Use ??? Vaping Use: Never used Substance Use Topics ??? Alcohol use: Yes ? Alcohol/week: 12.0 standard drinks ? Types: 12 Cans of Beer (12oz) per week ? Comment: 2-3 per night ??? Drug use: No ? FAMILY HISTORY: FAMILY HISTORY FAMILY HISTORY Problem Relation Age of Onset ??? other (Bone cancer) Mother ? No Known Problems Father ? Cancer Maternal Grandmother ? Uterine ??? No Known Problems Maternal Grandfather ? No Known Problems Paternal Grandmother ? No Known Problems Paternal Grandfather ? Rheumatologic disease Half-brother ? RA ? REVIEW OF SYSTEMS: General: The patient denies fatigue, denies weight loss, denies weight gain, notes feeling hot, and denies feelings of cold. Eyes: The patient denies glaucoma, denies eye injury/surgery, wears glasses or contacts. Ear/Nose/Throat: The patient denies allergies, denies hayfever, denies ear infections, and denies bloody noses. Cardiovascular: The patient denies chest pain, denies heart disease, denies high blood pressure,denies cardiac stent, denies prior heart attack, denies irregular heart beat, denies high cholesterol, denies poor circulation, denies heart failure, other cardiac issues, denies claudication, denies cold feet, denies peripheral arterial stent. Respiratory: The patient denies tuberculosis, denies pneumonia, denies frequent cough, denies pulmonary embolism, denies shortness of breath, and denies coughing up blood. Gastrointestinal: The patient denies difficulty swallowing, notes acid reflux, denies ulcers, denies vomiting, denies jaundice/hepatitis, denies gallbladder problems, denies black or tarry stools, denies hemorrhoids, denies bleeding from rectum, denies diverticulitis, denies constipation, denies diarrhea, denies loss of stool control, and notes hernias. Kidney/Bladder: The patient denies kidney stones, denies urine infections, and denies bloody urine. Skin: The patient denies a history of skin cancer, denies bleeding/changing moles, and denies a history of skin rash. Neurologic: The patient denies a history of epilepsy/convulsions, denies headaches, denies head/spinal injuries, and denies stroke/TIA. Psychiatric: The patient denies psychiatric medications, denies depression, and denies voices, denies substance abuse. Endocrine: The patient denies thyroid disorders, denies diabetes, and denies hormonal problems. Hematologic: The patient denies a history of bruising, denies bleeding, and d (more content not included)...[facility]10-26-2022 History of Present illness Narrative* Goldie Saxena PA-C - 04/14/2022 1:13 PM EDT HISTORY AND PHYSICAL Susan Flores 1965 REFERRING PHYSICIAN: Yobany Glover APRN.ELECTRIC SCOOP OPERATOR CHIEF COMPLAINT: Consult (GERD and abdomen bloating) HPI: The patient is a 56 year old male referred for endoscopy. Susan notes a recent history of abdominal bloating and GERD. He was initiated on omeprazole recently which he states is helping with the reflux significantly, but still feels full and bloated often. Patient denies any change in bowel habits, weight changes, visible blood in stools, black tarry stools or abdominal pain. Denies family history of colon issues. Of note, patient had stool iFOBT in 2020 which was positive for occult blood. Patient did not pursue further evaluation at that time. Patient's past medical history is significant for tobacco use. Patient was evaluated in July 2021 for chest discomfort. Saw cardiology and had stress echo which was unremarkable. Per patient those symptoms completely went away after starting treatment for reflux. Susan has not undergone prior endoscopy. PAST MEDICAL HISTORY Diagnosis Date Acid reflux Tobacco use disorder 09/01/2020 PAST SURGICAL HISTORY Procedure Laterality Date PERCUTANEOUS LUMBAR DISKECTOMY Bilateral 2009 REPAIR ING HERNIA,5+Y/O,REDUCIBL Left 2008 Current Outpatient Medications Medication Sig omeprazole (PRILOSEC) 20 mg capsule Take 2 capsules by mouth daily before breakfast. 1/2 hr before meal. No current facility-administered medications for this visit. ALLERGIES: Patient has no known allergies. PERSONAL HISTORY: Social History Tobacco Use Smoking status: Every Day Packs/day: 2.00 Years: 32.00 Pack years: 64.00 Types: Cigarettes Smokeless tobacco: Never Vaping Use Vaping Use: Never used Substance Use Topics Alcohol use: Yes Alcohol/week: 12.0 standard drinks Types: 12 Cans of Beer (12oz) per week Comment: 2-3 per night Drug use: No FAMILY HISTORY: FAMILY HISTORY Problem Relation Age of Onset other (Bone cancer) Mother No Known Problems Father Cancer Maternal Grandmother Uterine No Known Problems Maternal Grandfather No Known Problems Paternal Grandmother No Known Problems Paternal Grandfather Rheumatologic disease Half-brother RA REVIEW OF SYSTEMS: General: The patient denies fatigue, denies weight loss, denies weight gain, notes feeling hot, anddenies feelings of cold. Eyes: The patient denies glaucoma, denies eye injury/surgery, wears glasses or contacts. Ear/Nose/Throat: The patient denies allergies, denies hayfever, denies ear infections, and denies bloody noses. Cardiovascular: The patient denies chest pain, denies heart disease, denies high blood pressure,denies cardiac stent, denies prior heart attack, denies irregular heart beat, denies high cholesterol, denies poor circulation, denies heart failure, other cardiac issues, denies claudication, denies cold feet, denies peripheral arterial stent. Respiratory: The patient denies tuberculosis, denies pneumonia, denies frequent cough, denies pulmonary embolism, denies shortness of breath, and denies coughing up blood. Gastrointestinal: The patient denies difficulty swallowing, notes acid reflux, denies ulcers, denies vomiting, denies jaundice/hepatitis, denies gallbladder problems, denies black or tarry stools, denies hemorrhoids, denies bleeding from rectum, denies diverticulitis, denies constipation, denies diarrhea, denies loss of stool control, and notes hernias. Kidney/Bladder: The patient denies kidney stones, denies urine infections, and denies bloody urine. Skin: The patient denies a history of skin cancer, denies bleeding/changing moles, and denies a history of skin rash. Neurologic: The patient denies a history of epilepsy/convulsions, denies headaches, denies head/spinal injuries, and denies stroke/TIA. Psychiatric: The patient denies psychiatric medications, denies depression, and denies voices, denies substance abuse. Endocrine: The patient denies thyroid disorders, denies diabetes, and denies hormonal problems. Hematologic: The patient denies a history of bruising, denies bleeding, and denies anemia, denies blood clots. Infections: The patient denies a history of measles and mumps, denies rheumatic fever, and denies sexually transmitted diseases. Musculoskeletal: The patient denies back pain/injury, notes back problems, denies sciatica, denies knee/foot trouble, denies arthritis, or denies gout. When was patient's last Mammogram screening? N/A Last Colonoscopy: none I have confirmed and edited as necessary, the PFSH and ROS obtained by others. Goldie Saxena PA-C PHYSICAL EXAMINATION: General: The patient is 56 year old male, well nourished, well hydrated in no acute distress. The patient is oriented to time, place, and person. VITALS: Blood pressure 150/96, pulse 98, temperature 36.2 C (97.2 F), height 180.3 cm (5' 11"), weight 110.7 kg (244 lb), SpO2 98 %. Body mass index is 34.03 kg/m . HEENT: Normal cephalic, ataumatic, pupils are equally round, sclera are anicteric, mucous membranesare moist, oropharynx is clear. Neck has no masses, asymmetry or lymphadenopathy. Respiratory: Clear to auscultation and percussion. Normal respiratory excursion and pattern. Cardiac: Examination is regular rate and rhythm. Normal S1/S2 Abdominal exam: Soft, nontender, with no palpable masses. No hepatosplenomegaly. No palpable hernias. Extremities: no clubbing, cyanosis or edema. No adenopathy. LABORATORY VALUES: As Noted RADIOLOGIC STUDIES: As Noted Assessment IMPRESSION: positive iFOBT, abdominal bloating, GERD PLAN: I have reviewed my findings with the surgeon. Will plan for upper and lower endoscopy. We discussed the risks and benefits of the planned endoscopy. I have informed the patient that complications can occur including failure to complete the endoscopy and perforation. The patient had the opportunity to ask questions concerning the planned endoscopy. My staff has also explained the procedure to the patient in understandable terms and has given the patient printed material concerning the procedure. The patient freely consents to surgery. The patient was offered a [facility]/procedure at [facility]. I have counseled the patient regarding the risk of exposure to and/or potential harm posed by the COVID-19 virus with having a surgery/procedure at this time versus the risk of delaying the surgery/procedure. It is not possible to know either the risk of delaying the surgery or procedure or chance of getting an infection with perfect accuracy, but a joint decision was made between the patient and myself to proceed at this time with endoscopy. I plan to use Golytely bowel preparation I have explained to the patient the difference between IV conscious sedation and MAC anesthesia - and I have offered either, according to the patient's wishes. I have explained that with IV conscioussedation there is no anesthesia provider available and therefore there is a limitation of the amount of IV medications that can be given and that the patient may wake up in the middle of the procedure and/or experience pain/discomfort during the procedure. Further discussion was done and the patient was given the opportunity to ask questions and all questions were answered. The patient chooses MAC anesthesia and requests [facility] Diagnoses: (R19.5) Positive fecal occult blood test (primary encounter diagnosis) (K21.9) GERD without esophagitis (R14.0) Abdominal bloating (Z12.11) Screening for colon cancer Consultation requested by Yobany Glover CNP for an opinion regarding positive iFOBT and abdominal complaints. My final recommendations will be communicated back to the requesting physician by way of shared Medical record or letter to requesting physician via [place] mail. Goldie Saxena PA-C * Talya Alexander LPN - 04/14/2022 1:01 PM EDT REVIEW OF SYSTEMS: General: The patient denies fatigue, denies weight loss, denies weight gain, notes feeling hot, anddenies feelings of cold. Eyes: The patient denies glaucoma, denies eye injury/surgery, wears glasses or contacts. Ear/Nose/Throat: The patient denies allergies, denies hayfever, denies ear infections, and denies bloody noses. Cardiovascular: The patient denies chest pain, denies heart disease, denies high blood pressure,denies cardiac stent, denies prior heart attack, denies irregular heart beat, denies high cholesterol, denies poor circulation, denies heart failure, other cardiac issues, denies claudication, denies cold feet, denies peripheral arterial stent. Respiratory: The patient denies tuberculosis, denies pneumonia, denies frequent cough, denies pulmonary embolism, denies shortness of breath, and denies coughing up blood. Gastrointestinal: The patient denies difficulty swallowing, notes acid reflux, denies ulcers, denies vomiting, denies jaundice/hepatitis, denies gallbladder problems, denies black or tarry stools, denies hemorrhoids, denies bleeding from rectum, denies diverticulitis, denies constipation, denies diarrhea, denies loss of stool control, and notes hernias. Kidney/Bladder: The patient denies kidney stones, denies urine infections, and denies bloody urine. Skin: The patient denies a history of skin cancer, denies bleeding/changing moles, and denies a history of skin rash. Neurologic: The patient denies a history of epilepsy/convulsions, denies headaches, denies head/spinal injuries, and denies stroke/TIA. Psychiatric: The patient denies psychiatric medications, denies depression, and denies voices, denies substance abuse. Endocrine: The patient denies thyroid disorders, denies diabetes, and denies hormonal problems. Hematologic: The patient denies a history of bruising, denies bleeding, and denies anemia, denies blood clots. Infections: The patient denies a history of measles and mumps, denies rheumatic fever, and denies sexually transmitted diseases. Musculoskeletal: The patient denies back pain/injury, notes back problems, denies sciatica, denies knee/foot trouble, denies arthritis, or denies gout. When was patient's last Mammogram screening? N/A Last Colonoscopy: none Talya Alexander LPN documented in this encounterOhio[facility]10-26-2022 History of Present illness Narrative* Maira Merida RN - 04/14/2022 8:[address] De Guzman, Susan was provided with a pair of gel full length Power Step comfort last inserts, size 11 - 12 1/2 and instructed/educated in its application, wear, and care. All questions were answered, and patient was able to demonstrate competence with the necessary skills to utilize the above equipment. Maira Merida RN * Dee Dee Gab - 04/14/2022 8:45 AM EDT Images from the original note were not included. Consultation requested by Dr. glover for an opinion regarding corn. My final recommendations will becommunicated back to the requesting physician by way of shared Medical record or letter to requesting physician via [place] mail. Initial Podiatric Office Visit: Chief Complaint: This 56 year old male who presents with chief complaint:painful callus of b/l feet HPI Patient presents to clinic for evaluation of b/l feet He complains of painful callus of b/l feet. Specificially he has 4 lesions that cause him pain He states when he was younger, he would have them filed down and acid applied He states he has pain with walking due to the excessive build up of skin. PAIN EVALUATION 04/14/2022 0826 Pain Level: 2 Pain Location: Other: See Comment bilateral Description: Sore;Burning Duration Amount of Time: 15 Duration Units: Years Frequency: Continuous Intervention/Comfort measure: Reposition;Relaxation No results found for: HBA1C PCP: No primary care provider on file. PAST MEDICAL HISTORY Diagnosis Date Tobacco use disorder 09/01/2020 Current Outpatient Medications Medication Sig omeprazole (PRILOSEC) 20 mg capsule Take 2 capsules by mouth daily before breakfast. 1/2 hr before meal. No current facility-administered medications for this visit. ALLERGIES No Known Allergies PAST SURGICAL HISTORY Procedure Laterality Date PERCUTANEOUS LUMBAR DISKECTOMY Bilateral 2009 REPAIR ING HERNIA,5+Y/O,REDUCIBL Left 2008 FAMILY HISTORY Problem Relation Age of Onset other (Bone cancer) Mother No Known Problems Father Cancer Maternal Grandmother Uterine No Known Problems Maternal Grandfather No Known Problems Paternal Grandmother No Known Problems Paternal Grandfather Rheumatologic disease Half-brother RA Social History Tobacco Use Smoking status: Every Day Packs/day: 2.00 Years: 32.00 Pack years: 64.00 Types: Cigarettes Smokeless tobacco: Never Vaping Use Vaping Use: Never used Substance Use Topics Alcohol use: Yes Alcohol/week: 12.0 standard drinks Types: 12 Cans of Beer (12oz) per week Comment: 2-3 per night Drug use: No REVIEW OF SYSTEMS GENERAL: Negative for Malaise, significant weight loss, fever RESPIRATORY: Negative for cough, wheezing and shortness of breath CARDIOVASCULAR: Negative for chest pain, leg swelling and palpitations GI: Negative for abdominal discomfort, blood in stools or black stools and change in bowel habits : Negative for dysuria, frequency and incontinence MUSCULOSKELETAL: Negative for joint pain or swelling, back pain, and muscle pain. SKIN: Negative for lesions, rash, and itching. HEMATOLOGY/LYMPHOLOGY Negative for prolonged bleeding, bruising easily, and swollen nodes. ENDOCRINE: Negative for cold or heat intolerance, polyuria, polydipsia and goiter. NEURO: negative Physical Exam: Constitutional: Pt is a well developed 56 year old male who is alert, oriented and cooperative Eyes: Following during examination. No redness or drainage. Respiratory: RR normal and nonlabored. Even breathing. No evidence of distress or shortness of breath. Psychology: Patient is engaged during conversation. Normal affect and mood. Does not appear depressed or anxious during encounter. Vascular: Dorsalis pedis and posterior tibial pulses palpable as b/l Capillary Fill time < 5 seconds to digits 1-5 b/l Skin temperature warm to warm proximal to distal b/l Hair growth present to digits Neurological: intact light touch/epicritic sensation b/l intact protective sensation no significant neurological deficits Dermatological: Nails 1-5 b/l appear normal. Webspaces clean and dry 1-4 b/l. Skin appears well hydrated and supple. good color, texture, turgor. No open lesions present. Porokeratosis present to b/l 1st and b/l 5thmetatarsal head Musculoskeletal/Orthopaedic: Patient has pain to palpation of porokeratotic lesions. Radiographs: n/a ASSESSMENT: (Q82.8) Porokeratosis (primary encounter diagnosis) (L84) [place] PLAN: 1. History and physical examination performed. 2. 4 porokeratotic lesions were debrided today with 15 blade and dremmel. Tca applied under occlusion 3. Discussed risk of recurrence. Could consider laser excision or elliptical excision but recurrence is still high and I would only consider if he stopped smoking 4. Recommend inserts and offloading with donut hole pad Dee Dee De Guzman DPM Podiatry [address] [facility] [address] Dept: [phone] Dept * Keyla Connelly LPN - 04/14/2022 8:26 AM EDT AMB ROOMING INTAKE FLOWSHEET DATA Pain Pain Level: 2 Pain Location: Other: See Comment (bilateral) Description: Sore, Burning Duration Amount of Time: 15 Duration Units: Years Frequency: Continuous Intervention/Comfort measure: Reposition, Relaxation Patient presents with: Left Foot - New, Pain, Corns Right Foot - New, Pain, Corns Patient states he has had corns for 15 -20 years. Patient states that he has seen curber in [facility] but it has been 15 years. Keyla Connelly LPN documented in this encounterOhiohealth [facility] Center10-26-2022 Instructions* Patient Instructions* Dee Dee De Guzman - 04/14/2022 8:56 AM EDT Trichloroacetic acid (TCA) has been applied to the plantar warts. Rinse off in 12 hours and keep clean and dry. May bathe and shower normally starting the day after treatment The area is expected to burn and blister in about 1-3 days, if painful soak in plain, cool water. If blistered, you may drain the blister with a clean, STERILIZED needle and apply OTC antibiotic ointment and band aid to area. Repeat 2-3 times daily as needed. Tylenol or Aleve as needed for pain, provided you have no allergies to either of these. Keep scheduled follow up appointment to have wart(s) re-evaluated and/or additional treatments. Powerstep Original Full length. Can purchase at [employer] here in [place], [employer] in [place] or [place]. Also can find in [employer] in [place]. Powersteps can also be purchased online, starting around $25.00 If you have a metatarsal or dancer pad for your feet apply the pad directly to the insole so you can interchange between your shoes. Find a shoe with a removable insole and take this out and replace with your powerstep insole. Always bring powersteps with you when shopping for shoes so that you can make sure that everything fits well together documented in this encounterOhiohealth [facility] Center10-25-2022 Miscellaneous Notes* Telephone Encounter - Yobany Glover APRN.CNP - 04/13/2022 2:18 PM EDT Medication refilled. Patient saw me yesterday but was unsure of who he wanted to establish with. Hementioned Dr. Pinedo as someone who he saw in the past but was unsure of if he wanted to be with Dr. Harris or someone else. Not sure why this Tia Howard changed the PCP field. Should not happenunless the patient sees your team to establish care. The following approved medication requests have been transmitted electronically. Requested Prescriptions Pending Prescriptions Disp Refills omeprazole (PRILOSEC) 20 mg capsule 60 capsule 1 Sig: Take 2 capsules by mouth daily before breakfast. 1/2 hr before meal. Yobany Glover APRN.CNP. * Telephone Encounter - Rico Pinedo MD - 04/13/2022 2:07 PM EDT Not sure why aristeo Howard listed patient under me as PCP on 04/12/2022 when he never saw me to establish. He just saw Ysabel yesterday so will forward refill request to him and he can also address if patient is to be under Dr. Harris? I will also forward to Tia Howard and maybe she can provide insight as to why she made me patient's PCP today? * Telephone Encounter - Анна Brooke Ma - 04/13/2022 1:20 PM EDT Last office visit: 04/12/22 F/u scheduled: none Анна Brooke Ma documented in this encounter[facility] Instructions* Patient Instructions* Yobany Glover APRN.CNP - 04/12/2022 7:51 AM EDT Consider updated your tetanus, getting a shingles vaccine, and also getting a pneumonia vaccine (indicated for smoker less than 65). See general surgery to discuss colon cancer screening and need for upper scope given your continuedsymptoms of bloating with being on omeprazole. Consider lung cancer screening in the future. Get established with provider such as Dr. Pinedo. If you want you can be a patient of Dr. Harris. Yobany Glover APRN.CNP documented in this encounterOhiohealth [facility]10-24-2022 History of Present illness Narrative* Yobany Glover APRN.CNP - 04/12/2022 7:40 AM EDT Chief Complaint Patient presents with: Yearly Exam Immunizations: Flu vaccination HPI Susan Flores is a 56 year old male who presents here today for Yearly exam. Patient is here for exam. He is new to Dr. Harris and Madelaine but is unsure who he wants to establishwith. He previously followed with Sukhdeep Christensen DNP. GERD: Patient takes: Omeprazole 40 mg daily Heartburn is controlled: Yes. Bloody or black stools: No. Bowel changes: No, but admits to continued bloating after eating and drinking. Getting worse recently. No diarrhea. Due for colon cancer screening. He had a positive ifobt in August 2020. Due for influenza and COVID vaccine. Has a history of corns on bilateral feet. Past medical history, appointments, medications, allergies reviewed. Previous Medical History PAST MEDICAL HISTORY Diagnosis Date Tobacco use disorder 09/01/2020 Previous Surgical History PAST SURGICAL HISTORY Procedure Laterality Date PERCUTANEOUS LUMBAR DISKECTOMY Bilateral 2009 REPAIR ING HERNIA,5+Y/O,REDUCIBL Left 2008 Family History FAMILY HISTORY Problem Relation Age of Onset other (Bone cancer) Mother No Known Problems Father Cancer Maternal Grandmother Uterine No Known Problems Maternal Grandfather No Known Problems Paternal Grandmother No Known Problems Paternal Grandfather Rheumatologic disease Half-brother RA Patient Allergies ALLERGIES No Known Allergies Current Medications Current Outpatient Medications on File Prior to Visit Medication Sig omeprazole (PRILOSEC) 20 mg capsule Take 2 capsules by mouth daily before breakfast. 1/2 hr before meal. naproxen (NAPROSYN) 500 mg tablet TAKE 1 TABLET BY MOUTH TWICE DAILY NEEDED (PAIN/INFLAMMATION, TAKE WITH FOOD.). (Patient not taking: Reported on 07/06/2021 ) polyethylene glycol 3350 (MIRALAX, GLYCOLAX) 17 gram/dose powder Use as directed for Miralax / Gatorade Bowel Prep Kit (Patient not taking: Reported on 07/06/2021 ) Gatorade Sports Drink Use as directed for Miralax / Gatorade Bowel Prep Kit (Patient not taking: Reported on 07/06/2021 ) Bisacodyl (DULCOLAX) 5 mg tab Use as directed for Miralax / Gatorade Bowel Prep Kit (Patient not taking: Reported on 07/06/2021 ) METHYLPREDNISOLONE 4 MG TABS IN A DOSE PACK as directed (Patient not taking: ) No current facility-administered medications on file prior to visit. Social History Social History Tobacco Use Smoking status: Every Day Packs/day: 2.00 Years: 32.00 Pack years: 64.00 Types: Cigarettes Smokeless tobacco: Never Vaping Use Vaping Use: Never used Substance Use Topics Alcohol use: Yes Alcohol/week: 12.0 standard drinks Types: 12 Cans of Beer (12oz) per week Comment: 2-3 per night Drug use: No Review of Symptoms REVIEW OF SYSTEMS PAIN ASSESSMENT: Negative for pain, history of chronic pain, or current treatment for a chronic pain condition. GENERAL: No weight loss, malaise or fevers HEENT: Negative for frequent or significant headaches, No changes in hearing or vision, no nose bleeds or other nasal problems NECK: Negative for lumps, goiter, pain and significant neck swelling RESPIRATORY: Negative for cough, hemoptysis, wheezing, COPD, dyspnea or shortness of breath CARDIOVASCULAR: Negative for chest pain, leg swelling, hypertension, CHF or palpitations GI: See HPI : No history of dysuria, frequency or incontinence SKIN: see HPI PSYCH: Negative for sleep disturbance, mood disorder and recent psychosocial stressors HEMATOLOGY/LYMPHOLOGY: Negative for prolonged bleeding, bruising easily or swollen nodes ENDOCRINE: Negative for cold or heat intolerance, polyuria, polydipsia and goiter NEURO: No history of headaches, syncope, paralysis, seizures or tremors EXAM: BP 138/88 Pulse 84 Temp 36.7 C (98 F) (Left Tympanic) Resp 16 Wt 109.4 kg (241 lb 3.2 oz) BMI 33.64 kg/m General Appearance: Well appearing, alert, in no acute distress, well-hydrated, well nourished.. Head: Normocephalic, no masses, lesions, tenderness or abnormalities. Eyes: Anicteric sclera. Pupils are equally round and reactive to light. Extraocular movements are intact. . Ears: External ears normal, canals clear. Oropharynx: Lips, mucosa, and tongue normal, teeth and gums normal, oropharynx normal. Neck: Supple, no adenopathy; thyroid symmetric, normal size Lungs: Lungs clear to auscultation. No wheezing, rhonchi, rales.. Heart: RRR without murmur, gallop, or rubs. No ectopy. Abdomen: Normal abdominal exam, Abdomen soft, non-tender. Bowel sounds normal. No masses, organomegaly. Extremities: Two corns present on plantar aspect of the bilateral feet on 1st and 5th metatarsal. Health Maintenance List HEPATITIS B(1 of 3 - 3-dose series) Never done PNEUMOCOCCAL(1 - PCV) Never done DTAP,TDAP,TD(1 - Tdap) Never done LUNG CANCER SCREENING Never done SHINGRIX VACCINE(1 of 2) Never done DEPRESSION ASSESSMENT Never done COVID-19 VACCINE(4 - Booster for Pfizer series) due on 07/18/2021 COLORECTAL CANCER SCREENING due on 09/14/2021 INFLUENZA(1) due on 02/18/2022 DIABETES SCREEN due on 09/02/2023 LIPID SCREEN due on 09/01/2025 HEPATITIS C SCREENING Discontinued HIV SCREENING Discontinued Data reviewed None recently performed. ASSESSMENT/PLAN: 1. GERD without esophagitis - ICD9: 530.81, ICD10: K21.9 (primary diagnosis) - Continue with omprazole. See general surgery to see if he needs scoped. - CONSULT TO GENERAL SURGERY 2. Need for influenza vaccination - ICD9: V04.81, ICD10: Z23 - INFLUENZA VACCINE QUADRIVALENT 6 MO - 64 YRS IM 3. Abdominal bloating - ICD9: 787.3, ICD10: R14.0 - Needing EGD? - CONSULT TO GENERAL SURGERY 4. Screening for colon cancer - ICD9: V76.51, ICD10: Z12.11 - Positive ifobt, needs follow up. - CONSULT TO GENERAL SURGERY 5. Encounter for immunization - ICD9: V03.89, ICD10: Z23 - PFIZER-BIONTECH COVID-19 BIVALENT BOOSTER VACCINE, AGE 12+ YR 6. [place] - ICD9: 700, ICD10: L84 - CONSULT TO PODIATRY Yobany Glover APRN.CNP RTO yearly and as needed. Encouraged Lung Cancer Screening but patient denied. This note was partly generated using [employer] voice recognition dictation and may contain some misspelled or inaccurate words missed on review. documented in this encounterOhio[facility]08-09-2022 Miscellaneous Notes* Telephone Encounter - Анна Brooke Ma - 01/26/2022 11:40 AM EDT Notified via [employer]. Анна Brooke Ma * Telephone Encounter - Yobany Glover APRN.CNP - 01/26/2022 10:37 AM EDT Needs appointment to establish. The following approved medication requests have been transmitted electronically. Requested Prescriptions Pending Prescriptions Disp Refills omeprazole (PRILOSEC) 20 mg capsule 60 capsule 1 Sig: Take 2 capsules by mouth daily before breakfast. 1/2 hr before meal. Yobany Glover APRN.CNP * Telephone Encounter - Aidan Nguyen LPN - 01/26/2022 9:58 AM EDT Patient phones requesting refills as follows: Requested Prescriptions Pending Prescriptions Disp Refills omeprazole (PRILOSEC) 20 mg capsule 60 capsule 1 Sig: Take 2 capsules by mouth daily before breakfast. 1/2 hr before meal. KATHLEEN 07/10/21 NOV no upcoming appt *Pt needs appt to establish care with a provider. Please review and advise. Aidan Nguyen LPN documented in this encounterOhiohealth [facility]06-06-2022 Miscellaneous Notes* Telephone Encounter - Sukhdeep Christensen APRN.CNP, DNP - 11/23/2021 4:41 PM EDT The following approved medication requests have been transmitted electronically. Pending Prescriptions Disp Refills OMEPRAZOLE 20 MG CAPSULE,DELAYED RELEASE 60 capsule 1 Sig: Take 2 capsules by mouth daily before breakfast. 1/2 hr before meal. [place]: No Sukhdeep Christensen APRN.ALISTAIR COUCH * Telephone Encounter - Ni Colvin Ma - 11/23/2021 1:04 PM EDT Pending Prescriptions Disp Refills OMEPRAZOLE 20 MG CAPSULE,DELAYED RELEASE 60 capsule 1 Sig: Take 2 capsules by mouth daily before breakfast. 1/2 hr before meal. [place]: No KATHLEEN 07/29/2021 NOV not scheduled at this time Ni Colvin Ma documented in this encounterOhio[facility]03-25-2022 Miscellaneous Notes* Telephone Encounter - Sukhdeep Christensen APRN.CNP, DNP - 09/11/2021 4:26 PM EDT The following approved medication requests have been transmitted electronically. Pending Prescriptions Disp Refills OMEPRAZOLE 20 MG CAPSULE,DELAYED RELEASE 60 capsule 1 Sig: Take 2 capsules by mouth daily before breakfast. 1/2 hr before meal. [place]: No Sukhdeep Christensen APRN.ALISTAIR COUCH * Telephone Encounter - Alee Yang LPN - 09/11/2021 1:09 PM EDT Last refill 07/29/21 Qty: 60 with 0 refills Last ov 07/29/21 NOV none scheduled [facility]* Diagnosis Chest discomfort Other chest pain Shortness of breath documented in this encounter [facility]* Diagnosis GERD without esophagitis Esophageal reflux Tobacco use disorder documented in this encounter [facility]* Diagnosis GERD without esophagitis Esophageal reflux Tobacco use disorder documented [facility] this [facility]* Diagnosis GERD without esophagitis Esophageal reflux Tobacco use disorder documented [facility] this [facility]* Diagnosis GERD without esophagitis Esophageal reflux Tobacco use disorder documented in this [facility]* Diagnosis GERD without esophagitis- Primary Esophageal reflux Need for influenza vaccination Need for prophylactic vaccination and inoculation against influenza Abdominal bloating Flatulence, eructation, and gas pain Screening for colon cancer Special screening for malignant neoplasms, colon Encounter for immunization Need for other specified prophylactic vaccination against single bacterial disease [place] Corns and callosities documented in this encounter [facility]* Diagnosis GERD without esophagitis Esophageal reflux Tobacco use disorder documented in this encounter [facility]* Diagnosis Porokeratosis- Primary Other specified congenital anomaly of skin [place] Corns and callosities documented in this encounter [facility]* Diagnosis Positive fecal occult blood test- Primary Nonspecific abnormal finding in stool contents GERD without esophagitis Esophageal reflux Abdominal bloating Flatulence, eructation, and gas pain Screening for colon cancer Special screening for malignant neoplasms, colon documented in this encounter [facility] noteNo assessment information availableWChillicothe [facility] Work Phone: Evaluation note* Diagnosis Gastroesophageal reflux disease, unspecified whether esophagitis present- Primary Chronic superficial gastritis without bleeding Atrophic gastritis without mention of hemorrhage Hyperplastic polyp of sigmoid colon [facility]* Diagnosis Encounter for immunization- Primary Need for other specified prophylactic vaccination against single bacterial disease Encounter for screening for lung cancer GERD without esophagitis Esophageal reflux Tobacco use disorder Other fatigue Screening for lipid disorders Fungal toenail infection Dermatophytosis of nail Elevated blood pressure reading in office without diagnosis of hypertension Alcohol use Obesity, Class I, BMI 30-34.9 Obesity, unspecified [facility]* Diagnosis Primary hypertension- Primary Unspecified essential hypertension Encounter for immunization Need for other specified prophylactic vaccination against single bacterial disease GERD without esophagitis Esophageal reflux documented in this encounter [facility]* Diagnosis Encounter for screening for malignant neoplasm of colon- Primary Special screening for malignant neoplasms, colon Positive FIT (fecal immunochemical test) Nonspecific abnormal finding in stool contents documented in this encounter [facility]* Diagnosis History of colonic polyps- Primary Personal history of colonic polyps Epigastric pain Abdominal pain, epigastric Abdominal bloating Flatulence, eructation, and gas pain documented in this encounter [facility]* Diagnosis Encounter for screening for lung cancer- Primary Tobacco use current [facility]* Diagnosis Lung nodule- Primary Solitary pulmonary nodule documented [facility]* Diagnosis Lung nodules- Primary Other nonspecific abnormal finding of lung field documented [facility]* Diagnosis Primary hypertension- Primary Unspecified essential hypertension Encounter for immunization Need for other specified prophylactic vaccination against single bacterial disease GERD without esophagitis Esophageal reflux Tobacco use disorder [facility]* Diagnosis Lung nodules- Primary Other nonspecific abnormal finding of lung field Tobacco use current documented in this encounter [facility]* Diagnosis Encounter for screening for lung cancer Tobacco use current [facility]* Diagnosis Lung nodules Other nonspecific abnormal finding of lung field documented in this encounter [facility]* Diagnosis GERD without esophagitis- Primary Esophageal reflux Tobacco use disorder Elevated LDL cholesterol level Pure hypercholesterolemia Class 1 obesity due to excess calories with body mass index (BMI) of 31.0 to 31.9 in adult, unspecified whether serious comorbidity present History of hypertension Personal history of other diseases of circulatory system Encounter for long-term current use of medication documented in this encounter [facility]* Diagnosis HOMER (obstructive sleep apnea)- Primary Obstructive sleep apnea (adult) (pediatric) Cigarette smoker Tobacco use disorder Class 1 obesity with body mass index (BMI) of 31.0 to 31.9 in adult, unspecified obesity type, unspecified whether serious comorbidity present [facility]* Diagnosis HOMER (obstructive sleep apnea)- Primary Obstructive sleep apnea (adult) (pediatric) Hypoxemia [facility]* Diagnosis GERD without esophagitis- Primary Esophageal reflux Tobacco use disorder HOMER (obstructive sleep apnea) Obstructive sleep apnea (adult) (pediatric) [facility]* Diagnosis HOMER on CPAP- Primary Obstructive sleep apnea (adult) (pediatric) Nocturnal hypoxia Hypoxemia Tobacco use disorder [facility]* Diagnosis Smoker- Primary Tobacco use disorder Nocturnal hypoxia Hypoxemia Chest tightness Other chest pain HOMER (obstructive sleep apnea) Obstructive sleep apnea (adult) (pediatric) Lung nodules Other nonspecific abnormal finding of lung field Other emphysema (HCC) Other emphysema [facility]* Diagnosis Nocturnal hypoxia Hypoxemia Smoker Tobacco use disorder [facility]* Diagnosis Chest tightness Other chest pain [facility]* Diagnosis Nocturnal hypoxia- Primary Hypoxemia Smoker Tobacco use disorder HOMER (obstructive sleep apnea) Obstructive sleep apnea (adult) (pediatric) Lung nodules Other nonspecific abnormal finding of lung field Other emphysema (HCC) Other emphysema Stage 1 mild COPD by GOLD classification (HCC) [facility]* Diagnosis Routine medical exam- Primary Routine general medical examination at a health care facility GERD without esophagitis Esophageal reflux Tobacco use disorder HOMER (obstructive sleep apnea) Obstructive sleep apnea (adult) (pediatric) Nocturnal hypoxia Hypoxemia Encounter for immunization Need for other specified prophylactic vaccination against single bacterial disease Encounter for long-term current use of medication Elevated LDL cholesterol level Pure hypercholesterolemia [facility]* Diagnosis HOMER on CPAP- Primary Obstructive sleep apnea (adult) (pediatric) Nocturnal hypoxia Hypoxemia Tobacco use disorder [facility]* Diagnosis Lung nodules- Primary Other nonspecific abnormal finding of lung field Encounter for screening for lung cancer Tobacco use current [facility]* Diagnosis Tobacco use current [facility]* Diagnosis Flu-like symptoms- Primary Other general symptoms [facility]* Diagnosis History of colonic polyps- Primary Personal history of colonic polyps Screening for colon cancer Special screening for malignant neoplasms, colon documented in this encounter [facility]* Diagnosis Encounter for screening colonoscopy- Primary Special screening for malignant neoplasms, colon Screening for colon cancer Special screening for malignant neoplasms, colon History of colonic polyps Personal history of colonic polyps documented in this encounter [facility]* Diagnosis Hyperplastic rectal polyp- Primary Anal and rectal polyp documented in this encounter [facility] for referral (narrative)* Outpatient Procedure (Routine) - Closed Specialty Diagnoses / Procedures Referred By Romel cutler Referred To Contact [facility] Diagnoses Chest discomfort Shortness of breath Procedures STRESS ECHO TREADMILL ECHO TTHRC R-T 2D W/WO M-MODE COMPLETE REST&ST Nikolas Arboleda DO [address] [place] [address] [address] Referral ID Status Reason Start Date Expiration Date V isits Requested Visits Authorized [id number] Closed Auto-Generate d Referral 07/14/2021 07/14/2022 1 1 [facility] for referral (narrative)* Outpatient Procedure (Routine) - Closed Specialty Diagnoses / Procedures Referred By Romel cutler Referred To [facility] Diagnoses Positive FIT (fecal immunochemical test) Procedures COLONOSCOPY DIAGNOSTIC COLONOSCOPY FLX DX W/COLLJ SPEC WHEN PFRMD Goldie Saxena PA-C [address] [place] [address] [id number] [address] Referral ID Status Reason Start Date Expiration Date V isits Requested Visits Authorized [id number] Closed Auto-Generate d Referral 06/15/2022 06/15/2023 1 1 [facility] for referral (narrative)* Diagnostic Procedure Only (Routine) - Authorized Specialty Diagnoses / Procedures Referred By Romel t Referred To [facility] Diagnoses HOMER (obstructive sleep apnea) Procedures HOME SLEEP APNEA TEST (HSAT) SLEEP STD AIRFLOW HRT RATE&O2 SAT EFFORT Toi Waddell Jr., MD [address] [facility] [address] [place] [address] [address] Referral ID Status Reason Start Date Expiration Date Visits Requested Visits Authorized [id number] Authorized Auto-Generat ed Referral 08/08/2023 08/07/2024 1 1 [facility] for referral (narrative)* Outpatient Procedure (Routine) - Authorized Specialty Diagnoses / Procedures Referred By Contac t Referred To Contact [facility] Diagnoses Chest tightness Procedures ECHO ECHO TTHRC R-T 2D W/WOM-MODE COMPL SPEC&COLR D Nida Miller MD [address] [place] [address] [facility] [address] [address] Referral ID Status Reason Start Date Expiration Date Visits Requested Visits Authorized [id number] Authorized Auto-Generat ed Referral 10/27/2023 10/26/2024 1 1 * Outpatient Procedure (Routine) - Authorized Specialty Diagnoses / Procedures Referred By Contac t Referred To [facility] Diagnoses Nocturnal hypoxia Smoker Procedures LUNG DIFFUSION CAPACITY (DLCO) DIFFUSING CAPACITY Nida Miller MD [address] [place] [address] Respiratory [place] [address] [place] [id number] Referral ID Status Reason Start Date Expiration Date Visits Requested Visits Authorized [id number] Authorized Auto-Generat ed Referral 10/27/2023 11/25/2024 1 1 * Outpatient Procedure (Routine) - Authorized Specialty Diagnoses / Procedures Referred By Contac t Referred To [facility] Diagnoses Nocturnal hypoxia Smoker Procedures SPIROMETRY - BASELINE AND POST DILATOR BRNCDILAT RSPSE SPMTRY PRE&POST-BRNCDILAT ADMNida Gagnon MD [address] [place] [address] Res[facility] [place] [address] [place] [id number] Referral ID Status Reason Start Date Expiration Date Visits Requested Visits Authorized [id number] Authorized Auto-Generat ed Referral 10/27/2023 11/25/2024 1 1 [facility] for visit Narrative* Outpatient Procedure (Routine) - Closed Specialty Diagnoses / Procedures Referred By Contac t Referred To Contact [facility] Diagnoses Chest discomfort Shortness of breath Procedures STRESS ECHO TREADMILL ECHO TTHRC R-T 2D W/WO M-MODE COMPLETE REST&ST NkechiNikolas luke, DO [address] [place] [address] [facility] Vascular [address] [address] Referral ID Status Reason Start Date Expiration Date V isits Requested Visits Authorized [id number] Closed Auto-Generate d Referral 07/14/2021 07/14/2022 1 1 [facility] for visit Narrative* Outpatient Procedure (Routine) - Closed Specialty Diagnoses / Procedures Referred By Contac t [facility] Diagnoses Positive FIT (fecal immunochemical test) Procedures COLONOSCOPY DIAGNOSTIC COLONOSCOPY FLX DX W/COLLJ SPEC WHEN PFRMD Goldie Saxena PA-C [address] [place] [address] [facility] [address] [place] [id number] Referral ID Status Reason Start Date Expiration Date V isits Requested Visits Authorized [id number] Closed Auto-Generate d Referral 06/15/2022 06/15/2023 1 1 [facility] for visit Narrative* Outpatient Procedure (Routine) - Closed Specialty Diagnoses / Procedures Referred By Contac t Referred To Contact [facility] Diagnoses Chest tightness Procedures ECHO ECHO TTHRC R-T 2D W/WOM-MODE COMPL SPEC&COLR D Nida Miller MD [address] [place] [address] [facility] [address] [place] [address] Referral ID Status Reason Start Date Expiration Date V isits Requested Visits Authorized [id number] Closed Auto-Generate d Referral 10/27/2023 10/26/2024 1 1 [facility] Procedure (Routine) - Closed Specialty Diagnoses / Procedures Referred By Contac t Referred To Contact [facility] Diagnoses Screening for colon cancer History of colonic polyps Procedures COLONOSCOPY SCREENING COLONOSCOPY FLX DX W/COLLJ SPEC WHEN Sandi Guido APRN.ELECTRIC SCOOP OPERATOR [address] [place] [address] Phone: tel: fax: [facility] [address] [place] [address] Referral ID Status Reason Start Date Expiration Date V isits Requested Visits Authorized [id number] Closed Auto-Generate d Referral 10/24/2024 10/24/2025 1 1 [facility] Summary Purpose Family History No Family History Records FoundNo Family History Records FoundNo Family History Records Found Advance Directives No Advanced Directives Records Found Advance Directive Response Recorded Date/ Time Living Will No June 03 022 2:30pm Power of Skirt Panel Assembler No June 03, 2022 2:30pm Reason for Referral Specialty Diagnoses / Procedures Referred By Contac t Referred To Contact Podiatry Diagnoses [place] Procedures CONSULT TO PODIATRY OFFICE/OUTPATIENT [facility] MDM 60-74 MINUTES Yobany Glover, PROPERTY CLAIMS ADJUSTER.ELECTRIC SCOOP OPERATOR [address] [place] [address] Referral ID Status Reason Start Date Expiration Date Visits Requested Visits Authorized [id number] Pending Review PCP Requested Referral 2 04/12/2023 1 1 Specialty Diagnoses / Procedures Referred By Contac t Referred To Contact General Surgery Diagnoses GERD without esophagitis Abdominal bloating Screening for colon cancer Procedures CONSULT TO GENERAL SURGERY OFFICE/OUTPATIENT [facility] MDM 60-74 MINUTES Yobany Glover APRN.ELECTRIC SCOOP OPERATOR [address] [place] [address] Referral ID Status Reason Start Date Expiration Date Visits Requested Visits Authorized [id number] Pending Review PCP Requested Referral 04/12/2023 1 1 Specialty Diagnoses / Procedures Referred By Contac t Referred To Contact Diagnoses Other fatigue Elevated blood pressure reading in office without diagnosis of hypertension Obesity, Class I, BMI 30-34.9 Procedures CONSULT TO SLEEP MEDICINE - ADULT OFFICE/OUTPATIENT [facility] 60-74 MINUTES Rocky Calles, PROPERTY CLAIMS ADJUSTER.SOLAR INSTALLER TECHNICIAN [address] [place] [address] Referral ID Status Reason Start Date Expiration Date Visits Requested Visits Authorized [id number] Pending Review PCP Requested Referral 08/17/2022 08/17/2023 1 1 Specialty Diagnoses / Procedures Referred By Contac t Referred To Contact [facility] Diagnoses Other fatigue Elevated blood pressure reading in office without diagnosis of hypertension Obesity, Class I, BMI 30-34.9 Procedures HOME SLEEP APNEA TEST (HSAT) SLEEP STD AIRFLOW HRT RATE&O2 SAT EFFORT UNATT Rocky Calles, PROPERTY CLAIMS ADJUSTER.SOLAR INSTALLER TECHNICIAN [address] [place] [address] [facility] [address] [place] [address] Referral ID Status Reason Start Date Expiration Date Visits Requested Visits Authorized [id number] Pending Review Auto-Generat ed Referral 08/17/2022 08/17/2023 1 1 Specialty Diagnoses / Procedures Referred By Contac t Referred To Contact Podiatry Diagnoses Fungal toenail infection Procedures CONSULT TO PODIATRY OFFICE/OUTPATIENT [facility] 60-74 MINUTES Rocky Calles, PROPERTY CLAIMS ADJUSTER.SOLAR INSTALLER TECHNICIAN [address] [place] [address] Referral ID Status Reason Start Date Expiration Date Visits Requested Visits Authorized [id number] Pending Review PCP Requested Referral 08/17/2022 08/17/2023 1 1 Specialty Diagnoses / Procedures Referred By Contac t Referred To Contact Gastroenterology Diagnoses Epigastric pain Abdominal bloating Procedures CONSULT TO GASTROENTEROLOGY OFFICE/OUTPATIENT [facility] 60-74 MINUTES Goldie Saxena PA-C [address] [place] [address] Referral ID Status Reason Start Date Expiration Date Visits Requested Visits Authorized [id number] Pending Review PCP Requested Referral 09/13/2022 09/13/2023 1 1 Specialty Diagnoses / Procedures Referred By Contac t Referred To Contact CT IMAGING Diagnoses Encounter for screening for lung cancer Tobacco use current Procedures CT LUNG SCREEN WO IVCON COMPUTED TOMOGRAPHY THORAX LW DOSE LNG CA SCR Joss- Rosie Roberts, PROPERTY CLAIMS ADJUSTER.ELECTRIC SCOOP OPERATOR [address] [place] [address] Ct Imaging Referral ID Status Reason Start Date Expiration Date Visits Requested Visits Authorized [id number] Authorized Auto-Generat ed Referral 09/15/2022 10/15/2023 1 1 Specialty Diagnoses / Procedures Referred By Contac t Referred To Contact CT IMAGING Diagnoses Lung nodules Procedures CT LUNG FOLLOWUP WO IVCON DIAGNOSTIC COMPUTED TOMOGRAPHY THORAX W/O CNTRST Luis Robertsa, PROPERTY CLAIMS ADJUSTER.ELECTRIC SCOOP OPERATOR [address] [place] [address] Ct Imaging Referral ID Status Reason Start Date Expiration Date Visits Requested Visits Authorized [id number] Pending Review Auto-Generat ed Referral 01/05/2023 11/05/2023 1 1 Referral ID Status Reason Start Date Expiration Date Visits Requested Visits Authorized [id number] Pending Review Auto-Generat ed Referral 07/08/2023 02/04/2024 1 1 Specialty Diagnoses / Procedures Referred By Contac t Referred To Contact CT IMAGING Diagnoses Encounter for screening for lung cancer Tobacco use current Procedures CT LUNG SCREEN WO IVCON COMPUTED TOMOGRAPHY THORAX LW DOSE LNG CA SCR C- Rosie Roberts, PROPERTY CLAIMS ADJUSTER.ELECTRIC SCOOP OPERATOR [address] [place] [address] [place] [address] Referral ID Status Reason Start Date Expiration Date V isits Requested Visits Authorized [id number] Closed Auto-Generate d Referral 09/15/2022 10/15/2023 1 1 Specialty Diagnoses / Procedures Referred By Contac t Referred To Contact CT IMAGING Diagnoses Lung nodules Procedures CT LUNG FOLLOWUP WO IVCON DIAGNOSTIC COMPUTED TOMOGRAPHY THORAX W/O CNTRST Rosie Roberts, PROPERTY CLAIMS ADJUSTER.ELECTRIC SCOOP OPERATOR [address] [place] [address] Ct Imaging [facility] Referral ID Status Reason Start Date Expiration Date V isits Requested Visits Authorized [id number] Closed Auto-Generate d Referral 06/20/2022 06/19/2023 2 2 Specialty Diagnoses / Procedures Referred By Contac t Referred To Contact Diagnoses HOMER (obstructive sleep apnea) Hypoxemia Procedures CONSULT TO SLEEP MEDICINE - ADULT OFFICE/OUTPATIENT [facility] 60-74 MINUTES Rocky Calles, PROPERTY CLAIMS ADJUSTER.[facility] [address] [place] [address] Referral ID Status Reason Start Date Expiration Date Visits Requested Visits Authorized [id number] Pending Review PCP Requested Referral 09/20/2022 09/20/2023 1 1 Referral ID Status Reason Start Date Expiration Date Visits Requested Visits Authorized [id number] Authorized Auto-Generat ed Referral 06/20/2025 08/22/2025 1 1 Specialty Diagnoses / Procedures Referred By Contac t Referred To Contact CT IMAGING Diagnoses Tobacco use current Procedures CT LUNG SCREEN WO IVCON COMPUTED TOMOGRAPHY THORAX LW DOSE LNG CA SCR C- Rosie Roberts, PROPERTY CLAIMS ADJUSTER.ELECTRIC SCOOP OPERATOR [address] [place] [address] Ct Imaging [facility] Referral ID Status Reason Start Date Expiration Date V isits Requested Visits Authorized [id number] Closed Auto-Generate d Referral 07/19/2023 08/17/2024 1 1 Medications Administered Section Inactive Administered Medications - up to 3 most recent administrations Medication Order MAR Action Action Date Dose Rate Site lactated ringers iv infusion 30 mL/hr, INTRAVENOUS, CONTINUOUS, Starting on Tue09/03/22 at 0830, Until Tue09/03/22 at 0814, Preprocedure New Bag/Syringe/Bottle 09/03/2022 8:13 AM EDT 30 mL/hr 30 mL/hr Additional Source Comments (unrecognized sect ion and content) No Status Records FoundNo Status Records FoundNo Status Records Found INFORMATION SOURCE (unrecogn ized section and content) DATE CREATED AUTHOR 09/08/2021 [facility] DATE CREATED AUTHOR AUTHOR'S ORGANIZ ATION 01/06/2023 [facility] DATE CREATED AUTHOR AUTHOR'S ORGANIZ ATION 04/24/2025 [facility] Source Comments (unrecognize d section and content) In the event this informatio n is protected by the Federal Confidentiality of Alcohol and Drug Abuse Patient Records regulations: The Federal rules restrict any use of the information to criminally investigate or prosecute any alcohol or drug abuse patient.[facility] the event this information is protected by the Federal Confidentiality of Alcohol and Drug Abuse Patient Records regulations: The Federal rules restrict any use of the information to criminally investigate or prosecute any alcohol or drug abuse patient.[facility] CenterIn the event this information is protected by the Federal Confidentiality of Alcohol and Drug Abuse Patient Records regulations: The Federal rules restrict any use of the information to criminally investigate or prosecute any alcohol or drug abuse patient.[facility] Center[facility] the event this information is protected by the Federal Confidentiality of Alcohol and Drug Abuse Patient Records regulations: The Federal rules restrict any use of the information to criminally investigate or prosecute any alcohol or drug abuse patient.[facility] CenterIn the event this information is protected by the Federal Confidentiality of Alcohol and Drug Abuse Patient Records regulations: The Federal rules restrict any use of the information to criminally investigate or prosecute any alcohol or drug abuse patient.[facility] CenterIn the event this information is protected by the Federal Confidentiality of Alcohol and Drug Abuse Patient Records regulations: The Federal rules restrict any use of the information to criminally investigate or prosecute any alcohol or drug abuse patient.[facility] CenterIn the event this information is protected by the Federal Confidentiality of Alcohol and Drug Abuse Patient Records regulations: The Federal rules restrict any use of the information to criminally investigate or prosecute any alcohol or drug abuse patient.[facility] CenterIn the event this information is protected by the Federal Confidentiality of Alcohol and Drug Abuse Patient Records regulations: The Federal rules restrict any use of the information to criminally investigate or prosecute any alcohol or drug abuse patient.[facility] CenterIn the event this information is protected by the Federal Confidentiality of Alcohol and Drug Abuse Patient Records regulations: The Federal rules restrict any use of the information to criminally investigate or prosecute any alcohol or drug abuse patient.[facility] CenterIn the event this information is protected by the Federal Confidentiality of Alcohol and Drug Abuse Patient Records regulations: The Federal rules restrict any use of the information to criminally investigate or prosecute any alcohol or drug abuse patient.[facility] CenterIn the event this information is protected by the Federal Confidentiality of Alcohol and Drug Abuse Patient Records regulations: The Federal rules restrict any use of the information to criminally investigate or prosecute any alcohol or drug abuse patient.[facility] CenterIn the event this information is protected by the Federal Confidentiality of Alcohol and Drug Abuse Patient Records regulations: The Federal rules restrict any use of the information to criminally investigate or prosecute any alcohol or drug abuse patient.[facility] CenterIn the event this information is protected by the Federal Confidentiality of Alcohol and Drug Abuse Patient Records regulations: The Federal rules restrict any use of the information to criminally investigate or prosecute any alcohol or drug abuse patient.[facility] CenterIn the event this information is protected by the Federal Confidentiality of Alcohol and Drug Abuse Patient Records regulations: The Federal rules restrict any use of the information to criminally investigate or prosecute any alcohol or drug abuse patient.[facility] CenterIn the event this information is protected by the Federal Confidentiality of Alcohol and Drug Abuse Patient Records regulations: The Federal rules restrict any use of the information to criminally investigate or prosecute any alcohol or drug abuse patient.[facility] CenterIn the event this information is protected by the Federal Confidentiality of Alcohol and Drug Abuse Patient Records regulations: The Federal rules restrict any use of the information to criminally investigate or prosecute any alcohol or drug abuse patient.[facility] CenterIn the event this information is protected by the Federal Confidentiality of Alcohol and Drug Abuse Patient Records regulations: The Federal rules restrict any use of the information to criminally investigate or prosecute any alcohol or drug abuse patient.[facility] CenterIn the event this information is protected by the Federal Confidentiality of Alcohol and Drug Abuse Patient Records regulations: The Federal rules restrict any use of the information to criminally investigate or prosecute any alcohol or drug abuse patient.[facility] CenterIn the event this information is protected by the Federal Confidentiality of Alcohol and Drug Abuse Patient Records regulations: The Federal rules restrict any use of the information to criminally investigate or prosecute any alcohol or drug abuse patient.[facility] CenterIn the event this information is protected by the Federal Confidentiality of Alcohol and Drug Abuse Patient Records regulations: The Federal rules restrict any use of the information to criminally investigate or prosecute any alcohol or drug abuse patient.[facility] CenterIn the event this information is protected by the Federal Confidentiality of Alcohol and Drug Abuse Patient Records regulations: The Federal rules restrict any use of the information to criminally investigate or prosecute any alcohol or drug abuse patient.[facility] CenterIn the event this information is protected by the Federal Confidentiality of Alcohol and Drug Abuse Patient Records regulations: The Federal rules restrict any use of the information to criminally investigate or prosecute any alcohol or drug abuse patient.[facility] CenterIn the event this information is protected by the Federal Confidentiality of Alcohol and Drug Abuse Patient Records regulations: The Federal rules restrict any use of the information to criminally investigate or prosecute any alcohol or drug abuse patient.[facility] CenterIn the event this information is protected by the Federal Confidentiality of Alcohol and Drug Abuse Patient Records regulations: The Federal rules restrict any use of the information to criminally investigate or prosecute any alcohol or drug abuse patient.[facility] CenterIn the event this information is protected by the Federal Confidentiality of Alcohol and Drug Abuse Patient Records regulations: The Federal rules restrict any use of the information to criminally investigate or prosecute any alcohol or drug abuse patient.[facility] CenterIn the event this information is protected by the Federal Confidentiality of Alcohol and Drug Abuse Patient Records regulations: The Federal rules restrict any use of the information to criminally investigate or prosecute any alcohol or drug abuse patient.[facility] CenterIn the event this information is protected by the Federal Confidentiality of Alcohol and Drug Abuse Patient Records regulations: The Federal rules restrict any use of the information to criminally investigate or prosecute any alcohol or drug abuse patient.[facility] CenterIn the event this information is protected by the Federal Confidentiality of Alcohol and Drug Abuse Patient Records regulations: The Federal rules restrict any use of the information to criminally investigate or prosecute any alcohol or drug abuse patient.[facility] CenterIn the event this information is protected by the Federal Confidentiality of Alcohol and Drug Abuse Patient Records regulations: The Federal rules restrict any use of the information to criminally investigate or prosecute any alcohol or drug abuse patient.[facility] CenterIn the event this information is protected by the Federal Confidentiality of Alcohol and Drug Abuse Patient Records regulations: The Federal rules restrict any use of the information to criminally investigate or prosecute any alcohol or drug abuse patient.[facility] CenterIn the event this information is protected by the Federal Confidentiality of Alcohol and Drug Abuse Patient Records regulations: The Federal rules restrict any use of the information to criminally investigate or prosecute any alcohol or drug abuse patient.[facility] the event this information is protected by the Federal Confidentiality of Alcohol and Drug Abuse Patient Records regulations: The Federal rules restrict any use of the information to criminally investigate or prosecute any alcohol or drug abuse patient.[facility] CenterIn the event this information is protected by the Federal Confidentiality of Alcohol and Drug Abuse Patient Records regulations: The Federal rules restrict any use of the information to criminally investigate or prosecute any alcohol or drug abuse patient.[facility] CenterIn the event this information is protected by the Federal Confidentiality of Alcohol and Drug Abuse Patient Records regulations: The Federal rules restrict any use of the information to criminally investigate or prosecute any alcohol or drug abuse patient.[facility] the event this information is protected by the Federal Confidentiality of Alcohol and Drug Abuse Patient Records regulations: The Federal rules restrict any use of the information to criminally investigate or prosecute any alcohol or drug abuse patient.[facility] CenterIn the event this information is protected by the Federal Confidentiality of Alcohol and Drug Abuse Patient Records regulations: The Federal rules restrict any use of the information to criminally investigate or prosecute any alcohol or drug abuse patient.[facility] CenterIn the event this information is protected by the Federal Confidentiality of Alcohol and Drug Abuse Patient Records regulations: The Federal rules restrict any use of the information to criminally investigate or prosecute any alcohol or drug abuse patient.[facility] CenterIn the event this information is protected by the Federal Confidentiality of Alcohol and Drug Abuse Patient Records regulations: The Federal rules restrict any use of the information to criminally investigate or prosecute any alcohol or drug abuse patient.[facility] CenterIn the event this information is protected by the Federal Confidentiality of Alcohol and Drug Abuse Patient Records regulations: The Federal rules restrict any use of the information to criminally investigate or prosecute any alcohol or drug abuse patient.[facility] CenterIn the event this information is protected by the Federal Confidentiality of Alcohol and Drug Abuse Patient Records regulations: The Federal rules restrict any use of the information to criminally investigate or prosecute any alcohol or drug abuse patient.[facility] CenterIn the event this information is protected by the Federal Confidentiality of Alcohol and Drug Abuse Patient Records regulations: The Federal rules restrict any use of the information to criminally investigate or prosecute any alcohol or drug abuse patient.[facility] CenterIn the event this information is protected by the Federal Confidentiality of Alcohol and Drug Abuse Patient Records regulations: The Federal rules restrict any use of the information to criminally investigate or prosecute any alcohol or drug abuse patient.[facility] CenterIn the event this information is protected by the Federal Confidentiality of Alcohol and Drug Abuse Patient Records regulations: The Federal rules restrict any use of the information to criminally investigate or prosecute any alcohol or drug abuse patient.[facility] CenterIn the event this information is protected by the Federal Confidentiality of Alcohol and Drug Abuse Patient Records regulations: The Federal rules restrict any use of the information to criminally investigate or prosecute any alcohol or drug abuse patient.[facility] CenterIn the event this information is protected by the Federal Confidentiality of Alcohol and Drug Abuse Patient Records regulations: The Federal rules restrict any use of the information to criminally investigate or prosecute any alcohol or drug abuse patient.[facility] CenterIn the event this information is protected by the Federal Confidentiality of Alcohol and Drug Abuse Patient Records regulations: The Federal rules restrict any use of the information to criminally investigate or prosecute any alcohol or drug abuse patient.[facility] CenterIn the event this information is protected by the Federal Confidentiality of Alcohol and Drug Abuse Patient Records regulations: The Federal rules restrict any use of the information to criminally investigate or prosecute any alcohol or drug abuse patient.[facility] CenterIn the event this information is protected by the Federal Confidentiality of Alcohol and Drug Abuse Patient Records regulations: The Federal rules restrict any use of the information to criminally investigate or prosecute any alcohol or drug abuse patient.[facility] CenterIn the event this information is protected by the Federal Confidentiality of Alcohol and Drug Abuse Patient Records regulations: The Federal rules restrict any use of the information to criminally investigate or prosecute any alcohol or drug abuse patient.[facility] CenterIn the event this information is protected by the Federal Confidentiality of Alcohol and Drug Abuse Patient Records regulations: The Federal rules restrict any use of the information to criminally investigate or prosecute any alcohol or drug abuse patient.[facility] CenterIn the event this information is protected by the Federal Confidentiality of Alcohol and Drug Abuse Patient Records regulations: The Federal rules restrict any use of the information to criminally investigate or prosecute any alcohol or drug abuse patient.[facility] CenterIn the event this information is protected by the Federal Confidentiality of Alcohol and Drug Abuse Patient Records regulations: The Federal rules restrict any use of the information to criminally investigate or prosecute any alcohol or drug abuse patient.[facility] CenterIn the event this information is protected by the Federal Confidentiality of Alcohol and Drug Abuse Patient Records regulations: The Federal rules restrict any use of the information to criminally investigate or prosecute any alcohol or drug abuse patient.[facility] CenterIn the event this information is protected by the Federal Confidentiality of Alcohol and Drug Abuse Patient Records regulations: The Federal rules restrict any use of the information to criminally investigate or prosecute any alcohol or drug abuse patient.[facility] Care Teams (unrecognized sec tion and content) Fine Arts Model Relationship Specialty Start Date End Date Sukhdeep Christensen, PROPERTY CLAIMS ADJUSTER.IZA, DNP [address] [place] [address] PCP - General Family Practice 11/10/20 Fine Arts Model Relationship Specialty Start Date End Date Sukhdeep Christensen, PROPERTY CLAIMS ADJUSTER.ALISTAIR COUCH [address] [place] [address] PCP - General Family Practice 11/10/20 Fine Arts Model Relationship Specialty Start Date End Date Sukhdeep Christensen, PROPERTY CLAIMS ADJUSTER.IZA, DNP [address] [place] [address] PCP - General Family Practice 11/10/20 Fine Arts Model Relationship Specialty Start Date End Date Sukhdeep Christensen, SANTANA.ALISTAIR COUCH [address] [place] [address] PCP - General Family Practice 11/10/20 Fine Arts Model Relationship Specialty Start Date End Date Sukhdeep Christensen, PROPERTY CLAIMS ADJUSTER.IZA DNP [address] [place] [address] PCP - General Family Medicine 11/10/20 Fine Arts Model Relationship Specialty Start Date End Date Rico Pinedo MD [address] [place] [address] PCP - General Family Medicine 04/12/22 Fine Arts Model Relationship Specialty Start Date End Date Rico Pinedo MD [address] [place] [address] PCP - General Family Medicine 04/14/22 Fine Arts Model Relationship Specialty [place] [address] [place] [address], [place] [address] PCP - General Family Medicine 04/14/22 Fine Arts Model Relationship Specialty Start Date End Date Austin Ge MD [address] [place] [address], [place] [address] PCP - General Internal Medicine 08/17/22 Fine Arts Model Relationship Specialty Start Date End Date Austin Ge MD [address] [place] [address], [place] [address] PCP - General Internal Medicine 08/17/22 Fine Arts Model Relationship Specialty Start Date End Date Austin Ge MD [address] [place] [address], [place] [address] PCP - General Internal Medicine 08/17/22 Fine Arts Model Relationship Specialty Start Date End Date Austin Ge MD [address] [place] [address], [place] [address] PCP - General Internal Medicine 08/17/22 Fine Arts Model Relationship Specialty Start Date End Date Austin Ge MD [address] [place] [address], [place] [address] PCP - General Internal Medicine 08/17/22 Fine Arts Model Relationship Specialty Start Date End Date Austin Ge MD [address] [place] [address], [place] [address] PCP - General Internal Medicine 08/17/22 Fine Arts Model Relationship Specialty Start Date End Date Austin Ge MD [address] [place] [address], [place] [address] PCP - General Internal Medicine 08/17/22 Fine Arts Model Relationship Specialty Start Date End Date Austin Ge MD [address] [place] [address] PCP - General Internal Medicine 08/17/22 Fine Arts Model Relationship Specialty Start Date End Date Austin Ge MD [address] [place] [address] PCP - General Internal Medicine 08/17/22 Fine Arts Model Relationship Specialty Start Date End Date Austin Ge MD [address] [place] [address] PCP - General Internal Medicine 08/17/22 Fine Arts Model Relationship Specialty Start Date End Date Austin Ge MD [address] [place] [address] PCP - General Internal Medicine 08/17/22 Fine Arts Model Relationship Specialty Start Date End Date Austin Ge MD [address] [place] [address] PCP - General Internal Medicine 08/17/22 Fine Arts Model Relationship Specialty Start Date End Date Austin Ge MD [address] [place] [address] PCP - General Internal Medicine 08/17/22 Fine Arts Model Relationship Specialty Start Date End Date Austin Ge MD [address] [place] [address] PCP - General Internal Medicine 08/17/22 Fine Arts Model Relationship Specialty Start Date End Date Austin Ge MD [address] [place] [address] PCP - General Internal Medicine 08/17/22 Fine Arts Model Relationship Specialty Start Date End Date Austin Ge MD [address] [place] [address] PCP - General Internal Medicine 08/17/22 Fine Arts Model Relationship Specialty Start Date End Date Austin Ge MD [address] [place] [address] PCP - General Internal Medicine 08/17/22 Fine Arts Model Relationship Specialty Start Date End Date Austin Ge MD [address] [place] [address] PCP - General Internal Medicine 08/17/22 Fine Arts Model Relationship Specialty Start Date End Date Austin Ge MD [address] [place] [address] PCP - General Internal Medicine 08/17/22 Fine Arts Model Relationship Specialty Start Date End Date Austin Ge MD [address] [place] [address] PCP - General Internal Medicine 08/17/22 Fine Arts Model Relationship Specialty Start Date End Date Austin Ge MD [address] [place] [address] PCP - General Internal Medicine 08/17/22 Fine Arts Model Relationship Specialty Start Date End Date Austin Ge MD [address] [place] [address] PCP - General Internal Medicine 08/17/22 Fine Arts Model Relationship Specialty Start Date End Date Austin Ge MD [address] [place], [place] [address] PCP - General Internal Medicine 08/17/22 Fine Arts Model Relationship Specialty Start Date End Date Austin Ge MD [address] [place] [address] PCP - General Internal Medicine 08/17/22 Fine Arts Model Relationship Specialty Start Date End Date Sukhdeep Christensen, PROPERTY CLAIMS ADJUSTER.ELECTRIC SCOOP OPERATOR, DNP [address] [place] [address] PCP - General Family Medicine 11/10/20 04/11/22 Fine Arts Model Relationship Specialty Start Date End Date Austin Ge MD [address] [place] [address] PCP - General Internal Medicine 08/17/22 Fine Arts Model Relationship Specialty Start Date End Date Austin Ge MD [address] [place] [address] PCP - General Internal Medicine 08/17/22 Fine Arts Model Relationship Specialty Start Date End Date Austin Ge MD [address] [place] [address] PCP - General Internal Medicine 08/17/22 Rocky Calles, PROPERTY CLAIMS ADJUSTER.SOLAR INSTALLER TECHNICIAN [address] [place] [address] Cigar Sorter Internal Medicine 05/28/24 Stephanie Sim PROPERTY CLAIMS ADJUSTER.ELECTRIC SCOOP OPERATOR [address] [facility] [address] Cigar Sorter Internal Medicine 05/28/24 Fine Arts Model Relationship Specialty Start Date End Date Austin Ge MD [address] [place] [address] PCP - General Internal Medicine 08/17/22 Rocky Calles APRN.SOLAR INSTALLER TECHNICIAN [address] [place] [address] Cigar Sorter Internal Medicine 05/28/24 Stephanie Sim APRN.ELECTRIC SCOOP OPERATOR [address] [place] [address] Cigar Sorter Internal Medicine 05/28/24 Fine Arts Model Relationship Specialty Start Date End Date Austin Ge MD [address] [place] [address] PCP - General Internal Medicine 08/17/22 Rocky Calles PROPERTY CLAIMS ADJUSTER.SOLAR INSTALLER TECHNICIAN [address] [place] [address] Cigar Sorter Internal Medicine 05/28/24 Stephanie Sim APRN.ELECTRIC SCOOP OPERATOR [address] [place] [address] Cigar Sorter Internal Medicine 05/28/24 Fine Arts Model Relationship Specialty Start Date End Date Austin Ge MD [address] [place] [address] PCP - General Internal Medicine 08/17/22 Rocky Calles PROPERTY CLAIMS ADJUSTER.SOLAR INSTALLER TECHNICIAN [address] [place] [address] Cigar Sorter Internal Medicine 05/28/24 Stephanie Sim APRN.ELECTRIC SCOOP OPERATOR [address] [place] [address] Cigar Sorter Internal Medicine 05/28/24 Fine Arts Model Relationship Specialty Start Date End Date Austin Ge MD [address] [place] [address] PCP - General Internal Medicine 08/17/22 Rocky Calles, PROPERTY CLAIMS ADJUSTER.SOLAR INSTALLER TECHNICIAN [address] [facility] [place] [address] Cigar Sorter Internal Medicine 05/28/24 Stephanie Sim PROPERTY CLAIMS ADJUSTER.ELECTRIC SCOOP OPERATOR [address] [facility] [place] [address] [facility] Internal Medicine 09/11/24 Fine Arts Model Relationship Specialty Start Date End Date Austin Ge MD [address] [place] [address] PCP - General Internal Medicine 08/17/22 Stephanie Sim APRN.ELECTRIC SCOOP OPERATOR [address] [facility] [address] Cigar Sorter Internal Medicine 09/11/24 Rocky Calles, PROPERTY CLAIMS ADJUSTER.SOLAR INSTALLER TECHNICIAN [address] [place] [address] Cigar Sorter Internal Medicine 11/07/24 Fine Arts Model Relationship Specialty Start Date End Date Austin Ge MD [address] [facility] [place] [address] PCP - General Internal Medicine 08/17/22 Stephanie Sim PROPERTY CLAIMS ADJUSTER.ELECTRIC SCOOP OPERATOR [address] [place] [address] Cigar Sorter Internal Medicine 09/11/24 Rocky Calles, PROPERTY CLAIMS ADJUSTER.SOLAR INSTALLER TECHNICIAN [address] [place], [place] [address] [facility] Internal Medicine 11/07/24 Fine Arts Model Relationship Specialty Start Date End Date Austin Ge MD [address] [place], [place] [id number] PCP - General Internal Medicine 08/17/22 Stephanie Sim, PROPERTY CLAIMS ADJUSTER.ELECTRIC SCOOP OPERATOR [address] [place], [place] [id number] [facility] Internal Medicine 09/11/24 Rocky Calles, PROPERTY CLAIMS ADJUSTER.SOLAR INSTALLER TECHNICIAN [address] [place], [place] [address] [facility] Internal Medicine 11/07/24 Reason for Visit (unrecogniz ed section and content) Reason Onset Date Comments Refill Request 09/11/2021 Reason Onset Date Comments Refill Request 11/23/2021 Reason Onset Date Comments Refill Request 01/26/2022 Reason Onset Date Comments Refill Request 04/02/2022 Reason Onset Date Comments Yearly Exam Immunizations 04/12/2022 Flu vaccination Reason Onset Date Comments Refill Request 04/13/2022 Reason Comments New Pain Corns Specialty Diagnoses / Procedures Referred By Contac t Referred To Contact Podiatry Diagnoses [place] Procedures CONSULT TO PODIATRY OFFICE/OUTPATIENT [facility] 60-74 MINUTES Yobany Glover, PROPERTY CLAIMS ADJUSTER.ELECTRIC SCOOP OPERATOR [address] [place] [address] Referral ID Status Reason Start Date Expiration Date Visits Requested Visits Authorized [id number] Pending Review PCP Requested Referral 2 04/12/2023 1 1 Reason Comments Consult GERD and abdomen blo ating Specialty Diagnoses / Procedures Referred By Contac t Referred To Contact General Surgery Diagnoses GERD without esophagitis Abdominal bloating Screening for colon cancer Procedures CONSULT TO GENERAL SURGERY OFFICE/OUTPATIENT [facility] MDM 60-74 MINUTES Amilcar, Yobany, PROPERTY CLAIMS ADJUSTER.ELECTRIC SCOOP OPERATOR [address] [place] [address] Referral ID Status Reason Start Date Expiration Date Visits Requested Visits Authorized [id number] Pending Review PCP Requested Referral 2 04/12/2023 1 1 Reason Comments Medication Problem Reason Comments Follow Up Colon[facility] 06/07 Reason Onset Date Comments Refill Request 06/25/2022 Reason Comments Establish Care Reason Comments Blood Pressure Reason Comments Referral Request Gastroenterology Ref erral Reason Comments post procedure check Reason Comments New Patient LCS Reason Comments Appointment Reason Comments Results Reason Comments Follow Up Blood pressure Reason Onset Date Comments Refill Request 12/27/2022 Reason Comments Established Patient 3 month follow up Specialty Diagnoses / Procedures Referred By Romel cutler Referred To Contact CT IMAGING Diagnoses Lung nodules Procedures CT LUNG FOLLOWUP WO IVCON DIAGNOSTIC COMPUTED TOMOGRAPHY THORAX W/O CNTRST Rosie Roberts, PROPERTY CLAIMS ADJUSTER.ELECTRIC SCOOP OPERATOR [address] [place] [address] Ct Imaging Referral ID Status Reason Start Date Expiration Date V isits Requested Visits Authorized [id number] Closed Auto-Generate d Referral 06/20/2022 06/19/2023 [address] Specialty Diagnoses / Procedures Referred By Romel cutler Referred To Contact CT IMAGING Diagnoses Encounter for screening for lung cancer Tobacco use current Procedures CT LUNG SCREEN WO IVCON COMPUTED TOMOGRAPHY THORAX LW DOSE LNG CA SCR C- Eagle ButteRosie mac, PROPERTY CLAIMS ADJUSTER.ELECTRIC SCOOP OPERATOR [address] [place] [address] Ct Imaging [facility] Referral ID Status Reason Start Date Expiration Date V isits Requested Visits Authorized [id number] Closed Auto-Generate d Referral 09/15/2022 10/15/2023 1 1 Specialty Diagnoses / Procedures Referred By Romel t Referred To Contact CT IMAGING Diagnoses Lung nodules Procedures CT LUNG FOLLOWUP WO IVCON DIAGNOSTIC COMPUTED TOMOGRAPHY THORAX W/O CNTRST Rosie Roberts, PROPERTY CLAIMS ADJUSTER.ELECTRIC SCOOP OPERATOR [address] [place] [address] [place] [address] Reason Comments F/U 6 months Reason Comments New Patient Pt reported [facility] n ew 2022, c/o loose mask fit. Reason Comments F/U 6 Month Reason Comments Follow Up Reason Comments Consult New Patient Noctgrega l Hypoxia Specialty Diagnoses / Procedures Referred By Contac t Referred To Contact Pulmonary and Critical Care Medicine Diagnoses Nocturnal hypoxia Procedures CONSULT TO PULM/CRITICAL CARE OFFICE/OUTPATIENT NEW HIGH MDM 60 MINUTES Merrill Patton, PROPERTY CLAIMS ADJUSTER.ELECTRIC SCOOP OPERATOR [address] [id number] Referral ID Status Reason Start Date Expiration Date V isits Requested Visits Authorized [id number] Closed PCP Requested Referral 10/24/2023 10/23/2024 1 1 Reason Comments Dasco - O2 Order Reason Comments Spirometry Specialty Diagnoses / Procedures Referred By Contac t Referred [facility] Diagnoses Nocturnal hypoxia Smoker Procedures SPIROMETRY - BASELINE AND POST DILATOR BRNCDILAT RSPSE SPMTRY PRE&POST-BRNCDILAT ADMN Nida Miller MD [address] [phone] Respiratory [facility] [place] [id number] Referral ID Status Reason Start Date Expiration Date V isits Requested Visits Authorized [id number] Closed Auto-Generate d Referral 10/27/2023 11/25/2024 1 1 Specialty Diagnoses / Procedures Referred By Contac t Referred To Contact [facility] Diagnoses Nocturnal hypoxia Smoker Procedures LUNG DIFFUSION CAPACITY (DLCO) DIFFUSING CAPACITY Nida Miller MD [address] [phone] Res[facility] [place] [place] [id number] Referral ID Status Reason Start Date Expiration Date V isits Requested Visits Authorized [id number] Closed Auto-Generate d Referral 10/27/2023 11/25/2024 1 1 Reason Comments Follow Up Had Pulm testing las t month Specialty Diagnoses / Procedures Referred By Contac t Referred To Contact Pulmonary and Critical Care Medicine / PULMONARY MEDICINE Diagnoses Follow-up exam Follow up Procedures OFFICE/OUTPATIENT ESTABLISHED HIGH MDM 40 MIN RI EST PULM GENERAL Nida Miller MD [address] [place] [address] Nida Miller MD [address] [place] [address] Referral ID Status Reason Start Date Expiration Date Visits Re quested Visits Authorized [id number] Closed 12/05/2023 06/19/2024 1 1 Reason Comments Yearly Exam Reason Comments Follow Up HOMER Reason Comments Recheck Follow up Specialty Diagnoses / Procedures Referred By Contac t Referred To Contact CT IMAGING Diagnoses Tobacco use current Procedures CT LUNG SCREEN WO IVCON COMPUTED TOMOGRAPHY THORAX LW DOSE LNG CA SCR Joss- Rosie Roberts, PROPERTY CLAIMS ADJUSTER.ELECTRIC SCOOP OPERATOR [address] [place] [address] [place] [address] Referral ID Status Reason Start Date Expiration Date V isits Requested Visits Authorized [id number] Closed Auto-Generate d Referral 07/19/2023 08/17/2024 1 1 Reason Comments Viral Syndrome Cough, chills, fever , started Tuesday, worsening Reason Comments Consult Hx of polyps Specialty Diagnoses / Procedures Referred By Contac t Referred To Contact General Surgery Diagnoses Screening for colon cancer Procedures CONSULT TO GENERAL SURGERY OFFICE/OUTPATIENT [facility] 60 MINUTES Rocky Calles, PROPERTY CLAIMS ADJUSTER.SOLAR INSTALLER TECHNICIAN [address] [place] [address] Phone: tel: fax: Referral ID Status Reason Start Date Expiration Date V isits Requested Visits Authorized [id number] Closed PCP Requested Referral 10/15/2024 10/15/2025 1 1 FOR RECORDS PERTAINING TO PATIENTS WHO ARE OR HAVE BEEN ENROLLED IN A CHEMICAL DEPENDENCY/SUBSTANCEABUSE PROGRAM, SOME INFORMATION MAY BE OMITTED. This clinical summary was aggregated from multiple sources. Caution should be exercised in using it in the provision of clinical care. This summary normalizes information from multiple sources, and as a consequence, information in this document may materially change the coding, format and clinical context of patient data. In addition, data may be omitted in some cases. CLINICAL DECISIONS SHOULD BE BASED ON THE PRIMARY CLINICAL RECORDS. [employer] provides no warranty or guarantee of the accuracy or completeness of information in this document.
[2025-05-04 19:11] LABS: Anion Gap 11 (5-15); BUN 25 mg/dL (4-19); BUN/Creat Ratio 22.8 RATIO (10-20); Calcium,Total 9.4 mg/dL (7.6-11.0); Carbon Dioxide 22.4 mmol/L (21.0-32.0); Chloride 104 mmol/L (98-108); Estimated Creatinine Clearance 93.37 ml/min (50-250); Glucose 86 mg/dL (70-99); Potassium 4.1 mmol/L (3.3-5.1); Troponin T High Sensitivity 10 ng/L (<=22)
--- NOTE | 2025-05-04 19:40 | RAD_ITS ---
PROCEDURE: CHEST PA AND LATERAL 05/04/2025 REASON FOR EXAM: CP TECHNIQUE: Procedure Code: RADCXR Modality: DX Procedure: CHEST PA AND LATERAL COMPARISON: None available. FINDINGS: Hardware: None. Heart: The heart size is normal. Mediastinum: The mediastinal contour is unremarkable. Lungs: The lungs are clear. No pneumothorax or pleural effusion. Bones: The bones are unremarkable. RAD/Chest PA and Lateral IMPRESSION: NO ACUTE FINDINGS. Reading [facility]
[2025-05-04 20:34] LABS: Troponin T High Sens 2 HR 11 ng/L (<=22)
--- NOTE | 2025-05-05 00:06 | EX.ED.DYSGE1 ---
HPI History of Present Illness Chief Complaint: Neuro S/Sx Narrative Narrative: Patient is a 59-year-old male presenting to the emergency department for multiple complaints including intermittent chest pain, intermittent finger tingling on the left side and a posterior left sided headache. Reports that his symptoms have been on and off for the past 4 weeks. States that he feels lightheaded and woozy with certain movements including standing up too fast or standing up for too long. He denies any shortness of breath. Denies any recent head trauma. Denies any neck or back pain. Denies any focal numbness or weakness at time of evaluation. Denies any slurred speech or changes to his vision. Reports that he has also had intermittent left-sided chest pain that does not radiate. He denies any ripping or tearing chest pain. Denies any fever or chills. [facility] Medical History Positive fecal occult blood test Abdominal bloating Epigastric pain Wears glasses Gastric reflux Smoker Cardiology follow-up encounter History of echocardiogram History of stress test Home Medications Medication Instructions Recorded Last Taken Type omeprazole 20 mg capsule,delayed 20 mg PO DAILY 06/03/22 Unknown History release amlodipine 2.5 mg tablet 2.5 mg PO DAILY 11/25/22 Unknown History doxycycline hyclate 100 mg capsule 100 mg PO BID #28 caps 11/25/22 Unknown Rx Allergy/AdvReac Type Severity Reaction Status Date / Time No Known Allergies Allergy Verified 11/25/22 13:39 Family History Mother Bone cancer Surgical History Hx of hernia repair History of back surgery Social History household members: spouse Smoking Status: Current every day smoker tobacco type: cigarettes alcohol intake: current alcohol intake frequency: a few times a week ROS ROS ED ROS Narrative see HPI EXAM Physical Exam Narrative Exam Narrative: Vital signs: Reviewed General: Alert and orientedx3. No acute distress HEENT: Head is normocephalic and atraumatic, sinuses nontender, pupils equal round and reactive. Nares are patent. Oropharynx and throat exams normal. Neck: Supple without lymphadenopathy nontender. No nuchal rigidity. Normal active range of motion of neck. Cardiovascular: Regular rate and rhythm, no murmurs. No rubs or gallops. Normal S1 and S2. Bilateral radial and DP/PT pulses are intact and symmetric throughout. Respiratory: Clear to auscultation bilaterally. No wheezes, rales, rhonchi Abdominal: Soft and nontender. Normal bowel sounds. No guarding or rebound. Nonsurgical abdomen Extremities: No tenderness. No bruising. Normal range of motion. Normal sensation. Skin: No rash or redness. Neurological: Cranial nerves II through XII are grossly intact. Normal strength and sensation. Normal cerebellar function. Normal byzcpr-hq-[id number] testing bilaterally. Normal sagm-pz-[id number] testing bilaterally. No ataxia on ambulation test. The rest of the physical exam is unremarkable Const Vital Signs: 05/04/25 17:59 05/04/25 18:38 05/04/25 18:41 Temperature 98.2 F Temperature Source Oral Pulse Rate 78 70 66 Pulse Rate [Lying] Pulse Rate [Sitting (for 1 minute prior to obtaining)] Respiratory Rate 16 16 16 Blood Pressure 174/142 H 141/83 H Blood Pressure [Lying] Blood Pressure [Sitting (for 1 minute prior to obtaining)] Blood Pressure [Standing (for 1 minute prior to obtaining)] Blood Pressure Mean 152 99 Blood Pressure Mean [Lying] Blood Pressure Mean [Sitting (for 1 minute prior to obtaining)] Blood Pressure Mean [Standing (for 1 minute prior to obtaining)] Pulse Ox 95 97 98 Oxygen Delivery Method Room Air 05/04/25 18:45 05/04/25 18:46 05/04/25 18:46 Temperature Temperature Source Pulse Rate 68 74 Pulse Rate [Lying] 67 Pulse Rate [Sitting (for 1 minute prior to obtaining)] 74 Respiratory Rate 19 H 22 H Blood Pressure 137/98 H 138/85 H Blood Pressure [Lying] 138/85 H Blood Pressure [Sitting (for 1 minute prior to obtaining)] 142/94 H Blood Pressure [Standing (for 1 minute prior to obtaining)] 144/92 H Blood Pressure Mean 112 101 Blood Pressure Mean [Lying] 102 Blood Pressure Mean [Sitting (for 1 minute prior to obtaining)] 110 Blood Pressure Mean [Standing (for 1 minute prior to obtaining)] 109 Pulse Ox 96 95 Oxygen Delivery Method 05/04/25 18:48 05/04/25 18:50 05/04/25 19:00 Temperature Temperature Source Pulse Rate 74 72 63 Pulse Rate [Lying] Pulse Rate [Sitting (for 1 minute prior to obtaining)] Respiratory Rate 20 H 20 H 17 Blood Pressure 142/94 H 144/92 H 138/85 H Blood Pressure [Lying] Blood Pressure [Sitting (for 1 minute prior to obtaining)] Blood Pressure [Standing (for 1 minute prior to obtaining)] Blood Pressure Mean 110 109 102 Blood Pressure Mean [Lying] Blood Pressure Mean [Sitting (for 1 minute prior to obtaining)] Blood Pressure Mean [Standing (for 1 minute prior to obtaining)] Pulse Ox 96 97 94 Oxygen Delivery Method 05/04/25 19:15 05/04/25 19:30 05/04/25 19:30 Temperature Temperature Source Pulse Rate 63 68 Pulse Rate [Lying] Pulse Rate [Sitting (for 1 minute prior to obtaining)] Respiratory Rate 15 15 Blood Pressure 119/95 H 119/95 H Blood Pressure [Lying] Blood Pressure [Sitting (for 1 minute prior to obtaining)] Blood Pressure [Standing (for 1 minute prior to obtaining)] Blood Pressure Mean 102 102 Blood Pressure Mean [Lying] Blood Pressure Mean [Sitting (for 1 minute prior to obtaining)] Blood Pressure Mean [Standing (for 1 minute prior to obtaining)] Pulse Ox 96 96 Oxygen Delivery Method 05/04/25 19:45 05/04/25 20:00 05/04/25 20:15 Temperature Temperature Source Pulse Rate 76 59 L 65 Pulse Rate [Lying] Pulse Rate [Sitting (for 1 minute prior to obtaining)] Respiratory Rate 16 15 17 Blood Pressure 129/89 H Blood Pressure [Lying] Blood Pressure [Sitting (for 1 minute prior to obtaining)] Blood Pressure [Standing (for 1 minute prior to obtaining)] Blood Pressure Mean 103 Blood Pressure Mean [Lying] Blood Pressure Mean [Sitting (for 1 minute prior to obtaining)] Blood Pressure Mean [Standing (for 1 minute prior to obtaining)] Pulse Ox 99 99 Oxygen Delivery Method 05/04/25 20:30 05/04/25 20:45 05/04/25 21:00 Temperature Temperature Source Pulse Rate 60 61 63 Pulse Rate [Lying] Pulse Rate [Sitting (for 1 minute prior to obtaining)] Respiratory Rate 17 17 23 H Blood Pressure 133/83 H 140/94 H Blood Pressure [Lying] Blood Pressure [Sitting (for 1 minute prior to obtaining)] Blood Pressure [Standing (for 1 minute prior to obtaining)] Blood Pressure Mean 96 109 Blood Pressure Mean [Lying] Blood Pressure Mean [Sitting (for 1 minute prior to obtaining)] Blood Pressure Mean [Standing (for 1 minute prior to obtaining)] Pulse Ox 96 98 98 Oxygen Delivery Method 05/04/25 21:15 05/04/25 21:30 05/04/25 21:45 Temperature Temperature Source Pulse Rate 75 57 L 56 L Pulse Rate [Lying] Pulse Rate [Sitting (for 1 minute prior to obtaining)] Respiratory Rate 18 19 H 16 Blood Pressure 130/85 H Blood Pressure [Lying] Blood Pressure [Sitting (for 1 minute prior to obtaining)] Blood Pressure [Standing (for 1 minute prior to obtaining)] Blood Pressure Mean 99 Blood Pressure Mean [Lying] Blood Pressure Mean [Sitting (for 1 minute prior to obtaining)] Blood Pressure Mean [Standing (for 1 minute prior to obtaining)] Pulse Ox 97 97 Oxygen Delivery Method 05/04/25 22:00 05/04/25 22:15 05/04/25 22:30 Temperature Temperature Source Pulse Rate 56 L 58 L 56 L Pulse Rate [Lying] Pulse Rate [Sitting (for 1 minute prior to obtaining)] Respiratory Rate 19 H 18 19 H Blood Pressure 133/92 H 132/90 H Blood Pressure [Lying] Blood Pressure [Sitting (for 1 minute prior to obtaining)] Blood Pressure [Standing (for 1 minute prior to obtaining)] Blood Pressure Mean 106 104 Blood Pressure Mean [Lying] Blood Pressure Mean [Sitting (for 1 minute prior to obtaining)] Blood Pressure Mean [Standing (for 1 minute prior to obtaining)] Pulse Ox 95 98 95 Oxygen Delivery Method 05/04/25 22:45 05/04/25 23:00 05/04/25 23:02 Temperature 98.2 F Temperature Source Pulse Rate 59 L 58 L 58 L Pulse Rate [Lying] Pulse Rate [Sitting (for 1 minute prior to obtaining)] Respiratory Rate 17 16 16 Blood Pressure 133/89 H 133/89 H Blood Pressure [Lying] Blood Pressure [Sitting (for 1 minute prior to obtaining)] Blood Pressure [Standing (for 1 minute prior to obtaining)] Blood Pressure Mean 103 103 Blood Pressure Mean [Lying] Blood Pressure Mean [Sitting (for 1 minute prior to obtaining)] Blood Pressure Mean [Standing (for 1 minute prior to obtaining)] Pulse Ox 96 95 95 Oxygen Delivery Method NIHSS NIHSS Initial: 1a Level of Consciousness: 0 1b LOC Questions (Score 2 if aphasic/stupor): 0 1c LOC Commands (Only score 1st attempt): 0 2 Best Gaze (If aphasic, use reflexive mvmts.): 0 3 Visual: 0 4 Facial Palsy: 0 5 Motor Arm Right (UN = amputation/fusion): 0 5 Motor Arm Left: 0 6 Motor Leg Right: 0 6 Motor Leg Left: 0 7 Limb ataxia (Only + if out of proportion): 0 8 Sensory (Aphasia/stupor=0 or 1, coma=2): 0 9 Best Language: 0 10 Dysarthria (mute, coma=2, intubated=UN): 0 11 Extinction and Inattention (only scored if +): 0 Total Score: 0 MDM MDM MDM Narrative Medical decision making narrative: Patient is a 59-year-old male presenting to the emergency department for multiple complaints that can be seen in the HPI. Patient was seen and examined. Vitals are stable. Patient resting in bed comfortably no acute distress. Patient has no numbness or weakness in his extremities at time of evaluation. Denies any tingling sensation in his fingers as he previously stated. He denies any current chest pain. Reports that he has a left-sided headache at the base of his skull that started gradually, no sudden onset. No history of head trauma. No fevers or chills. No nuchal rigidity. Neurologically intact. No dizziness or vertiginous symptoms on discussion with the patient. It sounds to be more lightheadedness. He has no abnormal cerebellar testing on exam. Patient is having no ripping or tearing chest pain. I do not think this is aortic in nature. EKG shows normal sinus rhythm with an incomplete right bundle branch block. No ischemic changes. No dysrhythmia. CBC with no leukocytosis and a normal hemoglobin. BMP with slight elevation in BUN at 25. Troponin reflex within normal limits with no significant delta change. CT of the brain with no acute intracranial abnormalities. CT of the head and neck is negative. Chest x-ray reviewed by myself, no pneumothorax, opacities or wide mediastinum. Radiology read in agreement. Patient was given a liter of fluids and Tylenol. On reevaluation, patient is feeling much better. He has been able to ambulate without any of his symptoms he previously described of lightheadedness. Headache is much improved. I think his symptoms were likely related to dehydration. Clinical impression Dehydration Episodic lightheadedness Chest pain of unclear etiology History & Record Review Discussion w/independent historian: Patient and Significant other Lab Data Attestation: I reviewed the patient's lab results. Labs: Laboratory Results - last 24 hr 05/04/25 05/04/25 18:18 20:15 WBC 7.9 RBC 4.40 L Hgb 14.3 Hct 42.4 MCV 96.4 H MCH 32.5 H MCHC 33.7 RDW Std Deviation 46.0 H RDW Coeff of [place] 12.8 Plt Count 162 MPV 10.2 Immature Gran % (Auto) 0.600 Neut % (Auto) 64.2 Lymph % (Auto) 23.2 Alcorn % (Auto) 8.7 Eos % (Auto) 2.8 Baso % (Auto) 0.5 Absolute Neuts (auto) 5.1 Absolute Lymphs (auto) 1.84 Nucleated RBC % 0 Sodium 138 Potassium 4.1 Chloride 104 Carbon Dioxide 22.4 Anion Gap 11 BUN 25 H Creatinine 1.09 Estim Creat Clear Calc 93.37 Est GFR (MDRD) Non-Af 79 BUN/Creatinine Ratio 22.8 H Glucose 86 Calcium 9.4 Troponin T High Sens 10 Troponin T Hi Sens 2 Hr 11 Radiography Diagnostic Testing: Clinical Impression(s) from Imaging Studies Brain CT 05/04/25 18:38 IMPRESSION: Negative noncontrast CT study of the brain Reading Location: [facility] Head/Neck CTA 05/04/25 18:38 IMPRESSION: Unremarkable CT angiogram of the head and neck with no evidence of occlusion or hemodynamically significant stenosis. Reading Location: [facility] Chest X-Ray 05/04/25 19:40 IMPRESSION: NO ACUTE FINDINGS. Reading Location: [facility] Discharge Plan Triage Chief Complaint: Neuro S/Sx ED Provider: Jazmín Jon Dx/Rx/DC Orders Clinical Impression: Dehydration, Episodic lightheadedness, Chest pain Instructions: ED Chest Pain, Uncertain Cause, ED Dehydration (Adult) Prescriptions: No Action amlodipine 2.5 mg tablet 2.5 mg PO DAILY doxycycline hyclate 100 mg capsule 100 mg PO BID Qty: 28 0RF omeprazole 20 mg capsule,delayed release(DR/EC) 20 mg PO DAILY Patient Comments: Take 2 capsules by mouth daily before breakfast. 1/2 hr before meal. Primary Care Provider: Delma Colmenares Referrals: Delma Colmenares MD [Primary Care Provider, Internal Medicine] - As soon as possible Activity Restrictions/Additional Instructions: Drink lots of fluids at home. Your evaluation in the Emergency Department did not reveal any acute reason for admission. However, I want to emphasize that you may be early in the course of a disease process or illness even if it is not present. For this reason you should follow-up within 24 hours for reevaluation with either your primary care physician or if necessary back here in the Emergency Department. You should return to the Emergency Department immediately if your symptoms worsen or new symptoms develop. Print Language: Greek Disposition Disposition: Home, Self Care Discharge Date/Time: 05/04/25 23:09
== END 2025-05-04 23:09 | disposition home or self-care (01) ==
PROVIDERS: Emergency Provider Student in an Organized Health Care Education/Training Program; PCP Internal Medicine; Visit Provider Student in an Organized Health Care Education/Training Program
DX: R07.9 Chest pain, unspecified (principal); F17.210 Nicotine dependence, cigarettes, uncomplicated; R42 Dizziness and giddiness; E86.0 Dehydration
CPT/HCPCS: 70450; 70496; 70498; 71046; 80048; 84484; 85025; 93005; 96360; 96361; 99285; Q9967; A4216